=== PATIENT | male | born 1945 | race Caucasian/White ===

== ENCOUNTER → 2017-04-12 | Outpatient (CLI) | payer MEDICARE ==
--- NOTE | 2017-04-12 15:34 | US ---
EXAMINATION TYPE: US bladder DATE OF EXAM: 04/12/2017 COMPARISON: US latter April 12 2016 CLINICAL HISTORY: [id number] urination. Frequent urination, weak urine stream EXAM MEASUREMENTS: Post Void Residual Volume: 9.0 mL Color Doppler performed to assess ureteral jets. Bilateral Jets seen: yes Normal Post Void Residual (less than 50ml): yes Initial images of bladder show no worrisome intraluminal mass or wall thickening though it is somewha t poorly distended. After voiding minimal residual urine is present. IMPRESSION: No significant finding is seen to account for patient's symptoms.
== END | disposition home or self-care (01) ==
LOC: RADUSWWP 13:42
PROVIDERS: ATTEND Family Medicine
DX: R35.0 Frequency of micturition (principal)
CPT/HCPCS: 76857

== ENCOUNTER 2018-01-06 17:13 | Observation (INO) | payer MEDICARE ==
[2018-01-06] MEDS ORDERED: HEPARIN SODIUM,PORCINE 5,000 UNIT/ML 1 ML VIAL IV PRN (17:28)
[2018-01-06] MEDS ORDERED: HEPARIN SODIUM,PORCINE 5,000 UNIT/ML 1 ML VIAL IV ONE (17:28)
[2018-01-06] MEDS ORDERED: HEPARIN SOD,PORK IN 0.45% NACL 25,000 UNIT in 0.45% NACL 1 500ML.BAG IV SCH (17:30)
[2018-01-06 18:03] LABS: Basophils % (A) 0 %; Eosinophils # (A) 0.1 k/uL (0-0.7); Eosinophils % (A) 1 %; HCT 42.6 % (39.0-53.0); HGB 14.4 gm/dL (13.0-17.5); Lymphocytes # (A) 0.8 k/uL (1.0-4.8); Lymphocytes % (A) 9 %; MCH 31.2 pg (25.0-35.0); MCHC 33.8 g/dL (31.0-37.0); MCV 92.2 fL (80.0-100.0); Mean Platelet Volume 6.5; Monocytes # (A) 1.1 k/uL (0-1.0); Monocytes % (A) 13 %; Neutrophils # (A) 6.2 k/uL (1.3-7.7); Neutrophils % (A) 72 %; Platelet Count 192 k/uL (150-450); RBC 4.62 m/uL (4.30-5.90); RDW 15.2 % (11.5-15.5); WBC 8.6 k/uL (3.8-10.6)
[2018-01-06 18:12] LABS: INR 1.2 (<1.2); Partial Thromboplastin Time 26.5 sec (22.0-30.0); Prothrombin Time 11.9 sec (9.0-12.0)
[2018-01-06 18:15] LABS: Glucose,Whole Blood 87 mg/dL (75-99)
[2018-01-06 19:23] LABS: Appearance,Urine Clear (Clear); Bacteria,Urine Rare /hpf; Bilirubin,Urine Negative (Negative); Blood,Urine Negative (Negative); Color,Urine Yellow; Glucose,Urine (UA) Negative (Negative); Hyaline Casts,Urine 4 /lpf (0-2); Ketones,Urine Negative (Negative); Leukocyte Esterase,Urine Large (Negative); Mucus,Urine Few /hpf; Nitrite,Urine Negative (Negative); Protein,Urine Trace (Negative); RBC,Urine 4 /hpf (0-5); Specific Gravity,Urine 1.021 (1.001-1.035); Squamous Epithelial Cell,Urine <1 /hpf (0-4); WBC,Urine 21 /hpf (0-5)
[2018-01-06] MEDS ORDERED: cefTRIAXone IN SWFI 1,000 MG/10 ML SYRINGE IVP STA (19:36)
--- NOTE | 2018-01-06 20:07 | XR ---
EXAMINATION TYPE: XR chest 2V DATE OF EXAM: 01/06/2018 COMPARISON: 06/03/2016 HISTORY: Chest pain TECHNIQUE: Frontal and lateral views of the chest are obtained. FINDINGS: There is no heart failure nor confluent pneumonic infiltrate. Costophrenic angles are aleja r. Thoracic aorta is atheromatous. There is no sign of pleural effusion. Bony thorax is intact. There is spurring in the thoracic spine. IMPRESSION: No active cardiopulmonary disease. No change.
[2018-01-06] MEDS ORDERED: NALOXONE 0.4 MG/ML 1 ML VIAL IV PRN (20:31)
--- NOTE | 2018-01-06 20:39 | ED ---
General Adult HPI - General Chief complaint: Arrhythmia/Palpitations Stated complaint: abnormal results lab or ekg Source: patient Mode of arrival: ambulatory Limitations: no limitations - History of Present Illness Initial comments: Dictation was produced using [employer] dictation software. please excuse any grammatical, word or spelling errors. 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 According to primary care physician patient was seen at the office today where he was found to have systolic blood pressure in the 80s. Primary care physician thought that he looked unwell. They did a urine which showed findings to suggest urinary tract infection. Patient also had a critical high hyperglycemia. Patient reports that since he' s been in the emergency department he is asymptomatic. Patient is a unreliable historian secondary to baseline mental status. The ROS documented in this emergency department record has been reviewed and confirmed by me. Those systems with pertinent positive or negative responses have been documented in the HPI. All other systems are other negative and/or noncontributory. - Related Data Home Medications Medication Instructions Recorded Confirmed Cholecalciferol [Vitamin D3] 1,000 unit PO DAILY 09/04/14 01/06/18 Omeprazole [PriLOSEC] 20 mg PO DAILY 09/04/14 01/06/18 Simvastatin [Zocor] 40 mg PO HS 09/04/14 01/06/18 Insuln Asp Prt/Insulin Aspart 55 unit SQ HS 01/06/18 01/06/18 [NovoLOG MIX 70-30 VIAL] Insuln Asp Prt/Insulin Aspart 100 unit SQ [facility] 01/06/18 01/06/18 [NovoLOG MIX 70-30 VIAL] Previous Rx's Medication Instructions Recorded Apixaban [Eliquis] 5 mg PO BID #60 tab 05/31/16 Doxazosin [Cardura] 1 mg PO HS #0 05/31/16 Furosemide [Lasix] 20 mg PO DAILY #30 tab 05/31/16 Lisinopril [Zestril] 5 mg PO DAILY #30 tab 05/31/16 Metoprolol Tartrate [Lopressor] 25 mg PO BID #60 tab 05/31/16 Allergies Allergy/AdvReac Type Severity Reaction Status Date / Time No Known Allergies Allergy Verified 01/06/18 18:06 Review of Systems ROS Statement: Those systems with pertinent positive or pertinent negative responses have been documented in the HPI. ROS Other: All systems not noted in ROS Statement are negative. Past Medical History Past Medical History: Diabetes Mellitus, GERD/Reflux, Hyperlipidemia, Hypertension History of Any Multi-Drug Resistant Organisms: None Reported Past Surgical History: Hernia Repair Additional Past Surgical History / Comment(s): umbilical hernia rep Past Psychological History: No Psychological Hx Reported Smoking Status: Never smoker Past Alcohol Use History: Daily Past Drug Use History: None Reported - Past Family History Mother Additional Family Medical History / Comment(s): of heart attack, patient states had heart problems General Exam - General Exam Comments Initial Comments: PHYSICAL EXAM: General Impression: Alert and oriented x3, not in acute distress HEENT: Normocephalic atraumatic, extra-ocular movements intact, pupils equal and reactive to light bilaterally, mucous membranes moist. Cardiovascular: Heart regular rate and rhythm, S1&S2 audible, no murmurs, rubs or gallops Chest: Lungs clear to auscultation bilaterally, no rhonchi, no wheeze, no rales Abdomen: Bowel sounds present, abdomen soft, non-tender, non-distended, no organomegaly Musculoskeletal: Pulses present and equal in all extremities, no peripheral edema Motor: Power 5/5 bilaterally, no focal deficits noted Neurological: CN II-XII grossly intact, no focal motor or sensory deficits noted Skin: Intact with no visualized rashes Psych: Normal affect and mood exam: Inverted penis, no testicular tenderness, no erythema to the groin or perineal area Limitations: no limitations Course Vital Signs 01/06/18 01/06/18 17:26 18:33 Temperature 97.3 F L Pulse Rate 91 94 Respiratory 18 16 Rate Blood Pressure 142/85 164/83 O2 Sat by Pulse 91 L 96 Oximetry Medical Decision Making - Medical Decision Making ED course: 72-year-old male with multiple comorbidities presents from primary care physician's office for symptoms of sepsis. Discussed patient case with primary care physician who requested workup for sepsis. Vital signs upon arrival are within normal limits. Patient is unable course. He does have a history of atrial fibrillation. Patient's heart rate jumps anywhere in the 1 teens to 120s. Laboratory evaluation obtained. CBC is unremarkable remarkable. No leukocytosis. Coag panel unremarkable. Point of care blood glucose is 87. Urine study shows findings to suggest urinary tract infection. Patient appears stable at this time. At this point there is no clinical suspicion of sepsis or septic shock at this time. Patient given 1 g of IV ceftriaxone. Blood cultures and urine cultures pending. Decision was made with primary care physician to have patient admitted to observation for further monitoring. Patient appears well at this time. He is understandable agreeable to disposition. EKG Interpretation: A 12 lead EKG was obtained. It was interpreted by myself and attending physician. There is a P wave before every QRS complex. Rate is 107. Rhythm is atrial fibrillation, QRS 90, QTc 443. QT is not prolonged. No ST segment depression or elevation. . Overall, this EKG is unremarkable - Lab Data Result diagrams: 01/06/18 17:52 Lab Results 01/06/18 01/06/18 01/06/18 Range/Units 17:47 17:52 17:52 WBC 8.6 (3.8-10.6) k/uL RBC 4.62 (4.30-5.90) m/uL Hgb 14.4 (13.0-17.5) gm/dL Hct 42.6 (39.0-53.0) % MCV 92.2 (80.0-100.0) fL MCH 31.2 (25.0-35.0) pg MCHC 33.8 (31.0-37.0) g/dL RDW 15.2 (11.5-15.5) % Plt Count 192 (150-450) k/uL Neutrophils % 72 % Lymphocytes % 9 % Monocytes % 13 % Eosinophils % 1 % Basophils % 0 % Neutrophils # 6.2 (1.3-7.7) k/uL Lymphocytes # 0.8 L (1.0-4.8) k/uL Monocytes # 1.1 H (0-1.0) k/uL Eosinophils # 0.1 (0-0.7) k/uL Basophils # 0.0 (0-0.2) k/uL PT 11.9 (9.0-12.0) sec INR 1.2 H (<1.2) APTT 26.5 (22.0-30.0) sec POC Glucose (mg/dL) 87 (75-99) mg/dL POC Glu Geology Faculty Member ID Ileana, Pallavi Plasma Lactic Acid Addison (0.7-2.0) mmol/L Troponin I (0.000-0.034) ng/mL Urine Color Urine Appearance (Clear) Urine pH (5.0-8.0) Ur Specific [place] (1.001-1.035) Urine Protein (Negative) Urine Glucose (UA) (Negative) Urine Ketones (Negative) Urine Blood (Negative) Urine Nitrite (Negative) Urine Bilirubin (Negative) Urine Urobilinogen (<2.0) mg/dL Ur Leukocyte Esterase (Negative) Urine RBC (0-5) /hpf Urine WBC (0-5) /hpf Ur Squamous Epith Cells (0-4) /hpf Urine Bacteria (None) /hpf Hyaline Casts (0-2) /lpf Urine Mucus (None) /hpf 01/06/18 01/06/18 01/06/18 Range/Units 17:52 18:28 19:14 WBC (3.8-10.6) k/uL RBC (4.30-5.90) m/uL Hgb (13.0-17.5) gm/dL Hct (39.0-53.0) % MCV (80.0-100.0) fL MCH (25.0-35.0) pg MCHC (31.0-37.0) g/dL RDW (11.5-15.5) % Plt Count (150-450) k/uL Neutrophils % % Lymphocytes % % Monocytes % % Eosinophils % % Basophils % % Neutrophils # (1.3-7.7) k/uL Lymphocytes # (1.0-4.8) k/uL Monocytes # (0-1.0) k/uL Eosinophils # (0-0.7) k/uL Basophils # (0-0.2) k/uL PT (9.0-12.0) sec INR (<1.2) APTT (22.0-30.0) sec POC Glucose (mg/dL) (75-99) mg/dL POC Glu Geology Faculty Member ID Plasma Lactic Acid Addison 1.2 (0.7-2.0) mmol/L Troponin I <0.012 (0.000-0.034) ng/mL Urine Color Yellow Urine Appearance Clear (Clear) Urine pH 7.0 (5.0-8.0) Ur Specific [place] 1.021 (1.001-1.035) Urine Protein Trace H (Negative) Urine Glucose (UA) Negative (Negative) Urine Ketones Negative (Negative) Urine Blood Negative (Negative) Urine Nitrite Negative (Negative) Urine Bilirubin Negative (Negative) Urine Urobilinogen 4.0 (<2.0) mg/dL Ur Leukocyte Esterase Large H (Negative) Urine RBC 4 (0-5) /hpf Urine WBC 21 H (0-5) /hpf Ur Squamous Epith Cells <1 (0-4) /hpf Urine Bacteria Rare H (None) /hpf Hyaline Casts 4 H (0-2) /lpf Urine Mucus Few H (None) /hpf Disposition Clinical Impression: Hypotension Disposition: ADMITTED IP TO THIS HOSP Referrals: Yadiel Tomlinson MD [Primary Care Provider] - 1-2 days Decision Time: 20:39
[2018-01-06 21:02] LABS: Calcium 9.4 mg/dL (8.4-10.2); Potassium 4.2 mmol/L (3.5-5.1)
[2018-01-06 22:01] LABS: Glucose,Whole Blood 130 mg/dL (75-99)
[2018-01-06 22:06] VITALS: BMI 43.5
[2018-01-06] MEDS: ATORVASTATIN 20 MG TAB PO SCH (22:10)
[2018-01-06] MEDS: APIXABAN 5 MG TAB PO SCH (22:10)
[2018-01-06] MEDS: INSULN ASP PRT/INSULIN ASPART 100 UNIT/ML 10 ML VIAL SQ SCH (22:12)
[2018-01-07 07:25] LABS: Glucose,Whole Blood 106 mg/dL (75-99)
[2018-01-07] MEDS: APIXABAN 5 MG TAB PO SCH ×2 (07:40→20:09)
[2018-01-07] MEDS: INSULN ASP PRT/INSULIN ASPART 100 UNIT/ML 10 ML VIAL SQ SCH ×2 (08:30→20:08)
[2018-01-07 08:34] LABS: Glucose,Whole Blood 188 mg/dL (75-99)
[2018-01-07 11:46] LABS: Glucose,Whole Blood 85 mg/dL (75-99)
[2018-01-07] MEDS: AMOXIC-POT CLAV 875-125MG 1 EACH TAB PO SCH ×2 (12:34→20:09)
--- NOTE | 2018-01-07 14:07 | PN ---
PROGRESS NOTE DATE OF SERVICE: 01/07/2018 CHIEF COMPLAINT: Hypotension, urinary tract infection. HISTORY OF PRESENT ILLNESS: This gentleman is doing much better. He feels much better. She feels stronger and blood pressure is improved as well as his blood sugar. PHYSICAL EXAM: Chest is clear. The cardiac exam is unremarkable except for atrial fibrillation and the abdomen is soft, nontender. IMPRESSION: 1. Hypotension. 2. Diabetes. 3. Urinary tract infection. 4. Sepsis-rule out. PLAN: Continue with IV fluids and regular diet and activity and he will probably be able to be discharged tomorrow. MMODL / IJN: [id number] /
--- NOTE | 2018-01-07 14:16 | HP ---
HISTORY AND PHYSICAL CHIEF COMPLAINT: Malaise, weakness, nausea, diaphoresis, elevated blood sugar, and hypotension. HISTORY OF PRESENT ILLNESS: This is another admission for this 72-year-old obese white male. He has a long- standing history of fairly well-controlled insulin-dependent diabetes mellitus, hypertension, and obesity. About 3 days before coming in the office, he started to develop malaise and generalized weakness. His blood sugars is usually fairly well- controlled, but the day of admission, it shot up to 300. He had chills, but he had no cough. He any no urinary complaints. He had no chest pain. He has some episodes of diaphoresis. He came to the office. He looked pale and he was slightly clammy. Blood pressure was 80 systolically. EKG demonstrated new once a new onset atrial fibrillation with out any definite ST-segment or Q-wave changes. Urine demonstrated WBCs. Chest x-ray demonstrated no active disease. Based on his blood pressure, weakness, malaise, and unexplained elevation of his blood sugars with obvious urinary tract infection, he was sent to the hospital for further evaluation. Troponin was negative. The lactic acid was not critical. His blood pressure had come up somewhat at that time. He was admitted as possible sepsis due to urinary tract infection with other etiologies to be ruled out. REVIEW OF SYSTEMS: He offered no other complaints than those already mentioned. He had no cough, hemoptysis, melena, hematochezia, diarrhea, vomiting, etc. Past medical history, family history, personal and social histories reveal that he cannot take INFLUENZA VACCINE, but has no other allergies. He is on oxybutynin 15 mg at bedtime, NovoLog 70/30 ninety units in the morning and 50 at night, vitamin D3, metoprolol 25 mg twice a day, Eliquis 5 mg twice a day, lisinopril 5 mg once a day, simvastatin 40 mg at bedtime, and Prilosec. He does not smoke. He does not drink. PHYSICAL EXAM: Blood pressure in the office was 90/60. Pulse is 100. Temperature 99.7, respirations 22. In general, he appeared to be pale and diaphoretic and acutely ill. Head, ears, eyes, nose, mouth, and throat were normal. He does have strabismus. Neck veins not distended and carotids are normal. Chest is clear. Cardiac exam demonstrates a rapid irregularly rate and rhythm. The chest is clear but breath sounds are decreased. The abdomen is soft and protuberant. There are no masses or visceromegaly. The extremities are normal. Neurologically, he is intact. He was admitted to the hospital with diagnoses: 1. Hypotension. 2. Diaphoresis. 3. Uncontrolled diabetes. 4. Urinary tract infection. 5. Rule out sepsis. 6. Rule out a silent myocardial infarction. 7. Atrial fibrillation. PLAN: 1. Bed rest. 2. IV fluids. 3. Serial EKGs and enzymes. 4. Anticoagulation. 5. IV antibiotics. MMODL / IJN: [id number] /
[2018-01-07 16:25] LABS: Glucose,Whole Blood 108 mg/dL (75-99)
[2018-01-07 20:04] LABS: Glucose,Whole Blood 119 mg/dL (75-99)
[2018-01-07] MEDS: ATORVASTATIN 20 MG TAB PO SCH (20:09)
[2018-01-08 07:27] LABS: Glucose,Whole Blood 78 mg/dL (75-99)
[2018-01-08] MEDS: APIXABAN 5 MG TAB PO SCH ×2 (08:21→20:26)
[2018-01-08] MEDS: AMOXIC-POT CLAV 875-125MG 1 EACH TAB PO SCH ×2 (08:21→20:26)
[2018-01-08 09:02] LABS: Glucose,Whole Blood 153 mg/dL (75-99)
[2018-01-08 10:20] LABS: Glucose,Whole Blood 173 mg/dL (75-99)
[2018-01-08] MEDS: INSULN ASP PRT/INSULIN ASPART 100 UNIT/ML 10 ML VIAL SQ SCH ×2 (10:52→20:26)
[2018-01-08] MEDS ORDERED: SODIUM CHLORIDE 0.9% 500 ML IV ONE (11:37)
[2018-01-08 11:38] LABS: Glucose,Whole Blood 135 mg/dL (75-99)
[2018-01-08] MEDS ORDERED: DIPHENOX-ATROP 2.5-0.025 MG 1 EACH TAB PO PRN (11:41)
[2018-01-08] MEDS ORDERED: ONDANSETRON 8 MG in SODIUM CHLORIDE 0.9% 50 ML IVPB ONE (11:41)
[2018-01-08 12:22] LABS: HGB 14.8 gm/dL (13.0-17.5); MCH 31.3 pg (25.0-35.0); MCHC 33.7 g/dL (31.0-37.0); MCV 92.8 fL (80.0-100.0); Mean Platelet Volume 6.4; Platelet Count 145 k/uL (150-450); RBC 4.74 m/uL (4.30-5.90); RDW 15.8 % (11.5-15.5)
[2018-01-08 12:58] LABS: Calcium 9.1 mg/dL (8.4-10.2); Potassium 4.5 mmol/L (3.5-5.1); Total Protein 6.8 g/dL (6.3-8.2)
[2018-01-08 13:03] LABS: Eosinophils # (M) 0.18 k/uL (0-0.7); Lymphocytes # (M) 1.44 k/uL (1.0-4.8); Neutrophils # (M) 3.48 k/uL (1.3-7.7); Neutrophils % (M) 58 %; Nucleated Red Blood Cells 0 /100 WBC (0-0); Total Cells Counted 100
[2018-01-08] MEDS: SODIUM CHLORIDE 0.9% 1,000 ML IV SCH (13:17)
[2018-01-08] MEDS: PANTOPRAZOLE 40 MG/10 ML VIAL IVP SCH (13:19)
[2018-01-08 17:32] LABS: Glucose,Whole Blood 144 mg/dL (75-99)
[2018-01-08 20:01] LABS: Glucose,Whole Blood 226 mg/dL (75-99)
[2018-01-08] MEDS: ATORVASTATIN 20 MG TAB PO SCH (20:26)
[2018-01-09] MEDS: SODIUM CHLORIDE 0.9% 1,000 ML IV SCH ×3 (05:03→16:38)
[2018-01-09 07:10] LABS: Glucose,Whole Blood 140 mg/dL (75-99)
[2018-01-09] MEDS: INSULN ASP PRT/INSULIN ASPART 100 UNIT/ML 10 ML VIAL SQ SCH ×2 (07:46→21:32)
[2018-01-09] MEDS: PANTOPRAZOLE 40 MG/10 ML VIAL IVP SCH (07:46)
[2018-01-09] MEDS: AMOXIC-POT CLAV 875-125MG 1 EACH TAB PO SCH ×2 (07:47→21:31)
[2018-01-09] MEDS: APIXABAN 5 MG TAB PO SCH ×2 (07:47→21:31)
[2018-01-09 09:10] LABS: HCT 43.5 % (39.0-53.0); HGB 14.7 gm/dL (13.0-17.5); MCH 30.8 pg (25.0-35.0); MCHC 33.8 g/dL (31.0-37.0); MCV 91.2 fL (80.0-100.0); Mean Platelet Volume 6.4; Platelet Count 172 k/uL (150-450); RBC 4.77 m/uL (4.30-5.90); RDW 15.5 % (11.5-15.5); WBC 5.3 k/uL (3.8-10.6)
[2018-01-09 11:32] LABS: Glucose,Whole Blood 68 mg/dL (75-99)
[2018-01-09 11:55] LABS: Glucose,Whole Blood 73 mg/dL (75-99)
[2018-01-09 15:17] LABS: Glucose,Whole Blood 97 mg/dL (75-99)
[2018-01-09 17:11] LABS: Glucose,Whole Blood 114 mg/dL (75-99)
--- NOTE | 2018-01-09 18:09 | PN ---
PROGRESS NOTE DATE OF SERVICE: 01/08/2018 CHIEF COMPLAINT: Sepsis and urinary tract infection. HISTORY OF PRESENT ILLNESS: This gentleman is doing fairly well but when he was being walked in the j[place] he suddenly beginning to complain of weakness, unsteadiness, and nausea. There is no ready nor obvious cause. His vital signs are normal and blood sugar was not particularly low. He continues in atrial fibrillation, but his other parameters are normal. He is afebrile. Results of his cultures pending. Troponin was negative. PHYSICAL EXAM: Chest is clear. The cardiac exam demonstrates an irregularly irregular rhythm and the abdomen is protuberant, soft, nontender. Neurological seemed to be intact. IMPRESSION: 1. Possible septicemia. 2. Urinary tract infection. 3. Uncontrolled diabetes. PLAN: No change in program except to repeat his troponin and continue with intravenous fluids and care of his diabetes as well as antibiotics. MMODL / IJN: [id number] /
[2018-01-09 20:28] LABS: HCT 41.4 % (39.0-53.0); HGB 13.9 gm/dL (13.0-17.5); MCH 30.3 pg (25.0-35.0); MCHC 33.6 g/dL (31.0-37.0); MCV 90.1 fL (80.0-100.0); Mean Platelet Volume 6.6; Platelet Count 164 k/uL (150-450); RBC 4.59 m/uL (4.30-5.90); RDW 14.9 % (11.5-15.5); WBC 5.4 k/uL (3.8-10.6)
[2018-01-09 20:44] LABS: Glucose,Whole Blood 135 mg/dL (75-99)
[2018-01-09] MEDS: ATORVASTATIN 20 MG TAB PO SCH (21:31)
[2018-01-10 07:03] LABS: Glucose,Whole Blood 166 mg/dL (75-99)
[2018-01-10] MEDS ORDERED: PANTOPRAZOLE 40 MG TABLET PO SCH (07:30)
[2018-01-10] MEDS: INSULN ASP PRT/INSULIN ASPART 100 UNIT/ML 10 ML VIAL SQ SCH (08:06)
[2018-01-10] MEDS: AMOXIC-POT CLAV 875-125MG 1 EACH TAB PO SCH (08:06)
[2018-01-10] MEDS: APIXABAN 5 MG TAB PO SCH (08:06)
[2018-01-10 08:58] VITALS: BP 146/92; PULSE 89; RESP 16; TEMP 97.3
[2018-01-10 09:19] LABS: HCT 42.6 % (39.0-53.0); HGB 14.5 gm/dL (13.0-17.5); MCH 30.7 pg (25.0-35.0); MCV 90.3 fL (80.0-100.0); Mean Platelet Volume 6.7; Platelet Count 182 k/uL (150-450); RBC 4.71 m/uL (4.30-5.90); RDW 14.9 % (11.5-15.5)
[2018-01-10] MEDS: SODIUM CHLORIDE 0.9% 1,000 ML IV SCH (11:39)
[2018-01-10 11:59] LABS: Glucose,Whole Blood 142 mg/dL (75-99)
--- NOTE | 2018-01-10 16:19 | DS ---
DISCHARGE SUMMARY CHIEF COMPLAINT: Hypotension, possible septicemia, urinary tract infection and uncontrolled diabetes. HISTORY OF PRESENT ILLNESS AND PHYSICAL EXAM: Details of this man's history and physical can be found in the initial workup. LABORATORY STUDIES: While he was in the hospital he had laboratory studies, details of which can be found in the laboratory section of his chart. COURSE IN HOSPITAL: After admission, he was placed on bedrest, started on IV fluids and cultures were obtained. He was started on antibiotics for presumed urinary tract infection. Sugars came under good control and he did fairly well. He was to go home on the , but he had an episode of orthostatic dizziness and decided to keep him overnight. He was still having dizziness, but it sounded more like labyrinthitis because it was related to head position. He was doing well enough on the , it was felt that he could go home and he will go home on his usual activity, diet medications, along with Augmentin and he will be seen in the office in a day or two. FINAL DIAGNOSES: 1. Hypotension. 2. Urinary tract infection. 3. Dehydration. 4. Possible sepsis. 5. Atrial fibrillation. 6. Poorly controlled diabetes mellitus. 7. Possible labyrinthitis. OPERATIONS: None. CONSULTATION: None. He is improved. MMODL / IJN: [id number] /
== END 2018-01-10 13:40 | disposition home or self-care (01) ==
LOC: EC 17:13 → 5MS5E 20:32
PROVIDERS: ADMIT Family Medicine; ATTEND Family Medicine
DX: I95.9 Hypotension, unspecified (principal); N39.0 Urinary tract infection, site not specified; E11.65 Type 2 diabetes mellitus with hyperglycemia; R61 Generalized hyperhidrosis; E86.0 Dehydration; I48.91 Unspecified atrial fibrillation; I10 Essential (primary) hypertension; K21.9 Gastro-esophageal reflux disease without esophagitis; E78.5 Hyperlipidemia, unspecified; F81.9 Developmental disorder of scholastic skills, unspecified; E66.9 Obesity, unspecified; Z68.42 Body mass index [BMI] 45.0-49.9, adult; Z79.4 Long term (current) use of insulin; Z79.899 Other long term (current) drug therapy; Z79.01 Long term (current) use of anticoagulants; Z88.7 Allergy status to serum and vaccine; Z82.49 Family history of ischemic heart disease and other diseases of the circulatory system
CPT/HCPCS: 99285 ×2; 96375 ×3; 96376; 96365; 36415; 80053; 80048; 83605; 84484 ×2; 85025 ×2; 85027 ×2; 85610; 85730; 82272; 81001; 87040; 87324; 87086; 71046; G0378 ×5; J0696; J2405; C9113 ×2

== ENCOUNTER → 2018-01-26 | Outpatient (CLI) | payer MEDICARE ==
--- NOTE | 2018-01-27 10:07 | ECHOF ---
Referral Reason:R06.02 Shortness of breath MEASUREMENTS -------- HEIGHT: 165.1 cm WEIGHT: 123.4 kg BP: RVIDd: 3.9 cm (< 3.3) IVSd: 1.5 cm (0.6 - 1.1) LVIDd: 5.4 cm (3.9 - 5.3) LVPWd: 1.4 cm (0.6 - 1.1) IVSs: 1.9 cm LVIDs: 4.7 cm LVPWs: 1.3 cm LA Diam: 5.8 cm (2.7 - 3.8) LAESV Index (A-L): 32.97 ml/m Ao Diam: 2.0 cm (2.0 - 3.7) EPSS: 0.8 cm MV E Alvin: 0.97 m/s MV DecT: 155 ms MV A Alvin: 0.76 m/s MV E/A Ratio: 1.28 AV maxP.24 mmHg AV meanP.74 mmHg RAP: 5.00 mmHg RVSP: 29.96 mmHg MV EF SLOPE: 101.19 mm/s (70 - 150) MV EXCURSION: 1.06 cm (> 18.000) FINDINGS -------- Atrial fibrillation. This was a technically adequate study. The left ventricular size is normal. There is mild concentric left ventricular hypertrophy. Overa ll left ventricular systolic function is low-normal with, an EF between 50 - 55 %. The right ventricle is moderate to severely enlarged. The left atrium is markedly dilated. LA is midly dilated 29-33ml/m2. The right atrial size is normal. There is moderate aortic stenosis present. Peak/mean gradient across the Aortic Valve is 27.24mmHg / 15.74mmHg. Mild mitral annular calcification present. No mitral regurgitation. No regurgitation noted There is no evidence of pulmonary hypertension. The right ventricular syst olic pressure, as measured by Doppler, is 29.96mmHg. There is no pulmonic regurgitation present. The aortic root size is normal. There is no pericardial effusion. CONCLUSIONS -------- 1. The left ventricular size is normal. 2. There is mild concentric left ventricular hypertrophy. 3. Overall left ventricular systolic function is low-normal with, an EF between 50 - 55 %. 4. The right ventricle is moderate to severely enlarged. 5. The left atrium is markedly dilated. 6. LA is midly dilated 29-33ml/m2. 7. The right atrial size is normal. 8. There is moderate aortic stenosis present. 9. Peak/mean gradient across the Aortic Valve is 27.24mmHg / 15.74mmHg. 10. Mild mitral annular calcification present. 11. No mitral regurgitation. 12. No regurgitation noted 13. There is no evidence of pulmonary hypertension. 14. The right ventricular systolic pressure, as measured by Doppler, is 29.96mmHg. 15. There is no pulmonic regurgitation present. 16. The aortic root size is normal. 17. There is no pericardial effusion. DIAMOND CLEANER: Debora Jasso RDCS
== END | disposition home or self-care (01) ==
LOC: RADECHMAIN 12:53
PROVIDERS: ATTEND Family Medicine
DX: E11.65 Type 2 diabetes mellitus with hyperglycemia (principal); Z71.3 Dietary counseling and surveillance; I05.8 Other rheumatic mitral valve diseases; Z88.8 Allergy status to other drugs, medicaments and biological substances
CPT/HCPCS: 93306

== ENCOUNTER 2020-01-05 09:38 | Emergency (ER) | payer MEDICARE ==
[2020-01-05 09:46] VITALS: BP 153/71; PULSE 84; RESP 18; TEMP 98.2
--- NOTE | 2020-01-05 09:59 | ED ---
General Adult HPI - General Chief complaint: Extremity Injury, Lower Stated complaint: leg swelling Time Seen by Provider: 01/05/20 09:40 Source: patient, RN notes reviewed, old records reviewed Mode of arrival: ambulatory Limitations: no limitations - History of Present Illness Initial comments: This is a 74-year-old male who presents emergency department with past medical history significant for being on eliquis. Patient states he thinks he might a bump the anterior aspect of his right leg and it started as a hematoma on the proximal aspect of the anterior right leg and since then the bruising his become darker and moved down his knott area. Patient states has full range of motion of the knee and has full range of motion of the ankle. Patient states there is a little pain over the original site of injury but it's only when you touch it. Patient denies any other injury at this time. - Related Data Home Medications Medication Instructions Recorded Confirmed Cholecalciferol [Vitamin D3 (25 1,000 unit PO DAILY 09/04/14 01/26/18 Mcg = 1000 Iu)] Omeprazole [PriLOSEC] 20 mg PO DAILY 09/04/14 01/26/18 Simvastatin [Zocor] 40 mg PO HS 09/04/14 01/26/18 Insuln Asp Prt/Insulin Aspart 55 unit SQ HS 01/06/18 01/26/18 [NovoLOG MIX 70-30 VIAL] Insuln Asp Prt/Insulin Aspart 100 unit SQ [facility] 01/06/18 01/26/18 [NovoLOG MIX 70-30 VIAL] Previous Rx's Medication Instructions Recorded Apixaban [Eliquis] 5 mg PO BID #60 tab 05/31/16 Doxazosin [Cardura] 1 mg PO HS #0 05/31/16 Furosemide [Lasix] 20 mg PO DAILY #30 tab 05/31/16 Lisinopril [Zestril] 5 mg PO DAILY #30 tab 05/31/16 Metoprolol Tartrate [Lopressor] 25 mg PO BID #60 tab 05/31/16 Amoxic-Pot Clav 875-125Mg 1 each PO Q12HR #20 tab 01/10/18 [Augmentin 875-125] Allergies Allergy/AdvReac Type Severity Reaction Status Date / Time No Known Allergies Allergy Verified 01/05/20 09:42 Review of Systems ROS Statement: Those systems with pertinent positive or pertinent negative responses have been documented in the HPI. ROS Other: All systems not noted in ROS Statement are negative. Past Medical History Past Medical History: Diabetes Mellitus, GERD/Reflux, Hyperlipidemia, Hypertension History of Any Multi-Drug Resistant Organisms: None Reported Past Surgical History: Hernia Repair Additional Past Surgical History / Comment(s): umbilical hernia rep Past Anesthesia/Blood Transfusion Reactions: No Reported Reaction Past Psychological History: No Psychological Hx Reported Smoking Status: Never smoker Past Alcohol Use History: None Reported Past Drug Use History: None Reported - Past Family History Mother Additional Family Medical History / Comment(s): of heart attack, patient states had heart problems General Exam - General Exam Comments Initial Comments: GENERAL: Patient is well-developed and well-nourished. Patient is nontoxic and well- hydrated and is in mild distress. ENT: Neck is soft and supple. No significant lymphadenopathy is noted. Oropharynx is clear. Moist mucous membranes. Neck has full range of motion without eliciting any pain. EYES: The sclera were anicteric and conjunctiva were pink and moist. Extraocular movements were intact and pupils were equal round and reactive to light. Eyelids were unremarkable. SKIN: Patient has ecchymosis over the anterior aspect of the right knott that measures approximately 5 cm in width and 15 cm in length NEUROLOGIC: Patient is alert and oriented x3. Cranial nerves II through XII are grossly intact. Motor and sensory are also intact. Normal speech, volume and content. Symmetrical smile. MUSCULOSKELETAL: Normal extremities with adequate strength and full range of motion. No lower extremity swelling or edema. No calf tenderness. LYMPHATICS: No significant lymphadenopathy is noted PSYCHIATRIC: Normal psychiatric evaluation. Limitations: no limitations Course Vital Signs 01/05/20 09:42 Temperature 98.2 F Pulse Rate 84 Respiratory 18 Rate Blood Pressure 153/71 O2 Sat by Pulse 96 Oximetry Medical Decision Making - Medical Decision Making X-ray shows no acute abnormality. Disposition Clinical Impression: Hematoma of leg Disposition: HOME SELF-CARE Instructions (If sedation given, give patient instructions): Hematoma (ED) Is patient prescribed a controlled substance at d/c from ED?: No Referrals: Yadiel Tomlisnon MD [Primary Care Provider] - 1-2 days Time of Disposition: 10:27
--- NOTE | 2020-01-05 10:20 | XR ---
EXAMINATION TYPE: XR tibia fibula RT DATE OF EXAM: 01/05/2020 COMPARISON: None HISTORY: Trauma, pain and bruising position TECHNIQUE: 2 view right tibia and fibula FINDINGS: No acute fractures or dislocations are evident. Large plantar calcaneal heel spur is noted right vascular calcification is present. There is soft tissue swelling along the anterior tibia. Degenerative changes are noted at the knee. IMPRESSION: 1. No acute osseous abnormality. 2. Anterior tibial soft tissue swelling.
== END 2020-01-05 10:39 | disposition home or self-care (01) ==
LOC: EC 09:38
DX: S80.11XA Contusion of right lower leg, initial encounter (principal); E11.9 Type 2 diabetes mellitus without complications; E78.5 Hyperlipidemia, unspecified; I10 Essential (primary) hypertension; K21.9 Gastro-esophageal reflux disease without esophagitis; Z79.01 Long term (current) use of anticoagulants; Z79.4 Long term (current) use of insulin; Z79.899 Other long term (current) drug therapy; X58.XXXA Exposure to other specified factors, initial encounter
CPT/HCPCS: 99283

== ENCOUNTER 2020-05-27 01:00 | Inpatient (IN) | payer MEDICARE ==
[2020-05-27 02:02] LABS: HCT 41.3 % (39.0-53.0); HGB 13.2 gm/dL (13.0-17.5); MCH 28.9 pg (25.0-35.0); MCHC 31.8 g/dL (31.0-37.0); MCV 90.9 fL (80.0-100.0); Mean Platelet Volume 6.8; Platelet Count 147 k/uL (150-450); RBC 4.55 m/uL (4.30-5.90); RDW 14.4 % (11.5-15.5); WBC 3.9 k/uL (3.8-10.6)
[2020-05-27 02:07] LABS: Albumin 4.1 g/dL (3.5-5.0); C Reactive Protein 9.2 mg/L (<10.0); Calcium 9.3 mg/dL (8.4-10.2); Magnesium 1.5 mg/dL (1.6-2.3); Potassium 4.6 mmol/L (3.5-5.1); Total Bilirubin 0.6 mg/dL (0.2-1.3); Total Protein 7.1 g/dL (6.3-8.2)
[2020-05-27 02:15] LABS: INR 1.1 (<1.2); Partial Thromboplastin Time 29.5 sec (22.0-30.0); Prothrombin Time 11.6 sec (9.0-12.0)
[2020-05-27 02:25] LABS: Appearance,Urine Clear (Clear); Bilirubin,Urine Negative (Negative); Blood,Urine Small (Negative); Color,Urine Yellow; Glucose,Urine (UA) Negative (Negative); Hyaline Casts,Urine 1 /lpf (0-2); Ketones,Urine Negative (Negative); Leukocyte Esterase,Urine Negative (Negative); Mucus,Urine Rare /hpf; Nitrite,Urine Negative (Negative); PH, Urine 6.5 (5.0-8.0); Protein,Urine Trace (Negative); RBC,Urine 3 /hpf (0-5); Specific Gravity,Urine 1.013 (1.001-1.035); Squamous Epithelial Cell,Urine <1 /hpf (0-4); Urobilinogen,Urine <2.0 mg/dL (<2.0); WBC,Urine 1 /hpf (0-5)
[2020-05-27 02:35] LABS: Eosinophils # (M) 0.04 k/uL (0-0.7); Lymphocytes # (M) 0.82 k/uL (1.0-4.8); Monocytes # (M) 1.37 k/uL (0-1.0); Neutrophils # (M) 1.68 k/uL (1.3-7.7); Neutrophils % (M) 43 %; Nucleated Red Blood Cells 0 /100 WBC (0-0); Total Cells Counted 100
--- NOTE | 2020-05-27 02:41 | XR ---
EXAM: XR Chest, 1 View CLINICAL HISTORY: ITS.REASON XR Reason: Suspected COVID-19 pneumonia TECHNIQUE: Frontal view of the chest. COMPARISON: 01/06/2018 FINDINGS: Lungs: Slight bibasilar opacities. Pleural space: No acute findings Heart: cardiomegaly. Bones/joints: No acute findings. IMPRESSION: Slight bibasilar opacities.
--- NOTE | 2020-05-27 02:52 | ED ---
General Adult HPI - General Chief complaint: Upper Respiratory Infection Stated complaint: UTI Time Seen by Provider: 05/27/20 01:05 Source: patient, EMS, RN notes reviewed, old records reviewed Mode of arrival: EMS Limitations: no limitations - History of Present Illness Initial comments: 74-year-old male patient to ED for evaluation. Patient reports that he [place] the mall with his daughter states that last 2 days been having cough co ngestion, difficulty breathing, frequent urination. Daughter similar symptoms. Denies any other complaints. Systemic: Pt denies fatigue, fever/chills, rash. Pt denies weakness, night sweats, weight loss. Neuro: Pt denies headache, visual disturbances, syncope or pre-syncope. HEENT: Pt denies ocular discharge or irritation, otalgia, rhinorrhea, pharyngitis or notable lymphadenopathy. Cardiopulmonary: Pt denies chest pain, heart palpitations, dyspnea on exertion. Abdominal/GI: Pt denies abdominal pain, n/v/d. : Pt denies dysuria, burning w/ urination, frequency/urgency. Denies new onset urinary or bowel incontinence. MSK: Pt denies myalgia, loss of strength or function in extremities. Neuro: Pt denies new onset weakness, paresthesias. - Related Data Home Medications Medication Instructions Recorded Confirmed Cholecalciferol [Vitamin D3 (25 1,000 unit PO DAILY 09/04/14 01/26/18 Mcg = 1000 Iu)] Omeprazole [PriLOSEC] 20 mg PO DAILY 09/04/14 01/26/18 Simvastatin [Zocor] 40 mg PO HS 09/04/14 01/26/18 Insuln Asp Prt/Insulin Aspart 55 unit SQ HS 01/06/18 01/26/18 [NovoLOG MIX 70-30 VIAL] Insuln Asp Prt/Insulin Aspart 100 unit SQ QA 01/06/18 01/26/18 [NovoLOG MIX 70-30 VIAL] Previous Rx's Medication Instructions Recorded Apixaban [Eliquis] 5 mg PO BID #60 tab 05/31/16 Doxazosin [Cardura] 1 mg PO HS #0 05/31/16 Furosemide [Lasix] 20 mg PO DAILY #30 tab 05/31/16 Metoprolol Tartrate [Lopressor] 25 mg PO BID #60 tab 05/31/16 lisinopriL [Zestril] 5 mg PO DAILY #30 tab 05/31/16 Amoxic-Pot Clav 875-125Mg 1 each PO Q12HR #20 tab 01/10/18 [Augmentin 875-125] Allergies Allergy/AdvReac Type Severity Reaction Status Date / Time No Known Allergies Allergy Verified 05/27/20 01:06 Review of Systems ROS Statement: Those systems with pertinent positive or pertinent negative responses have been documented in the HPI. ROS Other: All systems not noted in ROS Statement are negative. Past Medical History Past Medical History: Diabetes Mellitus, GERD/Reflux, Hyperlipidemia, Hypertension History of Any Multi-Drug Resistant Organisms: None Reported Past Surgical History: Hernia Repair Additional Past Surgical History / Comment(s): umbilical hernia rep Past Anesthesia/Blood Transfusion Reactions: No Reported Reaction Past Psychological History: No Psychological Hx Reported Smoking Status: Never smoker Past Alcohol Use History: None Reported Past Drug Use History: None Reported - Past Family History Mother Additional Family Medical History / Comment(s): of heart attack, patient states had heart problems General Exam - General Exam Comments Initial Comments: Constitutional: NAD, AOX3, Pt has pleasant affect. HEENT: NC/AT, trachea midline, neck supple, no lymphadenopathy. Posterior pharynx non erythematous, without exudates. External ears appear normal, without discharge. Mucous membranes moist. Eyes PERRLA, EOM intact. There is no scleral icterus. No pallor noted. Cardiopulmonary: RRR, no murmurs, rubs or gallops, no JVD noted. Wheezing noted anteriorly and posterior lung benton.. No peripheral edema. Abdominal exam: Abdomen soft and non-distended. Abdomen non-tender to palpation in all 4 quadrants. Bowel sounds active in LLQ. No hepatosplenomegaly. No ecc hymosis Neuro: CN II-XII grossly intact. No nuchal rigidity. No raccon eyes, no case sign, no hemotympanum. No cervical spinal tenderness. MSK: No posterior calf tenderness bilaterally, homans sign negative bilaterally. Posterior tibialis and radial pulse +2 bilaterally. Sensation intact in upper and lower extremities. Full active ROM in upper and lower extremities, 5/5 stregnth. Limitations: no limitations Course Vital Signs 05/27/20 05/27/20 01:01 02:00 Temperature 98.6 F Pulse Rate 104 H 91 Respiratory 24 20 Rate Blood Pressure 135/63 133/68 O2 Sat by Pulse 96 98 Oximetry Medical Decision Making - Medical Decision Making 74-year-old male patient to ED for cough congestion and mild shortness of breath. Laboratory investigations are significantly for covid infection. Chest x-ray displayed slight bibasilar opacities. Patient is requiring supplemental oxygen at 2 L, moderate work of breathing. Will be admitted for further evaluation. Case discussed with Dr. Anaya. - Lab Data Result diagrams: 05/27/20 01:45 05/27/20 01:45 Lab Results 05/27/20 05/27/20 05/27/20 Range/Units 01:45 01:45 01:45 WBC 3.9 (3.8-10.6) k/uL RBC 4.55 (4.30-5.90) m/uL Hgb 13.2 (13.0-17.5) gm/dL Hct 41.3 (39.0-53.0) % MCV 90.9 (80.0-100.0) fL MCH 28.9 (25.0-35.0) pg MCHC 31.8 (31.0-37.0) g/dL RDW 14.4 (11.5-15.5) % Plt Count 147 L (150-450) k/uL MPV 6.8 Neutrophils % (Manual) 43 % Lymphocytes % (Manual) 21 % Monocytes % (Manual) 35 % Eosinophils % (Manual) 1 % Neutrophils # (Manual) 1.68 (1.3-7.7) k/uL Lymphocytes # (Manual) 0.82 L (1.0-4.8) k/uL Monocytes # (Manual) 1.37 H (0-1.0) k/uL Eosinophils # (Manual) 0.04 (0-0.7) k/uL Nucleated RBCs 0 (0-0) /100 WBC Manual Slide Review Performed PT 11.6 (9.0-12.0) sec INR 1.1 (<1.2) APTT 29.5 (22.0-30.0) sec D-Dimer 0.20 (<0.60) mg/L FEU Sodium 136 L (137-145) mmol/L Potassium 4.6 (3.5-5.1) mmol/L Chloride 101 (98-107) mmol/L Carbon Dioxide 27 (22-30) mmol/L Anion Gap 8 mmol/L BUN 12 (9-20) mg/dL Creatinine 0.96 (0.66-1.25) mg/dL Est GFR (CKD-EPI)AfAm 90 (>60 ml/min/1.73 sqM) Est GFR (CKD-EPI)NonAf 78 (>60 ml/min/1.73 sqM) Glucose 168 H (74-99) mg/dL Plasma Lactic Acid Addison (0.7-2.0) mmol/L Calcium 9.3 (8.4-10.2) mg/dL Magnesium 1.5 L (1.6-2.3) mg/dL Total Bilirubin 0.6 (0.2-1.3) mg/dL AST 35 (17-59) U/L ALT 17 (4-49) U/L Alkaline Phosphatase 48 (38-126) U/L Lactate Dehydrogenase 470 (313-618) U/L C-Reactive Protein 9.2 (<10.0) mg/L Total Protein 7.1 (6.3-8.2) g/dL Albumin 4.1 (3.5-5.0) g/dL Urine Color Urine Appearance (Clear) Urine pH (5.0-8.0) Ur Specific [place] (1.001-1.035) Urine Protein (Negative) Urine Glucose (UA) (Negative) Urine Ketones (Negative) Urine Blood (Negative) Urine Nitrite (Negative) Urine Bilirubin (Negative) Urine Urobilinogen (<2.0) mg/dL Ur Leukocyte Esterase (Negative) Urine RBC (0-5) /hpf Urine WBC (0-5) /hpf Ur Squamous Epith Cells (0-4) /hpf Hyaline Casts (0-2) /lpf Urine Mucus (None) /hpf Coronavirus (PCR) (Not Detectd) 05/27/20 05/27/20 05/27/20 Range/Units 01:45 01:52 02:14 WBC (3.8-10.6) k/uL RBC (4.30-5.90) m/uL Hgb (13.0-17.5) gm/dL Hct (39.0-53.0) % MCV (80.0-100.0) fL MCH (25.0-35.0) pg MCHC (31.0-37.0) g/dL RDW (11.5-15.5) % Plt Count (150-450) k/uL MPV Neutrophils % (Manual) % Lymphocytes % (Manual) % Monocytes % (Manual) % Eosinophils % (Manual) % Neutrophils # (Manual) (1.3-7.7) k/uL Lymphocytes # (Manual) (1.0-4.8) k/uL Monocytes # (Manual) (0-1.0) k/uL Eosinophils # (Manual) (0-0.7) k/uL Nucleated RBCs (0-0) /100 WBC Manual Slide Review PT (9.0-12.0) sec INR (<1.2) APTT (22.0-30.0) sec D-Dimer (<0.60) mg/L FEU Sodium (137-145) mmol/L Potassium (3.5-5.1) mmol/L Chloride (98-107) mmol/L Carbon Dioxide (22-30) mmol/L Anion Gap mmol/L BUN (9-20) mg/dL Creatinine (0.66-1.25) mg/dL Est GFR (CKD-EPI)AfAm (>60 ml/min/1.73 sqM) Est GFR (CKD-EPI)NonAf (>60 ml/min/1.73 sqM) Glucose (74-99) mg/dL Plasma Lactic Acid Addison 1.4 (0.7-2.0) mmol/L Calcium (8.4-10.2) mg/dL Magnesium (1.6-2.3) mg/dL Total Bilirubin (0.2-1.3) mg/dL AST (17-59) U/L ALT (4-49) U/L Alkaline Phosphatase (38-126) U/L Lactate Dehydrogenase (313-618) U/L C-Reactive Protein (<10.0) mg/L Total Protein (6.3-8.2) g/dL Albumin (3.5-5.0) g/dL Urine Color Yellow Urine Appearance Clear (Clear) Urine pH 6.5 (5.0-8.0) Ur Specific [place] 1.013 (1.001-1.035) Urine Protein Trace H (Negative) Urine Glucose (UA) Negative (Negative) Urine Ketones Negative (Negative) Urine Blood Small H (Negative) Urine Nitrite Negative (Negative) Urine Bilirubin Negative (Negative) Urine Urobilinogen <2.0 (<2.0) mg/dL Ur Leukocyte Esterase Negative (Negative) Urine RBC 3 (0-5) /hpf Urine WBC 1 (0-5) /hpf Ur Squamous Epith Cells <1 (0-4) /hpf Hyaline Casts 1 (0-2) /lpf Urine Mucus Rare H (None) /hpf Coronavirus (PCR) Detected A (Not Detectd) - EKG Data -: EKG Interpreted by Me (and Dr. Anaya ) EKG Comments: Ventricular rate 92, QRS 90, QT/QTC 366/452. Atrial fibrillation. Abnormal EKG. No concern for acute ischemia this time. Disposition Clinical Impression: COVID-19 Disposition: ADMITTED IP TO THIS HOSP Condition: Serious Is patient prescribed a controlled substance at d/c from ED?: No Referrals: Yadiel Tomlinson MD [Primary Care Provider] - 1-2 days
[2020-05-27] MEDS ORDERED: dexAMETHasone 2 MG TAB PO STA (02:53)
[2020-05-27] MEDS ORDERED: NALOXONE 0.4 MG/ML 1 ML VIAL IV PRN (02:57)
[2020-05-27] MEDS: ALBUTEROL NEBULIZED 2.5 MG/3 ML INHALATION STA ×2 (03:32→03:34)
[2020-05-27 07:29] LABS: Glucose,Whole Blood 202 mg/dL (75-99)
[2020-05-27 10:04] LABS: Ferritin 77.1 ng/mL (22.0-322.0)
[2020-05-27] MEDS: ACETAMINOPHEN TAB 325 MG TAB PO PRN (11:03)
[2020-05-27 11:09] LABS: Glucose,Whole Blood 276 mg/dL (75-99)
[2020-05-27] MEDS ORDERED: INSULN ASP PRT/INSULIN ASPART 100 UNIT/ML 10 ML VIAL SQ ONE (12:29)
[2020-05-27 16:55] LABS: Glucose,Whole Blood 229 mg/dL (75-99)
[2020-05-27 20:29] LABS: Glucose,Whole Blood 213 mg/dL (75-99)
[2020-05-27] MEDS: APIXABAN 5 MG TAB PO SCH (20:48)
[2020-05-27] MEDS: TAMSULOSIN 0.4 MG CAP.ER.24H PO SCH (20:55)
[2020-05-27] MEDS: PIOGLITAZONE 30 MG TAB PO SCH (20:55)
[2020-05-27] MEDS: OXYBUTYNIN 15 MG TAB.ER.24 PO SCH (20:56)
[2020-05-27] MEDS ORDERED: AZITHROMYCIN 500 MG in SODIUM CHLORIDE 0.9% 250 ML IVPB STA (20:59)
[2020-05-27] MEDS ORDERED: amLODIPine 5 MG TAB PO SCH (21:00)
[2020-05-27] MEDS: INSULN ASP PRT/INSULIN ASPART 100 UNIT/ML 10 ML VIAL SQ SCH (21:03)
[2020-05-27] MEDS: ZINC SULFATE 220 MG CAP PO SCH (22:14)
--- NOTE | 2020-05-27 23:55 | HP ---
HISTORY AND PHYSICAL CHIEF COMPLAINT: Fever, malaise, weakness and shortness of breath. HISTORY OF PRESENT ILLNESS: This is another admission for this 74-year-old overweight white male with diabetes and hypertension. He was feeling ill for several days with a dry cough, malaise, weakness and fatigue and came to the emergency room. He was found to be positive for SARS-CoV-2. REVIEW OF SYSTEMS: He has had no slowness of cognition, fogginess, focal neurologic deficits, headaches, change in vision or the hearing, hemoptysis, chest pain, orthopnea, abdominal pain, nausea, vomiting, diarrhea, melena, hematochezia, renal failure, dysuria, frequency, urgency, hematuria, or incontinence. Past medical history, family history and personal and social history unremarkable and noncontributory otherwise. Medications can be found in the MAR of his chart. PHYSICAL EXAMINATION: Blood pressure is 142/90 with a pulse of 84, respirations of 38 and he is afebrile. In general, he appeared to be overweight. He was in no acute distress. He did not seem to be tachypneic. Skin color is normal. Skin is dry. Head, ears, eyes, nose, mouth, and throat were normal. Neck is supple. Chest demonstrated scattered rales posteriorly. Cardiac exam is normal. Abdomen is protuberant, soft, nontender without any visceromegaly or masses. Bowel sounds present. Extremities are normal. Neurologic is intact. There is no rash or dermatosis. He was admitted to the hospital with diagnoses: 1. COVID pneumonia. 2. History of hypertension. 3. History of insulin-dependent diabetes. 4. Obesity. PLAN: 1. Bed rest. 2. IV fluids. 3. Consult with Infectious Disease and Pulmonology. MMODL / IJN: [id number] /
--- NOTE | 2020-05-28 03:42 | CONS ---
CONSULTATION DATE OF SERVICE: 05/27/2020 REASON FOR CONSULTATION: COVID-19 pneumonia. HISTORY OF PRESENT ILLNESS: The patient is a 74-year-old male who was brought into the ER around midnight for evaluation of increasing shortness of breath, cough and congestion which these symptoms have been going on for about 2 days before presentation to hospital. The patient now has similar symptoms. The patient has been complaining of shortness of breath on exertion. He did have a cough which is mild to moderate intensity, not bringing up any sputum. Denies any pleuritic chest pain. No nausea, no vomiting. No abdominal pain, no diarrhea. On arrival to the ER, the patient was afebrile. The patient was saturating at 96% on room air, subsequently did have a nasal cannula oxygen however also 96% on room air at the time of my evaluation this afternoon. The patient did have a normal white count with mild lymphopenia. D-dimer was negative. The patient has normal kidney function. Creatinine was normal. CRP 9.2. Procalcitonin was 0.13. Urine was negative. COVID came back positive. The patient did have a chest x- ray which did show slight bibasilar opacity. The patient has been admitted to the hospital. Infectious Disease was consulted for further management. REVIEW OF SYSTEMS: Positive points have been mentioned in HPI. Rest of systems are negative. PAST MEDICAL HISTORY: Diabetes mellitus, gastroesophageal reflux disease, hyperlipidemia, hypertension. PAST SURGICAL HISTORY: Umbilical hernia repair. SOCIAL HISTORY: No history of smoking, drinking or drug use. FAMILY HISTORY: Mother of heart attack. ALLERGIES: No known drug allergies. MEDICATIONS: Medications include the patient is currently on Tylenol, Norvasc, Eliquis, received a dose of dexamethasone from the ER, Narcan, Protonix, Actos, Flomax. PHYSICAL EXAMINATION: Blood pressure 125/67, pulse of 73, temperature 97.7. He is 96% on room air. General description is an elderly male up in the bed in no distress. No tachypnea or accessory muscle of respiration use. HEENT: Examination shows no pallor or scleral icterus. Oral mucous membrane is dry. No pharyngeal erythema or thrush. NECK: Trachea central. No thyromegaly. LUNGS: Unlabored breathing, decreased intensity of breath sounds. No wheeze. HEART: S1, S2. Regular rate and rhythm. ABDOMEN: Soft, no tenderness. No guarding or rigidity. EXTREMITIES: No edema of feet. SKIN EXAMINATION: No rash or mass palpable. NEUROLOGICAL: Patient is awake, alert, oriented x3. Mood and affect normal. LABS: Hemoglobin 13.2, white count 3.9. He did have a normal creatinine 0.96. Liver enzymes are normal. CRP normal. Procalcitonin 0.13. James PCR was detected. Urine is negative. Chest x-ray report mentioned above. DIAGNOSTIC IMPRESSION: Patient admitted to the hospital with increasing shortness of breath, cough and congestion of 2 days duration, which is likely multifactorial, likely secondary to COVID-19 pneumonia; however the patient did have elevated procalcitonin with concern for possible bacterial component to which likely from an atypical pathogen. The patient is currently saturating 96% on room air and would not qualifyor remdesivir. PLAN: 1. Patient will be given dexamethasone 6 mg daily along with Eliquis, zinc sulfate. 2. Will add Zithromax. 3. Will obtain sputum for Gram stain and culture. 4. We will monitor his clinical course closely. If the patient develops any hypoxemia, we will remdesivir. 5. We will follow on clinical condition and investigations to further adjust medication if needed. Thank you for this consultation. Will follow this patient along with you. MMODL / IJN: [id number] / ADAMS
[2020-05-28 06:58] LABS: HCT 39.9 % (39.0-53.0); HGB 12.7 gm/dL (13.0-17.5); MCHC 31.9 g/dL (31.0-37.0); Mean Platelet Volume 7.2; Platelet Count 143 k/uL (150-450); RBC 4.38 m/uL (4.30-5.90); RDW 14.3 % (11.5-15.5); WBC 4.3 k/uL (3.8-10.6)
[2020-05-28 07:09] LABS: Glucose,Whole Blood 82 mg/dL (75-99)
--- NOTE | 2020-05-28 07:17 | XR ---
EXAMINATION TYPE: XR chest 1V portable DATE OF EXAM: 05/28/2020 HISTORY: Shortness of breath. COMPARISON: 05/27/2020 TECHNIQUE: Single view of the chest is submitted. FINDINGS: Demonstrated are scattered senescent parenchymal change. Patchy infiltrate right medial lung base is unchanged. The heart is stable. Hilar and mediastinal structures are within normal limits. Degenerative changes are seen of the dorsal spine. IMPRESSION: 1. Patchy infiltrate right medial lung base is unchanged.
[2020-05-28 08:08] LABS: Lymphocytes # (M) 1.29 k/uL (1.0-4.8); Monocytes # (M) 0.95 k/uL (0-1.0); Neutrophils # (M) 2.06 k/uL (1.3-7.7); Neutrophils % (M) 48 %; Nucleated Red Blood Cells 0 /100 WBC (0-0); Total Cells Counted 100
[2020-05-28] MEDS: ZINC SULFATE 220 MG CAP PO SCH (09:17)
[2020-05-28] MEDS: APIXABAN 5 MG TAB PO SCH ×2 (09:17→21:32)
[2020-05-28] MEDS: INSULN ASP PRT/INSULIN ASPART 100 UNIT/ML 10 ML VIAL SQ SCH ×2 (09:17→21:31)
[2020-05-28] MEDS: PANTOPRAZOLE 40 MG TABLET PO SCH (09:17)
[2020-05-28] MEDS: dexAMETHasone 2 MG TAB PO SCH (09:18)
[2020-05-28 09:25] LABS: Glucose,Whole Blood 128 mg/dL (75-99)
[2020-05-28 09:52] LABS: African American GFR (CKD) 96.5 (60.0-200.0); Albumin 4.1 g/dL (3.80-4.90); Albumin/Globulin Ratio 1.78 (1.60-3.17); BUN/Creat Ratio 21.11 Ratio (12.00-20.00); C Reactive Protein 1.2 mg/dL (0.0-0.8); Globulin 2.3 g/dL (1.6-3.3); Non-African American GFR(CKD) 83.3 (60.0-200.0); Potassium 4.4 mmol/L (3.5-5.5); Total Bilirubin 0.4 mg/dL (0.3-1.2); Total Protein 6.4 g/dL (6.2-8.2)
[2020-05-28 11:52] LABS: Glucose,Whole Blood 59 mg/dL (75-99)
[2020-05-28 13:13] LABS: Glucose,Whole Blood 164 mg/dL (75-99)
--- NOTE | 2020-05-28 14:54 | PN ---
PROGRESS NOTE DATE OF SERVICE: 05/28/2020 CHIEF COMPLAINT: COVID Pneumonia. HISTORY OF PRESENT ILLNESS: This gentleman is doing fairly well, but he states that he is still short of breath. His pulse ox is good; however. He has had no pain, confusion, chills, fever, etc. PHYSICAL EXAM: Demonstrates decreased breath sounds with scattered rales throughout. There is no wheezing. Cardiac exam is normal. Abdomen is protuberant. IMPRESSION: 1. COVID pneumonia. 2. Hypertension. 3. Diabetes. PLAN: Continue on current program. MMODL / IJN: [id number] /
[2020-05-28 16:28] LABS: Glucose,Whole Blood 168 mg/dL (75-99)
[2020-05-28 20:56] LABS: Glucose,Whole Blood 233 mg/dL (75-99)
[2020-05-28] MEDS: AZITHROMYCIN 250 MG TAB PO SCH (21:31)
[2020-05-28] MEDS: OXYBUTYNIN 15 MG TAB.ER.24 PO SCH (21:31)
[2020-05-28] MEDS: TAMSULOSIN 0.4 MG CAP.ER.24H PO SCH (21:32)
[2020-05-28] MEDS: PIOGLITAZONE 30 MG TAB PO SCH (21:32)
--- NOTE | 2020-05-29 01:12 | PN ---
PROGRESS NOTE DATE OF SERVICE: 05/28/2020 REASON FOR FOLLOWUP: COVID-19 infection. INTERVAL HISTORY: Patient is currently afebrile. Patient is breathing more comfortably. The patient denies having any chest pain. Minimal cough. No nausea, vomiting, abdominal pain or diarrhea. PHYSICAL EXAMINATION: Blood pressure is 145/88 with a pulse of 72, temperature 98. He is 93% on room air. General description: The patient is an elderly male lying in bed in no distress. Respiratory system: Unlabored breathing, decreased breath sounds in the bases. No wheeze. Heart S1, S2. Regular rate and rhythm. Abdomen soft, no tenderness. LABORATORY DATA: Hemoglobin 12.7, white count 4.3, BUN of 19, creatinine 0.9. CRP is only 1.2. DIAGNOSTIC IMPRESSION/PLAN: Patient with acute COVID-19 infection in this patient who seemed to have clinically responded to the symptomatic treatment started on including Eliquis, Zithromax, Dexamethasone, zinc sulfate. No significant hypoxemia. We will hold on Remdesivir. Repeat chest x-ray, inflammatory markers tomorrow and continue with supportive care. MMODL / IJN: [id number] /
[2020-05-29 07:04] LABS: Glucose,Whole Blood 105 mg/dL (75-99)
[2020-05-29 07:21] LABS: Basophils % (A) 1 %; Eosinophils % (A) 0 %; HCT 40.8 % (39.0-53.0); HGB 13.6 gm/dL (13.0-17.5); Lymphocytes # (A) 0.8 k/uL (1.0-4.8); Lymphocytes % (A) 13 %; MCH 30.2 pg (25.0-35.0); MCHC 33.2 g/dL (31.0-37.0); MCV 90.8 fL (80.0-100.0); Mean Platelet Volume 7.2; Monocytes % (A) 17 %; Neutrophils % (A) 66 %; Platelet Count 131 k/uL (150-450); RDW 14.1 % (11.5-15.5); WBC 6.1 k/uL (3.8-10.6)
--- NOTE | 2020-05-29 07:29 | XR ---
EXAMINATION TYPE: XR chest 1V portable DATE OF EXAM: 05/29/2020 HISTORY: Shortness of breath. COMPARISON: 05/28/2020 TECHNIQUE: Single view of the chest is submitted. FINDINGS: Demonstrated are scattered senescent parenchymal change. Infiltrate right medial lung base. The heart is stable. Hilar and mediastinal structures are within normal limits. Degenerative changes are seen of the dorsal spine. IMPRESSION: 1. For right lower lobe pneumonia.
[2020-05-29] MEDS: ZINC SULFATE 220 MG CAP PO SCH (08:31)
[2020-05-29] MEDS: PANTOPRAZOLE 40 MG TABLET PO SCH (08:31)
[2020-05-29] MEDS: INSULN ASP PRT/INSULIN ASPART 100 UNIT/ML 10 ML VIAL SQ SCH ×2 (08:31→21:01)
[2020-05-29] MEDS: dexAMETHasone 2 MG TAB PO SCH (08:31)
[2020-05-29] MEDS: APIXABAN 5 MG TAB PO SCH ×2 (08:31→21:02)
[2020-05-29 11:50] LABS: Albumin 4.4 g/dL (3.80-4.90); Albumin/Globulin Ratio 1.76 (1.60-3.17); Anion Gap 7.4 mmol/L (4.00-12.00); Calcium 9.1 mg/dL (8.7-10.3); Carbon Dioxide 29.6 mmol/L (21.6-31.8); Globulin 2.5 g/dL (1.6-3.3); Non-African American GFR(CKD) 73.3 (60.0-200.0); Potassium 4.3 mmol/L (3.5-5.5); Total Bilirubin 0.5 mg/dL (0.3-1.2); Total Protein 6.9 g/dL (6.2-8.2)
[2020-05-29 12:05] LABS: Glucose,Whole Blood 79 mg/dL (75-99)
[2020-05-29 14:50] LABS: Appearance,Urine Clear (Clear); Bilirubin,Urine Negative (Negative); Blood,Urine Trace (Negative); Color,Urine Yellow; Glucose,Urine (UA) Negative (Negative); Ketones,Urine Negative (Negative); Leukocyte Esterase,Urine Negative (Negative); Mucus,Urine Rare /hpf; Nitrite,Urine Negative (Negative); PH, Urine 6.5 (5.0-8.0); Protein,Urine Negative (Negative); RBC,Urine 3 /hpf (0-5); Specific Gravity,Urine 1.011 (1.001-1.035); Squamous Epithelial Cell,Urine <1 /hpf (0-4); Urobilinogen,Urine <2.0 mg/dL (<2.0); WBC,Urine <1 /hpf (0-5)
[2020-05-29 16:50] LABS: Glucose,Whole Blood 229 mg/dL (75-99)
[2020-05-29] MEDS: TAMSULOSIN 0.4 MG CAP.ER.24H PO SCH (21:02)
[2020-05-29] MEDS: PIOGLITAZONE 30 MG TAB PO SCH (21:02)
[2020-05-29] MEDS: AZITHROMYCIN 250 MG TAB PO SCH (21:02)
[2020-05-29] MEDS: OXYBUTYNIN 15 MG TAB.ER.24 PO SCH (21:02)
[2020-05-29 21:07] LABS: Glucose,Whole Blood 274 mg/dL (75-99)
--- NOTE | 2020-05-30 02:51 | PN ---
PROGRESS NOTE DATE OF SERVICE: 05/29/2020 I am covering for Dr. Tomlinson. This 74-year-old gentleman who was admitted with COVID-19 infection, has received Eliquis, Zithromax, dexamethasone, and zinc sulfate. Dr. Rodas is following the patient closely. The most recent chest x-ray which was ordered and evaluated personally by me showed significant bilateral infiltrates. Patient closely monitored at this time. PAST MEDICAL HISTORY: Reviewed. REVIEW OF SYSTEMS: CARDIOVASCULAR SYSTEM: No angina. RESPIRATORY SYSTEM: As mentioned earlier. GI; As mentioned earlier. : No dysuria. NERVOUS SYSTEM: No numbness or weakness. CURRENT MEDICATIONS: Current medications are reviewed and include: Tylenol, Eliquis, Zithromax, Rocephin, NovoLog scale, Protonix, Actos. PHYSICAL EXAMINATION: The patient is alert and oriented x3. Pulse is 59, blood pressure 130/70, respiration 17, temperature 97.7, pulse ox 95% on 2 L. HEENT: Conjunctivae normal. NECK: No jugular venous distention. CARDIOVASCULAR: S1, S2 muffled. RESPIRATORY: Breath sounds diminished at the bases. A few scattered rhonchi and crackles. ABDOMEN: Soft, nontender. LEGS: No edema. No swelling. NERVOUS SYSTEM: No focal deficits. LABS: Accu-Cheks noted. C-reactive protein noted. ASSESSMENT: 1. Acute COVID-19 infection with bilateral pneumonia, interstitial pneumonia with acute hypoxic respiratory failure with possible sepsis, present on admission. 2. Elevated C-reactive protein. 3. Elevated random blood sugar. 4. Thrombocytopenia. 5. History of diabetes mellitus type 2. 6. Gastroesophageal reflux disease. 7. Hypertension. 8. Hyperlipidemia. 9. History of leg pain. 10.History of hernia repair. 11.FULL CODE. RECOMMENDATIONS AND DISCUSSION: In this 74-year-old gentleman who presented with multiple complex medical issues, will continue current medications and continue symptomatic treatment. Continue with antibiotics. Closely follow with Dr. Rodas. DVT prophylaxis. Guarded prognosis because of multiple complex medical issues and further recommendations to follow. MMODL / IJN: [id number] /
--- NOTE | 2020-05-30 06:55 | PN ---
PROGRESS NOTE DATE OF SERVICE: 05/30/2020 REASON FOR FOLLOWUP: Pneumonia. INTERVAL HISTORY: The patient did have a low-grade fever of 100 degrees Fahrenheit this morning. The patient is afebrile since then. The patient seemed to be breathing more comfortably. Denies having any chest pain. He did have a cough, not bringing up any sputum. No nausea, no vomiting. No abdominal pain, no diarrhea. PHYSICAL EXAMINATION: Blood pressure 132/69, pulse of 67, temperature 98.1. He is 96% on room air. General description is a healthy male up in the chair in no distress. RESPIRATORY SYSTEM: Unlabored breathing, decreased breath sounds at the bases. No wheeze. HEART: S1, S2. Regular rate and rhythm. ABDOMEN: Soft, no tenderness. LABS: Hemoglobin 13.6, white count 6.1. D-dimer is normal. BUN of 19, creatinine 1.0. CRP is 2. Chest x-ray with right lower lobe pneumonia. DIAGNOSTIC IMPRESSION AND PLAN: Patient admitted to the hospital with increasing shortness of breath and cough with concern for pneumonia. COVID testing is positive. However, the patient seemed to be clinically responding to Lovenox, dexamethasone, to continue. With concern for possible community-acquired pneumonia, Rocephin and Zithromax. Try to obtain a sputum to narrow down his antibiotics and continue with supportive care. MMODL / IJN: [id number] /
[2020-05-30 07:06] LABS: Glucose,Whole Blood 101 mg/dL (75-99)
[2020-05-30] MEDS: PANTOPRAZOLE 40 MG TABLET PO SCH (08:32)
[2020-05-30] MEDS: INSULN ASP PRT/INSULIN ASPART 100 UNIT/ML 10 ML VIAL SQ SCH ×2 (08:32→21:44)
[2020-05-30] MEDS: dexAMETHasone 2 MG TAB PO SCH (08:32)
[2020-05-30] MEDS: ZINC SULFATE 220 MG CAP PO SCH (08:32)
[2020-05-30] MEDS: APIXABAN 5 MG TAB PO SCH ×2 (08:32→20:11)
[2020-05-30 11:34] LABS: Glucose,Whole Blood 239 mg/dL (75-99)
--- NOTE | 2020-05-30 14:28 | XR ---
EXAMINATION TYPE: XR chest 1V DATE OF EXAM: 05/30/2020 COMPARISON: 05/29/2020 INDICATION: Pneumonia TECHNIQUE: Single frontal view of the chest is obtained. FINDINGS: The heart size is normal. The pulmonary vasculature is normal. Mild infiltrate is through the left lung. IMPRESSION: 1. Mild left mid and lower lung field infiltrate. Correlate for atypical pneumonia.
[2020-05-30 16:38] LABS: Glucose,Whole Blood 162 mg/dL (75-99)
--- NOTE | 2020-05-30 16:52 | PN ---
PROGRESS NOTE DATE OF SERVICE: 05/30/2020 I am covering for Dr. Tomlinson. This is a 74-year-old gentleman who was admitted with COVID-19 infection, is also received dexamethasone, zinc also. Dr. Rodas is following the patient closely with consult line of management. Remdesivir is on hold at this time. The patient is closely monitored. PT, OT is also evaluating the patient. PAST MEDICAL HISTORY: Reviewed. REVIEW OF SYSTEMS: CARDIOVASCULAR SYSTEM: No angina, palpitation. RESPIRATION: As mentioned earlier. GI: As mentioned earlier. : No dysuria. NERVOUS SYSTEM: No numbness or weakness. CURRENT MEDICATIONS: Reviewed and include: Tylenol, Eliquis, Zithromax, Rocephin, NovoLog, Narcan, Toprol-XL, Protonix, Actos, Flomax. PHYSICAL EXAMINATION: Alert and oriented x3, pulse 84, blood pressure 104/60, respirations 17, temperature 100 degrees Fahrenheit, pulse ox 98% on 3 L. HEENT: Conjunctivae normal. NECK: No jugular venous distension. CARDIOVASCULAR SYSTEM: S1, S2, muffled. RESPIRATION: Breath sounds diminished at the bases, bilateral scattered rhonchi, no crackles. ABDOMEN: Soft, nontender. NERVOUS SYSTEM: No focal deficits. LABS: At this time shows CBC, platelets are 131. D-dimer less than 0.17. Otherwise C- reactive at 2 and procalcitonin 0.14. ASSESSMENT: 1. Acute COVID-19 infection with bilateral pneumonia, interstitial pneumonia with acute hypoxic respiratory failure with possible sepsis present on admission. 2. Elevated procalcitonin and possibly some chronic bacteria infection. 3. Elevated CRP. 4. Continued fever. 5. Elevated random blood sugar. 6. Thrombocytopenia. 7. History of diabetes mellitus type 2. 8. GERD. 9. Hypertension. 10.Hyperlipidemia. 11.History of leg pain. 12.History of hernia repair. 13.FULL CODE. RECOMMENDATION: Recommend to continue current management and symptomatic treatment otherwise at this time. Also recommend a chest x-ray which was reviewed personally by me, showed bilateral lesions indicative of COVID-19 pneumonia. I would also recommend a CT scan of the chest also for further delineation. Guarded prognosis. Further recommendations to follow, continue with the antibiotics. Monitor blood sugars closely. DVT prophylaxis. MMODL / IJN: [id number] / ADAMS
[2020-05-30] MEDS: INSULIN ASPART (NovoLOG) 100 UNIT/ML VIAL SQ SCH ×2 (17:20→21:43)
--- NOTE | 2020-05-30 17:56 | CT ---
EXAMINATION TYPE: CT chest wo con DATE OF EXAM: 05/30/2020 COMPARISON: 09/04/2014 HISTORY: Cough, fever. CT DLP: 654.9 mGycm Automated exposure control for dose reduction was used. Images were obtained from the thoracic inlet to the diaphragm with no contrast. There is extensive patchy bilateral pulmonary interstitial and airspace infiltrates throughout the mando ngs. These are more concentrated in the periphery of the lung benton. Heart is slightly enlarged. There is coronary artery calcification. There are mediastinal multiple ly mph nodes that measure up to 1 cm. There are no hilar masses. There is no pericardial effusion. There is no pleural effusion. Upper abdominal soft tissues are intact. There is no evidence of aortic aneurysm. The thoracic spine is intact. There is no compression fracture. Ribs appear intact. IMPRESSION: Extensive bilateral pulmonary infiltrates are essentially new compared to old exam and consistent wit h inflammatory disease. Atherosclerotic vascular disease.
[2020-05-30] MEDS: PIOGLITAZONE 30 MG TAB PO SCH (20:11)
[2020-05-30] MEDS: OXYBUTYNIN 15 MG TAB.ER.24 PO SCH (20:11)
[2020-05-30] MEDS: AZITHROMYCIN 250 MG TAB PO SCH (20:11)
[2020-05-30] MEDS: TAMSULOSIN 0.4 MG CAP.ER.24H PO SCH (20:11)
[2020-05-30 21:33] LABS: Glucose,Whole Blood 212 mg/dL (75-99)
[2020-05-30] MEDS ORDERED: REMDESIVIR 200 MG in SODIUM CHLORIDE 0.9% 250 ML IVPB ONE (22:30)
--- NOTE | 2020-05-30 22:49 | PN ---
PROGRESS NOTE DATE OF SERVICE: 05/30/2020 REASON FOR FOLLOWUP: Pneumonia. INTERVAL HISTORY: Patient did have low grade fever 100 degrees Fahrenheit this evening. The patient subsequently requiring oxygen currently 90% on 3 L. The patient denies having any chest pain. Minimal cough. No abdominal pain or diarrhea. PHYSICAL EXAMINATION: Blood pressure 121/70 with a pulse of 90, temperature 98.2, T-max 100. He is 96% on 4 L nasal cannula. General description is an elderly male up in the chair in no distress. Respiratory system: Unlabored breathing with decreased intensity in breath sounds, with no wheeze. Heart S1, S2. Regular rate and rhythm. ABDOMEN: Soft, no tenderness. CT chest bilateral infiltrate. DIAGNOSTIC IMPRESSION/PLAN: Patient with acute COVID-19 pneumonia failing current treatment with Eliquis, dexamethasone and zinc. We will add Remdesivir and switch dexamethasone to Solu-Medrol and monitor clinical course closely. MMODL / IJN: [id number] /
[2020-05-30] MEDS: methylPREDNISolone SOD SUCCI 125 MG/2 ML VIAL IV SCH (23:38)
[2020-05-30] MEDS: ACETAMINOPHEN TAB 325 MG TAB PO PRN (23:52)
[2020-05-31] MEDS: methylPREDNISolone SOD SUCCI 125 MG/2 ML VIAL IV SCH ×3 (05:56→17:06)
[2020-05-31 07:03] LABS: Glucose,Whole Blood 194 mg/dL (75-99)
[2020-05-31] MEDS: PANTOPRAZOLE 40 MG TABLET PO SCH (08:25)
[2020-05-31] MEDS: INSULIN ASPART (NovoLOG) 100 UNIT/ML VIAL SQ SCH ×4 (08:25→22:51)
[2020-05-31] MEDS: INSULN ASP PRT/INSULIN ASPART 100 UNIT/ML 10 ML VIAL SQ SCH ×2 (08:25→22:52)
[2020-05-31] MEDS: APIXABAN 5 MG TAB PO SCH ×2 (08:25→22:24)
[2020-05-31] MEDS: ZINC SULFATE 220 MG CAP PO SCH (08:25)
[2020-05-31 11:24] LABS: Glucose,Whole Blood 216 mg/dL (75-99)
[2020-05-31 16:37] LABS: Glucose,Whole Blood 244 mg/dL (75-99)
[2020-05-31] MEDS: AZITHROMYCIN 250 MG TAB PO SCH (22:25)
[2020-05-31] MEDS: PIOGLITAZONE 30 MG TAB PO SCH (22:25)
[2020-05-31] MEDS: REMDESIVIR 100 MG in SODIUM CHLORIDE 0.9% 250 ML IVPB SCH (22:26)
[2020-05-31] MEDS: OXYBUTYNIN 15 MG TAB.ER.24 PO SCH (22:26)
[2020-05-31 22:50] LABS: Glucose,Whole Blood 265 mg/dL (75-99)
[2020-05-31] MEDS: TAMSULOSIN 0.4 MG CAP.ER.24H PO SCH (22:54)
--- NOTE | 2020-05-31 23:07 | PN ---
PROGRESS NOTE DATE OF SERVICE: 05/31/2020 I am covering for Dr. Tomlinson. This 74-year-old gentleman, admitted with Covid-19 infection was started on Remdesivir. The patient had a CT scan of the chest which I personally reviewed which showed bilateral lesions suggestive of COVID-19 pneumonia. The patient had normal D-dimer. Past medical history reviewed. REVIEW OF SYSTEMS: CARDIOVASCULAR: No angina. Respiration as mentioned earlier. GI: As mentioned earlier. no dysuria. NERVOUS SYSTEM: No numbness or weakness. CURRENT MEDICATIONS: Reviewed and include: Tylenol, Eliquis, Zithromax Rocephin. NovoLog Mix, Ditropan. Remdesivir. PHYSICAL EXAM: Patient is alert, oriented x3. Pulse 92, blood pressure 130/77, respiration 18, temperature 98.2, pulse ox 98% on 3 L. HEENT is conjunctivae normal. Neck: No JVD. CARDIOVASCULAR: S1, S2 muffled. RESPIRATORY SYSTEM: Breath sounds diminished at the bases. A few scattered rhonchi. No crackles. ABDOMEN: Soft. Nontender. Legs are no edema. NERVOUS SYSTEM: No focal deficits. LABS: Platelets are 131. ASSESSMENT: 1. Acute Covid-19 infection with bilateral interstitial pneumonia with acute hypoxic respiratory failure with possible sepsis present on admission. 2. On Remdesivir. 3. Elevated procalcitonin, possibly some super added bacterial infection. 4. Elevated CRP. 5. Continued fever. 6. Elevated random blood sugar. 7. Thrombocytopenia. 8. History of diabetes type 2. 9. Gastroesophageal reflux disease. 10.Hypertension. 11.Hyperlipidemia. 12.History of leg pain. 13.History of hernia repair. 14.FULL CODE. RECOMMENDATIONS AND DISCUSSION: Recommend to continue current medications, management and symptomatic treatment. Otherwise at this time COVID-19 is positive. I would recommend continue with Remdesivir. We will continue the broad-spectrum IV antibiotics. Follow the cultures. Otherwise, guarded prognosis because of multiple complex medical issues. Further recommendations to follow. MMODL / IJN: [id number] /
[2020-06-01] MEDS: methylPREDNISolone SOD SUCCI 125 MG/2 ML VIAL IV SCH ×4 (02:20→16:37)
--- NOTE | 2020-06-01 04:57 | PN ---
PROGRESS NOTE DATE OF SERVICE: 05/31/2020 REASON FOR FOLLOWUP: Acute COVID-19 pneumonia. INTERVAL HISTORY: Patient is currently afebrile, has been breathing comfortably. Still requiring supplemental oxygen. No chest pain. Minimal cough. Complaining of some sore throat. No diarrhea. PHYSICAL EXAMINATION: Blood pressure 120/69, pulse of 73, temperature 97.9. He is 93% on 3 L nasal cannula. General description is an elderly male up in the chair in no distress. Respiratory system: Unlabored breathing, decreased intensity of breath sounds, no wheeze. Heart S1, S2. Regular rate and rhythm. Abdomen is soft. No tenderness. LABS: No new labs have been obtained today. DIAGNOSTIC IMPRESSION AND PLAN: Patient with acute COVID-19 infection. The patient was started on Remdesivir yesterday, to continue along with anticoagulation, steroids and respiratory support. Will monitor clinical course closely. MMODL / IJN: [id number] /
[2020-06-01 07:03] LABS: Basophils # (A) 0.2 k/uL (0-0.2); Basophils % (A) 2 %; Eosinophils % (A) 0 %; HCT 40.4 % (39.0-53.0); HGB 13.4 gm/dL (13.0-17.5); Lymphocytes # (A) 0.5 k/uL (1.0-4.8); Lymphocytes % (A) 6 %; MCH 29.7 pg (25.0-35.0); MCHC 33.2 g/dL (31.0-37.0); MCV 89.5 fL (80.0-100.0); Mean Platelet Volume 7.2; Monocytes # (A) 0.8 k/uL (0-1.0); Monocytes % (A) 10 %; Neutrophils # (A) 5.6 k/uL (1.3-7.7); Neutrophils % (A) 78 %; Platelet Count 163 k/uL (150-450); RBC 4.52 m/uL (4.30-5.90); RDW 13.7 % (11.5-15.5); WBC 7.3 k/uL (3.8-10.6)
[2020-06-01 07:09] LABS: Glucose,Whole Blood 123 mg/dL (75-99)
[2020-06-01] MEDS: INSULIN ASPART (NovoLOG) 100 UNIT/ML VIAL SQ SCH ×4 (07:16→21:16)
[2020-06-01] MEDS: INSULN ASP PRT/INSULIN ASPART 100 UNIT/ML 10 ML VIAL SQ SCH ×2 (09:04→21:17)
[2020-06-01] MEDS: APIXABAN 5 MG TAB PO SCH ×2 (09:04→21:19)
[2020-06-01] MEDS: PANTOPRAZOLE 40 MG TABLET PO SCH (09:04)
[2020-06-01] MEDS: ZINC SULFATE 220 MG CAP PO SCH (09:04)
[2020-06-01 09:57] LABS: African American GFR (CKD) 96.5 (60.0-200.0); Anion Gap 7.7 mmol/L (4.00-12.00); BUN/Creat Ratio 32.22 Ratio (12.00-20.00); Calcium 8.8 mg/dL (8.7-10.3); Carbon Dioxide 29.3 mmol/L (21.6-31.8); Non-African American GFR(CKD) 83.3 (60.0-200.0); Potassium 4.3 mmol/L (3.5-5.5)
[2020-06-01 11:33] LABS: Glucose,Whole Blood 194 mg/dL (75-99)
[2020-06-01 16:26] LABS: Glucose,Whole Blood 219 mg/dL (75-99)
--- NOTE | 2020-06-01 18:35 | PN ---
PROGRESS NOTE DATE OF SERVICE: 06/01/2020 I am covering for Dr. Tomlinson. This 74-year-old gentleman admitted with acute Covid-19 infection, on Remdesivir. The patient also had a CT chest showed bilateral lesions extremely suggestive of Covid-19 interstitial pneumonia. The patient is started on Remdesivir. Patient is still hypoxic. Patient being closely monitored. Dr. Rodas is following the patient closely at this time. Past medical history reviewed. REVIEW OF SYSTEMS: Cardiovascular system: No angina or palpitations. Respiratory system: As mentioned earlier. GI: As mentioned earlier. no dysuria. NERVOUS SYSTEM: No numbness, weakness. CURRENT MEDICATIONS: Reviewed and include: Tylenol, Eliquis, Zithromax, Rocephin. NovoLog mix, Remdesivir, doses reviewed. PHYSICAL EXAM: Patient is alert, oriented x2. Pulse is 69. Blood pressure 120/68, respiration 17, temperature 97.2, pulse ox 94% on 3 L. HEENT: Conjunctivae normal. Neck: No JVD. CARDIOVASCULAR: S1, S2 muffled. RESPIRATORY SYSTEM: Breath sounds diminished in the bases. Bilateral scattered rhonchi and crackles. ABDOMEN: Soft, nontender. Legs are no edema. No swelling. NERVOUS SYSTEM: No focal deficits. LABORATORY DATA: CBC within normal limits. Glucose 194. ASSESSMENT: 1. Acute COVID-19 infection with bilateral interstitial pneumonia with acute hypoxic respiratory failure with possible sepsis, present on admission. 2. On Remdesivir. 3. Elevated procalcitonin, possibly supra added bacterial infection. 4. Elevated CRP. 5. Continued fever. 6. Elevated random blood sugar. 7. Thrombocytopenia. 8. Diabetes type 2. 9. Gastroesophageal reflux disease. 10.Hypertension. 11.Hyperlipidemia. 12.History of leg pain. 13.History of hernia repair. 14.FULL CODE. RECOMMENDATIONS AND DISCUSSION: I recommend to continue current management and symptomatic treatment. Otherwise, at this time, continue with Remdesivir. Continue with bronchodilators. Continue with empiric antibiotics. Otherwise, guarded prognosis because of multiple complex medical issues. Further recommendations to follow. Continue the rest of medications and closely follow with Dr. Rodas. MMODL / IJN: [id number] / MTDD
[2020-06-01 20:35] LABS: Glucose,Whole Blood 263 mg/dL (75-99)
[2020-06-01] MEDS: PIOGLITAZONE 30 MG TAB PO SCH (21:17)
[2020-06-01] MEDS: OXYBUTYNIN 15 MG TAB.ER.24 PO SCH (21:17)
[2020-06-01] MEDS: AZITHROMYCIN 250 MG TAB PO SCH (21:19)
[2020-06-01] MEDS: TAMSULOSIN 0.4 MG CAP.ER.24H PO SCH (21:19)
[2020-06-01] MEDS: REMDESIVIR 100 MG in SODIUM CHLORIDE 0.9% 250 ML IVPB SCH (21:25)
[2020-06-02] MEDS: methylPREDNISolone SOD SUCCI 125 MG/2 ML VIAL IV SCH ×4 (00:27→16:41)
--- NOTE | 2020-06-02 05:08 | PN ---
PROGRESS NOTE DATE OF SERVICE: 06/01/2020 REASON FOR FOLLOWUP: COVID-19 pneumonia. INTERVAL HISTORY: The patient is currently afebrile. He is breathing slightly comfortably. The patient denies having any chest pain. Minimal cough. No nausea, no vomiting. No abdominal pain or diarrhea. PHYSICAL EXAMINATION: Blood pressure is 112/64, pulse of 74, temperature 97.6. He is 94% on 3 L nasal cannula. General description is an elderly male up in the room in no distress. RESPIRATORY SYSTEM: Unlabored breathing, decreased breath sounds at the bases. No wheeze. HEART: S1, S2. Regular rate and rhythm. ABDOMEN: Soft, no tenderness. LABS: Reviewed DIAGNOSTIC IMPRESSION AND PLAN: Patient with acute COVID-19 pneumonia in this patient currently covered with remdesivir, Solu-Medrol, and zinc sulfate to continue. We will recheck inflammatory marker tomorrow and monitor his clinical course closely. MMODL / IJN: [id number] / MTDLars
[2020-06-02 07:13] LABS: Glucose,Whole Blood 207 mg/dL (75-99)
[2020-06-02 07:21] LABS: Basophils # (A) 0.1 k/uL (0-0.2); Basophils % (A) 1 %; Eosinophils % (A) 0 %; HCT 41.6 % (39.0-53.0); HGB 13.4 gm/dL (13.0-17.5); Lymphocytes # (A) 0.6 k/uL (1.0-4.8); Lymphocytes % (A) 9 %; MCHC 32.1 g/dL (31.0-37.0); MCV 90.3 fL (80.0-100.0); Mean Platelet Volume 7.2; Monocytes # (A) 0.3 k/uL (0-1.0); Monocytes % (A) 4 %; Neutrophils # (A) 5.7 k/uL (1.3-7.7); Neutrophils % (A) 84 %; Platelet Count 181 k/uL (150-450); RBC 4.61 m/uL (4.30-5.90); WBC 6.8 k/uL (3.8-10.6)
[2020-06-02] MEDS: INSULIN ASPART (NovoLOG) 100 UNIT/ML VIAL SQ SCH ×4 (07:30→21:23)
[2020-06-02] MEDS: ZINC SULFATE 220 MG CAP PO SCH (07:30)
[2020-06-02] MEDS: PANTOPRAZOLE 40 MG TABLET PO SCH (07:30)
[2020-06-02] MEDS: APIXABAN 5 MG TAB PO SCH ×2 (07:30→20:59)
[2020-06-02] MEDS: INSULN ASP PRT/INSULIN ASPART 100 UNIT/ML 10 ML VIAL SQ SCH ×2 (09:37→21:03)
[2020-06-02 11:34] LABS: Albumin 3.7 g/dL (3.80-4.90); Albumin/Globulin Ratio 1.61 (1.60-3.17); C Reactive Protein 5.5 mg/dL (0.0-0.8); Calcium 8.7 mg/dL (8.7-10.3); Globulin 2.3 g/dL (1.6-3.3); Non-African American GFR(CKD) 73.3 (60.0-200.0); Potassium 4.3 mmol/L (3.5-5.5); Total Bilirubin 0.7 mg/dL (0.2-1.2)
[2020-06-02 11:38] LABS: Glucose,Whole Blood 217 mg/dL (75-99)
[2020-06-02 16:39] LABS: Glucose,Whole Blood 180 mg/dL (75-99)
[2020-06-02] MEDS: SULFACETAMIDE SOD 10% OPHTH DROPS 15 ML BTL RIGHT EYE SCH (18:14)
[2020-06-02] MEDS: TAMSULOSIN 0.4 MG CAP.ER.24H PO SCH (20:59)
[2020-06-02] MEDS: PIOGLITAZONE 30 MG TAB PO SCH (21:00)
[2020-06-02] MEDS: OXYBUTYNIN 15 MG TAB.ER.24 PO SCH (21:00)
[2020-06-02] MEDS: REMDESIVIR 100 MG in SODIUM CHLORIDE 0.9% 250 ML IVPB SCH (21:00)
[2020-06-02] MEDS: AZITHROMYCIN 250 MG TAB PO SCH (21:02)
[2020-06-02 21:04] LABS: Glucose,Whole Blood 238 mg/dL (75-99)
--- NOTE | 2020-06-03 00:03 | PN ---
PROGRESS NOTE DATE OF SERVICE: 06/02/2020 REASON FOR FOLLOWUP: COVID-19 pneumonia. INTERVAL HISTORY: The patient is currently afebrile, has been breathing slightly comfortably, still requiring high-flow nasal cannula oxygen. Denies any chest pain. Cough, though not bringing up any sputum. No abdominal pain or diarrhea. PHYSICAL EXAMINATION: Blood pressure 120/67, pulse of 80, temperature 97.6. He is 93% on 9 L nasal cannula. General description is an elderly male up in the bed in no distress. RESPIRATORY SYSTEM: Unlabored breathing with decreased intensity breath sounds, no wheeze. HEART: S1, S2. Regular rate and rhythm. ABDOMEN: Soft, no tenderness. LABS: Hemoglobin is 13.4, white count 6.8. D-dimer is 0.41. BUN of 33, creatinine 1.0. CRP down to 5.5. Procalcitonin 0.14. DIAGNOSTIC IMPRESSION AND PLAN: Patient with acute pneumonia likely COVID-19 with concern for possible bacterial component with elevated procalcitonin. Patient's inflammatory marker has improved. D- dimer has normalized. The patient is currently covered with the remdesivir, Solu- Medrol, Eliquis to continue along with Rocephin and Zithromax and monitor his respiratory status closely. Continue supportive care. MMODL / IJN: [id number] /
[2020-06-03] MEDS: methylPREDNISolone SOD SUCCI 125 MG/2 ML VIAL IV SCH ×4 (01:20→16:49)
[2020-06-03] MEDS: SULFACETAMIDE SOD 10% OPHTH DROPS 15 ML BTL RIGHT EYE SCH ×4 (01:21→16:49)
[2020-06-03 06:34] LABS: Basophils # (A) 0.1 k/uL (0-0.2); Basophils % (A) 1 %; Eosinophils % (A) 0 %; HCT 42.2 % (39.0-53.0); HGB 13.4 gm/dL (13.0-17.5); Lymphocytes # (A) 0.4 k/uL (1.0-4.8); Lymphocytes % (A) 6 %; MCH 28.6 pg (25.0-35.0); MCHC 31.9 g/dL (31.0-37.0); MCV 89.7 fL (80.0-100.0); Mean Platelet Volume 7.3; Monocytes # (A) 0.4 k/uL (0-1.0); Monocytes % (A) 6 %; Neutrophils # (A) 5.8 k/uL (1.3-7.7); Neutrophils % (A) 85 %; Platelet Count 186 k/uL (150-450); RDW 14.1 % (11.5-15.5); WBC 6.9 k/uL (3.8-10.6)
[2020-06-03 07:05] LABS: Glucose,Whole Blood 208 mg/dL (75-99)
[2020-06-03] MEDS: APIXABAN 5 MG TAB PO SCH ×2 (07:16→22:14)
[2020-06-03] MEDS: ZINC SULFATE 220 MG CAP PO SCH (07:16)
[2020-06-03] MEDS: PANTOPRAZOLE 40 MG TABLET PO SCH (07:16)
[2020-06-03] MEDS: INSULIN ASPART (NovoLOG) 100 UNIT/ML VIAL SQ SCH ×4 (07:21→22:15)
[2020-06-03] MEDS: INSULN ASP PRT/INSULIN ASPART 100 UNIT/ML 10 ML VIAL SQ SCH ×2 (07:22→22:14)
[2020-06-03 10:11] LABS: African American GFR (CKD) 96.5 (60.0-200.0); Anion Gap 8.2 mmol/L (4.00-12.00); BUN/Creat Ratio 38.89 Ratio (12.00-20.00); Calcium 8.8 mg/dL (8.7-10.3); Carbon Dioxide 26.8 mmol/L (21.6-31.8); Non-African American GFR(CKD) 83.3 (60.0-200.0); Potassium 4.5 mmol/L (3.5-5.5)
[2020-06-03 11:41] LABS: Glucose,Whole Blood 132 mg/dL (75-99)
--- NOTE | 2020-06-03 15:25 | P.PN ---
Subjective Progress Note Date: 06/03/20 HISTORY OF PRESENT ILLNESS This is a 74-year-old male patient under treatment for Covid 19 pneumonia. Pat ient has been afebrile but still requiring high flow nasal cannula at 10 L nasal cannula with pulse ox 97%. There is also concern for possible bacterial component with elevated pro calcitonin. Inflammatory markers are improving and d-dimer is normal. Repeat CBC is unremarkable except for lymphocytes of 0.4. Electrolytes are normal, creatinine 0.9. Patient denies having any shortness of breath. He does have a cough which is more bothersome at nighttime. He denies any chest pain. No abdominal pain. No nausea vomiting or diarrhea. PHYSICAL EXAMINATION Gen: This is an obese 74-year-old male. Patient appears to be in no acute respiratory distress. VS: Afebrile, heart rate 59, blood pressure 125/77, pulse ox 97% on 10 L high flow nasal cannula. HEENT: Head is atraumatic, normocephalic. Pupils equal, round. Sclerae is anicteric. NECK: Supple. No JVD. No lymphadenopathy. No thyromegaly. LUNGS: Decreased breath sounds in the bases. No wheezes or rhonchi. No intercostal retractions. HEART: Regular rate and rhythm. No murmur. ABDOMEN: Soft. Bowel sounds are present. No masses. No tenderness. EXTREMITIES: No pedal edema. No calf tenderness. NEUROLOGICAL: Patient is awake, alert and oriented x3. Cranial nerves 2 through 12 are grossly intact. ASSESSMENT COVID-19 pneumonia Possible bacteria pneumonia Hypoxia PLAN Continue eliquis, Solu-Medrol, zinc Continue Rocephin Continue oxygen therapy Patient has completed course of Remdesivir The above dictated assessment and findings were discussed with Dr. Rodas. The impression and plan of care have been directed as dictated. Nataliia Claire nurse practitioner acting as scribe for Dr. Rodas. Objective - Vital Signs Vital signs: Vital Signs Temp 98.2 F 06/03/20 14:00 Pulse 62 06/03/20 14:00 Resp 18 06/03/20 14:00 BP 116/72 06/03/20 14:00 Pulse Ox 94 L 06/03/20 14:00 Intake & Output 06/02/20 06/03/20 06/03/20 18:59 06:59 18:59 Intake Total 520 Balance 520 Weight 113.398 kg Intake: Oral 520 Other: Voiding Method Urinal Incontinent # Voids 2 1 2 - Labs CBC & Chem 7: 06/03/20 05:37 06/03/20 05:37 Labs: Abnormal Lab Results - Last 24 Hours (Table) 06/02/20 06/02/20 06/03/20 Range/Units 16:30 21:02 05:37 Lymphocytes # 0.4 L (1.0-4.8) k/uL BUN (9.0-27.0) mg/dL BUN/Creatinine Ratio (12.00-20.00) Ratio Glucose (70-110) mg/dL POC Glucose (mg/dL) 180 H 238 H (75-99) mg/dL 06/03/20 06/03/20 06/03/20 Range/Units 05:37 07:04 11:38 Lymphocytes # (1.0-4.8) k/uL BUN 35.0 H (9.0-27.0) mg/dL BUN/Creatinine Ratio 38.89 H (12.00-20.00) Ratio Glucose 181 H (70-110) mg/dL POC Glucose (mg/dL) 208 H 132 H (75-99) mg/dL
[2020-06-03 16:44] LABS: Glucose,Whole Blood 220 mg/dL (75-99)
--- NOTE | 2020-06-03 19:22 | XR ---
EXAMINATION TYPE: XR chest 1V portable DATE OF EXAM: 06/03/2020 COMPARISON: 05/30/2020 HISTORY: Pneumonia. Short of breath TECHNIQUE: FINDINGS: There is patchy bilateral pulmonary interstitial and airspace infiltrates. There is poor in spiration. There are no hilar masses. Thoracic aorta is atheromatous. Bony thorax is intact. IMPRESSION: Bilateral patchy pneumonia is slightly worse than recent exam.
[2020-06-03 20:33] LABS: Glucose,Whole Blood 250 mg/dL (75-99)
--- NOTE | 2020-06-03 22:09 | PN ---
PROGRESS NOTE DATE OF SERVICE: 06/02/2020 CHIEF COMPLAINT: Covid pneumonia. HISTORY OF PRESENT ILLNESS: This gentleman is stating he is feeling a little bit more short of breath. He stills feels very weak. He has had no fever, chills, and pulse oxes are still good. PHYSICAL EXAMINATION: Breath sounds are diminished, but more due to his size than anything else. There is no wheezing, rales or rhonchi. Cardiac exam is normal. Abdomen is protuberant, soft. IMPRESSION: 1. Covid 19 pneumonia. 2. Diabetes. PLAN: Continue with current program and he is holding his own at this time. MMODL / IJN: [id number] /
[2020-06-03] MEDS: TAMSULOSIN 0.4 MG CAP.ER.24H PO SCH (22:14)
[2020-06-03] MEDS: OXYBUTYNIN 15 MG TAB.ER.24 PO SCH (22:14)
[2020-06-03] MEDS: PIOGLITAZONE 30 MG TAB PO SCH (22:14)
--- NOTE | 2020-06-03 22:14 | PN ---
PROGRESS NOTE DATE OF SERVICE: 06/03/2020 CHIEF COMPLAINT: COPD, diabetes, and Covid pneumonia. HISTORY OF PRESENT ILLNESS: This gentleman is doing a bit better. States his breathing is a little bit easier today. He has had no fever or chest pain. He has had no nausea or vomiting. PHYSICAL EXAMINATION: Breath sounds are fairly well heard and they are only occasional rales. Cardiac exam is normal. Abdomen is soft and protuberant. IMPRESSION: 1. Covid pneumonia-improving. 2. Diabetes. 3. Hypertension. PLAN: Continue with conservative management as he continues to improve. MMODL / IJN: [id number] /
[2020-06-03] MEDS: REMDESIVIR 100 MG in SODIUM CHLORIDE 0.9% 250 ML IVPB SCH (22:15)
[2020-06-04] MEDS: SULFACETAMIDE SOD 10% OPHTH DROPS 15 ML BTL RIGHT EYE SCH ×4 (00:33→17:40)
[2020-06-04] MEDS: methylPREDNISolone SOD SUCCI 125 MG/2 ML VIAL IV SCH ×4 (01:24→17:39)
[2020-06-04 07:03] LABS: Glucose,Whole Blood 267 mg/dL (75-99)
[2020-06-04] MEDS: INSULIN ASPART (NovoLOG) 100 UNIT/ML VIAL SQ SCH ×4 (08:12→20:29)
[2020-06-04] MEDS: PANTOPRAZOLE 40 MG TABLET PO SCH (08:13)
[2020-06-04] MEDS: APIXABAN 5 MG TAB PO SCH ×2 (08:13→20:30)
[2020-06-04] MEDS: ZINC SULFATE 220 MG CAP PO SCH (08:13)
[2020-06-04] MEDS: INSULN ASP PRT/INSULIN ASPART 100 UNIT/ML 10 ML VIAL SQ SCH ×2 (08:13→20:29)
[2020-06-04 11:42] LABS: Glucose,Whole Blood 265 mg/dL (75-99)
[2020-06-04 16:57] LABS: Glucose,Whole Blood 289 mg/dL (75-99)
--- NOTE | 2020-06-04 19:19 | PN ---
PROGRESS NOTE CHIEF COMPLAINT: COVID pneumonia. HISTORY OF PRESENT ILLNESS: This gentleman is a little bit worse. X-ray picture has worsened. He is a little bit more short of breath and he is now on high-flow nasal oxygen. He has no chills or fever. He is not nauseated. PHYSICAL EXAMINATION: Breath sounds are diminished with scattered rales throughout. Cardiac exam is normal. Abdomen is soft. IMPRESSION: 1. COVID pneumonia. 2. Diabetes. PLAN: 1. Increase insulin management. 2. Continue to follow with Infectious Disease and Pulmonology. MMODL / IJN: [id number] /
[2020-06-04 20:13] LABS: Glucose,Whole Blood 166 mg/dL (75-99)
[2020-06-04] MEDS: PIOGLITAZONE 30 MG TAB PO SCH (20:30)
[2020-06-04] MEDS: TAMSULOSIN 0.4 MG CAP.ER.24H PO SCH (20:30)
[2020-06-04] MEDS: OXYBUTYNIN 15 MG TAB.ER.24 PO SCH (20:30)
--- NOTE | 2020-06-05 00:12 | PN ---
PROGRESS NOTE DATE OF SERVICE: 06/04/2020 REASON FOR FOLLOWUP: COVID-19 pneumonia. INTERVAL HISTORY: The patient is currently afebrile. The patient is breathing comfortably. However, he is still requiring high-flow nasal cannula oxygen. The patient denies having any chest pain. He did have some cough, not bringing up any sputum. No nausea, no vomiting. No abdominal pain, no diarrhea. PHYSICAL EXAMINATION: Blood pressure 143/70 with a pulse of 72, temperature 97.8. He is 96% on high-flow oxygen. General description is an elderly male up in the chair in no distress. RESPIRATORY SYSTEM: Unlabored breathing, decreased intensity of breath sounds. No wheeze. HEART: S1, S2. Regular rate and rhythm. ABDOMEN: Soft, no tenderness. LABS: No new labs have been obtained today. The patient did have a chest x-ray, patchy bilateral pneumonia slightly worse. DIAGNOSTIC IMPRESSION AND PLAN: Patient with acute COVID-19 pneumonia in this patient who has completed his 5-day course of remdesivir. He is currently on zinc, Solu-Medrol and Eliquis to continue. Will try to wean him off his oxygen. Encourage incentive spirometry and monitor his clinical course closely. MMODL / IJN: [id number] /
[2020-06-05] MEDS: methylPREDNISolone SOD SUCCI 125 MG/2 ML VIAL IV SCH ×5 (00:47→22:58)
[2020-06-05] MEDS: SULFACETAMIDE SOD 10% OPHTH DROPS 15 ML BTL RIGHT EYE SCH ×5 (00:48→22:59)
[2020-06-05 06:47] LABS: Glucose,Whole Blood 118 mg/dL (75-99)
[2020-06-05] MEDS: INSULIN ASPART (NovoLOG) 100 UNIT/ML VIAL SQ SCH ×4 (06:57→21:39)
[2020-06-05] MEDS: INSULIN DETEMIR (LEVEMIR) 100 UNIT/ML SYR SQ SCH (07:31)
[2020-06-05] MEDS: INSULN ASP PRT/INSULIN ASPART 100 UNIT/ML 10 ML VIAL SQ SCH ×2 (07:31→22:58)
[2020-06-05] MEDS: ZINC SULFATE 220 MG CAP PO SCH (07:32)
[2020-06-05] MEDS: PANTOPRAZOLE 40 MG TABLET PO SCH (07:32)
[2020-06-05] MEDS: APIXABAN 5 MG TAB PO SCH ×2 (07:32→21:39)
[2020-06-05 11:18] LABS: Glucose,Whole Blood 124 mg/dL (75-99)
--- NOTE | 2020-06-05 16:34 | CDI ---
Documentation Clarification Form Date: 06/05/2020 03:50:51 PM From: Radha David RN CCDS Admit Date: 05/30/2020 10:41:00 AM Patient Name: Samm Ceja Visit Number: [id number] Discharge Date: ATTENTION: The Clinical Documentation Specialists (CDI) and [facility] Coding Staff appreciate your assistance in clarifying documentation. Please respond to the clarification below the line at the bottom and electronically sign. The CDI & [facility] Coding staff will review the response and follow-up if needed. Please note: Queries are made part of the Legal Health Record. If you have any questions, please contact the author of this message via ITS. Dr. Yadiel Tomlinson The diagnosis Possible Sepsis POA was documented in the Internal Medicine Progress notes 05/29 through 06/01 but is not noted in subsequent documentation. History/Risk Factors: 74-year-old male presents to the ED with coughing and congestion for the last two days. Medical History: DM2; GERD; HTN and HLD Admitting Diagnosis: COVID 19 Pneumonia Clinical Indicators: 05/27 Labs: Wbc 3.9; Lymphocytes 0.82; Monocytes 1.37; Na 136; Mag 1.5 Ferritin 77.1; LDH 479; Procalcitonin 0.13; CORNAVIRUS PCR Detected. 05/27 VSS: B/P 135/63; HR 104; Temp 98.6 05/27 CXR: Slight bibasilar opacities. Treatment: 05/27: Ventolin Inhalation x1; Hexadrol po x1; Azithromycin Ivpb x1; Zinc Po Daily; 05/28 Zithromax po Daily; 05/29 Rocephin Ivpb Daily D/c 06/05; 05/30 Remdesivir Ivpb x5 Doses Please clarify if the Sepsis was Present/active this admission Treated and resolved this admission Ruled out Other, please specify Clinically unable to determine (Last Query Form Revision: March 2019) TANIAD
[2020-06-05] MEDS ORDERED: ALBUTEROL HFA INHALER INHALATION PRN (16:49)
[2020-06-05 17:03] LABS: Glucose,Whole Blood 127 mg/dL (75-99)
--- NOTE | 2020-06-05 19:50 | PN ---
PROGRESS NOTE DATE OF SERVICE: 06/05/2020 CHIEF COMPLAINT: COVID pneumonia. HISTORY OF PRESENT ILLNESS: This gentleman is still struggling with shortness of breath. His pulse ox is running around 60 on high-flow nasal cannula. He has no complaints otherwise. PHYSICAL EXAMINATION: Hydration is good and color is good. Chest demonstrates occasional rales and cardiac exam is normal. IMPRESSION: 1. COVID pneumonia. 2. Diabetes. PLAN: Continue with current program. He states he feels slightly better today. However, he is not eating and he continues to have tachycardia. Blood sugars are fluctuating widely. MMODL / IJN: [id number] /
[2020-06-05] MEDS: ALBUTEROL HFA INHALER INHALATION SCH (19:57)
[2020-06-05] MEDS: SYMBICORT 160-4.5 MCG INHALER INHALATION SCH (19:57)
[2020-06-05 20:10] LABS: Glucose,Whole Blood 286 mg/dL (75-99)
[2020-06-05] MEDS: TAMSULOSIN 0.4 MG CAP.ER.24H PO SCH (21:39)
[2020-06-05] MEDS: MELATONIN 5 MG TABLET PO SCH (21:39)
[2020-06-05] MEDS: PIOGLITAZONE 30 MG TAB PO SCH (21:47)
[2020-06-05] MEDS: OXYBUTYNIN 15 MG TAB.ER.24 PO SCH (21:47)
--- NOTE | 2020-06-05 22:27 | CONS ---
CONSULTATION PULMONARY/CRITICAL CARE CONSULTATION: DATE OF SERVICE: 06/05/2020 REASON FOR CONSULTATION: COVID-19 pneumonitis. This is a patient who apparently presented to the emergency room back on May 27. This would have been the Tuesday before . The patient came in with complaints of cough and congestion, shortness of breath, frequent urination, muscle aches, joint aches and just not feeling well. The patient states that since he has been here, he has actually gotten worse. We were not initially consulted but only consulted today. His CT scan shows diffuse bilateral patchy ground-glass opacities consistent with significant COVID-19 pneumonitis. Currently he is quite hypoxemic. He is on AIRVO at 60 L/minute at 91%. His saturations are in the mid 90s. He really does not feel much better since he has been here and maybe actually feels a bit worse. His is currently down in the emergency room; we saw her earlier. MEDICATIONS: His medications are reviewed. He is on vitamin D3, omeprazole, Zocor, insulin, Eliquis, Cardura, Lasix, metoprolol, lisinopril and Augmentin. ALLERGIES: DENIED. MEDICAL HISTORY: Medical history includes diabetes, GERD, hyperlipidemia and hypertension. SURGICAL HISTORY: Surgical history includes hernia repair. SOCIAL HISTORY: Negative for tobacco, alcohol or illicit drug use. FAMILY HISTORY: Positive for mother who from a myocardial infarction. REVIEW OF SYSTEMS: CONSTITUTIONAL: Fever, chills, muscle aches, joint aches, weakness, fatigue. NEUROLOGIC: Negative. HEENT: Negative. CARDIOVASCULAR: Negative. PULMONARY: Shortness of breath, chest congestion, cough, wheezing, chest tightness, occasional phlegm production. GI: Negative. : Negative. RHEUMATOLOGIC: Negative. IMMUNOLOGIC: Negative. ENDOCRINOLOGIC: Negative. DERMATOLOGIC: Negative. PHYSICAL EXAMINATION: VITAL SIGNS: Currently, temperature 97.3, heart rate 52, respiratory rate 22, blood pressure 130/77, mean 94. Saturations are 98% or so on AIRVO at 60 L/minute and FiO2 of 91%. GENERAL APPEARANCE: He appears in no distress. He is sitting in a chair. He has the AIRVO cannula in place. He does not have any conversational dyspnea, use of accessory muscles or audible wheezing. HEENT: Examination is grossly unremarkable. NECK: Supple. Full range of motion. No adenopathy. Neck veins are flat. CARDIOVASCULAR: Examination reveals regular rhythm and rate. S1, S2 normal. No S3, S4 or murmur. LUNGS: Lungs reveal coarse bilateral rhonchi. Breath sounds are diminished. No wheezes. A few scattered crackles. ABDOMEN: Soft but obese. EXTREMITIES: Intact. No edema. No cyanosis or clubbing. SKIN: Without rash. NEUROLOGIC: Neurologic examination is brief but nonfocal. LABS/IMAGING: Reviewed. His most recent labs were done a couple of days ago. White count 6.9, hemoglobin 13.4, hematocrit 42.2, platelet count 186,000. Sodium 137, potassium 4.5, chloride 102, CO2 27. Anion gap is 8. BUN and creatinine were 35 and 0.9. Procalcitonin is relatively low at 0.14. Microbiology is negative. Most recent chest x-ray done June 03 shows diffuse bilateral patchy infiltrates. CT scan was reviewed. MEDICATIONS: Medications are reviewed. He is on Tylenol, Eliquis, Robitussin, insulin, Solu-Medrol, Narcan, oxybutynin, Protonix, Actos, eye drops, zinc and Flomax. ASSESSMENT: 1. COVID-19 pneumonitis with moderately severe to severe hypoxemic respiratory failure. 2. Progressive respiratory decline and worsening bilateral infiltrates secondary to COVID-19 infection. 3. Obesity. 4. Diabetes mellitus. 5. Gastroesophageal reflux disease. 6. Hyperlipidemia. 7. History of hypertension. PLAN: The patient will have some vitamin C and D3 added to his regimen. Will add an albuterol inhaler. Will also add some Symbicort to the protocol. He is outside the window of remdesivir. Additional recommendations and suggestions are forthcoming. Prognosis is guarded. The patient may eventually end up in the intensive care unit. MMODL / IJN: [id number] /
--- NOTE | 2020-06-05 22:51 | PN ---
PROGRESS NOTE DATE OF SERVICE: 06/05/2020 REASON FOR FOLLOWUP: Pneumonia. INTERVAL HISTORY: The patient is currently afebrile. The patient is breathing comfortably; however, he is requiring high-flow nasal cannula oxygen. Denies having any chest pain. He did have a congested cough but not bringing up any sputum. No nausea, no vomiting. No abdominal pain or diarrhea. PHYSICAL EXAMINATION: Blood pressure 134/67, pulse of 70, temperature 97.4. He is 94% on high-flow oxygen. General description is an elderly male up in the chair in no distress. RESPIRATORY SYSTEM: Unlabored breathing with decreased intensity of breath sounds. No wheeze. HEART: S1, S2. Regular rate and rhythm. ABDOMEN: Soft. No tenderness. LABS: No new labs have been obtained today. DIAGNOSTIC IMPRESSION AND PLAN: Patient with acute COVID-19 infection in this patient who has completed his 5-day course of remdesivir. The patient is also covered with empiric antibiotics. However, he is noted to have worsening of his respiratory status. We will repeat a chest x-ray and inflammatory markers and continue with current treatment and supportive care. Pulmonary has been consulted. MMODL / IJN: [id number] /
[2020-06-05] MEDS: guaiFENesin SYRUP 100MG/5ML 200 MG/10 ML CUP PO PRN (23:07)
[2020-06-06] MEDS: methylPREDNISolone SOD SUCCI 125 MG/2 ML VIAL IV SCH ×4 (05:15→23:07)
[2020-06-06] MEDS: SULFACETAMIDE SOD 10% OPHTH DROPS 15 ML BTL RIGHT EYE SCH ×4 (05:19→23:07)
--- NOTE | 2020-06-06 06:46 | XR ---
EXAMINATION TYPE: XR chest 1V portable DATE OF EXAM: 06/06/2020 CLINICAL HISTORY: Shortness of breath and cough progress study. TECHNIQUE: Single AP portable upright view of the chest is obtained. COMPARISON: Chest x-ray from 3 days earlier and older studies. Chest CT May 30, 2020 FINDINGS: Diminished inspiration with worsening peripheral opacities and consolidations bilaterally greatest in the periphery. More prominent cardiomegaly with atherosclerotic aortic knob. Osseous stru ctures are intact. Lordotic projection noted. IMPRESSION: Diminished inspiration with worsening bilateral peripheral acute infiltrates and organizi ng consolidations consistent with covid -19 infection progression.
[2020-06-06 06:56] LABS: Glucose,Whole Blood 88 mg/dL (75-99)
[2020-06-06] MEDS: ALBUTEROL HFA INHALER INHALATION SCH ×4 (08:22→19:44)
[2020-06-06] MEDS: SYMBICORT 160-4.5 MCG INHALER INHALATION SCH ×2 (08:22→19:44)
[2020-06-06] MEDS: INSULIN ASPART (NovoLOG) 100 UNIT/ML VIAL SQ SCH ×4 (09:42→21:12)
[2020-06-06] MEDS: PANTOPRAZOLE 40 MG TABLET PO SCH (09:51)
[2020-06-06] MEDS: ZINC SULFATE 220 MG CAP PO SCH (09:51)
[2020-06-06] MEDS: ASCORBIC ACID 500 MG TAB PO SCH (09:51)
[2020-06-06] MEDS: APIXABAN 5 MG TAB PO SCH ×2 (09:51→21:13)
[2020-06-06] MEDS: INSULIN DETEMIR (LEVEMIR) 100 UNIT/ML SYR SQ SCH (09:51)
[2020-06-06] MEDS: CHOLECALCIFEROL 400 UNIT TAB PO SCH (09:51)
[2020-06-06] MEDS: FAMOTIDINE 20 MG TAB PO SCH (09:51)
[2020-06-06 09:52] LABS: C Reactive Protein 1.4 mg/dL (0.0-0.8)
[2020-06-06] MEDS: INSULN ASP PRT/INSULIN ASPART 100 UNIT/ML 10 ML VIAL SQ SCH ×2 (09:52→21:13)
[2020-06-06 11:30] LABS: Glucose,Whole Blood 139 mg/dL (75-99)
--- NOTE | 2020-06-06 12:35 | CT ---
CT CHEST FOR PULMONARY EMBOLISM. EXAMINATION TYPE: CT angio chest DATE OF EXAM: 06/06/2020 INDICATION: elevated d dimer, Covid positive CT DLP: 921.9 mGycm, Automated exposure control for dose reduction was used. CONTRAST: Patient injected with 100 mL of Isovue 370. COMPARISON: 05/30/2020 TECHNIQUE: CT of the chest is performed on a spiral scan at 2 mm thick sections. Study is performed with intravenous contrast timed for evaluation for pulmonary embolism. This will limit additional po rtions of the evaluation. 3-D MIP images reconstructed by the technologist are reviewed on the compu ter in the coronal and sagittal planes. FINDINGS: No persistent filling defects are evident to suggest an acute pulmonary embolism. No mediastinal or hilar adenopathy enlarged by CT criteria is evident. The ascending aorta diameter at the level of the main pulmonary artery is 3.4 cm. The main pulmonary artery diameter at the bifur cation is 2.3 cm. There is extensive infiltrates to the bilateral lung benton this is greater on the right. These are w orsening and increasing in volume over the interval. Limited CT section through the upper abdomen are unremarkable. IMPRESSIONS: 1. No acute pulmonary embolism. 2. Worsening bilateral lung infiltrates.
--- NOTE | 2020-06-06 15:18 | P.PN ---
Subjective Progress Note Date: 06/06/20 Principal diagnosis: COVID19 pneumonitis [id number] white male patient was admitted to the hospital on 05/27/2020 for evaluation of cough and congestion, shortness of breath, frequent urination, muscle aches, joint aches and not feeling well. Patient was diagnosed with "with 19 pneumonia, yesterday we became consulted because of worsening hypoxemia, and worsening shortness of breath, his computed tomography scan shows a diffuse bilateral patchy groundglass opacities consistent with significant: 19 pneumonitis, he remains on Airvo at 60 L and FiO2 of 91%, his pu lse ox is 95 percent, his been afebrile, hemodynamically stable, he is short of breath with any exertion, she feels weak, his pro-calcitonin was negative at 0.07, ID service is following, patient has completed a course of Remdesivir. He is currently on Eliquis, he is on IV steroids with Solu-Medrol 60 mg every 6 hours, he is bronchodilators. In addition his sputum culture is growing gram-negative bacilli and Tessa albicans. His d-dimer today has significantly increased to 20.28, patient has been on Eliquis 5 mg twice daily, CTA chest was obtained showing no acute pulmonary embolism, and worsening bilateral lung infiltrates. Objective - Vital Signs Vital signs: Vital Signs Temp 98.5 F 06/06/20 14:00 Pulse 60 06/06/20 14:00 Resp 22 06/06/20 14:00 BP 147/71 06/06/20 14:00 Pulse Ox 95 06/06/20 14:00 Intake & Output 06/05/20 06/06/20 06/06/20 18:59 06:59 18:59 Intake Total 50 Output Total 325 Balance 50 -325 Intake: Intake, IV Titration 50 Amount cefTRIAXone 1 gm In 50 Sodium Chloride 0.9% 50 ml @ 100 mls/hr IVPB Q24HR [facility] Rx#:[id number] Output: Urine 325 Other: # Voids 1 3 # Bowel Movements 1 - Exam GENERAL EXAM: Alert, very pleasant, 74-year-old white male, on Airvo at 60 L and FiO2 of 90% with a pulse ox of 95%, comfortable in no apparent distress. HEAD: Normocephalic/atraumatic. EYES: Normal reaction of pupils, equal size. Conjunctiva pink, sclera white. NOSE: Clear with pink turbinates. THROAT: No erythema or exudates. NECK: No masses, no JVD, no thyroid enlargement, no adenopathy. CHEST: No chest wall deformity. Symmetrical expansion. LUNGS: Equal air entry with no crackles, wheeze, rhonchi or dullness. CVS: Regular rate and rhythm, normal S1 and S2, no gallops, no murmurs, no rubs ABDOMEN: Soft, nontender. No hepatosplenomegaly, normal bowel sounds, no guarding or rigidity. EXTREMITIES: No clubbing, no edema, no cyanosis, 2+ pulses and upper and lower extremities. MUSCULOSKELETAL: Muscle strength and tone normal. SPINE: No scoliosis or deformity SKIN: No rashes CENTRAL NERVOUS SYSTEM: Alert and oriented -3. No focal deficits, tone is normal in all 4 extremities. PSYCHIATRIC: Alert and oriented -3. Appropriate affect. Intact judgment and insight. - Labs CBC & Chem 7: 06/03/20 05:37 06/03/20 05:37 Labs: Abnormal Lab Results - Last 24 Hours (Table) 06/05/20 06/05/20 06/06/20 Range/Units 16:56 20:08 05:31 D-Dimer 20.28 H (<0.60) mg/L FEU POC Glucose (mg/dL) 127 H 286 H (75-99) mg/dL Lactate Dehydrogenase (120-246) U/L C-Reactive Protein (0.0-0.8) mg/dL 06/06/20 06/06/20 Range/Units 05:31 11:29 D-Dimer (<0.60) mg/L FEU POC Glucose (mg/dL) 139 H (75-99) mg/dL Lactate Dehydrogenase 765 H (120-246) U/L C-Reactive Protein 1.4 H (0.0-0.8) mg/dL Microbiology - Last 24 Hours (Table) 06/05/20 10:45 Gram Stain - Preliminary Sputum Sputum Culture - Preliminary Gram Neg Bacilli Tessa albicans Assessment and Plan Plan: Assessment: #1. Worsening severe hypoxic rest or a failure related to COVID 19 pneumonitis, which has progressed since admission, and patient is currently on AIRVO at 60 L and FiO2 of 90%, his CTA chest shows worsening bilateral lung infiltrates, no evidence of pulmonary embolism. Patient has completed Remdesivir course on 05/31/2020 #2. Increased d-dimer of 20.28, patient has been on Eliquis, CTA chest showed no evidence of pulmonary embolism #3. Diabetes mellitus type 2 #4. GERD/reflux #5. Hyperlipidemia #6. History of hypertension #7. Obesity Plan: We will continue current medical treatment, continue high-dose IV steroids, patient has completed course of Remdesivir, his chest x-ray and CT scans have been reviewed, showing increasing bilateral lung infiltrates, patient remains on high flow oxygen, currently at 60 L and FiO2 of 90%, will transfuse with 1 unit for convalescent plasma, continue with vitamins and supple with, continue with Eliquis, overall prognosis is guarded, will enter his condition for any worsening. I performed a history & physical examination of the patient and discussed their management with my nurse practitioner, Brigid Cody. I reviewed the nurse practitioner's note and agree with the documented findings and plan of care. Lung sounds are positive for bibasilar crackles. The findings and the impression was discussed with the patient. I attest to the documentation by the nurse practitioner. Time with Patient: Less than 30
[2020-06-06 16:40] LABS: Glucose,Whole Blood 82 mg/dL (75-99)
[2020-06-06] MEDS: ACETAMINOPHEN TAB 325 MG TAB PO PRN (18:04)
[2020-06-06 20:39] LABS: Glucose,Whole Blood 195 mg/dL (75-99)
[2020-06-06] MEDS: MELATONIN 5 MG TABLET PO SCH (21:13)
[2020-06-06] MEDS: PIOGLITAZONE 30 MG TAB PO SCH (21:13)
[2020-06-06] MEDS: TAMSULOSIN 0.4 MG CAP.ER.24H PO SCH (21:13)
[2020-06-06] MEDS: OXYBUTYNIN 15 MG TAB.ER.24 PO SCH (21:13)
[2020-06-06] MEDS: CEFEPIME 2 GM in SODIUM CHLORIDE 0.9% 100 ML IVPB SCH (22:16)
--- NOTE | 2020-06-06 23:16 | PN ---
PROGRESS NOTE DATE OF SERVICE: 06/06/2020 REASON FOR FOLLOWUP: Pneumonia. INTERVAL HISTORY: The patient is currently afebrile. The patient is slightly sleepy and lethargic today, requiring high-flow nasal cannula oxygen. The patient denies having any chest pain. He did have a cough, not bringing up any sputum. No nausea, vomiting, abdominal pain or diarrhea. PHYSICAL EXAMINATION: Blood pressure 127/63 with a pulse of 83, temperature 97.5. He is 95% on 50% high-flow oxygen. General description is an elderly male lying in bed in no distress. RESPIRATORY SYSTEM: Unlabored breathing with decreased intensity of breath sounds. No wheeze. HEART: S1, S2. Regular rate and rhythm. ABDOMEN: Soft. No tenderness. LABS: D-dimer is up to 20.28 and LDH is 765. CRP 1.4. Sputum is showing Gram-negative bacilli. DIAGNOSTIC IMPRESSION AND PLAN: Patient with pneumonia with COVID positive in this patient who completed his remdesivir therapy, currently on Solu-Medrol, zinc and Eliquis with sputum now showing a Gram- negative. Will add cefepime and monitor his clinical course closely. MMODL / IJN: [id number] /
[2020-06-07] MEDS: methylPREDNISolone SOD SUCCI 125 MG/2 ML VIAL IV SCH ×4 (05:21→22:54)
[2020-06-07] MEDS: SULFACETAMIDE SOD 10% OPHTH DROPS 15 ML BTL RIGHT EYE SCH ×4 (05:22→22:54)
[2020-06-07 06:57] LABS: Glucose,Whole Blood 179 mg/dL (75-99)
[2020-06-07] MEDS: ALBUTEROL HFA INHALER INHALATION SCH ×4 (08:55→19:02)
[2020-06-07] MEDS: SYMBICORT 160-4.5 MCG INHALER INHALATION SCH ×2 (08:55→19:02)
[2020-06-07] MEDS: ZINC SULFATE 220 MG CAP PO SCH (09:21)
[2020-06-07] MEDS: INSULN ASP PRT/INSULIN ASPART 100 UNIT/ML 10 ML VIAL SQ SCH ×2 (09:21→20:47)
[2020-06-07] MEDS: ASCORBIC ACID 500 MG TAB PO SCH (09:21)
[2020-06-07] MEDS: APIXABAN 5 MG TAB PO SCH ×2 (09:21→20:46)
[2020-06-07] MEDS: FAMOTIDINE 20 MG TAB PO SCH (09:21)
[2020-06-07] MEDS: CHOLECALCIFEROL 400 UNIT TAB PO SCH (09:21)
[2020-06-07] MEDS: PANTOPRAZOLE 40 MG TABLET PO SCH (09:21)
[2020-06-07] MEDS: INSULIN DETEMIR (LEVEMIR) 100 UNIT/ML SYR SQ SCH (09:21)
[2020-06-07] MEDS: CEFEPIME 2 GM in SODIUM CHLORIDE 0.9% 100 ML IVPB SCH ×2 (09:22→20:46)
[2020-06-07] MEDS: INSULIN ASPART (NovoLOG) 100 UNIT/ML VIAL SQ SCH ×4 (09:22→20:46)
[2020-06-07 11:06] LABS: Glucose,Whole Blood 301 mg/dL (75-99)
--- NOTE | 2020-06-07 15:05 | PN ---
PROGRESS NOTE PULMONARY/CRITICAL CARE PROGRESS NOTE: DATE OF SERVICE: June 07, 2020 This is a 74-year-old gentleman who was admitted back on May 27. The patient was admitted with a diagnosis of worsening hypoxemic respiratory failure secondary to COVID- 19 pneumonitis. The patient did complete a 5 day course of Remdesivir. Currently, he is on AIRVO for his oxygenation. The patient has a history of obesity, hypertension, hyperlipidemia, GERD, and diabetes mellitus. CT angiogram was negative for PE. His is actually in the hospital with a COVID infection as well, although she is doing much better. PHYSICAL EXAMINATION: VITAL SIGNS: Current vital signs are reviewed. Temperature is 97.8 heart rate 67, respiratory rate 16, blood pressure 150/78, mean 102. Currently, the patient is on AIRVO at 50 L/minute and 90% FiO2. Saturations are 97%. Appears in no acute distress. He is mildly tachypneic. No conversational dyspnea. HEENT: Examination is grossly unremarkable. AIRVO cannula noted. NECK: Supple, full range of motion. No adenopathy. Neck veins are flat. CARDIOVASCULAR: Examination reveals regular rhythm rate. Heart rate 67 beats per minute. LUNGS: Reveal diffuse coarse rhonchi. Breath sounds are diminished. No crackles. ABDOMEN: Obese, bowel sounds are heard. EXTREMITIES: Intact. No edema. SKIN: Without rash. NEUROLOGIC: Examination is brief but nonfocal. LABS: Reviewed. The only new lab from today is a glucose of 301. Microbiology showing evidence of Pseudomonas aeruginosa in the sputum along with Tessa albicans. Currently, his most recent chest x-ray dated June 06 shows worsening bilateral peripheral infiltrates and organizing consolidations consistent with COVID-[address] angiogram done on the same day, shows no acute pulmonary embolism and worsening bilateral lung infiltrates. CURRENT MEDICATIONS: Reviewed. The patient is on Tylenol, albuterol inhaler, Eliquis, Symbicort, ascorbic acid, Maxipime, vitamin D3, Pepcid, guaifenesin, insulin, Levemir, NovoLog insulin, melatonin, Solu-Medrol, Narcan, Ditropan, Protonix, Actos, eye drops, Flomax and zinc. ASSESSMENT: 1. Acute hypoxemic respiratory failure secondary to COVID-19 pneumonitis, currently on AIRVO, complicated by Pseudomonas aeruginosa, purulent tracheobronchitis/bronchopneumonia. 2. Status post 5 days of Remdesivir. 3. No CT angiogram evidence of pulmonary embolism. 4. Diabetes mellitus type 2. 5. Gastroesophageal reflux disease. 6. Hyperlipidemia. 7. History of hypertension. 8. History of obesity. PLAN: The patient is on appropriate medications. He completed a 5 day course of Remdesivir. Chest x-ray and CT scans are getting worse. His oxygenation requirements have gone up. His sputum was positive for Pseudomonas aeruginosa. He is now on cefepime, among other medications. We will continue to follow. Prognosis is guarded. MMODL / IJN: [id number] /
--- NOTE | 2020-06-07 15:56 | MISC ---
MISCELLANOUS REPORT Sepsis ruled out. MMODL / IJN: [id number] /
[2020-06-07 16:27] LABS: Glucose,Whole Blood 192 mg/dL (75-99)
--- NOTE | 2020-06-07 18:20 | PN ---
PROGRESS NOTE DATE OF SERVICE: 06/06/2020. CHIEF COMPLAINT: Covid pneumonia. HISTORY OF PRESENT ILLNESS: This gentleman is still struggling significantly. He is still quite short of breath. He is maintaining his PO2 around 90. PHYSICAL EXAM: He is tachypneic. VITAL SIGNS: Normal. He does have tachycardia. Breath sounds are diminished throughout. IMPRESSION: 1. COVID pneumonia. 2. Hypertension. 3. Diabetes. PLAN: No change in program and he continues on his current program and seems to be doing reasonably well but still very short of breath. He still has not required ICU management. MMODL / IJN: [id number] /
--- NOTE | 2020-06-07 18:26 | PN ---
PROGRESS NOTE DATE OF SERVICE: 06/07/2020. CHIEF COMPLAINT: Covid pneumonia. HISTORY OF PRESENT ILLNESS: This gentleman continues to be very short of breath and he does not feel like he is improving. He has had no fever chills. He has had no vomiting. He still has a very poor appetite and poor taste. PHYSICAL EXAMINATION: Breath sounds are diminished with rales throughout. He has not any inspiratory wheeze. Cardiac exam demonstrates sinus tachycardia and the abdomen is protuberant and soft. IMPRESSION: 1. Covid pneumonia-slightly worsening. 2. Diabetes. 3. Obesity. PLAN: None. Continue with high-flow nasal O2 and IV fluids as well as other medication program including insulin. MMODL / IJN: [id number] /
[2020-06-07 20:15] LABS: Glucose,Whole Blood 143 mg/dL (75-99)
[2020-06-07] MEDS: MELATONIN 5 MG TABLET PO SCH (20:47)
[2020-06-07] MEDS: OXYBUTYNIN 15 MG TAB.ER.24 PO SCH (20:48)
[2020-06-07] MEDS: TAMSULOSIN 0.4 MG CAP.ER.24H PO SCH (20:48)
[2020-06-07] MEDS: PIOGLITAZONE 30 MG TAB PO SCH (20:48)
[2020-06-07] MEDS: guaiFENesin SYRUP 100MG/5ML 200 MG/10 ML CUP PO PRN (22:54)
--- NOTE | 2020-06-07 23:32 | PN ---
PROGRESS NOTE DATE OF SERVICE: 06/07/2020 REASON FOR FOLLOWUP: Pseudomonas pneumonia. INTERVAL HISTORY: Patient is currently afebrile. The patient is still complaining of shortness of breath. Denies any chest pain. He did have a cough. No nausea, no vomiting. No abdominal pain. No diarrhea. PHYSICAL EXAMINATION: Blood pressure 139/66, pulse of 73, temperature 98. General description is an elderly male up in the bed in no distress. Respiratory system: Unlabored breathing. Coarse breath sounds at the base. No wheeze. HEART: S1, S2. Regular rate. ABDOMEN: Soft, no tenderness. No new labs been obtained today. DIAGNOSTIC IMPRESSION AND PLAN: Patient with acute COVID-19 pneumonia with concern for secondary bacterial pneumonia in this patient who did have sputum positive for Pseudomonas aeruginosa. The patient is covered with cefepime to continue. Repeat chest x-ray and labs in the morning and monitor clinical course closely. MMODL / IJN: [id number] /
[2020-06-08] MEDS: SULFACETAMIDE SOD 10% OPHTH DROPS 15 ML BTL RIGHT EYE SCH ×3 (06:01→17:44)
[2020-06-08] MEDS: methylPREDNISolone SOD SUCCI 125 MG/2 ML VIAL IV SCH ×3 (06:01→17:31)
[2020-06-08 06:12] LABS: Basophils # (A) 0.1 k/uL (0-0.2); Basophils % (A) 1 %; Eosinophils % (A) 0 %; HCT 40.7 % (39.0-53.0); HGB 12.9 gm/dL (13.0-17.5); Lymphocytes # (A) 0.3 k/uL (1.0-4.8); Lymphocytes % (A) 2 %; MCH 28.8 pg (25.0-35.0); MCHC 31.7 g/dL (31.0-37.0); MCV 90.9 fL (80.0-100.0); Mean Platelet Volume 7.4; Monocytes # (A) 1.2 k/uL (0-1.0); Monocytes % (A) 10 %; Neutrophils # (A) 9.9 k/uL (1.3-7.7); Neutrophils % (A) 86 %; Platelet Count 137 k/uL (150-450); RBC 4.48 m/uL (4.30-5.90); RDW 14.4 % (11.5-15.5); WBC 11.6 k/uL (3.8-10.6)
[2020-06-08 06:53] LABS: Glucose,Whole Blood 81 mg/dL (75-99)
[2020-06-08] MEDS: SYMBICORT 160-4.5 MCG INHALER INHALATION SCH ×2 (07:30→20:35)
[2020-06-08] MEDS: ALBUTEROL HFA INHALER INHALATION SCH ×4 (07:30→20:35)
[2020-06-08] MEDS: INSULIN ASPART (NovoLOG) 100 UNIT/ML VIAL SQ SCH ×4 (08:59→20:46)
[2020-06-08] MEDS: INSULN ASP PRT/INSULIN ASPART 100 UNIT/ML 10 ML VIAL SQ SCH ×2 (09:00→20:46)
[2020-06-08] MEDS: ZINC SULFATE 220 MG CAP PO SCH (09:01)
[2020-06-08] MEDS: INSULIN DETEMIR (LEVEMIR) 100 UNIT/ML SYR SQ SCH (09:01)
[2020-06-08] MEDS: APIXABAN 5 MG TAB PO SCH ×2 (09:01→21:02)
[2020-06-08] MEDS: ASCORBIC ACID 500 MG TAB PO SCH (09:01)
[2020-06-08] MEDS: CEFEPIME 2 GM in SODIUM CHLORIDE 0.9% 100 ML IVPB SCH ×2 (09:01→21:01)
[2020-06-08] MEDS: CHOLECALCIFEROL 400 UNIT TAB PO SCH (09:01)
[2020-06-08] MEDS: FAMOTIDINE 20 MG TAB PO SCH (09:01)
[2020-06-08] MEDS: PANTOPRAZOLE 40 MG TABLET PO SCH (09:01)
--- NOTE | 2020-06-08 09:21 | XR ---
EXAMINATION TYPE: XR chest 1V portable DATE OF EXAM: 06/08/2020 Comparison: 06/06/2020 Clinical History: 74-year-old male pneumonia Findings: Heart remains enlarged. Atherosclerotic aortic calcifications. Extensive bilateral airspace disease g reatest in the periphery of the lungs without significant change. Impression: Extensive bilateral airspace disease with a peripheral predominance, without significant change.
[2020-06-08 11:24] LABS: Glucose,Whole Blood 135 mg/dL (75-99)
[2020-06-08 11:35] LABS: African American GFR (CKD) 101.3 (60.0-200.0); Albumin 3.3 g/dL (3.80-4.90); Albumin/Globulin Ratio 1.43 (1.60-3.17); C Reactive Protein 1.2 mg/dL (0.0-0.8); Calcium 8.7 mg/dL (8.7-10.3); Globulin 2.3 g/dL (1.6-3.3); Non-African American GFR(CKD) 87.4 (60.0-200.0); Potassium 4.2 mmol/L (3.5-5.5); Total Protein 5.6 g/dL (6.2-8.2)
[2020-06-08 16:51] LABS: Glucose,Whole Blood 177 mg/dL (75-99)
[2020-06-08 17:50] LABS: Appearance,Urine Clear (Clear); Bilirubin,Urine Negative (Negative); Blood,Urine Negative (Negative); Color,Urine Yellow; Glucose,Urine (UA) Negative (Negative); Ketones,Urine 1+ (Negative); Leukocyte Esterase,Urine Negative (Negative); Mucus,Urine Few /hpf; Nitrite,Urine Negative (Negative); PH, Urine 5.5 (5.0-8.0); Protein,Urine 1+ (Negative); RBC,Urine 41 /hpf (0-5); Specific Gravity,Urine 1.037 (1.001-1.035); Squamous Epithelial Cell,Urine <1 /hpf (0-4); Urobilinogen,Urine <2.0 mg/dL (<2.0); WBC,Urine 4 /hpf (0-5)
--- NOTE | 2020-06-08 18:03 | PN ---
PROGRESS NOTE PULMONARY/CRITICAL CARE PROGRESS NOTE: June 08, 2020 This is a 74-year-old gentleman who was admitted back on May 27. The patient was admitted with a diagnosis of worsening hypoxemic respiratory failure secondary to COVID- 19 pneumonitis. The patient did complete a 5 day course of Remdesivir. Currently, he is on AIRVO for oxygenation. The patient has a history of obesity, hypertension, hyperlipidemia, GERD, and diabetes. His CT angiogram was negative for PE. His is actually also in the hospital. She is doing much better than he. Today, he feels like he is really not improving. He states he is not really getting worse, but not getting any better. He remains on AIRVO. His chest x-ray shows significant and extensive bilateral infiltrates. PHYSICAL EXAMINATION: VITAL SIGNS: Current vital signs are reviewed. Temperature 98.1, heart rate 82, respiratory rate 26-32 breaths per minute, blood pressure 162/81, mean 108 and 15 L high flow nasal cannula shows a saturation of 89%. Yesterday he was on the AIRVO. He appears quite tachypneic and dyspneic. HEENT: Examination is grossly unremarkable. NECK: Supple, full range of motion. No adenopathy. Neck veins are flat. CARDIOVASCULAR: Examination reveals regular rhythm and rate. Heart rate 82. S1, S2 normal. LUNGS: Reveal diffuse coarse rhonchi. Breath sounds are diminished. ABDOMEN: Soft but obese. EXTREMITIES are intact. No cyanosis, clubbing, or edema. SKIN: Without rash. NEUROLOGIC: Examination is brief but nonfocal. LABS: Reviewed. White count 11.6, hemoglobin 12.9, hematocrit 40.7, platelet count 137,000. D-dimer 18.51. Sodium 145, potassium 4.3, chloride 108, CO2 30, anion gap is 7. BUN and creatinine were 40 and 0.8. The rest of the labs are reviewed. LDH 867. C- reactive protein 1.2. Procalcitonin 0.08. Microbiology showing evidence of Pseudomonas aeruginosa in the sputum along with Tessa albicans. Chest x-ray shows extensive bilateral infiltrates with a peripheral predominance. CURRENT MEDICATIONS: Reviewed. The patient is on Tylenol, albuterol inhaler, Eliquis, vitamin C, Symbicort, cefepime, vitamin D3, famotidine, Robitussin, insulin, melatonin, Solu-Medrol, Narcan, Ditropan, Protonix, Actos, eye drops, Flomax and zinc. ASSESSMENT: 1. Acute hypoxemic respiratory failure secondary to COVID-19 pneumonitis, currently on high-flow nasal O2, complicated by Pseudomonas aeruginosa, purulent tracheobronchitis/bronchopneumonia. 2. Status post five days of Remdesivir. 3. No CT angiogram evidence of pulmonary embolism. 4. Diabetes mellitus, type 2. 5. Gastroesophageal reflux disease. 6. Hyperlipidemia. 7. History of hypertension. 8. History of obesity. PLAN: The patient's respiratory status seems to be declining. He feels like he is not really get any better. The patient probably should be moved to the intensive care unit. I do not know that I have a bed currently. Additional recommendations and suggestions are forthcoming. The patient is getting all appropriate therapy. In the end, he may need to be intubated. MMODL / IJN: [id number] /
--- NOTE | 2020-06-08 18:09 | PN ---
PROGRESS NOTE DATE OF SERVICE: 06/08/2020 CHIEF COMPLAINT: Covid pneumonia. HISTORY OF PRESENT ILLNESS: This gentleman's breathing is getting a little bit worse. His pulse ox with high-flow oxygen has dropped into the high 80s. He is being moved to ICU. PHYSICAL EXAM: Demonstrates decreased breath sounds with rales and rhonchi bilaterally. He has a sinus tachycardia. IMPRESSION: 1. Advancing Covid pneumonia. 2. Diabetes. 3. Hypertension. PLAN: His care and treatment are being moved to ICU. MMODL / IJN: [id number] /
--- NOTE | 2020-06-08 20:33 | PN ---
PROGRESS NOTE DATE OF SERVICE: 06/08/2020 REASON FOR FOLLOWUP: Pneumonia. INTERVAL HISTORY: Patient is currently afebrile. Has been transferred to the ICU because of persistent hypoxemia, need for high-flow oxygen. The patient denies having any chest pain. He did have a cough but not bringing up any sputum. No vomiting or diarrhea. PHYSICAL EXAMINATION: Blood pressure 155/83, pulse of 78, temperature is 98.4. He is 92% on 2 L nasal cannula. General description is an elderly male up in the chair in no distress. Respiratory system: Unlabored breathing, coarse breath sounds at the base. No wheeze. HEART: S1, S2. Regular rate and rhythm. ABDOMEN: Soft, no tenderness. LABS: Hemoglobin is 12.1, WBC 11.6. D-dimer is 118.51. LDH is up to 867. Urine is negative. DIAGNOSTIC IMPRESSION AND PLAN: Patient with pneumonia with evidence of extensive disease in this patient with COVID and completing Remdesivir therapy. Subsequently, sputum has been Pseudomonas. Patient is covered with cefepime. Still have worsening of respiratory symptoms and transferred to ICU. Covered with Solu-Medrol, zinc and Monitor clinical course closely. Prognosis remains to be guarded. MMODL / IJN: [id number] / [facility]
[2020-06-08 20:44] LABS: Glucose,Whole Blood 158 mg/dL (75-99)
[2020-06-08] MEDS: OXYBUTYNIN 15 MG TAB.ER.24 PO SCH (21:02)
[2020-06-08] MEDS: MELATONIN 5 MG TABLET PO SCH (21:02)
[2020-06-08] MEDS: TAMSULOSIN 0.4 MG CAP.ER.24H PO SCH (21:02)
[2020-06-08] MEDS: PIOGLITAZONE 30 MG TAB PO SCH (21:02)
[2020-06-09] MEDS: methylPREDNISolone SOD SUCCI 125 MG/2 ML VIAL IV SCH ×4 (00:24→17:44)
[2020-06-09] MEDS: SULFACETAMIDE SOD 10% OPHTH DROPS 15 ML BTL RIGHT EYE SCH ×4 (00:29→17:34)
[2020-06-09 04:33] LABS: ALT 23 U/L (4-49); AST 42 U/L (17-59); African American GFR (CKD) >90 (>60 ml/min/1.73 sqM); Albumin 2.9 g/dL (3.5-5.0); Alkaline Phosphatase 64 U/L (38-126); Anion Gap 3 mmol/L; Blood Urea Nitrogen 38 mg/dL (9-20); C Reactive Protein 13.2 mg/L (<10.0); Calcium 8.3 mg/dL (8.4-10.2); Carbon Dioxide 29 mmol/L (22-30); Chloride 110 mmol/L (98-107); Glucose 94 mg/dL (74-99); Non-African American GFR(CKD) 89 (>60 ml/min/1.73 sqM); Potassium 4.3 mmol/L (3.5-5.1); Sodium 142 mmol/L (137-145); Total Bilirubin 1.1 mg/dL (0.2-1.3); Total Protein 5.8 g/dL (6.3-8.2)
[2020-06-09 04:42] LABS: LDH 2042 U/L (313-618)
[2020-06-09 05:16] LABS: HCT 39.9 % (39.0-53.0); HGB 12.8 gm/dL (13.0-17.5); MCH 29.2 pg (25.0-35.0); MCHC 32.1 g/dL (31.0-37.0); MCV 90.9 fL (80.0-100.0); Mean Platelet Volume 7.5; Platelet Count 107 k/uL (150-450); RBC 4.39 m/uL (4.30-5.90); RDW 14.6 % (11.5-15.5); WBC 11.1 k/uL (3.8-10.6)
[2020-06-09 06:20] LABS: Band Neutrophils % 4 %; Lymphocytes # (M) 0.56 k/uL (1.0-4.8); Metamyelocytes # (M) 0.33 k/uL (0); Metamyelocytes % 3 %; Monocytes # (M) 0.78 k/uL (0-1.0); Neutrophils % (M) 81 %; Nucleated Red Blood Cells 0 /100 WBC (0-0); Total Cells Counted 100
--- NOTE | 2020-06-09 06:57 | XR ---
EXAMINATION TYPE: XR chest 1V portable DATE OF EXAM: 06/09/2020 CLINICAL HISTORY: Difficulty breathing progress study. Covid pneumonia. TECHNIQUE: Single AP portable semiupright view of the chest is obtained. COMPARISON: Chest x-ray from one day earlier and older studies. CTA chest 3 days ago. FINDINGS: Persistent low lung volumes with multifocal bilateral opacities and consolidations are red emonstrated. Stable cardiomegaly with atherosclerotic aortic knob. Osseous structures are intact. IMPRESSION: Low lung volumes with significant bilateral multifocal acute infiltrates and organizing c onsolidations consistent with covid -19 infection .
[2020-06-09] MEDS: INSULIN ASPART (NovoLOG) 100 UNIT/ML VIAL SQ SCH ×4 (06:58→20:17)
[2020-06-09] MEDS: INSULIN DETEMIR (LEVEMIR) 100 UNIT/ML SYR SQ SCH (07:00)
[2020-06-09 07:02] LABS: Glucose,Whole Blood 89 mg/dL (75-99)
[2020-06-09] MEDS: CEFEPIME 2 GM in SODIUM CHLORIDE 0.9% 100 ML IVPB SCH ×2 (07:57→19:48)
[2020-06-09] MEDS: ASCORBIC ACID 500 MG TAB PO SCH (07:58)
[2020-06-09] MEDS: APIXABAN 5 MG TAB PO SCH ×2 (07:58→19:48)
[2020-06-09] MEDS: ZINC SULFATE 220 MG CAP PO SCH (07:58)
[2020-06-09] MEDS: FAMOTIDINE 20 MG TAB PO SCH (07:58)
[2020-06-09] MEDS: CHOLECALCIFEROL 400 UNIT TAB PO SCH (07:58)
[2020-06-09] MEDS: PANTOPRAZOLE 40 MG TABLET PO SCH (07:58)
--- NOTE | 2020-06-09 08:10 | P.PN ---
Subjective Progress Note Date: 06/09/20 74-year-old male patient admitted on 05/27/2024 and acute COVID19 related pneumonia. The patient developed acute hypoxic respiratory failure. The patient got transferred to the intensive care unit and the patient is currently requiring high flow oxygen at 60 L per minute nasal cannula, 90% Fio2 and 100 NRB. His chest x-ray showing diffuse bilateral pulmonary infiltrates consistent with COVID 19 related pneumonia. He has completed a five-day course of Remdesivir and the patient is on Steroids. The patient on IV Solu-Medrol 60 mg IV push every 6 hours. The patient was also found to have pseudomonas aeruginosa in the sputum and the patient purulent sputum production currently on antibiotics. The patient is currently on IV cefepime. The CT angiogram was negative for pulmonary embolism. The patient's history of obesity, hypertension, diabetes mellitus and acid reflux. The patient is on a nticoagulation with Eliquis 5 mg by mouth twice a day. The patient on Symbicort 2 puffs twice a day and albuterol HFA on a when necessary basis. The patient is on Levemir insulin 20 units daily in addition to NovoLog mix 7030 20 units at nighttime and 30 units in the morning. The patient is also on Actos 30 mg at bedtime. Note that the procalcitonin level is at 0.08.The chest x-rays essentially the same. There is still diffuse bilateral pulmonary infiltrates, mainly in the peripheries and more so on the right compared to the left and is unchanged compared to yesterday's chest x-ray. Oxygenation is unchanged. Clinically, he is still the same. He is slightly confused and his baseline level of alertness is or OA2. Urine output is in order of 30 mL an hour and the patient is receiving IV fluids in the form of normal saline at the rate of 20 mL an hour. Oral intake is quite minimal at this point in time Objective - Vital Signs Vital signs: Vital Signs Temp 98.2 F 06/09/20 04:00 Pulse 75 06/09/20 07:00 Resp 26 H 06/09/20 07:00 BP 138/78 06/09/20 07:00 Pulse Ox 89 L 06/09/20 07:00 Intake & Output 06/08/20 06/09/20 06/09/20 18:59 06:59 18:59 Intake Total 40 610 20 Output Total 230 430 40 Balance -190 180 -20 Weight 116.6 kg Intake: IV 40 240 20 0.9 40 240 20 Oral 370 Output: Urine 230 430 40 Other: Voiding Method Incontinent Indwelling Catheter # Voids 3 1 # Bowel Movements 2 2 - Exam GENERAL EXAM: Alert, very pleasant, 74-year-old white male, on Airvo at 60 L and FiO2 of 90% with a pulse ox of 95%, comfortable in no apparent distress. HEAD: Normocephalic/atraumatic. EYES: Normal reaction of pupils, equal size. Conjunctiva pink, sclera white. NOSE: Clear with pink turbinates. THROAT: No erythema or exudates. NECK: No masses, no JVD, no thyroid enlargement, no adenopathy. CHEST: No chest wall deformity. Symmetrical expansion. LUNGS: Equal air entry with no crackles, wheeze, rhonchi or dullness. CVS: Regular rate and rhythm, normal S1 and S2, no gallops, no murmurs, no rubs ABDOMEN: Soft, nontender. No hepatosplenomegaly, normal bowel sounds, no guarding or rigidity. EXTREMITIES: No clubbing, no edema, no cyanosis, 2+ pulses and upper and lower extremities. MUSCULOSKELETAL: Muscle strength and tone normal. SPINE: No scoliosis or deformity SKIN: No rashes CENTRAL NERVOUS SYSTEM: Alert and oriented -3. No focal deficits, tone is normal in all 4 extremities. PSYCHIATRIC: Alert and oriented -3. Appropriate affect. Intact judgment and insight. - Labs CBC & Chem 7: 06/09/20 03:41 06/09/20 03:41 Labs: Abnormal Lab Results - Last 24 Hours (Table) 06/08/20 06/08/20 06/08/20 Range/Units 05:50 11:23 16:30 WBC (3.8-10.6) k/uL Hgb (13.0-17.5) gm/dL Plt Count (150-450) k/uL Neutrophils # (Manual) (1.3-7.7) k/uL Lymphocytes # (Manual) (1.0-4.8) k/uL Metamyelocytes # (Man) (0) k/uL Chloride (98-107) mmol/L BUN 40.0 H (9.0-27.0) mg/dL BUN/Creatinine Ratio 50.00 H (12.00-20.00) Ratio POC Glucose (mg/dL) 135 H (75-99) mg/dL Calcium (8.4-10.2) mg/dL AST 41 H (14-35) U/L Lactate Dehydrogenase 867 H (120-246) U/L CK-MB (CK-2) (0.0-2.4) ng/mL C-Reactive Protein 1.2 H (0.0-0.8) mg/dL Total Protein 5.6 L (6.2-8.2) g/dL Albumin 3.30 L (3.80-4.90) g/dL Albumin/Globulin Ratio 1.43 L (1.60-3.17) g/dL Ur Specific Roberts 1.037 H (1.001-1.035) Urine Protein 1+ H (Negative) Urine Ketones 1+ H (Negative) Urine RBC 41 H (0-5) /hpf Urine Mucus Few H (None) /hpf 06/08/20 06/08/20 06/09/20 Range/Units 16:50 20:42 03:41 WBC 11.1 H (3.8-10.6) k/uL Hgb 12.8 L (13.0-17.5) gm/dL Plt Count 107 L (150-450) k/uL Neutrophils # (Manual) 9.40 H (1.3-7.7) k/uL Lymphocytes # (Manual) 0.56 L (1.0-4.8) k/uL Metamyelocytes # (Man) 0.33 H (0) k/uL Chloride (98-107) mmol/L BUN (9.0-27.0) mg/dL BUN/Creatinine Ratio (12.00-20.00) Ratio POC Glucose (mg/dL) 177 H 158 H (75-99) mg/dL Calcium (8.4-10.2) mg/dL AST (14-35) U/L Lactate Dehydrogenase (120-246) U/L CK-MB (CK-2) (0.0-2.4) ng/mL C-Reactive Protein (0.0-0.8) mg/dL Total Protein (6.2-8.2) g/dL Albumin (3.80-4.90) g/dL Albumin/Globulin Ratio (1.60-3.17) g/dL Ur Specific Roberts (1.001-1.035) Urine Protein (Negative) Urine Ketones (Negative) Urine RBC (0-5) /hpf Urine Mucus (None) /hpf 06/09/20 06/09/20 Range/Units 03:41 03:41 WBC (3.8-10.6) k/uL Hgb (13.0-17.5) gm/dL Plt Count (150-450) k/uL Neutrophils # (Manual) (1.3-7.7) k/uL Lymphocytes # (Manual) (1.0-4.8) k/uL Metamyelocytes # (Man) (0) k/uL Chloride 110 H (98-107) mmol/L BUN 38 H (9.0-27.0) mg/dL BUN/Creatinine Ratio (12.00-20.00) Ratio POC Glucose (mg/dL) (75-99) mg/dL Calcium 8.3 L (8.4-10.2) mg/dL AST (14-35) U/L Lactate Dehydrogenase 2042 H (120-246) U/L CK-MB (CK-2) 3.4 H (0.0-2.4) ng/mL C-Reactive Protein 13.2 H (0.0-0.8) mg/dL Total Protein 5.8 L (6.2-8.2) g/dL Albumin 2.9 L (3.80-4.90) g/dL Albumin/Globulin Ratio (1.60-3.17) g/dL Ur Specific Roberts (1.001-1.035) Urine Protein (Negative) Urine Ketones (Negative) Urine RBC (0-5) /hpf Urine Mucus (None) /hpf Assessment and Plan Plan: #1. Acute hypoxic respiratory failure related to COVID 19 pneumonitis, which has progressed since admission, and patient is currently on AIRVO at 60 L and FiO2 of 90%, his CTA chest shows extensive and diffuse bilateral lung infiltrates, no evidence of pulmonary embolism. Patient has completed Remdesivir course on 05/31/2020 and received convalescent immunoglobulin and the patient is on IV solumedrol #2. Increased d-dimer of 18, patient has been on Eliquis, CTA chest showed no evidence of pulmonary embolism #3. Diabetes mellitus type 2 #4. GERD/reflux #5. Hyperlipidemia #6. History of hypertension #7. Obesity 8 proximity atrial fibrillation current rhythm is sinus and the patient is on anticoagulation with Eliquis. Plan: We will continue current medical treatment continue high-dose IV steroids patient has completed course of Remdesivir, his chest x-ray and CT scans have been reviewed, showing increasing bilateral lung infiltrates, patient remains on high flow oxygen, currently at 60 [place] [address]% nonrebreather facemask while continue with vitamins and supplement continue with Eliquis4 previous history of atrial fibrillation overall prognosis is guarded, increase his IV fluids to NSS@ 75cc an hour of normal saline. monitor inflammatory markers critically care evaluation, more than 30 minutes We'll continue to follow Time with Patient: Greater than 30
[2020-06-09] MEDS: ALBUTEROL HFA INHALER INHALATION SCH ×4 (08:24→21:18)
[2020-06-09] MEDS: SYMBICORT 160-4.5 MCG INHALER INHALATION SCH ×2 (08:24→21:18)
[2020-06-09] MEDS: INSULN ASP PRT/INSULIN ASPART 100 UNIT/ML 10 ML VIAL SQ SCH ×2 (09:00→20:17)
[2020-06-09] MEDS: SODIUM CHLORIDE 0.9% 1,000 ML IV SCH ×2 (09:15→20:18)
[2020-06-09 13:08] LABS: Glucose,Whole Blood 146 mg/dL (75-99)
[2020-06-09 16:20] LABS: Glucose,Whole Blood 144 mg/dL (75-99)
[2020-06-09] MEDS: OXYBUTYNIN 15 MG TAB.ER.24 PO SCH (19:48)
[2020-06-09] MEDS: PIOGLITAZONE 30 MG TAB PO SCH (19:48)
[2020-06-09] MEDS: MELATONIN 5 MG TABLET PO SCH (19:48)
[2020-06-09] MEDS: TAMSULOSIN 0.4 MG CAP.ER.24H PO SCH (19:48)
[2020-06-09 20:12] LABS: Glucose,Whole Blood 266 mg/dL (75-99)
--- NOTE | 2020-06-09 22:47 | PN ---
PROGRESS NOTE DATE OF SERVICE: 06/09/2020 REASON FOR FOLLOWUP: Pneumonia. INTERVAL HISTORY: The patient is currently afebrile. The patient has been transferred down to the ICU because of hypoxemia and need for high-flow oxygen. The patient denies having any chest pain. He did have a congested cough, not bringing up any sputum. No nausea, no vomiting. No abdominal pain or diarrhea. PHYSICAL EXAMINATION: Blood pressure 142/72 with a pulse of 63, temperature 98.8. He is 95% on 60% FiO2. General description is an elderly male up in the bed in no distress. RESPIRATORY SYSTEM: Unlabored breathing. Coarse breath sounds bilaterally. No wheeze. HEART: S1, S2. Regular rate and rhythm. ABDOMEN: Soft. No tenderness. LABS: Hemoglobin is 12.3, white count 11.1 with a BUN of 38, creatinine 0.77. DIAGNOSTIC IMPRESSION AND PLAN: Patient with pneumonia in this patient who has been treated for COVID-19 and has completed his remdesivir therapy, currently on Eliquis, Solu-Medrol and zinc; to continue. sputum has been positive for pseudomonas, and the patient is currently covered with cefepime 2 grams q.12; to continue. Will monitor his clinical course closely. Continue with supportive care. MMODL / IJN: [id number] / MTDD
[2020-06-10] MEDS: methylPREDNISolone SOD SUCCI 125 MG/2 ML VIAL IV SCH ×5 (00:18→23:50)
[2020-06-10] MEDS: SULFACETAMIDE SOD 10% OPHTH DROPS 15 ML BTL RIGHT EYE SCH ×5 (00:18→23:49)
[2020-06-10 04:48] LABS: Basophils # (A) 0.1 k/uL (0-0.2); Basophils % (A) 1 %; Eosinophils % (A) 0 %; HCT 40.1 % (39.0-53.0); HGB 12.7 gm/dL (13.0-17.5); Lymphocytes # (A) 0.4 k/uL (1.0-4.8); Lymphocytes % (A) 3 %; MCH 28.8 pg (25.0-35.0); MCHC 31.6 g/dL (31.0-37.0); MCV 91.3 fL (80.0-100.0); Mean Platelet Volume 7.5; Monocytes # (A) 1.1 k/uL (0-1.0); Monocytes % (A) 11 %; Neutrophils # (A) 8.6 k/uL (1.3-7.7); Neutrophils % (A) 84 %; Platelet Count 113 k/uL (150-450); RDW 14.6 % (11.5-15.5); WBC 10.2 k/uL (3.8-10.6)
[2020-06-10 05:08] LABS: ALT 22 U/L (4-49); AST 33 U/L (17-59); African American GFR (CKD) >90 (>60 ml/min/1.73 sqM); Albumin 2.8 g/dL (3.5-5.0); Alkaline Phosphatase 61 U/L (38-126); Anion Gap 2 mmol/L; Blood Urea Nitrogen 42 mg/dL (9-20); C Reactive Protein 9.8 mg/L (<10.0); Calcium 8.2 mg/dL (8.4-10.2); Carbon Dioxide 29 mmol/L (22-30); Chloride 110 mmol/L (98-107); Creatine Kinase 27 U/L (55-170); Glucose 130 mg/dL (74-99); LDH 2003 U/L (313-618); Non-African American GFR(CKD) 86 (>60 ml/min/1.73 sqM); Potassium 4.3 mmol/L (3.5-5.1); Sodium 141 mmol/L (137-145); Total Protein 5.6 g/dL (6.3-8.2)
[2020-06-10 06:32] LABS: Glucose,Whole Blood 125 mg/dL (75-99)
[2020-06-10] MEDS: INSULIN ASPART (NovoLOG) 100 UNIT/ML VIAL SQ SCH ×4 (06:36→20:01)
[2020-06-10] MEDS: INSULIN DETEMIR (LEVEMIR) 100 UNIT/ML SYR SQ SCH (06:50)
[2020-06-10] MEDS: ALBUTEROL HFA INHALER INHALATION SCH ×4 (07:58→19:45)
[2020-06-10] MEDS: SYMBICORT 160-4.5 MCG INHALER INHALATION SCH ×2 (07:58→19:45)
[2020-06-10] MEDS: APIXABAN 5 MG TAB PO SCH ×3 (08:17→20:01)
[2020-06-10] MEDS: ASCORBIC ACID 500 MG TAB PO SCH ×2 (08:17→14:04)
[2020-06-10] MEDS: CEFEPIME 2 GM in SODIUM CHLORIDE 0.9% 100 ML IVPB SCH ×2 (08:17→20:00)
[2020-06-10] MEDS: INSULN ASP PRT/INSULIN ASPART 100 UNIT/ML 10 ML VIAL SQ SCH ×3 (08:18→20:01)
[2020-06-10] MEDS: FAMOTIDINE 20 MG TAB PO SCH ×2 (08:18→20:15)
[2020-06-10] MEDS: ZINC SULFATE 220 MG CAP PO SCH ×2 (08:18→14:03)
[2020-06-10] MEDS: CHOLECALCIFEROL 400 UNIT TAB PO SCH ×2 (08:18→14:04)
--- NOTE | 2020-06-10 08:55 | P.PN ---
Subjective Progress Note Date: 06/10/20 74-year-old male patient admitted on 05/27/2024 and acute COVID19 related pneumonia. The patient developed acute hypoxic respiratory failure. The patient got transferred to the intensive care unit and the patient is currently requiring high flow oxygen at 60 L per minute nasal cannula, 90% Fio2 and 100 NRB. His chest x-ray showing diffuse bilateral pulmonary infiltrates consistent with COVID 19 related pneumonia. He has completed a five-day course of Remdesivir and the patient is on Steroids. The patient on IV Solu-Medrol 60 mg IV push every 6 hours. The patient was also found to have pseudomonas aeruginosa in the sputum and the patient purulent sputum production currently on antibiotics. The patient is currently on IV cefepime. The CT angiogram was negative for pulmonary embolism. The patient's history of obesity, hypertension, diabetes mellitus and acid reflux. The patient is on a nticoagulation with Eliquis 5 mg by mouth twice a day. The patient on Symbicort 2 puffs twice a day and albuterol HFA on a when necessary basis. The patient is on Levemir insulin 20 units daily in addition to NovoLog mix 7030 20 units at nighttime and 30 units in the morning. The patient is also on Actos 30 mg at bedtime. Note that the procalcitonin level is at 0.08.The chest x-rays essentially the same. There is still diffuse bilateral pulmonary infiltrates, mainly in the peripheries and more so on the right compared to the left and is unchanged compared to yesterday's chest x-ray. Oxygenation is unchanged. Clinically, he is still the same. He is slightly confused and his baseline level of alertness is or OA2. Urine output is in order of 30 mL an hour and the patient is receiving IV fluids in the form of normal saline at the rate of 20 mL an hour. Oral intake is quite minimal at this point in time on today's evaluation of 06/10/2020, the patient is not showing any progress. In fact there may be some worsening. He is very much lethargic. Is unable to swallow. He is essentially laying down in bed and has minimal amount of conversation. He seems to be disoriented. He is on high flow oxygen 6 L with an FiO2 of 90% in addition to 100% nonrebreather facemask. Chest x-ray showing diffuse bilateral pulmonary infiltrates consistent with bilateral pneumonia. The patient is on IV Solu-Medrol. He completed Remdesivir and he also still less than plasma. We're quite concerned about his respiratory status. He is a full code for now. He is in atrial fibrillation and the rate is controlled for now. His blood sugars are controlled with NovoLog mix 7030 20 units at nighttime and 30 units in the morning. He is also taking Actos. He is also on empiric antibiotic coverage with IV cefepime as the patient will pseudomonas in his sputum. He is afebrile. His LDH is 2003 and his CRP is 9.8. Objective - Vital Signs Vital signs: Vital Signs Temp 97.8 F 06/10/20 08:00 Pulse 77 06/10/20 08:30 Resp 21 06/10/20 08:30 BP 141/78 06/10/20 08:30 Pulse Ox 86 L 06/10/20 08:30 Intake & Output 06/09/20 06/10/20 06/10/20 18:59 06:59 18:59 Intake Total 1020 825 250 Output Total 600 725 200 Balance 420 100 50 Weight 112 kg Intake: IV 1020 825 250 0.9 20 Cefepime 2 gm In Sodium 100 100 Chloride 0.9% 100 ml @ 25 mls/hr IVPB Q12HR [facility] Rx #:[id number] Sodium Chloride 0.9% 1, 900 825 150 000 ml @ 75 mls/hr IV . [id number] [facility] Rx#:[id number] Output: Urine 600 725 200 Other: Voiding Method Indwelling Catheter Indwelling Catheter - Exam GENERAL EXAM: Alert, very pleasant, 74-year-old white male, on Airvo at 60 L and FiO2 of 90% with a pulse ox of 95%, comfortable in no apparent distress. HEAD: Normocephalic/atraumatic. EYES: Normal reaction of pupils, equal size. Conjunctiva pink, sclera white. NOSE: Clear with pink turbinates. THROAT: No erythema or exudates. NECK: No masses, no JVD, no thyroid enlargement, no adenopathy. CHEST: No chest wall deformity. Symmetrical expansion. LUNGS: Equal air entry with no crackles, wheeze, rhonchi or dullness. CVS: Regular rate and rhythm, normal S1 and S2, no gallops, no murmurs, no rubs ABDOMEN: Soft, nontender. No hepatosplenomegaly, normal bowel sounds, no guarding or rigidity. EXTREMITIES: No clubbing, no edema, no cyanosis, 2+ pulses and upper and lower extremities. MUSCULOSKELETAL: Muscle strength and tone normal. SPINE: No scoliosis or deformity SKIN: No rashes CENTRAL NERVOUS SYSTEM: Alert and oriented -3. No focal deficits, tone is normal in all 4 extremities. PSYCHIATRIC: Alert and oriented -3. Appropriate affect. Intact judgment and insight. - Labs CBC & Chem 7: 06/10/20 04:03 06/10/20 04:03 Labs: Abnormal Lab Results - Last 24 Hours (Table) 06/09/20 06/09/20 06/09/20 Range/Units 03:41 13:06 16:18 Hgb (13.0-17.5) gm/dL Plt Count (150-450) k/uL Neutrophils # (1.3-7.7) k/uL Lymphocytes # (1.0-4.8) k/uL Monocytes # (0-1.0) k/uL D-Dimer (<0.60) mg/L FEU Chloride (98-107) mmol/L BUN (9-20) mg/dL Glucose (74-99) mg/dL POC Glucose (mg/dL) 146 H 144 H (75-99) mg/dL Calcium (8.4-10.2) mg/dL Ferritin 501.0 H (22.0-322.0) ng/mL Lactate Dehydrogenase (313-618) U/L Creatine Kinase (55-170) U/L Total Protein (6.3-8.2) g/dL Albumin (3.5-5.0) g/dL 06/09/20 06/10/20 06/10/20 Range/Units 20:10 04:03 04:03 Hgb 12.7 L (13.0-17.5) gm/dL Plt Count 113 L (150-450) k/uL Neutrophils # 8.6 H (1.3-7.7) k/uL Lymphocytes # 0.4 L (1.0-4.8) k/uL Monocytes # 1.1 H (0-1.0) k/uL D-Dimer (<0.60) mg/L FEU Chloride 110 H (98-107) mmol/L BUN 42 H (9-20) mg/dL Glucose 130 H (74-99) mg/dL POC Glucose (mg/dL) 266 H (75-99) mg/dL Calcium 8.2 L (8.4-10.2) mg/dL Ferritin (22.0-322.0) ng/mL Lactate Dehydrogenase 2003 H (313-618) U/L Creatine Kinase 27 L (55-170) U/L Total Protein 5.6 L (6.3-8.2) g/dL Albumin 2.8 L (3.5-5.0) g/dL 06/10/20 06/10/20 Range/Units 04:03 06:31 Hgb (13.0-17.5) gm/dL Plt Count (150-450) k/uL Neutrophils # (1.3-7.7) k/uL Lymphocytes # (1.0-4.8) k/uL Monocytes # (0-1.0) k/uL D-Dimer 11.68 H (<0.60) mg/L FEU Chloride (98-107) mmol/L BUN (9-20) mg/dL Glucose (74-99) mg/dL POC Glucose (mg/dL) 125 H (75-99) mg/dL Calcium (8.4-10.2) mg/dL Ferritin (22.0-322.0) ng/mL Lactate Dehydrogenase (313-618) U/L Creatine Kinase (55-170) U/L Total Protein (6.3-8.2) g/dL Albumin (3.5-5.0) g/dL Assessment and Plan Plan: #1. Acute hypoxic respiratory failure related to COVID 19 pneumonitis, which has progressed since admission, and patient is currently on AIRVO at 60 L and FiO2 of 90%, his CTA chest shows extensive and diffuse bilateral lung infiltrates, no evidence of pulmonary embolism. Patient has completed Remdesivir course on 05/31/2020 and received convalescent immunoglobulin and the patient is on IV solumedrol #2. Increased d-dimer of 18, patient has been on Eliquis, CTA chest showed no evidence of pulmonary embolism #3. Diabetes mellitus type 2 #4. GERD/reflux #5. Hyperlipidemia #6. History of hypertension #7. Obesity # 8 Paroxysmal atrial fibrillation current rhythm is sinus and the patient is on anticoagulation with Eliquis. plan We'll try intubation as much as possibleKnowing that intubation may increase his risk of mortality and he may not recover from being intubated. Keep high flow oxygen Continue IV Solu-Medrol Consider insertion of a NG tube for enteral feeding for nutritional support and the patient is able to tolerate Continue anticoagulation with Eliquis Prognosis extremely poor baseline above-mentioned comorbidities. The patient is quite debilitated. He is not showing any signs of progress. No improvement in his oxygenation. Condition is critical. We will try to diurese him gently. No major signs of any fluid overload for now.. Lasix 40 mg IV every 24 hours. critically care evaluation, more than 30 minutes. Time with Patient: Greater than 30
[2020-06-10 09:44] LABS: Ferritin 480.3 ng/mL (22.0-322.0)
[2020-06-10] MEDS: FUROSEMIDE 10 MG/ML 4 ML VIAL IV SCH (09:45)
[2020-06-10] MEDS: FAMOTIDINE 20 MG/2 ML VIAL IV SCH (09:47)
--- NOTE | 2020-06-10 11:02 | XR ---
EXAMINATION TYPE: XR chest 1V portable DATE OF EXAM: 06/10/2020 COMPARISON: 06/09/2020 INDICATION: Previous abnormal TECHNIQUE: Single frontal view of the chest is obtained. FINDINGS: The heart size is normal. The pulmonary vasculature is normal. There are patchy infiltrates present bilaterally. Findings can be adequately pneumonia. IMPRESSION: 1. Stable patchy bilateral lung infiltrates can be compatible with atypical pneumonia.
[2020-06-10 11:56] LABS: Glucose,Whole Blood 135 mg/dL (75-99)
[2020-06-10] MEDS: SODIUM CHLORIDE 0.9% 1,000 ML IV SCH ×2 (14:00→20:16)
[2020-06-10 16:48] LABS: Glucose,Whole Blood 242 mg/dL (75-99)
--- NOTE | 2020-06-10 18:28 | PN ---
PROGRESS NOTE DATE OF SERVICE: 06/09/2020 CHIEF COMPLAINT: COVID pneumonia. HISTORY OF PRESENT ILLNESS: This gentleman is holding his own but not improving. He remains on high-flow oxygen and may be nearing the necessity for intubation. PHYSICAL EXAMINATION: Color is adequate. Breath sounds are diminished bilaterally. Cardiac exam is normal. Vital signs are normal. IMPRESSION: 1. COVID pneumonia. 2. Obesity. 3. Diabetes. PLAN: Continue to follow with Infectious Disease and Pulmonology. [place] at this time is guarded. MMODL / IJN: [id number] /
--- NOTE | 2020-06-10 18:40 | PN ---
PROGRESS NOTE DATE OF SERVICE: 06/10/2020 CHIEF COMPLAINT: COVID pneumonitis and respiratory failure. HISTORY OF PRESENT ILLNESS: This gentleman remains in a guarded situation. He is still receiving high-flow oxygen with nasal cannula and a mask and is not doing well. PHYSICAL EXAMINATION: His vital signs are normal. Breath sounds are diminished bilaterally with occasional rales heard. The abdomen is protuberant. Extremities are normal. IMPRESSION: 1. COVID pneumonia and respiratory failure. 2. Diabetes mellitus. 3. Obesity. PLAN: Continue with supportive care as administered in ICU by Pulmonology and Infectious Disease. MMODL / IJN: [id number] /
[2020-06-10 19:43] LABS: Glucose,Whole Blood 274 mg/dL (75-99)
[2020-06-10] MEDS: OXYBUTYNIN 15 MG TAB.ER.24 PO SCH (20:01)
[2020-06-10] MEDS: TAMSULOSIN 0.4 MG CAP.ER.24H PO SCH (20:01)
[2020-06-10] MEDS: MELATONIN 5 MG TABLET PO SCH (20:01)
[2020-06-10] MEDS: PIOGLITAZONE 30 MG TAB PO SCH (20:01)
--- NOTE | 2020-06-10 23:01 | PN ---
PROGRESS NOTE DATE OF SERVICE: 06/10/2020 REASON FOR FOLLOWUP: COVID-19 pneumonia. INTERVAL HISTORY: The patient is currently afebrile. The patient is still requiring high-flow nasal cannula oxygen for respiratory support. Did mention overall he is feeling better. He did have a congested cough, not bringing up any sputum. No nausea, no vomiting. No abdominal pain or diarrhea. PHYSICAL EXAMINATION: Blood pressure 141/73, pulse of 99, temperature 98. He is 90% on 85% FiO2. General description is an elderly male lying in bed in no distress. RESPIRATORY SYSTEM: Unlabored breathing with decreased breath sounds at the base. No wheeze. HEART: S1, S2. Regular rate and rhythm. ABDOMEN: Soft. No tenderness. LABS: Hemoglobin is 12, white count 10.2, BUN of 42, creatinine 0.84. DIAGNOSTIC IMPRESSION AND PLAN: Patient with acute respiratory failure which is multifactorial in this patient who completed treatment for COVID-19 . Sputum has been pseudomonas. Patient is on cefepime; to continue along with respiratory support, Solu-Medrol, and monitor his clinical course closely. Continue supportive care. MMODL / IJN: [id number] / MTDD
[2020-06-11 04:25] LABS: HCT 42.6 % (39.0-53.0); HGB 13.4 gm/dL (13.0-17.5); MCH 28.7 pg (25.0-35.0); MCHC 31.4 g/dL (31.0-37.0); MCV 91.4 fL (80.0-100.0); Mean Platelet Volume 7.8; RBC 4.67 m/uL (4.30-5.90); RDW 14.5 % (11.5-15.5); WBC 9.8 k/uL (3.8-10.6)
[2020-06-11 04:39] LABS: ALT 28 U/L (4-49); AST 36 U/L (17-59); African American GFR (CKD) >90 (>60 ml/min/1.73 sqM); Albumin 2.9 g/dL (3.5-5.0); Alkaline Phosphatase 58 U/L (38-126); Anion Gap 1 mmol/L; Blood Urea Nitrogen 45 mg/dL (9-20); C Reactive Protein 6.7 mg/L (<10.0); Calcium 8.4 mg/dL (8.4-10.2); Carbon Dioxide 31 mmol/L (22-30); Chloride 109 mmol/L (98-107); Creatine Kinase 25 U/L (55-170); Glucose 69 mg/dL (74-99); LDH 1870 U/L (313-618); Non-African American GFR(CKD) 87 (>60 ml/min/1.73 sqM); Potassium 4.3 mmol/L (3.5-5.1); Sodium 141 mmol/L (137-145); Total Protein 5.8 g/dL (6.3-8.2)
[2020-06-11 05:59] LABS: Glucose,Whole Blood 92 mg/dL (75-99)
[2020-06-11] MEDS: INSULIN ASPART (NovoLOG) 100 UNIT/ML VIAL SQ SCH ×4 (06:03→21:03)
[2020-06-11 06:09] LABS: Band Neutrophils % 3 %; Lymphocytes # (M) 0.98 k/uL (1.0-4.8); Metamyelocytes % 1 %; Neutrophils % (M) 85 %; Nucleated Red Blood Cells 0 /100 WBC (0-0); Total Cells Counted 200
[2020-06-11 06:10] LABS: Anisocytosis (M) Present; Polychromasia Present
[2020-06-11 06:12] LABS: Platelet Count 98 k/uL (150-450)
[2020-06-11] MEDS: methylPREDNISolone SOD SUCCI 125 MG/2 ML VIAL IV SCH ×3 (06:33→17:18)
[2020-06-11] MEDS: INSULIN DETEMIR (LEVEMIR) 100 UNIT/ML SYR SQ SCH (06:34)
[2020-06-11] MEDS: SULFACETAMIDE SOD 10% OPHTH DROPS 15 ML BTL RIGHT EYE SCH ×3 (06:34→17:19)
[2020-06-11] MEDS: ALBUTEROL HFA INHALER INHALATION SCH ×4 (07:31→19:40)
[2020-06-11] MEDS: SYMBICORT 160-4.5 MCG INHALER INHALATION SCH ×2 (07:32→19:48)
--- NOTE | 2020-06-11 07:44 | XR ---
EXAMINATION TYPE: XR chest 1V portable DATE OF EXAM: 06/11/2020 COMPARISON: R chest x-ray 06/10/2020 HISTORY: Abnormal chest x-ray, follow-up TECHNIQUE: Single frontal view of the chest is obtained. FINDINGS: Bilateral airspace disease is again seen. There may be some slight interval improvement in aeration. Cardiac mediastinal silhouette is stable. Aorta is dense. There is no pneumothorax or evid ent effusion. IMPRESSION: Correlate for pneumonia, there may be some slight interval improvement in aeration altho ugh there are differences in technique.
--- NOTE | 2020-06-11 08:21 | P.PN ---
Subjective Progress Note Date: 06/11/20 74-year-old male patient admitted on 05/27/2024 and acute COVID19 related pneumonia. The patient developed acute hypoxic respiratory failure. The patient got transferred to the intensive care unit and the patient is currently requiring high flow oxygen at 60 L per minute nasal cannula, 90% Fio2 and 100 NRB. His chest x-ray showing diffuse bilateral pulmonary infiltrates consistent with COVID 19 related pneumonia. He has completed a five-day course of Remdesivir and the patient is on Steroids. The patient on IV Solu-Medrol 60 mg IV push every 6 hours. The patient was also found to have pseudomonas aeruginosa in the sputum and the patient purulent sputum production currently on antibiotics. The patient is currently on IV cefepime. The CT angiogram was negative for pulmonary embolism. The patient's history of obesity, hypertension, diabetes mellitus and acid reflux. The patient is on a nticoagulation with Eliquis 5 mg by mouth twice a day. The patient on Symbicort 2 puffs twice a day and albuterol HFA on a when necessary basis. The patient is on Levemir insulin 20 units daily in addition to NovoLog mix 7030 20 units at nighttime and 30 units in the morning. The patient is also on Actos 30 mg at bedtime. Note that the procalcitonin level is at 0.08.The chest x-rays essentially the same. There is still diffuse bilateral pulmonary infiltrates, mainly in the peripheries and more so on the right compared to the left and is unchanged compared to yesterday's chest x-ray. Oxygenation is unchanged. Clinically, he is still the same. He is slightly confused and his baseline level of alertness is or OA2. Urine output is in order of 30 mL an hour and the patient is receiving IV fluids in the form of normal saline at the rate of 20 mL an hour. Oral intake is quite minimal at this point in time on today's evaluation of 06/10/2020, the patient is not showing any progress. In fact there may be some worsening. He is very much lethargic. Is unable to swallow. He is essentially laying down in bed and has minimal amount of conversation. He seems to be disoriented. He is on high flow oxygen 6 L with an FiO2 of 90% in addition to 100% nonrebreather facemask. Chest x-ray showing diffuse bilateral pulmonary infiltrates consistent with bilateral pneumonia. The patient is on IV Solu-Medrol. He completed Remdesivir and he also still less than plasma. We're quite concerned about his respiratory status. He is a full code for now. He is in atrial fibrillation and the rate is controlled for now. His blood sugars are controlled with NovoLog mix 7030 20 units at nighttime and 30 units in the morning. He is also taking Actos. He is also on empiric antibiotic coverage with IV cefepime as the patient will pseudomonas in his sputum. He is afebrile. His LDH is 2003 and his CRP is 9.8. on 06/11/2020, the patient is less lethargic and more awake. He is having some few conversations with me. He was able to follow simple commands. He is profoundly weak. He remains on 60 L with an FiO2 of 80% and 100% nonrebreather facemask. Yesterday, he was able to pass a swallow evaluation. He was given some diet. This was encouraging and I did not have the need to insert an NG tube on him. He has a congested cough. No significant sputum production. He remains on IV cefepime regarding pseudomonas in the sputum. Chest x-ray shows improvement in the left lung infiltration. The right lung is still consolidated actively. He is weak. He seems to be much better spirits for now.He is on IV Solu-Medrol 60 mg every 6 hours. He is also on Lasix 40 mg on a daily basis. He remains on anticoagulation with Eliquis regarding his atrial fibrillation 5 m g by mouth twice a day. Objective - Vital Signs Vital signs: Vital Signs Temp 98 F 06/11/20 04:00 Pulse 65 06/11/20 07:00 Resp 19 06/11/20 07:37 BP 145/72 06/11/20 07:00 Pulse Ox 91 L 06/11/20 07:27 Intake & Output 06/10/20 06/11/20 06/11/20 18:59 06:59 18:59 Intake Total 1190 300 25 Output Total 1386 630 50 Balance -196 -330 -25 Weight 110.6 kg Intake: IV 750 300 25 Cefepime 2 gm In Sodium 100 Chloride 0.9% 100 ml @ 25 mls/hr IVPB Q12HR [facility] Rx #:[id number] Sodium Chloride 0.9% 1, 50 300 25 000 ml @ 25 mls/hr IV . Q24H [facility] Rx#:[id number] Sodium Chloride 0.9% 1, 600 000 ml @ 75 mls/hr IV . [id number] [facility] Rx#:[id number] Oral 440 Output: Urine 1385 630 50 Stool 1 Other: Voiding Method Indwelling Catheter Indwelling Catheter Indwelling Catheter - Exam GENERAL EXAM: Alert, very pleasant, 74-year-old white male, on Airvo at 60 L and FiO2 of 80% with a pulse ox of 95%, comfortable in no apparent distress.patient on and off is also utilizing an on a pnonrebreather facemask with a 100% HEAD: Normocephalic/atraumatic. EYES: Normal reaction of pupils, equal size. Conjunctiva pink, sclera white. NOSE: Clear with pink turbinates. THROAT: No erythema or exudates. NECK: No masses, no JVD, no thyroid enlargement, no adenopathy. CHEST: No chest wall deformity. Symmetrical expansion. LUNGS: Equal air entry with no crackles, wheeze, rhonchi or dullness. CVS: Regular rate and rhythm, normal S1 and S2, no gallops, no murmurs, no rubs ABDOMEN: Soft, nontender. No hepatosplenomegaly, normal bowel sounds, no guarding or rigidity. EXTREMITIES: No clubbing, no edema, no cyanosis, 2+ pulses and upper and lower extremities. MUSCULOSKELETAL: Muscle strength and tone normal. SPINE: No scoliosis or deformity SKIN: No rashes CENTRAL NERVOUS SYSTEM: Alert and oriented -3. No focal deficits, tone is normal in all 4 extremities.the patient has global weakness and profound weakness in all 4 extremities. He is able to communicate. PSYCHIATRIC: Alert and oriented -3. Appropriate affect. Intact judgment and insight. - Labs CBC & Chem 7: 06/11/20 03:09 06/11/20 03:09 Labs: Abnormal Lab Results - Last 24 Hours (Table) 06/10/20 06/10/20 06/10/20 Range/Units 04:03 11:54 16:46 Plt Count (150-450) k/uL Neutrophils # (Manual) (1.3-7.7) k/uL Lymphocytes # (Manual) (1.0-4.8) k/uL Metamyelocytes # (Man) (0) k/uL Chloride (98-107) mmol/L Carbon Dioxide (22-30) mmol/L BUN (9-20) mg/dL Glucose (74-99) mg/dL POC Glucose (mg/dL) 135 H 242 H (75-99) mg/dL Ferritin 480.3 H (22.0-322.0) ng/mL Lactate Dehydrogenase (313-618) U/L Creatine Kinase (55-170) U/L Total Protein (6.3-8.2) g/dL Albumin (3.5-5.0) g/dL 06/10/20 06/11/20 06/11/20 Range/Units 19:42 03:09 03:09 Plt Count 98 L (150-450) k/uL Neutrophils # (Manual) 8.60 H (1.3-7.7) k/uL Lymphocytes # (Manual) 0.98 L (1.0-4.8) k/uL Metamyelocytes # (Man) 0.10 H (0) k/uL Chloride 109 H (98-107) mmol/L Carbon Dioxide 31 H (22-30) mmol/L BUN 45 H (9-20) mg/dL Glucose 69 L (74-99) mg/dL POC Glucose (mg/dL) 274 H (75-99) mg/dL Ferritin (22.0-322.0) ng/mL Lactate Dehydrogenase 1870 H (313-618) U/L Creatine Kinase 25 L (55-170) U/L Total Protein 5.8 L (6.3-8.2) g/dL Albumin 2.9 L (3.5-5.0) g/dL Assessment and Plan Plan: #1. Acute hypoxic respiratory failure related to COVID 19 pneumonitis, which has progressed since admission, and patient is currently on AIRVO at 60 L and FiO2 of 80%, his CTA chest shows extensive and diffuse bilateral lung infiltrates, no evidence of pulmonary embolism. Patient has completed Remdesivir course on 05/31/2020 and received convalescent immunoglobulin and the patient is on IV solumedrol. Limited improvement in terms of his mentation and strength and stamina compared to yesterday. Chest x-ray essentially stable with possibility of some improvement on the left. #2. Increased d-dimer of 18, patient has been on Eliquis, CTA chest showed no evidence of pulmonary embolism #3. Diabetes mellitus type 2 #4. GERD/reflux #5. Hyperlipidemia #6. History of hypertension #7. Obesity # 8 Paroxysmal atrial fibrillation current rhythm is sinus and the patient is on anticoagulation with Eliquis. plan keep on the same oxygen flow at 60 L with an FiO2 of 80% and 100% nonrebreather facemask Keep high flow oxygen Continue IV Solu-Medrol Consider insertion of a NG tube for enteral feeding for nutritional support and the patient is able to tolerate. This was held yesterday and the patient is currently taking oral intake and he passed a swallow evaluation. We'll encourage events. Continue anticoagulation with Eliquis Prognosis extremely poor baseline above-mentioned comorbidities. The patient is quite debilitated. He is not showing any signs of progress. No improvement in his oxygenation. Condition is critical. We will try to diurese him gently. No major signs of any fluid overload for now.. Lasix 40 mg IV every 24 hours. critically care evaluation, more than 30 minutes.
[2020-06-11] MEDS: APIXABAN 5 MG TAB PO SCH ×2 (08:45→20:43)
[2020-06-11] MEDS: FAMOTIDINE 20 MG/2 ML VIAL IV SCH (08:45)
[2020-06-11] MEDS: CHOLECALCIFEROL 400 UNIT TAB PO SCH (08:45)
[2020-06-11] MEDS: ASCORBIC ACID 500 MG TAB PO SCH (08:45)
[2020-06-11] MEDS: CEFEPIME 2 GM in SODIUM CHLORIDE 0.9% 100 ML IVPB SCH ×2 (08:45→20:44)
[2020-06-11] MEDS: FUROSEMIDE 10 MG/ML 4 ML VIAL IV SCH (08:46)
[2020-06-11] MEDS: ZINC SULFATE 220 MG CAP PO SCH (08:46)
[2020-06-11] MEDS: INSULN ASP PRT/INSULIN ASPART 100 UNIT/ML 10 ML VIAL SQ SCH ×2 (08:48→20:43)
[2020-06-11 11:51] LABS: Glucose,Whole Blood 125 mg/dL (75-99)
[2020-06-11] MEDS: ARTIFICIAL TEARS-HYPROMELLOSE DROPS 15 ML BTL BOTH EYES PRN (16:56)
[2020-06-11 17:12] LABS: Glucose,Whole Blood 168 mg/dL (75-99)
--- NOTE | 2020-06-11 19:32 | PN ---
PROGRESS NOTE DATE OF SERVICE: 06/11/2020 CHIEF COMPLAINT: COVID pneumonia. HISTORY OF PRESENT ILLNESS: The patient seems to be no better. According to Pulmonology and Infectious Disease, he may be, if anything, slightly worse. He continues on high-flow oxygen with a pulse ox running in the high 80s or 90. He is a little bit more alert today and apparently eating some. Vital signs are normal. Blood sugars are fluctuating somewhat. Breath sounds are heard bilaterally and he is in atrial fibrillation. IMPRESSION: 1. COVID pneumonia. 2. Diabetes. 3. Obesity. PLAN: Continue to follow with Infectious Disease and Intensive Medicine. MMODL / IJN: [id number] /
[2020-06-11] MEDS: SODIUM CHLORIDE 0.9% 1,000 ML IV SCH (20:43)
[2020-06-11] MEDS: OXYBUTYNIN 15 MG TAB.ER.24 PO SCH (20:43)
[2020-06-11] MEDS: TAMSULOSIN 0.4 MG CAP.ER.24H PO SCH (20:43)
[2020-06-11] MEDS: MELATONIN 5 MG TABLET PO SCH (20:43)
[2020-06-11 20:56] LABS: Glucose,Whole Blood 206 mg/dL (75-99)
[2020-06-11] MEDS: PIOGLITAZONE 30 MG TAB PO SCH (21:11)
--- NOTE | 2020-06-11 22:49 | PN ---
PROGRESS NOTE DATE OF SERVICE: 06/11/2020 REASON FOR FOLLOWUP: Pneumonia. INTERVAL HISTORY: The patient is currently afebrile. He mentioned he is breathing comfortably. Denies having any chest pain. Did have a cough, not bringing up any sputum. No vomiting or diarrhea. PHYSICAL EXAMINATION: Blood pressure 143/79, pulse of 69, temperature 98. He is 93% on high-flow oxygen. General description is an elderly male lying in bed in no distress. RESPIRATORY SYSTEM: Unlabored breathing. Coarse breath sounds in the bases bilaterally. No wheeze. HEART: S1, S2. Regular rate and rhythm. ABDOMEN: Soft. No tenderness. LABS: Hemoglobin 13.4, white count 9.8, BUN of 45, creatinine 0.81. LDH is 1870. DIAGNOSTIC IMPRESSION AND PLAN: Patient with acute respiratory failure which is multifactorial in this patient who did have a component of pneumonia. The patient has completed treatment for his remdesivir. sputum did show pseudomonas, and the patient is covered with cefepime. Chest x- ray did show improvement. Continue cefepime and monitor his clinical course closely. MMODL / IJN: [id number] / MTDD
[2020-06-12] MEDS: methylPREDNISolone SOD SUCCI 125 MG/2 ML VIAL IV SCH ×2 (00:07→05:54)
[2020-06-12] MEDS: ARTIFICIAL TEARS-HYPROMELLOSE DROPS 15 ML BTL BOTH EYES PRN ×2 (00:08→12:39)
[2020-06-12] MEDS: SULFACETAMIDE SOD 10% OPHTH DROPS 15 ML BTL RIGHT EYE SCH ×4 (00:09→16:58)
[2020-06-12] MEDS: INSULIN DETEMIR (LEVEMIR) 100 UNIT/ML SYR SQ SCH (06:09)
--- NOTE | 2020-06-12 07:58 | XR ---
EXAMINATION TYPE: XR chest 1V portable DATE OF EXAM: 06/12/2020 COMPARISON: 06/11/2020 INDICATION: Short of breath TECHNIQUE: Single frontal view of the chest is obtained. FINDINGS: The heart size is upper limits of normal. The pulmonary vasculature is normal. There is a right peripheral consolidation. Patchy infiltrates are through the remaining portions of t he bilateral lung [place]. This is improved. IMPRESSION: 1. Improving diffuse infiltrate bilaterally. The consolidation in the periphery of the right lung rem ains present.
[2020-06-12] MEDS: ALBUTEROL HFA INHALER INHALATION SCH ×4 (08:06→19:55)
[2020-06-12] MEDS: SYMBICORT 160-4.5 MCG INHALER INHALATION SCH ×2 (08:06→19:55)
[2020-06-12 08:19] LABS: Glucose,Whole Blood 168 mg/dL (75-99)
[2020-06-12] MEDS: INSULIN ASPART (NovoLOG) 100 UNIT/ML VIAL SQ SCH ×4 (08:30→20:59)
[2020-06-12] MEDS: APIXABAN 5 MG TAB PO SCH ×2 (08:31→19:47)
[2020-06-12] MEDS: CEFEPIME 2 GM in SODIUM CHLORIDE 0.9% 100 ML IVPB SCH ×2 (08:31→19:47)
[2020-06-12] MEDS: ASCORBIC ACID 500 MG TAB PO SCH (08:31)
[2020-06-12] MEDS: INSULN ASP PRT/INSULIN ASPART 100 UNIT/ML 10 ML VIAL SQ SCH ×2 (08:32→19:45)
[2020-06-12] MEDS: FUROSEMIDE 10 MG/ML 4 ML VIAL IV SCH (08:32)
[2020-06-12] MEDS: CHOLECALCIFEROL 400 UNIT TAB PO SCH (08:32)
[2020-06-12] MEDS: FAMOTIDINE 20 MG/2 ML VIAL IV SCH (08:32)
[2020-06-12] MEDS: ZINC SULFATE 220 MG CAP PO SCH (08:33)
--- NOTE | 2020-06-12 08:53 | P.PN ---
Subjective Progress Note Date: 06/12/20 74-year-old male patient admitted on 05/27/2024 and acute COVID19 related pneumonia. The patient developed acute hypoxic respiratory failure. The patient got transferred to the intensive care unit and the patient is currently requiring high flow oxygen at 60 L per minute nasal cannula, 90% Fio2 and 100 NRB. His chest x-ray showing diffuse bilateral pulmonary infiltrates consistent with COVID 19 related pneumonia. He has completed a five-day course of Remdesivir and the patient is on Steroids. The patient on IV Solu-Medrol 60 mg IV push every 6 hours. The patient was also found to have pseudomonas aeruginosa in the sputum and the patient purulent sputum production currently on antibiotics. The patient is currently on IV cefepime. The CT angiogram was negative for pulmonary embolism. The patient's history of obesity, hypertension, diabetes mellitus and acid reflux. The patient is on a nticoagulation with Eliquis 5 mg by mouth twice a day. The patient on Symbicort 2 puffs twice a day and albuterol HFA on a when necessary basis. The patient is on Levemir insulin 20 units daily in addition to NovoLog mix 7030 20 units at nighttime and 30 units in the morning. The patient is also on Actos 30 mg at bedtime. Note that the procalcitonin level is at 0.08.The chest x-rays essentially the same. There is still diffuse bilateral pulmonary infiltrates, mainly in the peripheries and more so on the right compared to the left and is unchanged compared to yesterday's chest x-ray. Oxygenation is unchanged. Clinically, he is still the same. He is slightly confused and his baseline level of alertness is or OA2. Urine output is in order of 30 mL an hour and the patient is receiving IV fluids in the form of normal saline at the rate of 20 mL an hour. Oral intake is quite minimal at this point in time on today's evaluation of 06/10/2020, the patient is not showing any progress. In fact there may be some worsening. He is very much lethargic. Is unable to swallow. He is essentially laying down in bed and has minimal amount of conversation. He seems to be disoriented. He is on high flow oxygen 6 L with an FiO2 of 90% in addition to 100% nonrebreather facemask. Chest x-ray showing diffuse bilateral pulmonary infiltrates consistent with bilateral pneumonia. The patient is on IV Solu-Medrol. He completed Remdesivir and he also still less than plasma. We're quite concerned about his respiratory status. He is a full code for now. He is in atrial fibrillation and the rate is controlled for now. His blood sugars are controlled with NovoLog mix 7030 20 units at nighttime and 30 units in the morning. He is also taking Actos. He is also on empiric antibiotic coverage with IV cefepime as the patient will pseudomonas in his sputum. He is afebrile. His LDH is 2003 and his CRP is 9.8. on 06/11/2020, the patient is less lethargic and more awake. He is having some few conversations with me. He was able to follow simple commands. He is profoundly weak. He remains on 60 L with an FiO2 of 80% and 100% nonrebreather facemask. Yesterday, he was able to pass a swallow evaluation. He was given some diet. This was encouraging and I did not have the need to insert an NG tube on him. He has a congested cough. No significant sputum production. He remains on IV cefepime regarding pseudomonas in the sputum. Chest x-ray shows improvement in the left lung infiltration. The right lung is still consolidated actively. He is weak. He seems to be much better spirits for now.He is on IV Solu-Medrol 60 mg every 6 hours. He is also on Lasix 40 mg on a daily basis. He remains on anticoagulation with Eliquis regarding his atrial fibrillation 5 m g by mouth twice a day. On today's evaluation of 06/12/2020, the patient is feeling very much depressed. He is stating that he set up with his condition and he is ready to go and diet. He is a bit tearful also. I was able to get him off the 100% on a beta facemask and currently is only on high flow oxygen at 60 L with an FiO2 of 80%. His pulse ox is above 88%. He is able to swallow. He has a in front of him. His oral intake is minimal or lower this point in time. He has no significant c ough. He is a bit lethargic. No fever. No nausea. No vomiting. No abdominal pain. He remains on IV cefepime. Chest x-ray showing some limited improvement in the aeration bilaterally. There is however the excess amount of consolidation. The patient remains on IV Solu-Medrol. He is still in a controlled atrial fibrillation and the patient is on long-term anticoagulation with Eliquis 5 mg by mouth twice a day. He is also taking the Lasix doses IV. Blood sugars are being controlled with NovoLog 7030 minutes 20 in the evening and 30 units in the morning. He is also on Actos. Objective - Vital Signs Vital signs: Vital Signs Temp 98.4 F 06/12/20 08:00 Pulse 67 06/12/20 08:00 Resp 25 H 06/12/20 08:00 BP 137/87 06/12/20 08:00 Pulse Ox 93 L 06/12/20 08:07 Intake & Output 06/11/20 06/12/20 06/12/20 18:59 06:59 18:59 Intake Total 930 450 25 Output Total 1041 555 50 Balance -111 -105 -25 Weight 107.2 kg Intake: IV 300 300 25 Cefepime 2 gm In Sodium 100 Chloride 0.9% 100 ml @ 25 mls/hr IVPB Q12HR [facility] Rx #:[id number] Sodium Chloride 0.9% 1, 300 200 25 000 ml @ 25 mls/hr IV . Q24H [facility] Rx#:[id number] Oral 630 150 Output: Urine 1040 555 50 Stool 1 Other: Voiding Method Indwelling Catheter Indwelling Catheter # Bowel Movements 1 - Exam GENERAL EXAM: Alert, very pleasant, 74-year-old white male, on Airvo at 60 L and FiO2 of 80% with a pulse ox of 95%, comfortable in no apparent distress.patient on and off is also utilizing an on a pnonrebreather facemask with a 100% HEAD: Normocephalic/atraumatic. EYES: Normal reaction of pupils, equal size. Conjunctiva pink, sclera white. NOSE: Clear with pink turbinates. THROAT: No erythema or exudates. NECK: No masses, no JVD, no thyroid enlargement, no adenopathy. CHEST: No chest wall deformity. Symmetrical expansion. LUNGS: Equal air entry with no crackles, wheeze, rhonchi or dullness. CVS: Regular rate and rhythm, normal S1 and S2, no gallops, no murmurs, no rubs ABDOMEN: Soft, nontender. No hepatosplenomegaly, normal bowel sounds, no guarding or rigidity. EXTREMITIES: No clubbing, no edema, no cyanosis, 2+ pulses and upper and lower extremities. MUSCULOSKELETAL: Muscle strength and tone normal. SPINE: No scoliosis or deformity SKIN: No rashes CENTRAL NERVOUS SYSTEM: Alert and oriented -3. No focal deficits, tone is normal in all 4 extremities.the patient has global weakness and profound weakness in all 4 extremities. He is able to communicate. PSYCHIATRIC: Alert and oriented -3. Appropriate affect. Intact judgment and insight., the patient is feeling quite depressedand is tearful and is an extremely low mood on today's evaluation. - Labs CBC & Chem 7: 06/11/20 03:09 06/11/20 03:09 Labs: Abnormal Lab Results - Last 24 Hours (Table) 06/11/20 06/11/20 06/11/20 Range/Units 03:09 11:50 17:11 D-Dimer (<0.60) mg/L FEU POC Glucose (mg/dL) 125 H 168 H (75-99) mg/dL Ferritin 492.0 H (22.0-322.0) ng/mL 06/11/20 06/12/20 06/12/20 Range/Units 20:55 07:17 08:18 D-Dimer 3.85 H (<0.60) mg/L FEU POC Glucose (mg/dL) 206 H 168 H (75-99) mg/dL Ferritin (22.0-322.0) ng/mL Assessment and Plan Plan: #1. Acute hypoxic respiratory failure related to COVID 19 pneumonitis, which has progressed since admission, and patient is currently on AIRVO at 60 L and FiO2 of 80%, his CTA chest shows extensive and diffuse bilateral lung infiltrates, no evidence of pulmonary embolism. Patient has completed Remdesivir course on 05/31/2020 and received convalescent immunoglobulin and the patient is on IV solumedrol. chest exit possibly showing some limited improvement. Still on high flow oxygen. inflammatory markers are to be repeated today. #2. Increased d-dimer of 18, patient has been on Eliquis, CTA chest showed no evidence of pulmonary embolism #3. Diabetes mellitus type 2 #4. GERD/reflux #5. Hyperlipidemia #6. History of hypertension #7. Obesity # 8 Paroxysmal atrial fibrillation current rhythm is sinus and the patient is on anticoagulation with Eliquis. #9 depression plan keep on the same oxygen flow at 60 L with an FiO2 of 80% this continued IV Solu-Medrol and put the patient 6 mg of Decadron. It's possible that the high dose of steroids is affecting his mood and contributing to his depression. I'm also going to start the patient on Lexapro 10 mg daily. no need for NG tubeand the patient be encouraged to take oral food Continue anticoagulation with Eliquis Prognosis extremely poor baseline above-mentioned comorbidities. The patient is quite debilitated. He is not showing any signs of progress. No improvement in his oxygenation. Condition is critical. Lasix 40 mg IV every 24 hours.
[2020-06-12] MEDS: dexAMETHasone 2 MG TAB PO SCH (08:59)
[2020-06-12] MEDS: ESCITALOPRAM 10 MG TAB PO SCH (11:33)
[2020-06-12 11:50] LABS: Glucose,Whole Blood 164 mg/dL (75-99)
[2020-06-12] MEDS: SODIUM CHLORIDE 0.9% 1,000 ML IV SCH (16:59)
[2020-06-12 17:02] LABS: Glucose,Whole Blood 143 mg/dL (75-99)
[2020-06-12] MEDS: TAMSULOSIN 0.4 MG CAP.ER.24H PO SCH (19:47)
[2020-06-12] MEDS: OXYBUTYNIN 15 MG TAB.ER.24 PO SCH (19:48)
[2020-06-12] MEDS: PIOGLITAZONE 30 MG TAB PO SCH (19:48)
[2020-06-12] MEDS: MELATONIN 5 MG TABLET PO SCH (19:48)
[2020-06-12 19:59] LABS: Glucose,Whole Blood 109 mg/dL (75-99)
--- NOTE | 2020-06-12 20:41 | PN ---
PROGRESS NOTE CHIEF COMPLAINT: COVID Pneumonia. HISTORY OF PRESENT ILLNESS: This gentleman's condition is reportedly about the same. He is still on high-flow. His x-ray may show very slight improvement. However, his pulse ox still remains poor and he remains slightly confused. PHYSICAL EXAMINATION: Vital signs are normal. Breath sounds are heard bilaterally. Cardiac exam is atrial fibrillation. Abdomen is soft. IMPRESSION: 1. COVID pneumonia. 2. Diabetes. 3. Obesity. 4. Atrial fibrillation. PLAN: Continue with supportive efforts and medications. Prognosis is guarded. MMODL / IJN: [id number] /
--- NOTE | 2020-06-12 21:57 | PN ---
PROGRESS NOTE DATE OF SERVICE: 06/12/2020 REASON FOR FOLLOWUP: Pneumonia. INTERVAL HISTORY: The patient is currently afebrile. The patient mentioned that he is breathing comfortably. He denies having any chest pain. He did have a cough, not bringing up any sputum. No nausea, vomiting or diarrhea. PHYSICAL EXAMINATION: Blood pressure 145/80 with a pulse of 75, temperature 98.9. He is 90% on 60% FiO2. General description is an elderly male up in the bed in no distress. RESPIRATORY SYSTEM: Unlabored breathing. Coarse breath sounds in the bases bilaterally. No wheeze. HEART: S1, S2. Regular rate and rhythm. ABDOMEN: Soft. No tenderness. LABS: No new labs have been obtained today. DIAGNOSTIC IMPRESSION AND PLAN: Patient with acute respiratory failure which is multifactorial in this patient who did have a COVID-19 infection, for which the patient has completed his remdesivir therapy. Subsequently sputum shows pseudomonas. Patient is covered with cefepime did show improvement and to continue with the current treatment and monitor his clinical course closely. MMODL / IJN: [id number] / MTDD
[2020-06-13] MEDS ORDERED: FUROSEMIDE 10 MG/ML 4 ML VIAL IV STA (00:09)
[2020-06-13] MEDS: SULFACETAMIDE SOD 10% OPHTH DROPS 15 ML BTL RIGHT EYE SCH ×5 (00:23→23:10)
--- NOTE | 2020-06-13 00:44 | XR ---
EXAM: XR Chest, 1 View CLINICAL HISTORY: ITS.REASON XR Reason: SOB TECHNIQUE: Frontal view of the chest. COMPARISON: 06/12/2020 FINDINGS: Lungs: Low lung volumes with bilateral patchy pulmonary opacities with right sided consolidation is unchanged from 06/12/2020. Pleural space: Blunting of the left costophrenic angle, compatible with small left pleural effusion, unchanged from prior. No pneumothorax. Heart: Unremarkable. No cardiomegaly. Mediastinum: Unremarkable. Bones/joints: Unremarkable. IMPRESSION: Stable bilateral patchy opacities and consolidation in the periphery of the right lung.
[2020-06-13 04:41] LABS: HCT 42.8 % (39.0-53.0); HGB 14.2 gm/dL (13.0-17.5); MCHC 33.3 g/dL (31.0-37.0); Mean Platelet Volume 7.9; Platelet Count 105 k/uL (150-450); RBC 4.75 m/uL (4.30-5.90); RDW 14.4 % (11.5-15.5); WBC 18.4 k/uL (3.8-10.6)
[2020-06-13 04:58] LABS: ALT 30 U/L (4-49); AST 35 U/L (17-59); African American GFR (CKD) >90 (>60 ml/min/1.73 sqM); Alkaline Phosphatase 52 U/L (38-126); Anion Gap 3 mmol/L; Blood Urea Nitrogen 49 mg/dL (9-20); C Reactive Protein 7.8 mg/L (<10.0); Calcium 8.6 mg/dL (8.4-10.2); Carbon Dioxide 32 mmol/L (22-30); Chloride 106 mmol/L (98-107); Creatine Kinase 33 U/L (55-170); Glucose 56 mg/dL (74-99); LDH 1545 U/L (313-618); Non-African American GFR(CKD) 85 (>60 ml/min/1.73 sqM); Potassium 3.6 mmol/L (3.5-5.1); Sodium 141 mmol/L (137-145); Total Bilirubin 1.3 mg/dL (0.2-1.3); Total Protein 5.9 g/dL (6.3-8.2)
[2020-06-13] MEDS ORDERED: Potassium Replacement Protocol 1 EACH MISC MISCELLANE PRN (05:05)
[2020-06-13] MEDS: POTASSIUM CHLORIDE 10 MEQ in WATER FOR INJECTION 1 100ML.BAG IVPB SCH ×2 (05:37→06:47)
[2020-06-13] MEDS: INSULIN DETEMIR (LEVEMIR) 100 UNIT/ML SYR SQ SCH (06:10)
[2020-06-13 06:53] LABS: Glucose,Whole Blood 58 mg/dL (75-99)
[2020-06-13 06:54] LABS: Glucose,Whole Blood 60 mg/dL (75-99)
--- NOTE | 2020-06-13 07:11 | XR ---
EXAMINATION TYPE: XR chest 1V portable DATE OF EXAM: 06/13/2020 COMPARISON: 06/13/2020 INDICATION: Short of breath TECHNIQUE: Single frontal view of the chest is obtained. FINDINGS: The heart size is normal. The pulmonary vasculature is normal. Diffuse increase infiltrate is present bilaterally. This is greater along the lateral right chest. Fi ndings are stable over the interval IMPRESSION: 1. Stable lung infiltrates compatible with atypical pneumonia
[2020-06-13 07:41] LABS: Glucose,Whole Blood 73 mg/dL (75-99)
[2020-06-13] MEDS: SYMBICORT 160-4.5 MCG INHALER INHALATION SCH ×2 (07:56→21:10)
[2020-06-13] MEDS: ALBUTEROL HFA INHALER INHALATION SCH ×4 (07:56→21:10)
[2020-06-13] MEDS: INSULIN ASPART (NovoLOG) 100 UNIT/ML VIAL SQ SCH ×4 (08:42→21:15)
[2020-06-13] MEDS: APIXABAN 5 MG TAB PO SCH ×2 (08:51→21:15)
[2020-06-13] MEDS: ASCORBIC ACID 500 MG TAB PO SCH (08:51)
[2020-06-13] MEDS: CEFEPIME 2 GM in SODIUM CHLORIDE 0.9% 100 ML IVPB SCH ×2 (08:51→21:16)
[2020-06-13] MEDS: dexAMETHasone 2 MG TAB PO SCH (08:52)
[2020-06-13] MEDS: FAMOTIDINE 20 MG/2 ML VIAL IV SCH (08:52)
[2020-06-13] MEDS: CHOLECALCIFEROL 400 UNIT TAB PO SCH (08:52)
[2020-06-13] MEDS: ESCITALOPRAM 10 MG TAB PO SCH (08:52)
[2020-06-13] MEDS: FUROSEMIDE 10 MG/ML 4 ML VIAL IV SCH (08:53)
[2020-06-13] MEDS: ZINC SULFATE 220 MG CAP PO SCH (08:53)
[2020-06-13] MEDS: INSULN ASP PRT/INSULIN ASPART 100 UNIT/ML 10 ML VIAL SQ SCH ×2 (09:18→21:15)
[2020-06-13 09:19] LABS: Glucose,Whole Blood 68 mg/dL (75-99)
[2020-06-13 09:41] LABS: Ferritin 571.7 ng/mL (22.0-322.0)
[2020-06-13 09:45] LABS: Glucose,Whole Blood 99 mg/dL (75-99)
--- NOTE | 2020-06-13 09:50 | P.PN ---
Subjective Progress Note Date: 06/13/20 74-year-old male patient admitted on 05/27/2024 and acute COVID19 related pneumonia. The patient developed acute hypoxic respiratory failure. The patient got transferred to the intensive care unit and the patient is currently requiring high flow oxygen at 60 L per minute nasal cannula, 90% Fio2 and 100 NRB. His chest x-ray showing diffuse bilateral pulmonary infiltrates consistent with COVID 19 related pneumonia. He has completed a five-day course of Remdesivir and the patient is on Steroids. The patient on IV Solu-Medrol 60 mg IV push every 6 hours. The patient was also found to have pseudomonas aeruginosa in the sputum and the patient purulent sputum production currently on antibiotics. The patient is currently on IV cefepime. The CT angiogram was negative for pulmonary embolism. The patient's history of obesity, hypertension, diabetes mellitus and acid reflux. The patient is on a nticoagulation with Eliquis 5 mg by mouth twice a day. The patient on Symbicort 2 puffs twice a day and albuterol HFA on a when necessary basis. The patient is on Levemir insulin 20 units daily in addition to NovoLog mix 7030 20 units at nighttime and 30 units in the morning. The patient is also on Actos 30 mg at bedtime. Note that the procalcitonin level is at 0.08.The chest x-rays essentially the same. There is still diffuse bilateral pulmonary infiltrates, mainly in the peripheries and more so on the right compared to the left and is unchanged compared to yesterday's chest x-ray. Oxygenation is unchanged. Clinically, he is still the same. He is slightly confused and his baseline level of alertness is or OA2. Urine output is in order of 30 mL an hour and the patient is receiving IV fluids in the form of normal saline at the rate of 20 mL an hour. Oral intake is quite minimal at this point in time on today's evaluation of 06/10/2020, the patient is not showing any progress. In fact there may be some worsening. He is very much lethargic. Is unable to swallow. He is essentially laying down in bed and has minimal amount of conversation. He seems to be disoriented. He is on high flow oxygen 6 L with an FiO2 of 90% in addition to 100% nonrebreather facemask. Chest x-ray showing diffuse bilateral pulmonary infiltrates consistent with bilateral pneumonia. The patient is on IV Solu-Medrol. He completed Remdesivir and he also still less than plasma. We're quite concerned about his respiratory status. He is a full code for now. He is in atrial fibrillation and the rate is controlled for now. His blood sugars are controlled with NovoLog mix 7030 20 units at nighttime and 30 units in the morning. He is also taking Actos. He is also on empiric antibiotic coverage with IV cefepime as the patient will pseudomonas in his sputum. He is afebrile. His LDH is 2003 and his CRP is 9.8. on 06/11/2020, the patient is less lethargic and more awake. He is having some few conversations with me. He was able to follow simple commands. He is profoundly weak. He remains on 60 L with an FiO2 of 80% and 100% nonrebreather facemask. Yesterday, he was able to pass a swallow evaluation. He was given some diet. This was encouraging and I did not have the need to insert an NG tube on him. He has a congested cough. No significant sputum production. He remains on IV cefepime regarding pseudomonas in the sputum. Chest x-ray shows improvement in the left lung infiltration. The right lung is still consolidated actively. He is weak. He seems to be much better spirits for now.He is on IV Solu-Medrol 60 mg every 6 hours. He is also on Lasix 40 mg on a daily basis. He remains on anticoagulation with Eliquis regarding his atrial fibrillation 5 m g by mouth twice a day. On today's evaluation of 06/12/2020, the patient is feeling very much depressed. He is stating that he set up with his condition and he is ready to go and diet. He is a bit tearful also. I was able to get him off the 100% on a beta facemask and currently is only on high flow oxygen at 60 L with an FiO2 of 80%. His pulse ox is above 88%. He is able to swallow. He has a in front of him. His oral intake is minimal or lower this point in time. He has no significant c ough. He is a bit lethargic. No fever. No nausea. No vomiting. No abdominal pain. He remains on IV cefepime. Chest x-ray showing some limited improvement in the aeration bilaterally. There is however the excess amount of consolidation. The patient remains on IV Solu-Medrol. He is still in a controlled atrial fibrillation and the patient is on long-term anticoagulation with Eliquis 5 mg by mouth twice a day. He is also taking the Lasix doses IV. Blood sugars are being controlled with NovoLog 7030 minutes 20 in the evening and 30 units in the morning. He is also on Actos. on 06/13/2020, the patient is on 60 L with an 80% FiO2. On the monitor, his pulse ox is 92%. I think he should be able to wean down further. He was feeling quite depressed yesterday. It added Lexapro to his regimen. He remains on IV cefepime. He remains on Eliquis 5 mg by mouth twice a day. He remains on IV Decadron. His chest x-ray is showing some improvement/on the right side. The patient is much improved in terms of his energy level and his ability to communicate and swallow foods. No aspiration. o nausea. No vomiting. No diarrhea. His cardiac rhythm as atrial fibrillation and the rate is controlled for now. He is afebrile.tthe LDH is down to 1545 and a CRP level is down to 7.8. Objective - Vital Signs Vital signs: Vital Signs Temp 98.8 F 06/13/20 08:00 Pulse 72 06/13/20 09:00 Resp 18 06/13/20 09:00 BP 108/60 06/13/20 09:00 Pulse Ox 93 L 06/13/20 09:00 Intake & Output 06/12/20 06/13/20 06/13/20 18:59 06:59 18:59 Intake Total 400 400 175 Output Total 1720 1015 130 Balance -1320 -615 45 Weight 105.8 kg Intake: IV 400 400 175 Cefepime 2 gm In Sodium 100 100 Chloride 0.9% 100 ml @ 25 mls/hr IVPB Q12HR [facility] Rx #:[id number] Potassium Chloride 10 meq 100 100 In Water For Injection 1 100ml.bag @ 100 mls/hr IVPB Q1H [facility] Rx#: [id number] Sodium Chloride 0.9% 1, 300 200 75 000 ml @ 25 mls/hr IV . Q24H [facility] Rx#:[id number] Output: Urine 1720 1015 130 Other: Voiding Method Indwelling Catheter Indwelling Catheter - Exam GENERAL EXAM: Alert, very pleasant, 74-year-old white male, on Airvo at 60 L and FiO2 of 80% with a pulse ox of 95%, comfortable in no apparent distress.patient on and off is also utilizing an on a pnonrebreather facemask with a 100% HEAD: Normocephalic/atraumatic. EYES: Normal reaction of pupils, equal size. Conjunctiva pink, sclera white. NOSE: Clear with pink turbinates. THROAT: No erythema or exudates. NECK: No masses, no JVD, no thyroid enlargement, no adenopathy. CHEST: No chest wall deformity. Symmetrical expansion. LUNGS: Equal air entry with no crackles, wheeze, rhonchi or dullness. CVS: Regular rate and rhythm, normal S1 and S2, no gallops, no murmurs, no rubs ABDOMEN: Soft, nontender. No hepatosplenomegaly, normal bowel sounds, no guarding or rigidity. EXTREMITIES: No clubbing, no edema, no cyanosis, 2+ pulses and upper and lower extremities. MUSCULOSKELETAL: Muscle strength and tone normal. SPINE: No scoliosis or deformity SKIN: No rashes CENTRAL NERVOUS SYSTEM: Alert and oriented -3. No focal deficits, tone is normal in all 4 extremities.the patient has global weakness and profound weakness in all 4 extremities. He is able to communicate. PSYCHIATRIC: Alert and oriented -3. Appropriate affect. Intact judgment and insight., the patient is feeling quite depressedand is tearful and is an extremely low mood on today's evaluation. - Labs CBC & Chem 7: 06/13/20 04:23 06/13/20 04:22 Labs: Abnormal Lab Results - Last 24 Hours (Table) 06/12/20 06/12/20 06/12/20 Range/Units 11:49 17:00 19:58 WBC (3.8-10.6) k/uL Plt Count (150-450) k/uL Carbon Dioxide (22-30) mmol/L BUN (9-20) mg/dL Glucose (74-99) mg/dL POC Glucose (mg/dL) 164 H 143 H 109 H (75-99) mg/dL Ferritin (22.0-322.0) ng/mL Lactate Dehydrogenase (313-618) U/L Creatine Kinase (55-170) U/L Total Protein (6.3-8.2) g/dL Albumin (3.5-5.0) g/dL 06/13/20 06/13/20 06/13/20 Range/Units 04:22 04:23 06:51 WBC 18.4 H (3.8-10.6) k/uL Plt Count 105 L (150-450) k/uL Carbon Dioxide 32 H (22-30) mmol/L BUN 49 H (9-20) mg/dL Glucose 56 L (74-99) mg/dL POC Glucose (mg/dL) 58 L (75-99) mg/dL Ferritin 571.7 H (22.0-322.0) ng/mL Lactate Dehydrogenase 1545 H (313-618) U/L Creatine Kinase 33 L (55-170) U/L Total Protein 5.9 L (6.3-8.2) g/dL Albumin 3.0 L (3.5-5.0) g/dL 06/13/20 06/13/20 06/13/20 Range/Units 06:52 07:39 09:08 WBC (3.8-10.6) k/uL Plt Count (150-450) k/uL Carbon Dioxide (22-30) mmol/L BUN (9-20) mg/dL Glucose (74-99) mg/dL POC Glucose (mg/dL) 60 L 73 L 68 L (75-99) mg/dL Ferritin (22.0-322.0) ng/mL Lactate Dehydrogenase (313-618) U/L Creatine Kinase (55-170) U/L Total Protein (6.3-8.2) g/dL Albumin (3.5-5.0) g/dL Assessment and Plan Plan: #1. Acute hypoxic respiratory failure related to COVID 19 pneumonitis, which lindo s progressed since admission, and patient is currently on AIRVO at 60 L and FiO2 of 80%, his CTA chest shows extensive and diffuse bilateral lung infiltrates, no evidence of pulmonary embolism. Patient has completed Remdesivir course on 05/31/2020 and received convalescent immunoglobulin and the patient is on IV Decadron. Overall condition is improving. Oxygenation is still borderline. We will attempt to drop down the FiO2 in the flow today and monitor his pulse ox. His chest that shows some limited infiltration improvement on the right. He does have also pseudomonas in the sputum and the patient is currently on IV cefepime. #2. Increased d-dimer of 18and then drop down to 11 and then down to 3., patient has been on Eliquis, CTA chest showed no evidence of pulmonary embolism #3. Diabetes mellitus type 2, currently is running a lower blood sugar and the patient was held on his insulin. #4. GERD/reflux #5. Hyperlipidemia #6. History of hypertension #7. Obesity # 8 Paroxysmal atrial fibrillation current rhythm is sinus and the patient is on anticoagulation with Eliquis. #9 depression plan keep on the same oxygen flow at 60 L with an FiO2 of 80% , attempts to wean this continued IV Solu-Medrol and put the patient 6 mg of Decadron. continue Lexapro 10 mg daily. advance diet Continue anticoagulation with Eliquis continue Lasix IVEvery 24 hours Prognosis extremely poor baseline above-mentioned comorbidities. The patient is quite debilitated. He is not showing any signs of progress. No improvement in his oxygenation. Condition is critical. he patient is improving slowly. Critically care evaluation Time with Patient: Greater than 30
[2020-06-13 12:23] LABS: Glucose,Whole Blood 111 mg/dL (75-99)
[2020-06-13 15:27] LABS: Glucose,Whole Blood 190 mg/dL (75-99)
[2020-06-13 16:36] LABS: Glucose,Whole Blood 185 mg/dL (75-99)
[2020-06-13] MEDS: SODIUM CHLORIDE 0.9% 1,000 ML IV SCH (16:45)
[2020-06-13] MEDS ORDERED: FUROSEMIDE 10 MG/ML 2 ML VIAL IV ONE (19:22)
--- NOTE | 2020-06-13 19:36 | PN ---
PROGRESS NOTE DATE OF SERVICE: 06/13/2020 CHIEF COMPLAINT: COVID pneumonia. HISTORY OF PRESENT ILLNESS: This gentleman is doing about the same. There may be slight improvement. X-ray suggests there might be minimal improvement, and he seems to be holding his oxygen level a little bit more steadily. PHYSICAL EXAMINATION: Physical exam is unchanged. IMPRESSION: 1. COVID pneumonia. 2. Diabetes. 3. Obesity. PLAN: Continue to follow with Intensive Medicine and Infectious Disease. MMODL / IJN: [id number] /
[2020-06-13 20:23] LABS: Glucose,Whole Blood 232 mg/dL (75-99)
[2020-06-13] MEDS: MELATONIN 5 MG TABLET PO SCH (21:15)
[2020-06-13] MEDS: TAMSULOSIN 0.4 MG CAP.ER.24H PO SCH (21:15)
[2020-06-13] MEDS: OXYBUTYNIN 15 MG TAB.ER.24 PO SCH (21:15)
[2020-06-13] MEDS: PIOGLITAZONE 30 MG TAB PO SCH (21:15)
--- NOTE | 2020-06-13 22:33 | PN ---
PROGRESS NOTE DATE OF SERVICE: 06/13/2020 REASON FOR FOLLOWUP: Pneumonia. INTERVAL HISTORY: The patient is currently afebrile. The patient remains on high-flow nasal cannula oxygen. The patient denies having any chest pain. He did have some cough; no sputum, no vomiting or any diarrhea. PHYSICAL EXAMINATION: Blood pressure 112/61 with a pulse of 70, temperature 99. He is 93% on 50% FiO2. General description is an elderly male lying in bed in no distress. RESPIRATORY SYSTEM: Unlabored breathing with decreased intensity of breath sounds. No wheeze. HEART: S1, S2. Regular rate and rhythm. ABDOMEN: Soft. No tenderness. LABS: Hemoglobin is 14.8, white count up to 18.4, BUN 49, creatinine 0.87. DIAGNOSTIC IMPRESSION AND PLAN: Patient with acute respiratory failure which is multifactorial in this patient who did have COVID-19 infection and completed his remdesivir therapy. Subsequently sputum has been Pseudomonas and the patient is covered with cefepime; now did have a significant jump in the white count, more likely related to the steroids plus/minus candidiasis. White count will be monitored closely. Continue with supportive care. MMODL / IJN: [id number] / [facility]
[2020-06-14 04:39] LABS: HCT 43.5 % (39.0-53.0); HGB 13.8 gm/dL (13.0-17.5); MCH 28.7 pg (25.0-35.0); MCHC 31.6 g/dL (31.0-37.0); MCV 90.6 fL (80.0-100.0); Mean Platelet Volume 8.1; RDW 14.8 % (11.5-15.5); WBC 18.8 k/uL (3.8-10.6)
[2020-06-14 04:47] LABS: Platelet Count 92 k/uL (150-450)
[2020-06-14 04:51] LABS: Potassium 3.8 mmol/L (3.5-5.1)
[2020-06-14 04:55] LABS: ALT 27 U/L (4-49); AST 31 U/L (17-59); African American GFR (CKD) >90 (>60 ml/min/1.73 sqM); Alkaline Phosphatase 51 U/L (38-126); Anion Gap 3 mmol/L; Blood Urea Nitrogen 49 mg/dL (9-20); C Reactive Protein 50.8 mg/L (<10.0); Calcium 8.6 mg/dL (8.4-10.2); Carbon Dioxide 33 mmol/L (22-30); Chloride 105 mmol/L (98-107); Creatine Kinase 131 U/L (55-170); Glucose 61 mg/dL (74-99); LDH 1406 U/L (313-618); Non-African American GFR(CKD) 86 (>60 ml/min/1.73 sqM); Sodium 141 mmol/L (137-145); Total Bilirubin 1.4 mg/dL (0.2-1.3); Total Protein 5.9 g/dL (6.3-8.2)
[2020-06-14] MEDS: SULFACETAMIDE SOD 10% OPHTH DROPS 15 ML BTL RIGHT EYE SCH ×4 (06:47→22:16)
[2020-06-14 06:50] LABS: Glucose,Whole Blood 48 mg/dL (75-99)
[2020-06-14] MEDS: INSULIN ASPART (NovoLOG) 100 UNIT/ML VIAL SQ SCH ×4 (06:50→21:22)
[2020-06-14] MEDS ORDERED: DEXTROSE 50% SYRINGE 50 ML IVP ONE (06:51)
[2020-06-14 07:09] LABS: Glucose,Whole Blood 171 mg/dL (75-99)
[2020-06-14] MEDS: POTASSIUM CHLORIDE 10 MEQ in WATER FOR INJECTION 1 100ML.BAG IVPB SCH ×2 (07:31→09:27)
[2020-06-14] MEDS: ALBUTEROL HFA INHALER INHALATION SCH ×4 (08:25→21:06)
[2020-06-14] MEDS: SYMBICORT 160-4.5 MCG INHALER INHALATION SCH ×2 (08:26→21:06)
--- NOTE | 2020-06-14 08:46 | P.PN ---
Subjective Progress Note Date: 06/14/20 74-year-old male patient admitted on 05/27/2024 and acute COVID19 related pneumonia. The patient developed acute hypoxic respiratory failure. The patient got transferred to the intensive care unit and the patient is currently requiring high flow oxygen at 60 L per minute nasal cannula, 90% Fio2 and 100 NRB. His chest x-ray showing diffuse bilateral pulmonary infiltrates consistent with COVID 19 related pneumonia. He has completed a five-day course of Remdesivir and the patient is on Steroids. The patient on IV Solu-Medrol 60 mg IV push every 6 hours. The patient was also found to have pseudomonas aeruginosa in the sputum and the patient purulent sputum production currently on antibiotics. The patient is currently on IV cefepime. The CT angiogram was negative for pulmonary embolism. The patient's history of obesity, hypertension, diabetes mellitus and acid reflux. The patient is on a nticoagulation with Eliquis 5 mg by mouth twice a day. The patient on Symbicort 2 puffs twice a day and albuterol HFA on a when necessary basis. The patient is on Levemir insulin 20 units daily in addition to NovoLog mix 7030 20 units at nighttime and 30 units in the morning. The patient is also on Actos 30 mg at bedtime. Note that the procalcitonin level is at 0.08.The chest x-rays essentially the same. There is still diffuse bilateral pulmonary infiltrates, mainly in the peripheries and more so on the right compared to the left and is unchanged compared to yesterday's chest x-ray. Oxygenation is unchanged. Clinically, he is still the same. He is slightly confused and his baseline level of alertness is or OA2. Urine output is in order of 30 mL an hour and the patient is receiving IV fluids in the form of normal saline at the rate of 20 mL an hour. Oral intake is quite minimal at this point in time on today's evaluation of 06/10/2020, the patient is not showing any progress. In fact there may be some worsening. He is very much lethargic. Is unable to swallow. He is essentially laying down in bed and has minimal amount of conversation. He seems to be disoriented. He is on high flow oxygen 6 L with an FiO2 of 90% in addition to 100% nonrebreather facemask. Chest x-ray showing diffuse bilateral pulmonary infiltrates consistent with bilateral pneumonia. The patient is on IV Solu-Medrol. He completed Remdesivir and he also still less than plasma. We're quite concerned about his respiratory status. He is a full code for now. He is in atrial fibrillation and the rate is controlled for now. His blood sugars are controlled with NovoLog mix 7030 20 units at nighttime and 30 units in the morning. He is also taking Actos. He is also on empiric antibiotic coverage with IV cefepime as the patient will pseudomonas in his sputum. He is afebrile. His LDH is 2003 and his CRP is 9.8. on 06/11/2020, the patient is less lethargic and more awake. He is having some few conversations with me. He was able to follow simple commands. He is profoundly weak. He remains on 60 L with an FiO2 of 80% and 100% nonrebreather facemask. Yesterday, he was able to pass a swallow evaluation. He was given some diet. This was encouraging and I did not have the need to insert an NG tube on him. He has a congested cough. No significant sputum production. He remains on IV cefepime regarding pseudomonas in the sputum. Chest x-ray shows improvement in the left lung infiltration. The right lung is still consolidated actively. He is weak. He seems to be much better spirits for now.He is on IV Solu-Medrol 60 mg every 6 hours. He is also on Lasix 40 mg on a daily basis. He remains on anticoagulation with Eliquis regarding his atrial fibrillation 5 m g by mouth twice a day. On today's evaluation of 06/12/2020, the patient is feeling very much depressed. He is stating that he set up with his condition and he is ready to go and diet. He is a bit tearful also. I was able to get him off the 100% on a beta facemask and currently is only on high flow oxygen at 60 L with an FiO2 of 80%. His pulse ox is above 88%. He is able to swallow. He has a in front of him. His oral intake is minimal or lower this point in time. He has no significant c ough. He is a bit lethargic. No fever. No nausea. No vomiting. No abdominal pain. He remains on IV cefepime. Chest x-ray showing some limited improvement in the aeration bilaterally. There is however the excess amount of consolidation. The patient remains on IV Solu-Medrol. He is still in a controlled atrial fibrillation and the patient is on long-term anticoagulation with Eliquis 5 mg by mouth twice a day. He is also taking the Lasix doses IV. Blood sugars are being controlled with NovoLog 7030 minutes 20 in the evening and 30 units in the morning. He is also on Actos. on 06/13/2020, the patient is on 60 L with an 80% FiO2. On the monitor, his pulse ox is 92%. I think he should be able to wean down further. He was feeling quite depressed yesterday. It added Lexapro to his regimen. He remains on IV cefepime. He remains on Eliquis 5 mg by mouth twice a day. He remains on IV Decadron. His chest x-ray is showing some improvement/on the right side. The patient is much improved in terms of his energy level and his ability to communicate and swallow foods. No aspiration. o nausea. No vomiting. No diarrhea. His cardiac rhythm as atrial fibrillation and the rate is controlled for now. He is afebrile.tthe LDH is down to 1545 and a CRP level is down to 7.8. On 06/14/2022 patient remains on 55 L with an FiO2 of 90% and he is also utilizing 100% nonrebreather facemask. He has a congested cough. He was given Lasix without any improvement. His chest x-ray still showing diffuse bilateral pulmonary infiltrates, unchanged from yesterday. He is a bit lethargic. He had T is unresponsive. He is awake. He is able to cough. At times is bringing up some sputum. No fever. No chills. His LDH is gradually improving. The LDH is down to 1406 she is lower and the patient's CRP level is down to 50.8. The pro-calcitonin level is low. The patient is on Decadron. The patient is on daily Lasix. The patient remains in a adequate fluid balance. He remains in atrial fibrillation. He is taking oral intake. He is able to swallow adequately. No nausea. No vomiting. No emesis. Objective - Vital Signs Vital signs: Vital Signs Temp 97.3 F L 06/14/20 04:00 Pulse 74 12/12/20 07:00 Resp 22 06/14/20 07:00 BP 121/68 06/14/20 07:00 Pulse Ox 93 L 06/14/20 08:26 Intake & Output 06/13/20 06/14/20 06/14/20 18:59 06:59 18:59 Intake Total 400 565 Output Total 1240 860 Balance -840 -295 Weight 104.4 kg Intake: IV 400 325 Potassium Chloride 10 meq 100 In Water For Injection 1 100ml.bag @ 100 mls/hr IVPB Q1H [facility] Rx#: [id number] Sodium Chloride 0.9% 1, 300 325 000 ml @ 25 mls/hr IV . Q24H [facility] Rx#:[id number] Oral 240 Output: Urine 1240 860 Other: Voiding Method Indwelling Catheter Indwelling Catheter - Exam GENERAL EXAM: Alert, very pleasant, 74-year-old white male, on Airvo at 55 L and FiO2 of 90% with a pulse ox of 95%, comfortable in no apparent distress.patient on and off is also utilizing an on a nonrebreather facemask with a 100% HEAD: Normocephalic/atraumatic. EYES: Normal reaction of pupils, equal size. Conjunctiva pink, sclera white. NOSE: Clear with pink turbinates. THROAT: No erythema or exudates. NECK: No masses, no JVD, no thyroid enlargement, no adenopathy. CHEST: No chest wall deformity. Symmetrical expansion. LUNGS: Equal air entry with no crackles, wheeze, rhonchi or dullness. CVS: Regular rate and rhythm, normal S1 and S2, no gallops, no murmurs, no rubs ABDOMEN: Soft, nontender. No hepatosplenomegaly, normal bowel sounds, no guarding or rigidity. EXTREMITIES: No clubbing, no edema, no cyanosis, 2+ pulses and upper and lower extremities. MUSCULOSKELETAL: Muscle strength and tone normal. SPINE: No scoliosis or deformity SKIN: No rashes CENTRAL NERVOUS SYSTEM: Alert and oriented -3. No focal deficits, tone is normal in all 4 extremities.the patient has global weakness and profound weakness in all 4 extremities. He is able to communicate. PSYCHIATRIC: Alert and oriented -3. Appropriate affect. Intact judgment and insight., the patient is feeling quite depressedand is tearful and is an extremely low mood on today's evaluation. - Labs CBC & Chem 7: 06/14/20 04:18 06/14/20 04:18 Labs: Abnormal Lab Results - Last 24 Hours (Table) 06/13/20 06/13/20 06/13/20 Range/Units 04:22 09:08 12:22 WBC (3.8-10.6) k/uL Plt Count (150-450) k/uL Carbon Dioxide (22-30) mmol/L BUN (9-20) mg/dL Glucose (74-99) mg/dL POC Glucose (mg/dL) 68 L 111 H (75-99) mg/dL Ferritin 571.7 H (22.0-322.0) ng/mL Total Bilirubin (0.2-1.3) mg/dL Lactate Dehydrogenase (313-618) U/L C-Reactive Protein (<10.0) mg/L Total Protein (6.3-8.2) g/dL Albumin (3.5-5.0) g/dL 06/13/20 06/13/20 06/13/20 Range/Units 15:25 16:34 20:21 WBC (3.8-10.6) k/uL Plt Count (150-450) k/uL Carbon Dioxide (22-30) mmol/L BUN (9-20) mg/dL Glucose (74-99) mg/dL POC Glucose (mg/dL) 190 H 185 H 232 H (75-99) mg/dL Ferritin (22.0-322.0) ng/mL Total Bilirubin (0.2-1.3) mg/dL Lactate Dehydrogenase (313-618) U/L C-Reactive Protein (<10.0) mg/L Total Protein (6.3-8.2) g/dL Albumin (3.5-5.0) g/dL 06/14/20 06/14/20 06/14/20 Range/Units 04:18 04:18 06:49 WBC 18.8 H (3.8-10.6) k/uL Plt Count 92 L (150-450) k/uL Carbon Dioxide 33 H (22-30) mmol/L BUN 49 H (9-20) mg/dL Glucose 61 L (74-99) mg/dL POC Glucose (mg/dL) 48 L (75-99) mg/dL Ferritin (22.0-322.0) ng/mL Total Bilirubin 1.4 H (0.2-1.3) mg/dL Lactate Dehydrogenase 1406 H (313-618) U/L C-Reactive Protein 50.8 H (<10.0) mg/L Total Protein 5.9 L (6.3-8.2) g/dL Albumin 3.0 L (3.5-5.0) g/dL 06/14/20 Range/Units 07:08 WBC (3.8-10.6) k/uL Plt Count (150-450) k/uL Carbon Dioxide (22-30) mmol/L BUN (9-20) mg/dL Glucose (74-99) mg/dL POC Glucose (mg/dL) 171 H (75-99) mg/dL Ferritin (22.0-322.0) ng/mL Total Bilirubin (0.2-1.3) mg/dL Lactate Dehydrogenase (313-618) U/L C-Reactive Protein (<10.0) mg/L Total Protein (6.3-8.2) g/dL Albumin (3.5-5.0) g/dL Assessment and Plan Plan: #1. Acute hypoxic respiratory failure related to COVID 19 pneumonitis, which has progressed since admission, and patient is currently on AIRVO at 55 L and FiO2 of 90%, ration continues to require 100% nonrebreather facemask to showed a saturation above 90%. His chest x-ray still showing diffuse bilateral pulmonary infiltrates, unchanged compared to earlier chest x-rays.. Patient has completed Remdesivir course on 05/31/2020 and received convalescent immunoglobulin and the patient is on IV Decadron. She is also on IV cefepime. The sputum has shown pseudomonas aeruginosa. The level is low. LDH level continues to be elevated although slightly improved. CRP level is also high at 50.8. #2. Increased d-dimer of 18 and then drop down to 11 and then down to 3., patient has been on Eliquis, CTA chest showed no evidence of pulmonary embolism #3. Diabetes mellitus type 2, on Levemir and sliding scale #4. GERD/reflux #5. Hyperlipidemia #6. History of hypertension #7. Obesity # 8 Paroxysmal atrial fibrillation current rhythm is sinus and the patient is on anticoagulation with Eliquis. #9 depression plan keep on the same oxygen flow at 55 L with an FiO2 of 80% , attempts to wean this continued IV Solu-Medrol and put the patient 6 mg of Decadron. continue Lexapro 10 mg daily. advance diet Continue anticoagulation with Eliquis Stop the Lasix IV Every 24 hours. The patient is a negative fluid balance of 1.9 L for yesterday. Fluids of normal saline at the rate of 50 hour. Prognosis extremely poor baseline above-mentioned comorbidities. The patient is quite debilitated. He is not showing any signs of progress Limited improvement if any Condition is critical. . Critically care evaluation
[2020-06-14] MEDS: ASCORBIC ACID 500 MG TAB PO SCH (09:28)
[2020-06-14] MEDS: APIXABAN 5 MG TAB PO SCH ×2 (09:28→21:21)
[2020-06-14] MEDS: CEFEPIME 2 GM in SODIUM CHLORIDE 0.9% 100 ML IVPB SCH ×2 (09:28→21:22)
[2020-06-14] MEDS: dexAMETHasone 2 MG TAB PO SCH (09:28)
[2020-06-14] MEDS: ESCITALOPRAM 10 MG TAB PO SCH (09:29)
[2020-06-14] MEDS: ZINC SULFATE 220 MG CAP PO SCH (09:29)
[2020-06-14] MEDS: CHOLECALCIFEROL 400 UNIT TAB PO SCH (09:29)
[2020-06-14] MEDS: FAMOTIDINE 20 MG/2 ML VIAL IV SCH (09:30)
[2020-06-14] MEDS: ONDANSETRON 4 MG/2 ML VIAL IVP PRN (09:49)
[2020-06-14 12:13] LABS: Glucose,Whole Blood 94 mg/dL (75-99)
[2020-06-14] MEDS: INSULN ASP PRT/INSULIN ASPART 100 UNIT/ML 10 ML VIAL SQ SCH (12:34)
[2020-06-14] MEDS: INSULIN DETEMIR (LEVEMIR) 100 UNIT/ML SYR SQ SCH (12:34)
--- NOTE | 2020-06-14 12:42 | XR ---
EXAMINATION TYPE: XR chest 1V portable DATE OF EXAM: 06/14/2020 COMPARISON: 06/13/2020 INDICATION: Short of breath TECHNIQUE: Single frontal view of the chest is obtained. FINDINGS: The heart size is mild cardiomegaly. The pulmonary vasculature is prominent. Patchy infiltrates are present greater on the right. Findings are stable IMPRESSION: 1. Stable patchy infiltrates. Follow-up is recommended.
[2020-06-14 12:44] LABS: Ferritin 565.2 ng/mL (22.0-322.0)
[2020-06-14] MEDS: SODIUM CHLORIDE 0.9% 1,000 ML IV SCH (15:29)
[2020-06-14 17:06] LABS: Glucose,Whole Blood 219 mg/dL (75-99)
[2020-06-14 20:50] LABS: Glucose,Whole Blood 252 mg/dL (75-99)
[2020-06-14] MEDS: OXYBUTYNIN 15 MG TAB.ER.24 PO SCH (21:21)
[2020-06-14] MEDS: TAMSULOSIN 0.4 MG CAP.ER.24H PO SCH (21:21)
[2020-06-14] MEDS: PIOGLITAZONE 30 MG TAB PO SCH (21:22)
[2020-06-14] MEDS: MELATONIN 5 MG TABLET PO SCH (21:22)
[2020-06-14] MEDS ORDERED: FLUCONAZOLE 100 MG TAB PO ONE (22:00)
--- NOTE | 2020-06-14 22:29 | PN ---
PROGRESS NOTE DATE OF SERVICE: 06/14/2020 REASON FOR FOLLOWUP: Pneumonia. INTERVAL COURSE: The patient is currently afebrile. The patient is breathing slightly comfortably. The patient did have a congested cough but not bringing up any sputum. Denies any chest pain. No nausea, no vomiting. No abdominal pain, no diarrhea. PHYSICAL EXAMINATION: Blood pressure 113/70 with a pulse of 73, temperature of 98.2. He is 94% on 50% FiO2. General description is an elderly male lying in bed in no distress. Respiratory system: Unlabored breathing, some coarse breath sounds. No wheeze. HEART: S1, S2. Regular rate and rhythm. ABDOMEN: Soft, no tenderness. LABS: Hemoglobin is 13, white count 18.8, BUN of 49, creatinine 0.83. DIAGNOSTIC IMPRESSION AND PLAN: Patient with acute COVID-19 pneumonia followed by development of a Pseudomonas pneumonia for which the patient is currently covered with cefepime. Elevated white count, possible steroid effect as well as oral candidiasis as the patient has been on steroids almost 2 weeks now. I will give him a dose of Diflucan and monitor clinical course closely. MMODL / IJN: [id number] / MTDLars
[2020-06-15 03:51] LABS: Glucose,Whole Blood 174 mg/dL (75-99)
[2020-06-15 04:56] LABS: HCT 39.6 % (39.0-53.0); HGB 13.1 gm/dL (13.0-17.5); MCH 30.3 pg (25.0-35.0); MCV 91.7 fL (80.0-100.0); RBC 4.32 m/uL (4.30-5.90); RDW 14.7 % (11.5-15.5); WBC 19.8 k/uL (3.8-10.6)
[2020-06-15] MEDS: SULFACETAMIDE SOD 10% OPHTH DROPS 15 ML BTL RIGHT EYE SCH ×3 (05:03→17:46)
[2020-06-15 05:07] LABS: Platelet Count 78 k/uL (150-450)
[2020-06-15 05:08] LABS: C Reactive Protein 65.8 mg/L (<10.0)
[2020-06-15 06:10] LABS: Glucose,Whole Blood 136 mg/dL (75-99)
[2020-06-15] MEDS: INSULIN ASPART (NovoLOG) 100 UNIT/ML VIAL SQ SCH ×4 (06:36→20:25)
[2020-06-15 07:02] LABS: African American GFR (CKD) >90 (>60 ml/min/1.73 sqM); Anion Gap 3 mmol/L; Blood Urea Nitrogen 40 mg/dL (9-20); Calcium 8.3 mg/dL (8.4-10.2); Carbon Dioxide 30 mmol/L (22-30); Chloride 108 mmol/L (98-107); Glucose 134 mg/dL (74-99); Non-African American GFR(CKD) 87 (>60 ml/min/1.73 sqM); Potassium 4.5 mmol/L (3.5-5.1); Sodium 141 mmol/L (137-145)
--- NOTE | 2020-06-15 08:36 | P.PN ---
Subjective Progress Note Date: 06/15/20 74-year-old male patient admitted on 05/27/2024 and acute COVID19 related pneumonia. The patient developed acute hypoxic respiratory failure. The patient got transferred to the intensive care unit and the patient is currently requiring high flow oxygen at 60 L per minute nasal cannula, 90% Fio2 and 100 NRB. His chest x-ray showing diffuse bilateral pulmonary infiltrates consistent with COVID 19 related pneumonia. He has completed a five-day course of Remdesivir and the patient is on Steroids. The patient on IV Solu-Medrol 60 mg IV push every 6 hours. The patient was also found to have pseudomonas aeruginosa in the sputum and the patient purulent sputum production currently on antibiotics. The patient is currently on IV cefepime. The CT angiogram was negative for pulmonary embolism. The patient's history of obesity, hypertension, diabetes mellitus and acid reflux. The patient is on a nticoagulation with Eliquis 5 mg by mouth twice a day. The patient on Symbicort 2 puffs twice a day and albuterol HFA on a when necessary basis. The patient is on Levemir insulin 20 units daily in addition to NovoLog mix 7030 20 units at nighttime and 30 units in the morning. The patient is also on Actos 30 mg at bedtime. Note that the procalcitonin level is at 0.08.The chest x-rays essentially the same. There is still diffuse bilateral pulmonary infiltrates, mainly in the peripheries and more so on the right compared to the left and is unchanged compared to yesterday's chest x-ray. Oxygenation is unchanged. Clinically, he is still the same. He is slightly confused and his baseline level of alertness is or OA2. Urine output is in order of 30 mL an hour and the patient is receiving IV fluids in the form of normal saline at the rate of 20 mL an hour. Oral intake is quite minimal at this point in time on today's evaluation of 06/10/2020, the patient is not showing any progress. In fact there may be some worsening. He is very much lethargic. Is unable to swallow. He is essentially laying down in bed and has minimal amount of conversation. He seems to be disoriented. He is on high flow oxygen 6 L with an FiO2 of 90% in addition to 100% nonrebreather facemask. Chest x-ray showing diffuse bilateral pulmonary infiltrates consistent with bilateral pneumonia. The patient is on IV Solu-Medrol. He completed Remdesivir and he also still less than plasma. We're quite concerned about his respiratory status. He is a full code for now. He is in atrial fibrillation and the rate is controlled for now. His blood sugars are controlled with NovoLog mix 7030 20 units at nighttime and 30 units in the morning. He is also taking Actos. He is also on empiric antibiotic coverage with IV cefepime as the patient will pseudomonas in his sputum. He is afebrile. His LDH is 2003 and his CRP is 9.8. on 06/11/2020, the patient is less lethargic and more awake. He is having some few conversations with me. He was able to follow simple commands. He is profoundly weak. He remains on 60 L with an FiO2 of 80% and 100% nonrebreather facemask. Yesterday, he was able to pass a swallow evaluation. He was given some diet. This was encouraging and I did not have the need to insert an NG tube on him. He has a congested cough. No significant sputum production. He remains on IV cefepime regarding pseudomonas in the sputum. Chest x-ray shows improvement in the left lung infiltration. The right lung is still consolidated actively. He is weak. He seems to be much better spirits for now.He is on IV Solu-Medrol 60 mg every 6 hours. He is also on Lasix 40 mg on a daily basis. He remains on anticoagulation with Eliquis regarding his atrial fibrillation 5 m g by mouth twice a day. On today's evaluation of 06/12/2020, the patient is feeling very much depressed. He is stating that he set up with his condition and he is ready to go and diet. He is a bit tearful also. I was able to get him off the 100% on a beta facemask and currently is only on high flow oxygen at 60 L with an FiO2 of 80%. His pulse ox is above 88%. He is able to swallow. He has a in front of him. His oral intake is minimal or lower this point in time. He has no significant c ough. He is a bit lethargic. No fever. No nausea. No vomiting. No abdominal pain. He remains on IV cefepime. Chest x-ray showing some limited improvement in the aeration bilaterally. There is however the excess amount of consolidation. The patient remains on IV Solu-Medrol. He is still in a controlled atrial fibrillation and the patient is on long-term anticoagulation with Eliquis 5 mg by mouth twice a day. He is also taking the Lasix doses IV. Blood sugars are being controlled with NovoLog 7030 minutes 20 in the evening and 30 units in the morning. He is also on Actos. on 06/13/2020, the patient is on 60 L with an 80% FiO2. On the monitor, his pulse ox is 92%. I think he should be able to wean down further. He was feeling quite depressed yesterday. It added Lexapro to his regimen. He remains on IV cefepime. He remains on Eliquis 5 mg by mouth twice a day. He remains on IV Decadron. His chest x-ray is showing some improvement/on the right side. The patient is much improved in terms of his energy level and his ability to communicate and swallow foods. No aspiration. o nausea. No vomiting. No diarrhea. His cardiac rhythm as atrial fibrillation and the rate is controlled for now. He is afebrile.tthe LDH is down to 1545 and a CRP level is down to 7.8. On 06/14/2022 patient remains on 55 L with an FiO2 of 90% and he is also utilizing 100% nonrebreather facemask. He has a congested cough. He was given Lasix without any improvement. His chest x-ray still showing diffuse bilateral pulmonary infiltrates, unchanged from yesterday. He is a bit lethargic. He had T is unresponsive. He is awake. He is able to cough. At times is bringing up some sputum. No fever. No chills. His LDH is gradually improving. The LDH is down to 1406 she is lower and the patient's CRP level is down to 50.8. The pro-calcitonin level is low. The patient is on Decadron. The patient is on daily Lasix. The patient remains in a adequate fluid balance. He remains in atrial fibrillation. He is taking oral intake. He is able to swallow adequately. No nausea. No vomiting. No emesis. On 06/15/2020, patient is on a high flow oxygen at 60 L and an FiO2 of 90%. He was briefly taken off the 100% nonrebreather yesterday. He did well for a while. Subsequently, he desaturated and had to be placed back. No chest x-ray from today. Blood work from today shows no major abnormalities. The LDH level is 1419 100 comparable to yesterday. CRP level is high at 65.8. Renal function stable with a creatinine of 0.8. The patient is on Decadron. He is still v ocal. He communicates. No altered mentation. He was bringing up some sputum. Note that the previous sputum culture was positive for Pseudomonas and the patient was started on IV cefepime. Diflucan was also added by infectious disease for oropharyngeal candidiasis. The patient remains in atrial fibrillation. No improvement in his condition. He is at a standstill in terms of his colon 19 related pneumonia. He is able to swallow. Oral intake remains low and the patient is taking around 20% of his caloric intake. He was started on Lexapro for some underlying low more than depression. Objective - Vital Signs Vital signs: Vital Signs Temp 98.8 F 06/15/20 04:00 Pulse 66 06/15/20 07:00 Resp 25 H 06/15/20 07:00 BP 116/74 06/15/20 07:00 Pulse Ox 90 L 06/15/20 07:00 Intake & Output 06/14/20 06/15/20 06/15/20 18:59 06:59 18:59 Intake Total 850 690 Output Total 540 510 Balance 310 180 Weight 104.5 kg Intake: IV 450 650 Sodium Chloride 0.9% 1, 450 650 000 ml @ 50 mls/hr IV . Q20H [facility] Rx#:[id number] Oral 400 40 Output: Urine 540 510 Other: Voiding Method Indwelling Catheter Indwelling Catheter - Exam GENERAL EXAM: Alert, very pleasant, 74-year-old white male, on Airvo at 60 L and FiO2 of 90% with a pulse ox of 95%, comfortable in no apparent distress.patient on and off is also utilizing an on a nonrebreather facemask with a 100% HEAD: Normocephalic/atraumatic. EYES: Normal reaction of pupils, equal size. Conjunctiva pink, sclera white. NOSE: Clear with pink turbinates. THROAT: No erythema or exudates. NECK: No masses, no JVD, no thyroid enlargement, no adenopathy. CHEST: No chest wall deformity. Symmetrical expansion. LUNGS: Equal air entry with no crackles, wheeze, rhonchi or dullness. CVS: Regular rate and rhythm, normal S1 and S2, no gallops, no murmurs, no rubs ABDOMEN: Soft, nontender. No hepatosplenomegaly, normal bowel sounds, no guarding or rigidity. EXTREMITIES: No clubbing, no edema, no cyanosis, 2+ pulses and upper and lower extremities. MUSCULOSKELETAL: Muscle strength and tone normal. SPINE: No scoliosis or deformity SKIN: No rashes CENTRAL NERVOUS SYSTEM: Alert and oriented -3. No focal deficits, tone is normal in all 4 extremities.the patient has global weakness and profound weakness in all 4 extremities. He is able to communicate. PSYCHIATRIC: Alert and oriented -3. Appropriate affect. Intact judgment and insight., the patient is feeling quite depressedand is tearful and is an extremely low mood on today's evaluation. - Labs CBC & Chem 7: 06/15/20 04:26 06/15/20 04:26 Labs: Abnormal Lab Results - Last 24 Hours (Table) 06/14/20 06/14/20 06/14/20 Range/Units 04:18 17:05 20:49 WBC (3.8-10.6) k/uL Plt Count (150-450) k/uL Chloride (98-107) mmol/L BUN (9-20) mg/dL Glucose (74-99) mg/dL POC Glucose (mg/dL) 219 H 252 H (75-99) mg/dL Calcium (8.4-10.2) mg/dL Ferritin 565.2 H (22.0-322.0) ng/mL Lactate Dehydrogenase (313-618) U/L Creatine Kinase (55-170) U/L C-Reactive Protein (<10.0) mg/L 06/15/20 06/15/20 06/15/20 Range/Units 03:49 04:26 04:26 WBC 19.8 H (3.8-10.6) k/uL Plt Count 78 L (150-450) k/uL Chloride (98-107) mmol/L BUN (9-20) mg/dL Glucose (74-99) mg/dL POC Glucose (mg/dL) 174 H (75-99) mg/dL Calcium (8.4-10.2) mg/dL Ferritin (22.0-322.0) ng/mL Lactate Dehydrogenase 1419 H (313-618) U/L Creatine Kinase 43 L (55-170) U/L C-Reactive Protein 65.8 H (<10.0) mg/L 06/15/20 06/15/20 Range/Units 04:26 06:08 WBC (3.8-10.6) k/uL Plt Count (150-450) k/uL Chloride 108 H (98-107) mmol/L BUN 40 H (9-20) mg/dL Glucose 134 H (74-99) mg/dL POC Glucose (mg/dL) 136 H (75-99) mg/dL Calcium 8.3 L (8.4-10.2) mg/dL Ferritin (22.0-322.0) ng/mL Lactate Dehydrogenase (313-618) U/L Creatine Kinase (55-170) U/L C-Reactive Protein (<10.0) mg/L Assessment and Plan Plan: #1. Acute hypoxic respiratory failure related to COVID 19 pneumonitis, which has progressed since admission, and patient is currently on AIRVO at 60 L and FiO2 of 90%, ration continues to require 100% nonrebreather facemask to showed a saturation above 90%. His chest x-ray still from yesterday was still showing diffuse bilateral pulmonary infiltrates, unchanged compared to earlier chest x-rays.. Patient has completed Remdesivir course on 05/31/2020 and received convalescent immunoglobulin and the patient is on IV Decadron. She is also on IV cefepime. The sputum has shown pseudomonas aeruginosa. The pro-calcitonin level is low. LDH level continues to be elevated. CRP level is also elevated. #2. Increased d-dimer of 18 and then drop down to 11 and then down to 3., patient has been on Eliquis, CTA chest showed no evidence of pulmonary embolism #3. Diabetes mellitus type 2, on Levemir and sliding scale #4. GERD/reflux #5. Hyperlipidemia #6. History of hypertension #7. Obesity # 8 Paroxysmal atrial fibrillation current rhythm is sinus and the patient is on anticoagulation with Eliquis. #9 depression plan keep on the same oxygen flow at 60 L with an FiO2 of 80% , attempts to wean Decadron 6 mg by mouth daily continue Lexapro 10 mg daily. advance diet Continue anticoagulation with Eliquis Fluids of normal saline at the rate of 50 hour. Prognosis extremely poor baseline above-mentioned comorbidities. The patient is quite debilitated. He is not showing any signs of progress Limited improvement if any Condition is critical.
[2020-06-15] MEDS: ALBUTEROL HFA INHALER INHALATION SCH ×4 (08:50→20:34)
[2020-06-15] MEDS: SYMBICORT 160-4.5 MCG INHALER INHALATION SCH ×2 (08:50→20:34)
[2020-06-15] MEDS: FAMOTIDINE 20 MG/2 ML VIAL IV SCH (09:32)
[2020-06-15] MEDS: CEFEPIME 2 GM in SODIUM CHLORIDE 0.9% 100 ML IVPB SCH ×2 (09:32→20:23)
[2020-06-15] MEDS: ONDANSETRON 4 MG/2 ML VIAL IVP PRN (09:33)
[2020-06-15 10:18] LABS: Ferritin 688.1 ng/mL (22.0-322.0)
[2020-06-15] MEDS: APIXABAN 5 MG TAB PO SCH ×2 (10:47→20:23)
[2020-06-15] MEDS: dexAMETHasone 2 MG TAB PO SCH (10:47)
[2020-06-15 12:50] LABS: Glucose,Whole Blood 178 mg/dL (75-99)
[2020-06-15] MEDS: ZINC SULFATE 220 MG CAP PO SCH (12:56)
[2020-06-15] MEDS: ESCITALOPRAM 10 MG TAB PO SCH (12:56)
[2020-06-15] MEDS: CHOLECALCIFEROL 400 UNIT TAB PO SCH (12:56)
[2020-06-15] MEDS: ASCORBIC ACID 500 MG TAB PO SCH (12:56)
[2020-06-15] MEDS: SODIUM CHLORIDE 0.9% 1,000 ML IV SCH (14:25)
[2020-06-15 17:48] LABS: Glucose,Whole Blood 208 mg/dL (75-99)
[2020-06-15] MEDS: TAMSULOSIN 0.4 MG CAP.ER.24H PO SCH (20:23)
[2020-06-15] MEDS: OXYBUTYNIN 15 MG TAB.ER.24 PO SCH (20:23)
[2020-06-15] MEDS: PIOGLITAZONE 30 MG TAB PO SCH (20:23)
[2020-06-15] MEDS: MELATONIN 5 MG TABLET PO SCH (20:23)
[2020-06-15 20:25] LABS: Glucose,Whole Blood 321 mg/dL (75-99)
[2020-06-15] MEDS ORDERED: ANIDULAFUNGIN 200 MG in SODIUM CHLORIDE 0.9% 200 ML IVPB ONE (20:52)
--- NOTE | 2020-06-15 23:09 | PN ---
PROGRESS NOTE DATE OF SERVICE: 06/14/2020 CHIEF COMPLAINT: Coronavirus pneumonitis. HISTORY OF PRESENT ILLNESS: This gentleman is still about the same. He still receiving high-flow oxygen. He seems a little bit more stable and seems to be slightly improving. PHYSICAL EXAMINATION: Hydration is good. Color is good. Chest demonstrates scattered rales, rhonchi and decreased breath sounds. Cardiac exam remains in atrial fibrillation. IMPRESSION: 1. COVID pneumonia. 2. Diabetes. 3. Obesity. 4. General debility. PLAN: No change in his program at this time and follow with tin dipper and Infectious Disease. MMODL / IJN: [id number] /
--- NOTE | 2020-06-15 23:09 | PN ---
PROGRESS NOTE DATE OF SERVICE: 06/15/2020 CHIEF COMPLAINT: COVID pneumonia. HISTORY OF PRESENT ILLNESS: This gentleman continues to be fairly stable and makes slight improvements. He is still on high flow oxygen and efforts are to be made to slowly start trying to wean him to a lower FiO2. PHYSICAL EXAMINATION: On exam, his vital signs are normal. Still in atrial fibrillation. Chest demonstrates occasional rhonchi and rales. Abdomen is soft. IMPRESSION: 1. COVID pneumonia. 2. Diabetes. PLAN: No change in his treatment program from my perspective. MMODL / IJN: [id number] /
--- NOTE | 2020-06-16 00:03 | PN ---
PROGRESS NOTE DATE OF SERVICE: 06/15/2020 REASON FOR FOLLOWUP: Pneumonia. INTERVAL HISTORY: The patient is currently afebrile. The patient is a hemodynamically stable not on any pressor support. The patient is requiring high-flow nasal cannula also along with No vomiting, no diarrhea or any other changes reported by the nursing staff. PHYSICAL EXAMINATION: Blood pressure 116/58 with a pulse of 90, temperature 98.2. He is 92% on 60% FiO2. General description is an elderly male lying in bed in no distress. RESPIRATORY SYSTEM: Unlabored breathing with decreased intensity of breath sounds. No wheeze. HEART: S1, S2. Regular rate and rhythm. ABDOMEN: Soft, no tenderness. LABS: Hemoglobin is 13.1, white count 19.8. Creatinine 0.81. DIAGNOSTIC IMPRESSION AND PLAN: Patient with respiratory failure source likely COVID-19 pneumonia in patient completed remdesivir. Subsequent sputum with Pseudomonas, covered with cefepime with worsening of the white count more likely steroid plus/minus component component of oropharyngeal candidiasis. With inability to use Diflucan because of Lexapro, will Eraxis and see clinical response and monitor his clinical course closely. MMODL / IJN: [id number] / [facility]
[2020-06-16] MEDS: SULFACETAMIDE SOD 10% OPHTH DROPS 15 ML BTL RIGHT EYE SCH ×4 (00:29→18:09)
[2020-06-16 04:31] LABS: Basophils # (A) 0.1 k/uL (0-0.2); Basophils % (A) 1 %; Eosinophils # (A) 0.1 k/uL (0-0.7); Eosinophils % (A) 1 %; HCT 39.8 % (39.0-53.0); HGB 12.7 gm/dL (13.0-17.5); Lymphocytes # (A) 0.6 k/uL (1.0-4.8); Lymphocytes % (A) 5 %; MCH 29.6 pg (25.0-35.0); MCHC 31.9 g/dL (31.0-37.0); MCV 92.8 fL (80.0-100.0); Mean Platelet Volume 8.3; Monocytes # (A) 1.5 k/uL (0-1.0); Monocytes % (A) 13 %; Neutrophils # (A) 9.6 k/uL (1.3-7.7); Neutrophils % (A) 80 %; RBC 4.28 m/uL (4.30-5.90); RDW 14.9 % (11.5-15.5)
[2020-06-16 04:32] LABS: Platelet Count 81 k/uL (150-450)
[2020-06-16 04:33] LABS: African American GFR (CKD) >90 (>60 ml/min/1.73 sqM); Anion Gap 1 mmol/L; Blood Urea Nitrogen 38 mg/dL (9-20); Calcium 8.2 mg/dL (8.4-10.2); Carbon Dioxide 30 mmol/L (22-30); Chloride 107 mmol/L (98-107); Glucose 139 mg/dL (74-99); Non-African American GFR(CKD) 89 (>60 ml/min/1.73 sqM); Potassium 4.6 mmol/L (3.5-5.1); Sodium 138 mmol/L (137-145)
[2020-06-16 05:51] LABS: Glucose,Whole Blood 127 mg/dL (75-99)
[2020-06-16] MEDS: SODIUM CHLORIDE 0.9% 1,000 ML IV SCH ×2 (05:53→08:26)
[2020-06-16] MEDS: INSULIN ASPART (NovoLOG) 100 UNIT/ML VIAL SQ SCH ×4 (05:53→20:33)
--- NOTE | 2020-06-16 07:30 | XR ---
EXAMINATION TYPE: XR chest 1V portable DATE OF EXAM: 06/16/2020 HISTORY: Shortness of breath. COMPARISON: 06/14/2020 TECHNIQUE: Single view of the chest is submitted. FINDINGS: Demonstrated are scattered senescent parenchymal change. Patchy infiltrates throughout both lung [place] right greater than left persist and appear to be sligh tly improved. The heart is stable. Hilar and mediastinal structures are within normal limits. Degenerative changes are seen of the dorsal spine. IMPRESSION: 1. Patchy infiltrates throughout both lung benton right greater than left persist and appear to be s lightly improved.
[2020-06-16] MEDS: SYMBICORT 160-4.5 MCG INHALER INHALATION SCH ×2 (07:35→20:06)
[2020-06-16] MEDS: ALBUTEROL HFA INHALER INHALATION SCH ×4 (07:35→20:06)
[2020-06-16] MEDS: ZINC SULFATE 220 MG CAP PO SCH (08:24)
[2020-06-16] MEDS: APIXABAN 5 MG TAB PO SCH ×2 (08:24→20:05)
[2020-06-16] MEDS: dexAMETHasone 2 MG TAB PO SCH (08:25)
[2020-06-16] MEDS: FAMOTIDINE 20 MG/2 ML VIAL IV SCH (08:25)
[2020-06-16] MEDS: ASCORBIC ACID 500 MG TAB PO SCH (08:25)
[2020-06-16] MEDS: CHOLECALCIFEROL 400 UNIT TAB PO SCH (08:25)
[2020-06-16] MEDS: CEFEPIME 2 GM in SODIUM CHLORIDE 0.9% 100 ML IVPB SCH ×2 (08:25→20:05)
[2020-06-16] MEDS: ESCITALOPRAM 10 MG TAB PO SCH (08:27)
--- NOTE | 2020-06-16 11:15 | P.PN ---
Subjective Progress Note Date: 06/16/20 Principal diagnosis: COVID19 pneumonitis 74-year-old male patient admitted on 05/27/2024 and acute COVID19 related pneumonia. The patient developed acute hypoxic respiratory failure. The patient got transferred to the intensive care unit and the patient is currently requiring high flow oxygen at 60 L per minute nasal cannula, 90% Fio2 and 100 NRB. His chest x-ray showing diffuse bilateral pulmonary infiltrates consistent with COVID 19 related pneumonia. He has completed a five-day course of Remdesivir and the patient is on Steroids. The patient on IV Solu-Medrol 60 mg IV push every 6 hours. The patient was also found to have pseudomonas aeruginosa in the sputum and the patient purulent sputum production currently on antibiotics. The patient is currently on IV cefepime. The CT angiogram was negative for pulmonary embolism. The patient's history of obesity, hy pertension, diabetes mellitus and acid reflux. The patient is on anticoagulation with Eliquis 5 mg by mouth twice a day. The patient on Symbicort 2 puffs twice a day and albuterol HFA on a when necessary basis. The patient is on Levemir insulin 20 units daily in addition to NovoLog mix 7030 20 units at nighttime and 30 units in the morning. The patient is also on Actos 30 mg at bedtime. Note that the procalcitonin level is at 0.08.The chest x-rays essentially the same. There is still diffuse bilateral pulmonary infiltrates, mainly in the peripheries and more so on the right compared to the left and is unchanged compared to yesterday's chest x-ray. Oxygenation is unchanged. Clinically, he is still the same. He is slightly confused and his baseline level of alertness is or OA2. Urine output is in order of 30 mL an hour and the patient is receiving IV fluids in the form of normal saline at the rate of 20 mL an hour. Oral intake is quite minimal at this point in time on today's evaluation of 06/10/2020, the patient is not showing any progress. In fact there may be some worsening. He is very much lethargic. Is unable to swallow. He is essentially laying down in bed and has minimal amount of conversation. He seems to be disoriented. He is on high flow oxygen 6 L with an FiO2 of 90% in addition to 100% nonrebreather facemask. Chest x-ray showing diffuse bilateral pulmonary infiltrates consistent with bilateral pneumonia. The patient is on IV Solu-Medrol. He completed Remdesivir and he also still less than plasma. We're quite concerned about his respiratory status. He is a full code for now. He is in atrial fibrillation and the rate is controlled for now. His blood sugars are controlled with NovoLog mix 7030 20 units at nighttime and 30 units in the morning. He is also taking Actos. He is also on empiric antibiotic coverage with IV cefepime as the patient will pseudomonas in his sputum. He is afebrile. His LDH is 2003 and his CRP is 9.8. on 06/11/2020, the patient is less lethargic and more awake. He is having some few conversations with me. He was able to follow simple commands. He is profoundly weak. He remains on 60 L with an FiO2 of 80% and 100% nonrebreather facemask. Yesterday, he was able to pass a swallow evaluation. He was given some diet. This was encouraging and I did not have the need to insert an NG tube on him. He has a congested cough. No significant sputum production. He remains on IV cefepime regarding pseudomonas in the sputum. Chest x-ray shows improvement in the left lung infiltration. The right lung is still consolidated actively. He is weak. He seems to be much better spirits for now.He is on IV Solu-Medrol 60 mg every 6 hours. He is also on Lasix 40 mg on a daily basis. He remains on anticoagulation with Eliquis regarding his atrial fibrillation 5 mg by mouth twice a day. On today's evaluation of 06/12/2020, the patient is feeling very much depressed. He is stating that he set up with his condition and he is ready to go and diet. He is a bit tearful also. I was able to get him off the 100% on a beta facemask and currently is only on high flow oxygen at 60 L with an FiO2 of 80%. His pulse ox is above 88%. He is able to swallow. He has a in front of him. His oral intake is minimal or lower this point in time. He has no significant cough. He is a bit lethargic. No fever. No nausea. No vomiting. No abdominal pain. He remains on IV cefepime. Chest x-ray showing some limited improvement in the aeration bilaterally. There is however the excess amount of consolidation. The patient remains on IV Solu-Medrol. He is still in a controlled atrial fibrillation and the patient is on long-term anticoagulation with Eliquis 5 mg by mouth twice a day. He is also taking the Lasix doses IV. Blood sugars are being controlled with NovoLog 7030 minutes 20 in the evening and 30 units in the morning. He is also on Actos. on 06/13/2020, the patient is on 60 L with an 80% FiO2. On the monitor, his pulse ox is 92%. I think he should be able to wean down further. He was feeling quite depressed yesterday. It added Lexapro to his regimen. He remains on IV cefepime. He remains on Eliquis 5 mg by mouth twice a day. He remains on IV Decadron. His chest x-ray is showing some improvement/on the right side. The patient is much improved in terms of his energy level and his ability to communicate and swallow foods. No aspiration. o nausea. No vomiting. No diarrhea. His cardiac rhythm as atrial fibrillation and the rate is controlled for now. He is afebrile.tthe LDH is down to 1545 and a CRP level is down to 7.8. On 06/14/2022 patient remains on 55 L with an FiO2 of 90% and he is also utilizing 100% nonrebreather facemask. He has a congested cough. He was given Lasix without any improvement. His chest x-ray still showing diffuse bilateral pulmonary infiltrates, unchanged from yesterday. He is a bit lethargic. He had T is unresponsive. He is awake. He is able to cough. At times is bringing up some sputum. No fever. No chills. His LDH is gradually improving. The LDH is down to 1406 she is lower and the patient's CRP level is down to 50.8. The pro-calcitonin level is low. The patient is on Decadron. The patient is on daily Lasix. The patient remains in a adequate fluid balance. He remains in atrial fibrillation. He is taking oral intake. He is able to swallow adequately. No nausea. No vomiting. No emesis. On 06/15/2020, patient is on a high flow oxygen at 60 L and an FiO2 of 90%. He was briefly taken off the 100% nonrebreather yesterday. He did well for a while. Subsequently, he desaturated and had to be placed back. No chest x-ray from today. Blood work from today shows no major abnormalities. The LDH level is 1419 100 comparable to yesterday. CRP level is high at 65.8. Renal function stable with a creatinine of 0.8. The patient is on Decadron. He is still vocal. He communicates. No altered mentation. He was bringing up some sputum. Note that the previous sputum culture was positive for Pseudomonas and the patient was started on IV cefepime. Diflucan was also added by yvonne yepez for oropharyngeal candidiasis. The patient remains in atrial fibrillation. No improvement in his condition. He is at a standstill in terms of his colon 19 related pneumonia. He is able to swallow. Oral intake remains low and the patient is taking around 20% of his caloric intake. He was started on Lexapro for some underlying low more than depression. On 06/16/2020 patient seen in follow-up in the intensive care unit, he remains on high flow oxygen per Airvo at 60 l, and Fio2 of 90%, in addition to 100% nonrebreather, with a pulse ox of 93%. Patient has received a course of Remdes ivir, remains on Decadron, and received 1 unit of normal less than plasma. He was found to have a pseudomonal infection in the sputum, and he remains on cefepime for that, in addition to the rectus, ID service is following. His been afebrile,, dynamically stable, he is on IV 0.8 normal saline at a rate of 50 ML per hour. He remains on Decadron 6 mg daily, she is on Robitussin, Pepcid, Martinez E, zinc, vitamin D, on Eliquis for anticoagulation. He is lethargic, but arousable, denies any acute distress, his chest x-ray today shows a patchy infiltrates throughout both lungs right greater than the left, slightly improved. No complaints of chest discomfort, has had no nausea vomiting or diarrhea, no abdominal pain, his labs 7 reviewed, showing white blood cell count of 12, hemoglobin of 12.7, electrolytes were within normal limits, BUN of 30 and creatinine 0.7 Objective - Vital Signs Vital signs: Vital Signs Temp 98.2 F 06/16/20 04:00 Pulse 87 12/14/20 10:00 Resp 14 06/16/20 10:00 BP 127/70 06/16/20 10:00 Pulse Ox 93 L 06/16/20 10:00 Intake & Output 06/15/20 06/16/20 06/16/20 18:59 06:59 18:59 Intake Total 1100 800 350 Output Total 515 656 125 Balance 585 144 225 Weight 104.5 kg 104.6 kg Intake: IV 550 600 200 Sodium Chloride 0.9% 1, 550 600 200 000 ml @ 50 mls/hr IV . Q20H [facility] Rx#:[id number] Oral 550 200 150 Output: Urine 515 655 125 Stool 1 Other: Voiding Method Indwelling Catheter Indwelling Catheter # Voids 1 # Bowel Movements 1 1 - Exam GENERAL EXAM: Alert, very pleasant, 74-year-old white male, on Airvo at 60 L and FiO2 of 90% with a pulse ox of 95%, in addition to 100% nonrebreather mask , pulse ox of 93% comfortable in no apparent distress. HEAD: Normocephalic/atraumatic. EYES: Normal reaction of pupils, equal size. Conjunctiva pink, sclera white. NOSE: Clear with pink turbinates. THROAT: No erythema or exudates. NECK: No masses, no JVD, no thyroid enlargement, no adenopathy. CHEST: No chest wall deformity. Symmetrical expansion. LUNGS: Equal air entry with no crackles, wheeze, rhonchi or dullness. CVS: Regular rate and rhythm, normal S1 and S2, no gallops, no murmurs, no rubs ABDOMEN: Soft, nontender. No hepatosplenomegaly, normal bowel sounds, no guarding or rigidity. EXTREMITIES: No clubbing, no edema, no cyanosis, 2+ pulses and upper and lower extremities. MUSCULOSKELETAL: Muscle strength and tone normal. SPINE: No scoliosis or deformity SKIN: No rashes CENTRAL NERVOUS SYSTEM: Alert and oriented -3. No focal deficits, tone is normal in all 4 extremities. PSYCHIATRIC: Alert and oriented -3. Appropriate affect. Intact judgment and insight. - Labs CBC & Chem 7: 06/16/20 03:43 06/16/20 03:43 Labs: Abnormal Lab Results - Last 24 Hours (Table) 06/15/20 06/15/20 06/15/20 Range/Units 12:48 17:47 20:23 WBC (3.8-10.6) k/uL RBC (4.30-5.90) m/uL Hgb (13.0-17.5) gm/dL Plt Count (150-450) k/uL Neutrophils # (1.3-7.7) k/uL Lymphocytes # (1.0-4.8) k/uL Monocytes # (0-1.0) k/uL BUN (9-20) mg/dL Glucose (74-99) mg/dL POC Glucose (mg/dL) 178 H 208 H 321 H (75-99) mg/dL Calcium (8.4-10.2) mg/dL 06/16/20 06/16/20 06/16/20 Range/Units 03:43 03:43 05:49 WBC 12.0 H (3.8-10.6) k/uL RBC 4.28 L (4.30-5.90) m/uL Hgb 12.7 L (13.0-17.5) gm/dL Plt Count 81 L (150-450) k/uL Neutrophils # 9.6 H (1.3-7.7) k/uL Lymphocytes # 0.6 L (1.0-4.8) k/uL Monocytes # 1.5 H (0-1.0) k/uL BUN 38 H (9-20) mg/dL Glucose 139 H (74-99) mg/dL POC Glucose (mg/dL) 127 H (75-99) mg/dL Calcium 8.2 L (8.4-10.2) mg/dL Assessment and Plan Plan: #1. Acute hypoxic respiratory failure related to COVID 19 pneumonitis, which has progressed since admission, and patient is currently on AIRVO at 60 L and FiO2 of 90%, ration continues to require 100% nonrebreather facemask to showed a saturation above 90%. His chest x-ray still from yesterday was still showing diffuse bilateral pulmonary infiltrates, unchanged compared to earlier chest x- rays.. Patient has completed Remdesivir course on 05/31/2020 and received convalescent immunoglobulin and the patient is on IV Decadron. She is also on IV cefepime. The sputum has shown pseudomonas aeruginosa. The pro-calcitonin level is low. LDH level continues to be elevated. CRP level is also elevated. #2. Increased d-dimer of 18 and then drop down to 11 and then down to 3., patient has been on Eliquis, CTA chest showed no evidence of pulmonary embolism #3. Diabetes mellitus type 2, on Levemir and sliding scale #4. GERD/reflux #5. Hyperlipidemia #6. History of hypertension #7. Obesity # 8 Paroxysmal atrial fibrillation current rhythm is sinus and the patient is on anticoagulation with Eliquis. #9 depression Plan: Current medical treatment, continue antibiotics, continue breathing treatments, patient has been afebrile, still requiring significant amount of oxygen, today's chest x-ray has been reviewed, showing some improvement in aeration bilaterally. Continue oral steroids, continue oral anticoagulation, vitamins, we will continue to closely monitor in the intensive care unit I performed a history & physical examination of the patient and discussed their management with my nurse practitioner, Brigid Cody. I reviewed the nurse practitioner's note and agree with the documented findings and plan of care. Lung sounds are positive for diminished breath sounds. The findings and the impression was discussed with the patient. I attest to the documentation by the nurse practitioner. Time with Patient: Less than 30 Time with Patient: Less than 30
[2020-06-16 11:27] LABS: Glucose,Whole Blood 199 mg/dL (75-99)
[2020-06-16] MEDS: LORazepam 2 MG/ML INJ IV PRN ×2 (15:14→20:43)
[2020-06-16 18:07] LABS: Glucose,Whole Blood 143 mg/dL (75-99)
[2020-06-16] MEDS: PIOGLITAZONE 30 MG TAB PO SCH (20:04)
[2020-06-16] MEDS: OXYBUTYNIN 15 MG TAB.ER.24 PO SCH (20:04)
[2020-06-16] MEDS: MELATONIN 5 MG TABLET PO SCH (20:05)
[2020-06-16] MEDS: TAMSULOSIN 0.4 MG CAP.ER.24H PO SCH (20:05)
[2020-06-16 20:12] LABS: Glucose,Whole Blood 168 mg/dL (75-99)
[2020-06-16] MEDS: ANIDULAFUNGIN 100 MG in SODIUM CHLORIDE 0.9% 100 ML IVPB SCH (20:29)
--- NOTE | 2020-06-16 23:25 | PN ---
PROGRESS NOTE DATE OF SERVICE: 06/16/2020 REASON FOR FOLLOWUP: Pneumonia. INTERVAL HISTORY: The patient is currently afebrile. The patient seems to be getting tired and slightly weak, lethargic, though denies having any chest pain. He did have a cough, not bringing up any sputum. No vomiting or diarrhea reported by the nursing staff. PHYSICAL EXAMINATION: Blood pressure 122/76, pulse of 74, temperature 98.9. He is 94% on 90% FiO2. General description is an elderly male lying in bed in no distress. RESPIRATORY SYSTEM: Unlabored breathing with decreased intensity of breath sounds. No wheeze. HEART: S1, S2. Regular rate and rhythm. ABDOMEN: Soft. No tenderness. LABS: Hemoglobin is 12.7, white count 12.0, BUN of 38, creatinine 0.77. DIAGNOSTIC IMPRESSION AND PLAN: Patient with pneumonia in this patient who completed treatment for the COVID-19, subsequently with worsening respiratory status. Sputum shows Pseudomonas, for which the patient has been on cefepime. X-rays were evaluated in view of the persistent elevated white count and evidence of Tessa in sputum, possible oropharyngeal candidiasis. Patient to continue current treatment and respiratory support and monitor clinical course closely. MMODL / IJN: [id number] / [facility]
[2020-06-17] MEDS: SULFACETAMIDE SOD 10% OPHTH DROPS 15 ML BTL RIGHT EYE SCH ×4 (00:56→17:07)
[2020-06-17 05:06] LABS: Basophils # (A) 0.2 k/uL (0-0.2); Basophils % (A) 2 %; Eosinophils # (A) 0.1 k/uL (0-0.7); Eosinophils % (A) 1 %; HCT 38.8 % (39.0-53.0); HGB 12.6 gm/dL (13.0-17.5); Lymphocytes # (A) 0.3 k/uL (1.0-4.8); Lymphocytes % (A) 3 %; MCH 30.3 pg (25.0-35.0); MCHC 32.5 g/dL (31.0-37.0); MCV 93.3 fL (80.0-100.0); Mean Platelet Volume 7.8; Monocytes # (A) 1.2 k/uL (0-1.0); Monocytes % (A) 14 %; Neutrophils # (A) 6.6 k/uL (1.3-7.7); Neutrophils % (A) 77 %; RBC 4.16 m/uL (4.30-5.90); RDW 14.9 % (11.5-15.5); WBC 8.5 k/uL (3.8-10.6)
[2020-06-17 05:17] LABS: Platelet Count 75 k/uL (150-450)
[2020-06-17 05:22] LABS: African American GFR (CKD) >90 (>60 ml/min/1.73 sqM); Anion Gap 1 mmol/L; Blood Urea Nitrogen 31 mg/dL (9-20); C Reactive Protein 26.6 mg/L (<10.0); Carbon Dioxide 25 mmol/L (22-30); Chloride 111 mmol/L (98-107); Creatine Kinase 27 U/L (55-170); Glucose 176 mg/dL (74-99); Non-African American GFR(CKD) >90 (>60 ml/min/1.73 sqM); Potassium 4.8 mmol/L (3.5-5.1); Sodium 137 mmol/L (137-145)
[2020-06-17 05:40] LABS: Glucose,Whole Blood 160 mg/dL (75-99)
[2020-06-17] MEDS: INSULIN ASPART (NovoLOG) 100 UNIT/ML VIAL SQ SCH ×4 (05:47→21:41)
[2020-06-17] MEDS: dexAMETHasone 2 MG TAB PO SCH (08:00)
[2020-06-17] MEDS: ESCITALOPRAM 10 MG TAB PO SCH (08:01)
[2020-06-17] MEDS: CEFEPIME 2 GM in SODIUM CHLORIDE 0.9% 100 ML IVPB SCH ×2 (08:01→20:32)
[2020-06-17] MEDS: CHOLECALCIFEROL 400 UNIT TAB PO SCH (08:01)
[2020-06-17] MEDS: FAMOTIDINE 20 MG/2 ML VIAL IV SCH (08:01)
[2020-06-17] MEDS: ASCORBIC ACID 500 MG TAB PO SCH (08:01)
[2020-06-17] MEDS: APIXABAN 5 MG TAB PO SCH ×2 (08:01→20:32)
[2020-06-17] MEDS: ZINC SULFATE 220 MG CAP PO SCH (08:03)
[2020-06-17] MEDS: ALBUTEROL HFA INHALER INHALATION SCH ×4 (08:06→20:43)
--- NOTE | 2020-06-17 10:19 | XR ---
EXAMINATION TYPE: XR chest 1V portable DATE OF EXAM: 06/17/2020 COMPARISON: 06/16/2020 INDICATION: Short of breath TECHNIQUE: Single frontal view of the chest is obtained. FINDINGS: The heart size is enlarged. The pulmonary vasculature is normal. Diffuse increased lung markings are present within the periphery of the right lung. Findings are wors ening over the interval mild infiltrate is at the left base slightly improved from comparison. IMPRESSION: 1. Bilateral lung infiltrates. Right-sided is worsening from comparison.
[2020-06-17 12:03] LABS: Glucose,Whole Blood 144 mg/dL (75-99)
[2020-06-17] MEDS: SYMBICORT 160-4.5 MCG INHALER INHALATION SCH ×2 (12:45→20:44)
--- NOTE | 2020-06-17 13:40 | P.PN ---
Subjective Progress Note Date: 06/17/20 Principal diagnosis: Acute hypoxic respiratory failure secondary to covid 19 pneumonitis 74-year-old male patient admitted on 05/27/2024 and acute COVID19 related pneumonia. The patient developed acute hypoxic respiratory failure. The patient got transferred to the intensive care unit and the patient is currently requiring high flow oxygen at 60 L per minute nasal cannula, 90% Fio2 and 100 NRB. His chest x-ray showing diffuse bilateral pulmonary infiltrates consistent with COVID 19 related pneumonia. He has completed a five-day course of Remdesivir and the patient is on Steroids. The patient on IV Solu-Medrol 60 mg IV push every 6 hours. The patient was also found to have pseudomonas aeruginosa in the sputum and the patient purulent sputum production currently on antibiotics. The patient is currently on IV cefepime. The CT angiogram was negative for pulmonary embolism. The patient's history of obesity, hypertension, diabetes mellitus and acid reflux. The patient is on anticoagulation with Eliquis 5 mg by mouth twice a day. The patient on Symbicort 2 puffs twice a day and albuterol HFA on a when necessary basis. The patient is on Levemir insulin 20 units daily in addition to NovoLog mix 7030 20 units at nighttime and 30 units in the morning. The patient is also on Actos 30 mg at bedtime. Note that the procalcitonin level is at 0.08.The chest x-rays essentially the same. There is still diffuse bilateral pulmonary infiltrates, mainly in the peripheries and more so on the right compared to the left and is unchanged compared to yesterday's chest x-ray. Oxygenation is unchanged. Clinically, he is still the same. He is slightly confused and his baseline level of alertness is or OA2. Urine output is in order of 30 mL an hour and the patient is receiving IV fluids in the form of normal saline at the rate of 20 mL an hour. Oral intake is quite minimal at this point in time on today's evaluation of 06/10/2020, the patient is not showing any progress. In fact there may be some worsening. He is very much lethargic. Is unable to swallow. He is essentially laying down in bed and has minimal amount of conversation. He seems to be disoriented. He is on high flow oxygen 6 L with an FiO2 of 90% in addition to 100% nonrebreather facemask. Chest x-ray showing diffuse bilateral pulmonary infiltrates consistent with bilateral pneumonia. The patient is on IV Solu-Medrol. He completed Remdesivir and he also still less than plasma. We're quite concerned about his respiratory status. He is a full code for now. He is in atrial fibrillation and the rate is controlled for now. His blood sugars are controlled with NovoLog mix 7030 20 units at nighttime and 30 units in the morning. He is also taking Actos. He is also on empiric antibiotic coverage with IV cefepime as the patient will pseudomonas in his sputum. He is afebrile. His LDH is 2003 and his CRP is 9.8. on 06/11/2020, the patient is less lethargic and more awake. He is having some few conversations with me. He was able to follow simple commands. He is profoundly weak. He remains on 60 L with an FiO2 of 80% and 100% nonrebreather facemask. Yesterday, he was able to pass a swallow evaluation. He was given some diet. This was encouraging and I did not have the need to insert an NG tube on him. He has a congested cough. No significant sputum production. He remains on IV cefepime regarding pseudomonas in the sputum. Chest x-ray shows improvement in the left lung infiltration. The right lung is still consolidated actively. He is weak. He seems to be much better spirits for now.He is on IV Solu-Medrol 60 mg every 6 hours. He is also on Lasix 40 mg on a daily basis. He remains on anticoagulation with Eliquis regarding his atrial fibrillation 5 mg by mouth twice a day. On today's evaluation of 06/12/2020, the patient is feeling very much depressed. He is stating that he set up with his condition and he is ready to go and diet. He is a bit tearful also. I was able to get him off the 100% on a beta facemask and currently is only on high flow oxygen at 60 L with an FiO2 of 80%. His pulse ox is above 88%. He is able to swallow. He has a in front of him. His oral intake is minimal or lower this point in time. He has no significant cough. He is a bit lethargic. No fever. No nausea. No vomiting. No abdominal pain. He remains on IV cefepime. Chest x-ray showing some limited improvement in the aeration bilaterally. There is however the excess amount of consolidation. The patient remains on IV Solu-Medrol. He is still in a controlled atrial fibrillation and the patient is on long-term anticoagulation with Eliquis 5 mg by mouth twice a day. He is also taking the Lasix doses IV. Blood sugars are being controlled with NovoLog 7030 minutes 20 in the evening and 30 units in the morning. He is also on Actos. on 06/13/2020, the patient is on 60 L with an 80% FiO2. On the monitor, his pulse ox is 92%. I think he should be able to wean down further. He was feeling quite depressed yesterday. It added Lexapro to his regimen. He remains on IV cefepime. He remains on Eliquis 5 mg by mouth twice a day. He remains on IV Decadron. His chest x-ray is showing some improvement/on the right side. The patient is much improved in terms of his energy level and his ability to communicate and swallow foods. No aspiration. o nausea. No vomiting. No diarrhea. His cardiac rhythm as atrial fibrillation and the rate is controlled for now. He is afebrile.tthe LDH is down to 1545 and a CRP level is down to 7.8. On 06/14/2022 patient remains on 55 L with an FiO2 of 90% and he is also utilizing 100% nonrebreather facemask. He has a congested cough. He was given Lasix without any improvement. His chest x-ray still showing diffuse bilateral pulmonary infiltrates, unchanged from yesterday. He is a bit lethargic. He had T is unresponsive. He is awake. He is able to cough. At times is bringing up some sputum. No fever. No chills. His LDH is gradually improving. The LDH is down to 1406 she is lower and the patient's CRP level is down to 50.8. The pro-calcitonin level is low. The patient is on Decadron. The patient is on daily Lasix. The patient remains in a adequate fluid balance. He remains in atrial fibrillation. He is taking oral intake. He is able to swallow adequatel y. No nausea. No vomiting. No emesis. On 06/15/2020, patient is on a high flow oxygen at 60 L and an FiO2 of 90%. He was briefly taken off the 100% nonrebreather yesterday. He did well for a whi le. Subsequently, he desaturated and had to be placed back. No chest x-ray from today. Blood work from today shows no major abnormalities. The LDH level is 1419 100 comparable to yesterday. CRP level is high at 65.8. Renal function stable with a creatinine of 0.8. The patient is on Decadron. He is still vocal. He communicates. No altered mentation. He was bringing up some sputum. Note that the previous sputum culture was positive for Pseudomonas and the patient was started on IV cefepime. Diflucan was also added by infectious disease for oropharyngeal candidiasis. The patient remains in atrial fibrillation. No improvement in his condition. He is at a standstill in terms of his colon 19 related pneumonia. He is able to swallow. Oral intake remains low and the patient is taking around 20% of his caloric intake. He was started on Lexapro for some underlying low more than depression. On 06/16/2020 patient seen in follow-up in the intensive care unit, he remains on high flow oxygen per Airvo at 60 l, and Fio2 of 90%, in addition to 100% nonrebreather, with a pulse ox of 93%. Patient has received a course of Remdesivir, remains on Decadron, and received 1 unit of normal less than plasma. He was found to have a pseudomonal infection in the sputum, and he remains on cefepime for that, in addition to the rectus, ID service is following. His been afebrile,, dynamically stable, he is on IV 0.8 normal saline at a rate of 50 ML per hour. He remains on Decadron 6 mg daily, she is on Robitussin, Pepcid, Martinez E, zinc, vitamin D, on Eliquis for anticoagulation. He is lethargic, but arousable, denies any acute distress, his chest x-ray today shows a patchy infiltrates throughout both lungs right greater than the left, slightly improved. No complaints of chest discomfort, has had no nausea vomiting or diarrhea, no abdominal pain, his labs 7 reviewed, showing white blood cell count of 12, hemoglobin of 12.7, electrolytes were within normal limits, BUN of 30 and creatinine 0.7 Patient was reevaluated today on 06/17/20, remains in the intensive care unit, p boy is on high flow oxygen, utilizing airvo with 90% FiO2 and 60 L/m flow patient is on IV fluid at 0.9 normal saline 50 mL per hour. He is in atrial fibrillation with a rate fairly well controlled. His sputum is positive for Pseudomonas. Patient received remdesivir,, convalescent plasma, eliquis, and he remains on cefepime and eraxis. Chest x-ray continues to show worsening infiltrates, more so on the right side. CBC is relatively normal electrolytes and renal profile are normal C-reactive protein is 26. Sputum culture was positive for Pseudomonas and for Tessa albicans. Objective - Vital Signs Vital signs: Vital Signs Temp 97.9 F 06/17/20 12:00 Pulse 77 06/17/20 12:00 Resp 39 H 06/17/20 12:00 BP 126/67 06/17/20 12:00 Pulse Ox 89 L 06/17/20 12:00 Intake & Output 06/16/20 06/17/20 06/17/20 18:59 06:59 18:59 Intake Total 800 850 500 Output Total 410 410 230 Balance 390 440 270 Weight 105.3 kg Intake: IV 650 550 400 Cefepime 2 gm In Sodium 100 Chloride 0.9% 100 ml @ 25 mls/hr IVPB Q12HR [facility] Rx #:[id number] Sodium Chloride 0.9% 1, 650 550 300 000 ml @ 50 mls/hr IV . Q20H [facility] Rx#:[id number] Intake, IV Titration 200 Amount Anidulafungin 100 mg In 100 Sodium Chloride 0.9% 100 ml @ 84 mls/hr IVPB HS [facility] Rx#:[id number] Cefepime 2 gm In Sodium 100 Chloride 0.9% 100 ml @ 25 mls/hr IVPB Q12HR [facility] Rx #:[id number] Oral 150 100 100 Output: Urine 410 410 230 Other: Voiding Method Indwelling Catheter Indwelling Catheter Indwelling Catheter - Exam GENERAL EXAM: Alert, very pleasant, 74-year-old white male, on Airvo at 60 L and FiO2 of 90% HEAD: Normocephalic/atraumatic. EENT: PERRLA, EOMI, no icterus, moist mucous membranes. CHEST: No chest wall deformity. Symmetrical expansion. LUNGS: Equal air entry, fine crackles at the bases. CVS: Regular rate and rhythm, normal S1 and S2, no gallops, no murmurs, no rubs ABDOMEN: Soft, nontender. No hepatosplenomegaly, normal bowel sounds, no guarding or rigidity. EXTREMITIES: No clubbing, no edema, no cyanosis, 2+ pulses and upper and lower extremities. MUSCULOSKELETAL: No evidence of Deformities, good range of motion. SKIN: No rashes CENTRAL NERVOUS SYSTEM: Alert and oriented 3, no focal deficits. PSYCHIATRIC: Normal mood, affect and normal mental status examination - Labs CBC & Chem 7: 06/17/20 04:35 06/17/20 04:35 Labs: Abnormal Lab Results - Last 24 Hours (Table) 06/16/20 06/16/20 06/17/20 Range/Units 18:05 20:10 04:35 RBC (4.30-5.90) m/uL Hgb (13.0-17.5) gm/dL Hct (39.0-53.0) % Plt Count (150-450) k/uL Lymphocytes # (1.0-4.8) k/uL Monocytes # (0-1.0) k/uL Chloride 111 H (98-107) mmol/L BUN 31 H (9-20) mg/dL Glucose 176 H (74-99) mg/dL POC Glucose (mg/dL) 143 H 168 H (75-99) mg/dL Calcium 8.0 L (8.4-10.2) mg/dL Creatine Kinase 27 L (55-170) U/L C-Reactive Protein 26.6 H (<10.0) mg/L 06/17/20 06/17/20 06/17/20 Range/Units 04:35 05:39 12:02 RBC 4.16 L (4.30-5.90) m/uL Hgb 12.6 L (13.0-17.5) gm/dL Hct 38.8 L (39.0-53.0) % Plt Count 75 L (150-450) k/uL Lymphocytes # 0.3 L (1.0-4.8) k/uL Monocytes # 1.2 H (0-1.0) k/uL Chloride (98-107) mmol/L BUN (9-20) mg/dL Glucose (74-99) mg/dL POC Glucose (mg/dL) 160 H 144 H (75-99) mg/dL Calcium (8.4-10.2) mg/dL Creatine Kinase (55-170) U/L C-Reactive Protein (<10.0) mg/L Assessment and Plan Assessment: Impression: Acute hypoxic respiratory failure secondary to covid 19 pneumonitis. Possible underlying pseudomonal pneumonia, remains on cefepime. Type 2 diabetes. GERD without esophagitis. History of hypertension. Obesity. Paroxysmal atrial fibrillation maintained on anticoagulation therapy. History of depression. Recommendation: Patient remains very marginal at best. Titrate FiO2 to maintain O2 saturation above 90%. Chest x-ray still concerning. Patient completed his remdesivir Received convalescent plasma, and he remains on Decadron. Continues to have elevated inflammatory markers. We will continue to monitor the patient in the ICU. Again his pulmonary status is marginal at best. Continue Covid 19 cocktail. Continue cefepime. And continue Eraxis. Prognosis remains guarded. Critical care time is over 30 minutes. Time with Patient: Greater than 30
[2020-06-17 16:49] LABS: Glucose,Whole Blood 187 mg/dL (75-99)
--- NOTE | 2020-06-17 17:41 | PN ---
PROGRESS NOTE DATE OF SERVICE: 06/16/2020 CHIEF COMPLAINT: COVID pneumonia. HISTORY OF PRESENT ILLNESS: This gentleman remains in critical condition, but he is slightly improved. He is still on high-flow oxygen. PHYSICAL EXAMINATION: Physical examination is essentially unchanged, with decreased breath sounds and atrial fibrillation. IMPRESSION: 1. COVID pneumonia with respiratory failure, slightly improved. 2. Diabetes mellitus. PLAN: Continue to follow while he is receiving his ICU therapy and care. MMODL / IJN: [id number] /
--- NOTE | 2020-06-17 17:50 | PN ---
PROGRESS NOTE CHIEF COMPLAINT: COVID pneumonia. HISTORY OF PRESENT ILLNESS: This patient's progress is slow. Apparently his respiratory function and capacity have improved somewhat. He is eating, but very little. PHYSICAL EXAMINATION: Physical exam is unchanged, with poor breath sounds bilaterally with bilateral rales. Cardiac exam is unchanged. IMPRESSION: 1. COVID pneumonia with respiratory failure. 2. Obesity. 3. Diabetes. 4. Hypertension. PLAN: Continue to follow his progress in ICU until he is able to be transferred to another unit. MMODL / IJN: [id number] /
[2020-06-17 20:15] LABS: Ferritin 683.4 ng/mL (22.0-322.0)
[2020-06-17] MEDS: MELATONIN 5 MG TABLET PO SCH (20:32)
[2020-06-17] MEDS: ANIDULAFUNGIN 100 MG in SODIUM CHLORIDE 0.9% 100 ML IVPB SCH (20:36)
[2020-06-17] MEDS: PIOGLITAZONE 30 MG TAB PO SCH (21:08)
[2020-06-17] MEDS: OXYBUTYNIN 15 MG TAB.ER.24 PO SCH (21:08)
[2020-06-17] MEDS: TAMSULOSIN 0.4 MG CAP.ER.24H PO SCH (21:08)
[2020-06-17] MEDS: SODIUM CHLORIDE 0.9% 1,000 ML IV SCH (21:09)
[2020-06-17] MEDS: FUROSEMIDE 10 MG/ML 4 ML VIAL IV SCH (21:19)
[2020-06-17 21:30] LABS: Glucose,Whole Blood 224 mg/dL (75-99)
--- NOTE | 2020-06-17 22:15 | PN ---
PROGRESS NOTE DATE OF SERVICE: 06/17/2020 REASON FOR FOLLOWUP: Pneumonia. INTERVAL HISTORY: The patient is currently afebrile. The patient remains on high-flow nasal cannula oxygen. The patient denies having any chest pain. He is feeling weak and tired, with no energy. Cough but no sputum. No abdominal pain or diarrhea. PHYSICAL EXAMINATION: Blood pressure 133/80 with a pulse of 76, temperature 97.9. He is 96% on high- flow oxygen. General description is an elderly male lying in bed in no distress. RESPIRATORY SYSTEM: Unlabored breathing with decreased intensity of breath sounds. No wheeze. HEART: S1, S2. Regular rate and rhythm. ABDOMEN: Soft. No tenderness. LABS: Hemoglobin is 12.3, white count 8.5. BUN of 31, creatinine 0.67. CRP is 26.6. DIAGNOSTIC IMPRESSION AND PLAN: Patient with acute respiratory failure which is multifactorial in this patient who did have COVID-19 pneumonia. He completed his remdesivir therapy. possibly component of secondary bacterial pneumonia. Sputum with Pseudomonas, covered with cefepime. Some worsening on the chest x-ray. Continue with the current treatment protocol, including dexamethasone and monitor his clinical course closely. Continue with supportive care. MMODL / IJN: [id number] / MTDLars
[2020-06-18] MEDS: SULFACETAMIDE SOD 10% OPHTH DROPS 15 ML BTL RIGHT EYE SCH ×4 (00:32→17:43)
[2020-06-18 04:48] LABS: Basophils # (A) 0.2 k/uL (0-0.2); Basophils % (A) 3 %; Eosinophils % (A) 1 %; HCT 37.9 % (39.0-53.0); HGB 12.5 gm/dL (13.0-17.5); Lymphocytes # (A) 0.3 k/uL (1.0-4.8); Lymphocytes % (A) 5 %; MCH 30.5 pg (25.0-35.0); MCV 92.4 fL (80.0-100.0); Mean Platelet Volume 7.7; Monocytes # (A) 0.7 k/uL (0-1.0); Monocytes % (A) 12 %; Neutrophils # (A) 4.4 k/uL (1.3-7.7); Neutrophils % (A) 77 %; RBC 4.11 m/uL (4.30-5.90); WBC 5.7 k/uL (3.8-10.6)
[2020-06-18 04:54] LABS: Platelet Count 69 k/uL (150-450)
[2020-06-18 04:59] LABS: ALT 25 U/L (4-49); AST 26 U/L (17-59); African American GFR (CKD) >90 (>60 ml/min/1.73 sqM); Albumin 2.6 g/dL (3.5-5.0); Alkaline Phosphatase 51 U/L (38-126); Anion Gap 3 mmol/L; Blood Urea Nitrogen 29 mg/dL (9-20); C Reactive Protein 25.3 mg/L (<10.0); Calcium 8.2 mg/dL (8.4-10.2); Carbon Dioxide 25 mmol/L (22-30); Chloride 112 mmol/L (98-107); Creatine Kinase 33 U/L (55-170); Glucose 160 mg/dL (74-99); Non-African American GFR(CKD) >90 (>60 ml/min/1.73 sqM); Potassium 4.2 mmol/L (3.5-5.1); Sodium 140 mmol/L (137-145); Total Bilirubin 0.9 mg/dL (0.2-1.3); Total Protein 5.5 g/dL (6.3-8.2)
--- NOTE | 2020-06-18 07:03 | XR ---
EXAMINATION TYPE: XR chest 1V portable DATE OF EXAM: 06/18/2020 HISTORY: Shortness of breath. COMPARISON: 06/17/2020 TECHNIQUE: Single view of the chest is submitted. FINDINGS: Demonstrated are scattered senescent parenchymal change. Patchy infiltrates persist throughout bilaterally right greater than left. The heart is stable. Hilar and mediastinal structures are within normal limits. Degenerative changes are seen of the dorsal spine. IMPRESSION: 1. Patchy infiltrates persist throughout bilaterally right greater than left.
[2020-06-18] MEDS ORDERED: FUROSEMIDE 10 MG/ML 4 ML VIAL IV STA (08:29)
[2020-06-18] MEDS: ZINC SULFATE 220 MG CAP PO SCH (08:51)
[2020-06-18] MEDS: dexAMETHasone 2 MG TAB PO SCH (08:51)
[2020-06-18] MEDS: APIXABAN 5 MG TAB PO SCH ×2 (08:51→19:54)
[2020-06-18] MEDS: ASCORBIC ACID 500 MG TAB PO SCH (08:51)
[2020-06-18] MEDS: ESCITALOPRAM 10 MG TAB PO SCH (08:51)
[2020-06-18] MEDS: CHOLECALCIFEROL 400 UNIT TAB PO SCH (08:52)
[2020-06-18] MEDS: CEFEPIME 2 GM in SODIUM CHLORIDE 0.9% 100 ML IVPB SCH ×2 (08:52→19:55)
[2020-06-18] MEDS: FAMOTIDINE 20 MG/2 ML VIAL IV SCH (08:53)
[2020-06-18] MEDS: INSULIN ASPART (NovoLOG) 100 UNIT/ML VIAL SQ SCH ×4 (08:55→20:28)
[2020-06-18] MEDS: SYMBICORT 160-4.5 MCG INHALER INHALATION SCH ×2 (09:19→19:32)
[2020-06-18] MEDS: ALBUTEROL HFA INHALER INHALATION SCH ×4 (09:19→19:32)
[2020-06-18 11:40] LABS: Glucose,Whole Blood 194 mg/dL (75-99)
--- NOTE | 2020-06-18 14:12 | P.PN ---
Subjective Progress Note Date: 06/18/20 Principal diagnosis: Acute hypoxic respiratory failure secondary to covid 19 pneumonitis 74-year-old male patient admitted on 05/27/2024 and acute COVID19 related pneumonia. The patient developed acute hypoxic respiratory failure. The patient got transferred to the intensive care unit and the patient is currently requiring high flow oxygen at 60 L per minute nasal cannula, 90% Fio2 and 100 NRB. His chest x-ray showing diffuse bilateral pulmonary infiltrates consistent with COVID 19 related pneumonia. He has completed a five-day course of Remdesivir and the patient is on Steroids. The patient on IV Solu-Medrol 60 mg IV push every 6 hours. The patient was also found to have pseudomonas aeruginosa in the sputum and the patient purulent sputum production currently on antibiotics. The patient is currently on IV cefepime. The CT angiogram was negative for pulmonary embolism. The patient's history of obesity, hypertension, diabetes mellitus and acid reflux. The patient is on anticoagulation with Eliquis 5 mg by mouth twice a day. The patient on Symbicort 2 puffs twice a day and albuterol HFA on a when necessary basis. The patient is on Levemir insulin 20 units daily in addition to NovoLog mix 7030 20 units at nighttime and 30 units in the morning. The patient is also on Actos 30 mg at bedtime. Note that the procalcitonin level is at 0.08.The chest x-rays essentially the same. There is still diffuse bilateral pulmonary infiltrates, mainly in the peripheries and more so on the right compared to the left and is unchanged compared to yesterday's chest x-ray. Oxygenation is unchanged. Clinically, he is still the same. He is slightly confused and his baseline level of alertness is or OA2. Urine output is in order of 30 mL an hour and the patient is receiving IV fluids in the form of normal saline at the rate of 20 mL an hour. Oral intake is quite minimal at this point in time on today's evaluation of 06/10/2020, the patient is not showing any progress. In fact there may be some worsening. He is very much lethargic. Is unable to swallow. He is essentially laying down in bed and has minimal amount of conversation. He seems to be disoriented. He is on high flow oxygen 6 L with an FiO2 of 90% in addition to 100% nonrebreather facemask. Chest x-ray showing diffuse bilateral pulmonary infiltrates consistent with bilateral pneumonia. The patient is on IV Solu-Medrol. He completed Remdesivir and he also still less than plasma. We're quite concerned about his respiratory status. He is a full code for now. He is in atrial fibrillation and the rate is controlled for now. His blood sugars are controlled with NovoLog mix 7030 20 units at nighttime and 30 units in the morning. He is also taking Actos. He is also on empiric antibiotic coverage with IV cefepime as the patient will pseudomonas in his sputum. He is afebrile. His LDH is 2003 and his CRP is 9.8. on 06/11/2020, the patient is less lethargic and more awake. He is having some few conversations with me. He was able to follow simple commands. He is profoundly weak. He remains on 60 L with an FiO2 of 80% and 100% nonrebreather facemask. Yesterday, he was able to pass a swallow evaluation. He was given some diet. This was encouraging and I did not have the need to insert an NG tube on him. He has a congested cough. No significant sputum production. He remains on IV cefepime regarding pseudomonas in the sputum. Chest x-ray shows improvement in the left lung infiltration. The right lung is still consolidated actively. He is weak. He seems to be much better spirits for now.He is on IV Solu-Medrol 60 mg every 6 hours. He is also on Lasix 40 mg on a daily basis. He remains on anticoagulation with Eliquis regarding his atrial fibrillation 5 mg by mouth twice a day. On today's evaluation of 06/12/2020, the patient is feeling very much depressed. He is stating that he set up with his condition and he is ready to go and diet. He is a bit tearful also. I was able to get him off the 100% on a beta facemask and currently is only on high flow oxygen at 60 L with an FiO2 of 80%. His pulse ox is above 88%. He is able to swallow. He has a in front of him. His oral intake is minimal or lower this point in time. He has no significant cough. He is a bit lethargic. No fever. No nausea. No vomiting. No abdominal pain. He remains on IV cefepime. Chest x-ray showing some limited improvement in the aeration bilaterally. There is however the excess amount of consolidation. The patient remains on IV Solu-Medrol. He is still in a controlled atrial fibrillation and the patient is on long-term anticoagulation with Eliquis 5 mg by mouth twice a day. He is also taking the Lasix doses IV. Blood sugars are being controlled with NovoLog 7030 minutes 20 in the evening and 30 units in the morning. He is also on Actos. on 06/13/2020, the patient is on 60 L with an 80% FiO2. On the monitor, his pulse ox is 92%. I think he should be able to wean down further. He was feeling quite depressed yesterday. It added Lexapro to his regimen. He remains on IV cefepime. He remains on Eliquis 5 mg by mouth twice a day. He remains on IV Decadron. His chest x-ray is showing some improvement/on the right side. The patient is much improved in terms of his energy level and his ability to communicate and swallow foods. No aspiration. o nausea. No vomiting. No diarrhea. His cardiac rhythm as atrial fibrillation and the rate is controlled for now. He is afebrile.tthe LDH is down to 1545 and a CRP level is down to 7.8. On 06/14/2022 patient remains on 55 L with an FiO2 of 90% and he is also utilizing 100% nonrebreather facemask. He has a congested cough. He was given Lasix without any improvement. His chest x-ray still showing diffuse bilateral pulmonary infiltrates, unchanged from yesterday. He is a bit lethargic. He had T is unresponsive. He is awake. He is able to cough. At times is bringing up some sputum. No fever. No chills. His LDH is gradually improving. The LDH is down to 1406 she is lower and the patient's CRP level is down to 50.8. The pro-calcitonin level is low. The patient is on Decadron. The patient is on daily Lasix. The patient remains in a adequate fluid balance. He remains in atrial fibrillation. He is taking oral intake. He is able to swallow adequatel y. No nausea. No vomiting. No emesis. On 06/15/2020, patient is on a high flow oxygen at 60 L and an FiO2 of 90%. He was briefly taken off the 100% nonrebreather yesterday. He did well for a whi le. Subsequently, he desaturated and had to be placed back. No chest x-ray from today. Blood work from today shows no major abnormalities. The LDH level is 1419 100 comparable to yesterday. CRP level is high at 65.8. Renal function stable with a creatinine of 0.8. The patient is on Decadron. He is still vocal. He communicates. No altered mentation. He was bringing up some sputum. Note that the previous sputum culture was positive for Pseudomonas and the patient was started on IV cefepime. Diflucan was also added by infectious disease for oropharyngeal candidiasis. The patient remains in atrial fibrillation. No improvement in his condition. He is at a standstill in terms of his colon 19 related pneumonia. He is able to swallow. Oral intake remains low and the patient is taking around 20% of his caloric intake. He was started on Lexapro for some underlying low more than depression. On 06/16/2020 patient seen in follow-up in the intensive care unit, he remains on high flow oxygen per Airvo at 60 l, and Fio2 of 90%, in addition to 100% nonrebreather, with a pulse ox of 93%. Patient has received a course of Remdesivir, remains on Decadron, and received 1 unit of normal less than plasma. He was found to have a pseudomonal infection in the sputum, and he remains on cefepime for that, in addition to the rectus, ID service is following. His been afebrile,, dynamically stable, he is on IV 0.8 normal saline at a rate of 50 ML per hour. He remains on Decadron 6 mg daily, she is on Robitussin, Pepcid, Martinez E, zinc, vitamin D, on Eliquis for anticoagulation. He is lethargic, but arousable, denies any acute distress, his chest x-ray today shows a patchy infiltrates throughout both lungs right greater than the left, slightly improved. No complaints of chest discomfort, has had no nausea vomiting or diarrhea, no abdominal pain, his labs 7 reviewed, showing white blood cell count of 12, hemoglobin of 12.7, electrolytes were within normal limits, BUN of 30 and creatinine 0.7 Patient was reevaluated today on 06/17/20, remains in the intensive care unit, p boy is on high flow oxygen, utilizing airvo with 90% FiO2 and 60 L/m flow patient is on IV fluid at 0.9 normal saline 50 mL per hour. He is in atrial fibrillation with a rate fairly well controlled. His sputum is positive for Pseudomonas. Patient received remdesivir,, convalescent plasma, eliquis, and he remains on cefepime and eraxis. Chest x-ray continues to show worsening infiltrates, more so on the right side. CBC is relatively normal electrolytes and renal profile are normal C-reactive protein is 26. Sputum culture was positive for Pseudomonas and for Tessa albicans. Reevaluated today on 06/18/20, patient remains in the ICU, he is marginal at best, he is on 75% FiO2, 60 L/m, via airvo, O2 saturation is 94% at best. Patient continues to have IV fluid at KVO, remains on Covid 19 cocktails, he is also on eliquis cefepime, and Eraxis. Patient did receive 1 dose of Lasix 40 mg IV push today, chest x-ray does not seem to be changing much, continues to have bilateral interstitial infiltrates, and with some consolidation noted in the right lung peripherally. He believes he count is 5.7 hemoglobin is 12.5. Lites are normal renal profile is normal d-dimer 0.86 inflammatory markers are not that significantly elevated, his C-reactive protein is 25.3. Ferritin is 676. No LDH done today. Objective - Vital Signs Vital signs: Vital Signs Temp 98.9 F 06/18/20 12:00 Pulse 67 06/18/20 14:00 Resp 23 06/18/20 14:00 BP 125/80 06/18/20 14:00 Pulse Ox 98 06/18/20 14:00 Intake & Output 06/17/20 06/18/20 06/18/20 18:59 06:59 18:59 Intake Total 800 800 450 Output Total 152 480 4740 Balance 340 110 -741 Weight 105.3 kg Intake: IV 700 700 450 Cefepime 2 gm In Sodium 100 100 100 Chloride 0.9% 100 ml @ 25 mls/hr IVPB Q12HR [facility] Rx #:[id number] Sodium Chloride 0.9% 1, 600 600 350 000 ml @ 50 mls/hr IV . Q20H [facility] Rx#:[id number] Intake, IV Titration 100 Amount Anidulafungin 100 mg In 100 Sodium Chloride 0.9% 100 ml @ 84 mls/hr IVPB HS [facility] Rx#:[id number] Oral 100 Output: Urine 834 [id number] [id number] Stool 1 Other: Voiding Method Indwelling Catheter Indwelling Catheter Indwelling Catheter # Bowel Movements 1 - Exam GENERAL EXAM: Alert, very pleasant, 74-year-old white male, on Airvo at 60 L and FiO2 75 % HEAD: Normocephalic/atraumatic. EENT: PERRLA, EOMI, no icterus, moist mucous membranes. CHEST: No chest wall deformity. Symmetrical expansion. LUNGS: Equal air entry, fine crackles at the bases. CVS: Regular rate and rhythm, normal S1 and S2, no gallops, no murmurs, no rubs ABDOMEN: Soft, nontender. No hepatosplenomegaly, normal bowel sounds, no guarding or rigidity. EXTREMITIES: No clubbing, no edema, no cyanosis, 2+ pulses and upper and lower extremities. MUSCULOSKELETAL: No evidence of Deformities, good range of motion. SKIN: No rashes CENTRAL NERVOUS SYSTEM: Alert and oriented 3, no focal deficits. PSYCHIATRIC: Normal mood, affect and normal mental status examination - Labs CBC & Chem 7: 06/18/20 04:14 06/18/20 04:14 Labs: Abnormal Lab Results - Last 24 Hours (Table) 06/17/20 06/17/20 06/17/20 Range/Units 04:35 16:48 21:29 RBC (4.30-5.90) m/uL Hgb (13.0-17.5) gm/dL Hct (39.0-53.0) % Plt Count (150-450) k/uL Lymphocytes # (1.0-4.8) k/uL D-Dimer (<0.60) mg/L FEU Chloride (98-107) mmol/L BUN (9-20) mg/dL Creatinine (0.66-1.25) mg/dL Glucose (74-99) mg/dL POC Glucose (mg/dL) 187 H 224 H (75-99) mg/dL Calcium (8.4-10.2) mg/dL Ferritin 683.4 H (22.0-322.0) ng/mL Creatine Kinase (55-170) U/L C-Reactive Protein (<10.0) mg/L Total Protein (6.3-8.2) g/dL Albumin (3.5-5.0) g/dL 06/18/20 06/18/20 06/18/20 Range/Units 04:14 04:14 04:14 RBC 4.11 L (4.30-5.90) m/uL Hgb 12.5 L (13.0-17.5) gm/dL Hct 37.9 L (39.0-53.0) % Plt Count 69 L (150-450) k/uL Lymphocytes # 0.3 L (1.0-4.8) k/uL D-Dimer 0.86 H (<0.60) mg/L FEU Chloride 112 H (98-107) mmol/L BUN 29 H (9-20) mg/dL Creatinine 0.63 L (0.66-1.25) mg/dL Glucose 160 H (74-99) mg/dL POC Glucose (mg/dL) (75-99) mg/dL Calcium 8.2 L (8.4-10.2) mg/dL Ferritin 676.0 H (22.0-322.0) ng/mL Creatine Kinase 33 L (55-170) U/L C-Reactive Protein 25.3 H (<10.0) mg/L Total Protein 5.5 L (6.3-8.2) g/dL Albumin 2.6 L (3.5-5.0) g/dL 06/18/20 Range/Units 11:38 RBC (4.30-5.90) m/uL Hgb (13.0-17.5) gm/dL Hct (39.0-53.0) % Plt Count (150-450) k/uL Lymphocytes # (1.0-4.8) k/uL D-Dimer (<0.60) mg/L FEU Chloride (98-107) mmol/L BUN (9-20) mg/dL Creatinine (0.66-1.25) mg/dL Glucose (74-99) mg/dL POC Glucose (mg/dL) 194 H (75-99) mg/dL Calcium (8.4-10.2) mg/dL Ferritin (22.0-322.0) ng/mL Creatine Kinase (55-170) U/L C-Reactive Protein (<10.0) mg/L Total Protein (6.3-8.2) g/dL Albumin (3.5-5.0) g/dL Assessment and Plan Assessment: Impression: Acute hypoxic respiratory failure secondary to covid 19 pneumonitis. Possible underlying pseudomonal pneumonia, remains on cefepime. Type 2 diabetes. GERD without esophagitis. History of hypertension. Obesity. Paroxysmal atrial fibrillation maintained on anticoagulation therapy. History of depression. Recommendation: Patient remains very marginal at best. Hence I will continue to monitor the patient in the ICU, he may eventually require intubation if he deteriorates any further. Titrate FiO2 to maintain O2 saturation above 90%. Continues to have significantly abnormal chest x-ray. completed his remdesivir Received convalescent plasma, and he remains on Decadron. We will continue to monitor the patient in the ICU. Again his pulmonary status is marginal at best. Continue Covid 19 cocktail. Continue cefepime. continue Eraxis. Prognosis remains guarded. Critical care time is over 30 minutes. Time with Patient: Greater than 30
--- NOTE | 2020-06-18 15:36 | PN ---
PROGRESS NOTE DATE OF SERVICE: 06/18/2020. REASON FOR FOLLOWUP: Pneumonia. INTERVAL HISTORY: Patient is currently afebrile. The patient is feeling better. Breathing comfortably. Currently on high-flow nasal oxygen. Denies having any chest pain. Occasional cough. No sputum. No abdominal pain, no diarrhea. PHYSICAL EXAMINATION: Blood pressure 95/80 with a pulse of 57, temperature 98.9, he is 92% on room air. General description is an elderly male, lying in bed in no distress. RESPIRATORY SYSTEM: Unlabored breathing with decrease in breath sounds, no wheeze. HEART: S1, S2. Regular rate and rhythm. ABDOMEN: Soft, no tenderness. LABS: White count of 5.7, creatinine 0.63. CRP 25.3. DIAGNOSTIC IMPRESSION AND PLAN: Patient with acute respiratory failure which is multifactorial in this patient did have a COVID-19 infection, has been treated, subsequent sputum has been Pseudomonas treated with cefepime. The patient is currently afebrile. White count normal. Also with a component of oral vancomycin. Covered with Eraxis. Continue current antibiotic and monitor clinical course closely. MMODL / IJN: [id number] /
[2020-06-18 17:35] LABS: Glucose,Whole Blood 184 mg/dL (75-99)
[2020-06-18] MEDS: SODIUM CHLORIDE 0.9% 1,000 ML IV SCH (17:43)
[2020-06-18] MEDS: ANIDULAFUNGIN 100 MG in SODIUM CHLORIDE 0.9% 100 ML IVPB SCH ×2 (19:53→19:54)
[2020-06-18] MEDS: TAMSULOSIN 0.4 MG CAP.ER.24H PO SCH (19:54)
[2020-06-18] MEDS: MELATONIN 5 MG TABLET PO SCH (19:54)
[2020-06-18] MEDS: OXYBUTYNIN 15 MG TAB.ER.24 PO SCH (19:55)
[2020-06-18] MEDS: PIOGLITAZONE 30 MG TAB PO SCH (19:55)
[2020-06-18 20:23] LABS: Glucose,Whole Blood 230 mg/dL (75-99)
[2020-06-19] MEDS: SULFACETAMIDE SOD 10% OPHTH DROPS 15 ML BTL RIGHT EYE SCH ×5 (01:47→23:46)
[2020-06-19 04:43] LABS: Basophils # (A) 0.1 k/uL (0-0.2); Basophils % (A) 1 %; Eosinophils # (A) 0.1 k/uL (0-0.7); Eosinophils % (A) 1 %; HCT 34.9 % (39.0-53.0); Lymphocytes # (A) 0.5 k/uL (1.0-4.8); Lymphocytes % (A) 8 %; MCH 31.2 pg (25.0-35.0); MCHC 34.4 g/dL (31.0-37.0); MCV 90.9 fL (80.0-100.0); Mean Platelet Volume 7.3; Monocytes % (A) 15 %; Neutrophils # (A) 4.9 k/uL (1.3-7.7); Neutrophils % (A) 74 %; RBC 3.84 m/uL (4.30-5.90); RDW 15.4 % (11.5-15.5); WBC 6.6 k/uL (3.8-10.6)
[2020-06-19 04:52] LABS: Platelet Count 74 k/uL (150-450)
[2020-06-19 05:06] LABS: ALT 26 U/L (4-49); AST 28 U/L (17-59); African American GFR (CKD) >90 (>60 ml/min/1.73 sqM); Albumin 2.4 g/dL (3.5-5.0); Alkaline Phosphatase 48 U/L (38-126); Anion Gap 3 mmol/L; Blood Urea Nitrogen 27 mg/dL (9-20); C Reactive Protein 15.1 mg/L (<10.0); Carbon Dioxide 27 mmol/L (22-30); Chloride 110 mmol/L (98-107); Creatine Kinase 22 U/L (55-170); Glucose 104 mg/dL (74-99); Non-African American GFR(CKD) >90 (>60 ml/min/1.73 sqM); Potassium 3.9 mmol/L (3.5-5.1); Sodium 140 mmol/L (137-145); Total Bilirubin 0.8 mg/dL (0.2-1.3); Total Protein 5.3 g/dL (6.3-8.2)
[2020-06-19 06:37] LABS: Glucose,Whole Blood 121 mg/dL (75-99)
[2020-06-19] MEDS: INSULIN ASPART (NovoLOG) 100 UNIT/ML VIAL SQ SCH ×4 (06:39→20:31)
[2020-06-19] MEDS: ALBUTEROL HFA INHALER INHALATION SCH ×4 (08:13→19:38)
[2020-06-19] MEDS: SYMBICORT 160-4.5 MCG INHALER INHALATION SCH ×2 (08:14→19:38)
--- NOTE | 2020-06-19 08:45 | XR ---
EXAMINATION TYPE: XR chest 1V portable DATE OF EXAM: 06/19/2020 CLINICAL HISTORY: Difficulty breathing and covid pneumonia progress study. TECHNIQUE: Single AP portable upright view of the chest is obtained. COMPARISON: Chest x-ray from one day earlier and older studies. FINDINGS: Persistent low lung volumes with multifocal bilateral opacities and organizing consolidati ons in the right lung periphery are redemonstrated. Stable cardiomegaly with atherosclerotic aortic k nob. Osseous structures are intact. IMPRESSION: Low lung volumes with significant bilateral multifocal acute infiltrates and organizing r ight peripheral consolidations consistent with covid -19 infection . No significant change from most recent chest x-ray.
[2020-06-19] MEDS: ASCORBIC ACID 500 MG TAB PO SCH (09:15)
[2020-06-19] MEDS: CHOLECALCIFEROL 400 UNIT TAB PO SCH (09:16)
[2020-06-19] MEDS: FAMOTIDINE 20 MG TAB PO SCH (09:16)
[2020-06-19] MEDS: POTASSIUM CHLORIDE 10 MEQ in WATER FOR INJECTION 1 100ML.BAG IVPB SCH ×2 (09:18→09:20)
[2020-06-19] MEDS: ZINC SULFATE 220 MG CAP PO SCH (09:19)
[2020-06-19] MEDS: APIXABAN 5 MG TAB PO SCH ×2 (09:19→20:03)
[2020-06-19] MEDS: CEFEPIME 2 GM in SODIUM CHLORIDE 0.9% 100 ML IVPB SCH (09:19)
[2020-06-19] MEDS: ESCITALOPRAM 10 MG TAB PO SCH (09:19)
[2020-06-19] MEDS: dexAMETHasone 2 MG TAB PO SCH (09:19)
[2020-06-19 10:46] LABS: Ferritin 501.7 ng/mL (22.0-322.0)
[2020-06-19 11:16] LABS: Glucose,Whole Blood 233 mg/dL (75-99)
[2020-06-19] MEDS: SODIUM CHLORIDE 0.9% 1,000 ML IV SCH (15:05)
--- NOTE | 2020-06-19 16:06 | P.PN ---
Subjective Progress Note Date: 06/19/20 Principal diagnosis: Acute hypoxic respiratory failure secondary to covid 19 pneumonitis 74-year-old male patient admitted on 05/27/2024 and acute COVID19 related pneumonia. The patient developed acute hypoxic respiratory failure. The patient got transferred to the intensive care unit and the patient is currently requiring high flow oxygen at 60 L per minute nasal cannula, 90% Fio2 and 100 NRB. His chest x-ray showing diffuse bilateral pulmonary infiltrates consistent with COVID 19 related pneumonia. He has completed a five-day course of Remdesivir and the patient is on Steroids. The patient on IV Solu-Medrol 60 mg IV push every 6 hours. The patient was also found to have pseudomonas aeruginosa in the sputum and the patient purulent sputum production currently on antibiotics. The patient is currently on IV cefepime. The CT angiogram was negative for pulmonary embolism. The patient's history of obesity, hypertension, diabetes mellitus and acid reflux. The patient is on anticoagulation with Eliquis 5 mg by mouth twice a day. The patient on Symbicort 2 puffs twice a day and albuterol HFA on a when necessary basis. The patient is on Levemir insulin 20 units daily in addition to NovoLog mix 7030 20 units at nighttime and 30 units in the morning. The patient is also on Actos 30 mg at bedtime. Note that the procalcitonin level is at 0.08.The chest x-rays essentially the same. There is still diffuse bilateral pulmonary infiltrates, mainly in the peripheries and more so on the right compared to the left and is unchanged compared to yesterday's chest x-ray. Oxygenation is unchanged. Clinically, he is still the same. He is slightly confused and his baseline level of alertness is or OA2. Urine output is in order of 30 mL an hour and the patient is receiving IV fluids in the form of normal saline at the rate of 20 mL an hour. Oral intake is quite minimal at this point in time on today's evaluation of 06/10/2020, the patient is not showing any progress. In fact there may be some worsening. He is very much lethargic. Is unable to swallow. He is essentially laying down in bed and has minimal amount of conversation. He seems to be disoriented. He is on high flow oxygen 6 L with an FiO2 of 90% in addition to 100% nonrebreather facemask. Chest x-ray showing diffuse bilateral pulmonary infiltrates consistent with bilateral pneumonia. The patient is on IV Solu-Medrol. He completed Remdesivir and he also still less than plasma. We're quite concerned about his respiratory status. He is a full code for now. He is in atrial fibrillation and the rate is controlled for now. His blood sugars are controlled with NovoLog mix 7030 20 units at nighttime and 30 units in the morning. He is also taking Actos. He is also on empiric antibiotic coverage with IV cefepime as the patient will pseudomonas in his sputum. He is afebrile. His LDH is 2003 and his CRP is 9.8. on 06/11/2020, the patient is less lethargic and more awake. He is having some few conversations with me. He was able to follow simple commands. He is profoundly weak. He remains on 60 L with an FiO2 of 80% and 100% nonrebreather facemask. Yesterday, he was able to pass a swallow evaluation. He was given some diet. This was encouraging and I did not have the need to insert an NG tube on him. He has a congested cough. No significant sputum production. He remains on IV cefepime regarding pseudomonas in the sputum. Chest x-ray shows improvement in the left lung infiltration. The right lung is still consolidated actively. He is weak. He seems to be much better spirits for now.He is on IV Solu-Medrol 60 mg every 6 hours. He is also on Lasix 40 mg on a daily basis. He remains on anticoagulation with Eliquis regarding his atrial fibrillation 5 mg by mouth twice a day. On today's evaluation of 06/12/2020, the patient is feeling very much depressed. He is stating that he set up with his condition and he is ready to go and diet. He is a bit tearful also. I was able to get him off the 100% on a beta facemask and currently is only on high flow oxygen at 60 L with an FiO2 of 80%. His pulse ox is above 88%. He is able to swallow. He has a in front of him. His oral intake is minimal or lower this point in time. He has no significant cough. He is a bit lethargic. No fever. No nausea. No vomiting. No abdominal pain. He remains on IV cefepime. Chest x-ray showing some limited improvement in the aeration bilaterally. There is however the excess amount of consolidation. The patient remains on IV Solu-Medrol. He is still in a controlled atrial fibrillation and the patient is on long-term anticoagulation with Eliquis 5 mg by mouth twice a day. He is also taking the Lasix doses IV. Blood sugars are being controlled with NovoLog 7030 minutes 20 in the evening and 30 units in the morning. He is also on Actos. on 06/13/2020, the patient is on 60 L with an 80% FiO2. On the monitor, his pulse ox is 92%. I think he should be able to wean down further. He was feeling quite depressed yesterday. It added Lexapro to his regimen. He remains on IV cefepime. He remains on Eliquis 5 mg by mouth twice a day. He remains on IV Decadron. His chest x-ray is showing some improvement/on the right side. The patient is much improved in terms of his energy level and his ability to communicate and swallow foods. No aspiration. o nausea. No vomiting. No diarrhea. His cardiac rhythm as atrial fibrillation and the rate is controlled for now. He is afebrile.tthe LDH is down to 1545 and a CRP level is down to 7.8. On 06/14/2022 patient remains on 55 L with an FiO2 of 90% and he is also utilizing 100% nonrebreather facemask. He has a congested cough. He was given Lasix without any improvement. His chest x-ray still showing diffuse bilateral pulmonary infiltrates, unchanged from yesterday. He is a bit lethargic. He had T is unresponsive. He is awake. He is able to cough. At times is bringing up some sputum. No fever. No chills. His LDH is gradually improving. The LDH is down to 1406 she is lower and the patient's CRP level is down to 50.8. The pro-calcitonin level is low. The patient is on Decadron. The patient is on daily Lasix. The patient remains in a adequate fluid balance. He remains in atrial fibrillation. He is taking oral intake. He is able to swallow adequatel y. No nausea. No vomiting. No emesis. On 06/15/2020, patient is on a high flow oxygen at 60 L and an FiO2 of 90%. He was briefly taken off the 100% nonrebreather yesterday. He did well for a whi le. Subsequently, he desaturated and had to be placed back. No chest x-ray from today. Blood work from today shows no major abnormalities. The LDH level is 1419 100 comparable to yesterday. CRP level is high at 65.8. Renal function stable with a creatinine of 0.8. The patient is on Decadron. He is still vocal. He communicates. No altered mentation. He was bringing up some sputum. Note that the previous sputum culture was positive for Pseudomonas and the patient was started on IV cefepime. Diflucan was also added by infectious disease for oropharyngeal candidiasis. The patient remains in atrial fibrillation. No improvement in his condition. He is at a standstill in terms of his colon 19 related pneumonia. He is able to swallow. Oral intake remains low and the patient is taking around 20% of his caloric intake. He was started on Lexapro for some underlying low more than depression. On 06/16/2020 patient seen in follow-up in the intensive care unit, he remains on high flow oxygen per Airvo at 60 l, and Fio2 of 90%, in addition to 100% nonrebreather, with a pulse ox of 93%. Patient has received a course of Remdesivir, remains on Decadron, and received 1 unit of normal less than plasma. He was found to have a pseudomonal infection in the sputum, and he remains on cefepime for that, in addition to the rectus, ID service is following. His been afebrile,, dynamically stable, he is on IV 0.8 normal saline at a rate of 50 ML per hour. He remains on Decadron 6 mg daily, she is on Robitussin, Pepcid, Martinez E, zinc, vitamin D, on Eliquis for anticoagulation. He is lethargic, but arousable, denies any acute distress, his chest x-ray today shows a patchy infiltrates throughout both lungs right greater than the left, slightly improved. No complaints of chest discomfort, has had no nausea vomiting or diarrhea, no abdominal pain, his labs 7 reviewed, showing white blood cell count of 12, hemoglobin of 12.7, electrolytes were within normal limits, BUN of 30 and creatinine 0.7 Patient was reevaluated today on 06/17/20, remains in the intensive care unit, p boy is on high flow oxygen, utilizing airvo with 90% FiO2 and 60 L/m flow patient is on IV fluid at 0.9 normal saline 50 mL per hour. He is in atrial fibrillation with a rate fairly well controlled. His sputum is positive for Pseudomonas. Patient received remdesivir,, convalescent plasma, eliquis, and he remains on cefepime and eraxis. Chest x-ray continues to show worsening infiltrates, more so on the right side. CBC is relatively normal electrolytes and renal profile are normal C-reactive protein is 26. Sputum culture was positive for Pseudomonas and for Tessa albicans. Reevaluated today on 06/18/20, patient remains in the ICU, he is marginal at best, he is on 75% FiO2, 60 L/m, via airvo, O2 saturation is 94% at best. Patient continues to have IV fluid at KVO, remains on Covid 19 cocktails, he is also on eliquis cefepime, and Eraxis. Patient did receive 1 dose of Lasix 40 mg IV push today, chest x-ray does not seem to be changing much, continues to have bilateral interstitial infiltrates, and with some consolidation noted in the right lung peripherally. He believes he count is 5.7 hemoglobin is 12.5. Lites are normal renal profile is normal d-dimer 0.86 inflammatory markers are not that significantly elevated, his C-reactive protein is 25.3. Ferritin is 676. No LDH done today. Reevaluated today on 06/19/20, patient remains in the ICU, his overall pulmonary status remains marginal at best. Patient remains on relatively high FiO2, he is on airvo FiO2 is 70%, 60 L high flow, O2 saturation is in the low 90s, patient desaturates easily with any activity. Chest x-ray continues to show bilateral interstitial infiltrates consistent with Covid 19 pneumonitis. CBC is relatively normal basic metabolic profile is normal renal profile is normal LDH remains high [id number], C-reactive protein is slightly elevated at 15.1. Ferritin is 501. Patient remains on adequacy and on cefepime as well as Eraxis. Minimal improvement noted in the last 24 hours, however I believe the patient should stay in the ICU as I'm still concerned that the patient may require intubation and mechanical ventilation if his condition does not improve much in the next couple of days. Objective - Vital Signs Vital signs: Vital Signs Temp 98.9 F 06/19/20 08:00 Pulse 82 06/19/20 15:00 Resp 14 06/19/20 15:00 BP 104/50 06/19/20 15:00 Pulse Ox 93 L 06/19/20 15:26 Intake & Output 06/18/20 06/19/20 06/19/20 18:59 06:59 18:59 Intake Total 700 850 700 Output Total 1691 630 476 Balance -991 220 224 Weight 105.5 kg Intake: IV 700 750 700 Cefepime 2 gm In Sodium 100 100 100 Chloride 0.9% 100 ml @ 25 mls/hr IVPB Q12HR [facility] Rx #:[id number] Potassium Chloride 10 meq 200 In Water For Injection 1 100ml.bag @ 100 mls/hr IVPB Q1H [facility] Rx#: [id number] Sodium Chloride 0.9% 1, 600 650 400 000 ml @ 50 mls/hr IV . Q20H [facility] Rx#:[id number] Intake, IV Titration 100 Amount Anidulafungin 100 mg In 100 Sodium Chloride 0.9% 100 ml @ 84 mls/hr IVPB HS [facility] Rx#:[id number] Output: Urine 1690 630 475 Stool 1 1 Other: Voiding Method Indwelling Catheter Indwelling Catheter Indwelling Catheter # Bowel Movements 1 1 - Exam GENERAL EXAM: Obese, Alert, very pleasant, 74-year-old white male, on Airvo at 60 L and FiO2 70% HEAD: Normocephalic/atraumatic. EENT: PERRLA, EOMI, no icterus, moist mucous membranes. CHEST: No chest wall deformity. Symmetrical expansion. LUNGS: Equal air entry, fine crackles at the bases. CVS: Regular rate and rhythm, normal S1 and S2, no gallops, no murmurs, no rubs ABDOMEN: Soft, nontender. No hepatosplenomegaly, normal bowel sounds, no guarding or rigidity. EXTREMITIES: No clubbing, no edema, no cyanosis, 2+ pulses and upper and lower extremities. MUSCULOSKELETAL: No evidence of Deformities, good range of motion. SKIN: No rashes CENTRAL NERVOUS SYSTEM: Alert and oriented 3, no focal deficits. PSYCHIATRIC: Normal mood, affect and normal mental status examination - Labs CBC & Chem 7: 06/19/20 04:00 06/19/20 04:00 Labs: Abnormal Lab Results - Last 24 Hours (Table) 06/18/20 06/18/20 06/19/20 Range/Units 17:34 20:21 04:00 RBC (4.30-5.90) m/uL Hgb (13.0-17.5) gm/dL Hct (39.0-53.0) % Plt Count (150-450) k/uL Lymphocytes # (1.0-4.8) k/uL Chloride 110 H (98-107) mmol/L BUN 27 H (9-20) mg/dL Glucose 104 H (74-99) mg/dL POC Glucose (mg/dL) 184 H 230 H (75-99) mg/dL Calcium 8.0 L (8.4-10.2) mg/dL Ferritin 501.7 H (22.0-322.0) ng/mL Lactate Dehydrogenase (313-618) U/L Creatine Kinase 22 L (55-170) U/L C-Reactive Protein 15.1 H (<10.0) mg/L Total Protein 5.3 L (6.3-8.2) g/dL Albumin 2.4 L (3.5-5.0) g/dL 06/19/20 06/19/20 06/19/20 Range/Units 04:00 06:36 09:31 RBC 3.84 L (4.30-5.90) m/uL Hgb 12.0 L (13.0-17.5) gm/dL Hct 34.9 L (39.0-53.0) % Plt Count 74 L (150-450) k/uL Lymphocytes # 0.5 L (1.0-4.8) k/uL Chloride (98-107) mmol/L BUN (9-20) mg/dL Glucose (74-99) mg/dL POC Glucose (mg/dL) 121 H (75-99) mg/dL Calcium (8.4-10.2) mg/dL Ferritin (22.0-322.0) ng/mL Lactate Dehydrogenase 1501 H (313-618) U/L Creatine Kinase (55-170) U/L C-Reactive Protein (<10.0) mg/L Total Protein (6.3-8.2) g/dL Albumin (3.5-5.0) g/dL 06/19/20 Range/Units 11:15 RBC (4.30-5.90) m/uL Hgb (13.0-17.5) gm/dL Hct (39.0-53.0) % Plt Count (150-450) k/uL Lymphocytes # (1.0-4.8) k/uL Chloride (98-107) mmol/L BUN (9-20) mg/dL Glucose (74-99) mg/dL POC Glucose (mg/dL) 233 H (75-99) mg/dL Calcium (8.4-10.2) mg/dL Ferritin (22.0-322.0) ng/mL Lactate Dehydrogenase (313-618) U/L Creatine Kinase (55-170) U/L C-Reactive Protein (<10.0) mg/L Total Protein (6.3-8.2) g/dL Albumin (3.5-5.0) g/dL Assessment and Plan Assessment: Impression: Acute hypoxic respiratory failure secondary to covid 19 pneumonitis. Possible underlying pseudomonal pneumonia, remains on cefepime. Type 2 diabetes. GERD without esophagitis. History of hypertension. Obesity. Paroxysmal atrial fibrillation maintained on anticoagulation therapy. History of depression. Recommendation: Pulmonary status remains marginal. Prognosis remains guarded. Titrate FiO2 to maintain O2 saturation above 90%. Continues to have significantly abnormal chest x-ray. completed his remdesivir Received convalescent plasma, and he remains on Decadron. Keep patient in ICU for now. Continue Covid 19 cocktail. Continue cefepime. continue Eraxis. As per infectious disease on the case. Critical care time is over 30 minutes. Time with Patient: Greater than 30
[2020-06-19 17:04] LABS: Glucose,Whole Blood 196 mg/dL (75-99)
[2020-06-19 19:41] LABS: LD Isoenzymes 1 25 % (19-38); LD Isoenzymes 2 36 % (30-43); LD Isoenzymes 3 16 % (16-26); LD Isoenzymes 4 8 % (3-12); LD Isoenzymes 5 15 % (3-14); Lactacte Dehydrogenase(LD) ISO 373 U/L (120-250)
--- NOTE | 2020-06-19 19:43 | PN ---
PROGRESS NOTE DATE OF SERVICE: 06/18/2020 CHIEF COMPLAINT: COVID pneumonia. HISTORY OF PRESENT ILLNESS: This gentleman remains about the same. Chest infiltrates on x-ray are not significantly improving. He continues to run low pulse oxes. He is not eating. Blood sugars are not elevated. PHYSICAL EXAMINATION: Physical exam is unchanged with poor breath sounds. Abdomen is soft. IMPRESSION: 1. COVID pneumonia with little improvement. 2. Diabetes mellitus. 3. Obesity. PLAN: He will continue to be managed in the intensive care unit unless he improves enough that he can be discharged to the floor. MMODL / IJN: [id number] /
[2020-06-19] MEDS: ANIDULAFUNGIN 100 MG in SODIUM CHLORIDE 0.9% 100 ML IVPB SCH (20:02)
[2020-06-19] MEDS: MELATONIN 5 MG TABLET PO SCH (20:03)
[2020-06-19] MEDS: PIOGLITAZONE 30 MG TAB PO SCH (20:03)
[2020-06-19] MEDS: OXYBUTYNIN 15 MG TAB.ER.24 PO SCH (20:03)
[2020-06-19] MEDS: TAMSULOSIN 0.4 MG CAP.ER.24H PO SCH (20:03)
--- NOTE | 2020-06-19 20:04 | PN ---
PROGRESS NOTE DATE OF SERVICE: 06/19/2020 CHIEF COMPLAINT: COVID pneumonia and ARDS. HISTORY OF PRESENT ILLNESS: This patient's condition is essentially unchanged. He still has bilateral bronchial pneumonia and he is not eating. There is still a possibility that he may have to be intubated. He is progressing very little. PHYSICAL EXAMINATION: Physical examination demonstrates decreased breath sounds throughout with scattered rales and rhonchi. Cardiac exam is unchanged. Abdomen is soft. IMPRESSION: Bilateral COVID pneumonia with adult respiratory distress syndrome. PLAN: He will be continue to be maintained in ICU for the present unless he continues to improve. MMODL / IJN: [id number] /
[2020-06-19 20:28] LABS: Glucose,Whole Blood 187 mg/dL (75-99)
--- NOTE | 2020-06-19 22:46 | PN ---
PROGRESS NOTE DATE OF SERVICE: 06/19/2020 REASON FOR FOLLOWUP: Pneumonia. INTERVAL HISTORY: The patient is currently afebrile. The patient is slightly lethargic today, though hemodynamically stable, not on any pressor support. FiO2 is currently 60%. No vomiting or any diarrhea has been reported. PHYSICAL EXAMINATION: Blood pressure 150/68 with pulse of 73, temperature 98.7. He is 96% on 60% FiO2. General description is an elderly male lying in bed in no distress. RESPIRATORY SYSTEM: Unlabored breathing with decreased intensity of breath sounds. No wheeze. HEART: S1, S2. Regular rate and rhythm. ABDOMEN: Soft. No tenderness. LABS: Hemoglobin is 12, white count 6.6, BUN of 27, creatinine 0.68. CRP is 15.1. DIAGNOSTIC IMPRESSION AND PLAN: Patient with acute respiratory failure which is multifactorial in this patient who has completed treatment for his COVID-19 infection. Subsequently sputum has been Pseudomonas, and he has completed two courses of IV cefepime and is currently off it. Covered with Eraxis for possible oropharyngeal candidiasis along with Eliquis, dexamethasone, and to continue supportive care. Overall prognosis remains guarded. MMODL / IJN: [id number] / MTDLars
[2020-06-20 04:39] LABS: ALT 31 U/L (4-49); AST 29 U/L (17-59); African American GFR (CKD) >90 (>60 ml/min/1.73 sqM); Albumin 2.5 g/dL (3.5-5.0); Alkaline Phosphatase 55 U/L (38-126); Anion Gap 3 mmol/L; Blood Urea Nitrogen 25 mg/dL (9-20); C Reactive Protein 10.6 mg/L (<10.0); Calcium 8.2 mg/dL (8.4-10.2); Carbon Dioxide 28 mmol/L (22-30); Chloride 109 mmol/L (98-107); Glucose 134 mg/dL (74-99); Non-African American GFR(CKD) >90 (>60 ml/min/1.73 sqM); Potassium 3.9 mmol/L (3.5-5.1); Sodium 140 mmol/L (137-145); Total Protein 5.5 g/dL (6.3-8.2)
[2020-06-20 04:51] LABS: Basophils % (A) 0 %; Eosinophils % (A) 0 %; HCT 38.2 % (39.0-53.0); HGB 12.4 gm/dL (13.0-17.5); Lymphocytes # (A) 0.7 k/uL (1.0-4.8); Lymphocytes % (A) 11 %; MCH 29.8 pg (25.0-35.0); MCHC 32.4 g/dL (31.0-37.0); Mean Platelet Volume 7.1; Monocytes # (A) 0.8 k/uL (0-1.0); Monocytes % (A) 13 %; Neutrophils # (A) 4.4 k/uL (1.3-7.7); Neutrophils % (A) 73 %; RBC 4.15 m/uL (4.30-5.90); RDW 15.8 % (11.5-15.5); WBC 6.1 k/uL (3.8-10.6)
[2020-06-20 05:01] LABS: Platelet Count 79 k/uL (150-450)
[2020-06-20] MEDS: SULFACETAMIDE SOD 10% OPHTH DROPS 15 ML BTL RIGHT EYE SCH ×3 (05:06→17:18)
[2020-06-20 06:38] LABS: Glucose,Whole Blood 167 mg/dL (75-99)
[2020-06-20] MEDS: INSULIN ASPART (NovoLOG) 100 UNIT/ML VIAL SQ SCH ×4 (06:43→21:45)
[2020-06-20] MEDS: ALBUTEROL HFA INHALER INHALATION SCH ×4 (07:33→20:00)
[2020-06-20] MEDS: SYMBICORT 160-4.5 MCG INHALER INHALATION SCH ×2 (07:33→20:00)
[2020-06-20 07:52] LABS: Glucose,Whole Blood 166 mg/dL (75-99)
[2020-06-20] MEDS: APIXABAN 5 MG TAB PO SCH ×2 (08:12→20:02)
[2020-06-20] MEDS: ZINC SULFATE 220 MG CAP PO SCH (08:12)
[2020-06-20] MEDS: dexAMETHasone 2 MG TAB PO SCH (08:12)
[2020-06-20] MEDS: FAMOTIDINE 20 MG TAB PO SCH (08:12)
[2020-06-20] MEDS: SODIUM CHLORIDE 0.9% 1,000 ML IV SCH (08:12)
[2020-06-20] MEDS: ASCORBIC ACID 500 MG TAB PO SCH (08:12)
[2020-06-20] MEDS: CHOLECALCIFEROL 400 UNIT TAB PO SCH (08:12)
[2020-06-20] MEDS: ESCITALOPRAM 10 MG TAB PO SCH (08:14)
[2020-06-20] MEDS ORDERED: Potassium Replacement Protocol 1 EACH MISC MISCELLANE PRN (09:35)
[2020-06-20] MEDS: POTASSIUM CHLORIDE 10 MEQ in WATER FOR INJECTION 1 100ML.BAG IVPB SCH ×2 (09:47→10:32)
[2020-06-20 12:11] LABS: Glucose,Whole Blood 215 mg/dL (75-99)
--- NOTE | 2020-06-20 14:49 | P.PN ---
Subjective Progress Note Date: 06/20/20 Principal diagnosis: Acute hypoxic respiratory failure secondary to covid 19 pneumonitis 74-year-old male patient admitted on 05/27/2024 and acute COVID19 related pneumonia. The patient developed acute hypoxic respiratory failure. The patient got transferred to the intensive care unit and the patient is currently requiring high flow oxygen at 60 L per minute nasal cannula, 90% Fio2 and 100 NRB. His chest x-ray showing diffuse bilateral pulmonary infiltrates consistent with COVID 19 related pneumonia. He has completed a five-day course of Remdesivir and the patient is on Steroids. The patient on IV Solu-Medrol 60 mg IV push every 6 hours. The patient was also found to have pseudomonas aeruginosa in the sputum and the patient purulent sputum production currently on antibiotics. The patient is currently on IV cefepime. The CT angiogram was negative for pulmonary embolism. The patient's history of obesity, hypertension, diabetes mellitus and acid reflux. The patient is on anticoagulation with Eliquis 5 mg by mouth twice a day. The patient on Symbicort 2 puffs twice a day and albuterol HFA on a when necessary basis. The patient is on Levemir insulin 20 units daily in addition to NovoLog mix 7030 20 units at nighttime and 30 units in the morning. The patient is also on Actos 30 mg at bedtime. Note that the procalcitonin level is at 0.08.The chest x-rays essentially the same. There is still diffuse bilateral pulmonary infiltrates, mainly in the peripheries and more so on the right compared to the left and is unchanged compared to yesterday's chest x-ray. Oxygenation is unchanged. Clinically, he is still the same. He is slightly confused and his baseline level of alertness is or OA2. Urine output is in order of 30 mL an hour and the patient is receiving IV fluids in the form of normal saline at the rate of 20 mL an hour. Oral intake is quite minimal at this point in time on today's evaluation of 06/10/2020, the patient is not showing any progress. In fact there may be some worsening. He is very much lethargic. Is unable to swallow. He is essentially laying down in bed and has minimal amount of conversation. He seems to be disoriented. He is on high flow oxygen 6 L with an FiO2 of 90% in addition to 100% nonrebreather facemask. Chest x-ray showing diffuse bilateral pulmonary infiltrates consistent with bilateral pneumonia. The patient is on IV Solu-Medrol. He completed Remdesivir and he also still less than plasma. We're quite concerned about his respiratory status. He is a full code for now. He is in atrial fibrillation and the rate is controlled for now. His blood sugars are controlled with NovoLog mix 7030 20 units at nighttime and 30 units in the morning. He is also taking Actos. He is also on empiric antibiotic coverage with IV cefepime as the patient will pseudomonas in his sputum. He is afebrile. His LDH is 2003 and his CRP is 9.8. on 06/11/2020, the patient is less lethargic and more awake. He is having some few conversations with me. He was able to follow simple commands. He is profoundly weak. He remains on 60 L with an FiO2 of 80% and 100% nonrebreather facemask. Yesterday, he was able to pass a swallow evaluation. He was given some diet. This was encouraging and I did not have the need to insert an NG tube on him. He has a congested cough. No significant sputum production. He remains on IV cefepime regarding pseudomonas in the sputum. Chest x-ray shows improvement in the left lung infiltration. The right lung is still consolidated actively. He is weak. He seems to be much better spirits for now.He is on IV Solu-Medrol 60 mg every 6 hours. He is also on Lasix 40 mg on a daily basis. He remains on anticoagulation with Eliquis regarding his atrial fibrillation 5 mg by mouth twice a day. On today's evaluation of 06/12/2020, the patient is feeling very much depressed. He is stating that he set up with his condition and he is ready to go and diet. He is a bit tearful also. I was able to get him off the 100% on a beta facemask and currently is only on high flow oxygen at 60 L with an FiO2 of 80%. His pulse ox is above 88%. He is able to swallow. He has a in front of him. His oral intake is minimal or lower this point in time. He has no significant cough. He is a bit lethargic. No fever. No nausea. No vomiting. No abdominal pain. He remains on IV cefepime. Chest x-ray showing some limited improvement in the aeration bilaterally. There is however the excess amount of consolidation. The patient remains on IV Solu-Medrol. He is still in a controlled atrial fibrillation and the patient is on long-term anticoagulation with Eliquis 5 mg by mouth twice a day. He is also taking the Lasix doses IV. Blood sugars are being controlled with NovoLog 7030 minutes 20 in the evening and 30 units in the morning. He is also on Actos. on 06/13/2020, the patient is on 60 L with an 80% FiO2. On the monitor, his pulse ox is 92%. I think he should be able to wean down further. He was feeling quite depressed yesterday. It added Lexapro to his regimen. He remains on IV cefepime. He remains on Eliquis 5 mg by mouth twice a day. He remains on IV Decadron. His chest x-ray is showing some improvement/on the right side. The patient is much improved in terms of his energy level and his ability to communicate and swallow foods. No aspiration. o nausea. No vomiting. No diarrhea. His cardiac rhythm as atrial fibrillation and the rate is controlled for now. He is afebrile.tthe LDH is down to 1545 and a CRP level is down to 7.8. On 06/14/2022 patient remains on 55 L with an FiO2 of 90% and he is also utilizing 100% nonrebreather facemask. He has a congested cough. He was given Lasix without any improvement. His chest x-ray still showing diffuse bilateral pulmonary infiltrates, unchanged from yesterday. He is a bit lethargic. He had T is unresponsive. He is awake. He is able to cough. At times is bringing up some sputum. No fever. No chills. His LDH is gradually improving. The LDH is down to 1406 she is lower and the patient's CRP level is down to 50.8. The pro-calcitonin level is low. The patient is on Decadron. The patient is on daily Lasix. The patient remains in a adequate fluid balance. He remains in atrial fibrillation. He is taking oral intake. He is able to swallow adequatel y. No nausea. No vomiting. No emesis. On 06/15/2020, patient is on a high flow oxygen at 60 L and an FiO2 of 90%. He was briefly taken off the 100% nonrebreather yesterday. He did well for a whi le. Subsequently, he desaturated and had to be placed back. No chest x-ray from today. Blood work from today shows no major abnormalities. The LDH level is 1419 100 comparable to yesterday. CRP level is high at 65.8. Renal function stable with a creatinine of 0.8. The patient is on Decadron. He is still vocal. He communicates. No altered mentation. He was bringing up some sputum. Note that the previous sputum culture was positive for Pseudomonas and the patient was started on IV cefepime. Diflucan was also added by infectious disease for oropharyngeal candidiasis. The patient remains in atrial fibrillation. No improvement in his condition. He is at a standstill in terms of his colon 19 related pneumonia. He is able to swallow. Oral intake remains low and the patient is taking around 20% of his caloric intake. He was started on Lexapro for some underlying low more than depression. On 06/16/2020 patient seen in follow-up in the intensive care unit, he remains on high flow oxygen per Airvo at 60 l, and Fio2 of 90%, in addition to 100% nonrebreather, with a pulse ox of 93%. Patient has received a course of Remdesivir, remains on Decadron, and received 1 unit of normal less than plasma. He was found to have a pseudomonal infection in the sputum, and he remains on cefepime for that, in addition to the rectus, ID service is following. His been afebrile,, dynamically stable, he is on IV 0.8 normal saline at a rate of 50 ML per hour. He remains on Decadron 6 mg daily, she is on Robitussin, Pepcid, Martinez E, zinc, vitamin D, on Eliquis for anticoagulation. He is lethargic, but arousable, denies any acute distress, his chest x-ray today shows a patchy infiltrates throughout both lungs right greater than the left, slightly improved. No complaints of chest discomfort, has had no nausea vomiting or diarrhea, no abdominal pain, his labs 7 reviewed, showing white blood cell count of 12, hemoglobin of 12.7, electrolytes were within normal limits, BUN of 30 and creatinine 0.7 Patient was reevaluated today on 06/17/20, remains in the intensive care unit, p boy is on high flow oxygen, utilizing airvo with 90% FiO2 and 60 L/m flow patient is on IV fluid at 0.9 normal saline 50 mL per hour. He is in atrial fibrillation with a rate fairly well controlled. His sputum is positive for Pseudomonas. Patient received remdesivir,, convalescent plasma, eliquis, and he remains on cefepime and eraxis. Chest x-ray continues to show worsening infiltrates, more so on the right side. CBC is relatively normal electrolytes and renal profile are normal C-reactive protein is 26. Sputum culture was positive for Pseudomonas and for Tessa albicans. Reevaluated today on 06/18/20, patient remains in the ICU, he is marginal at best, he is on 75% FiO2, 60 L/m, via airvo, O2 saturation is 94% at best. Patient continues to have IV fluid at KVO, remains on Covid 19 cocktails, he is also on eliquis cefepime, and Eraxis. Patient did receive 1 dose of Lasix 40 mg IV push today, chest x-ray does not seem to be changing much, continues to have bilateral interstitial infiltrates, and with some consolidation noted in the right lung peripherally. He believes he count is 5.7 hemoglobin is 12.5. Lites are normal renal profile is normal d-dimer 0.86 inflammatory markers are not that significantly elevated, his C-reactive protein is 25.3. Ferritin is 676. No LDH done today. Reevaluated today on 06/19/20, patient remains in the ICU, his overall pulmonary status remains marginal at best. Patient remains on relatively high FiO2, he is on airvo FiO2 is 70%, 60 L high flow, O2 saturation is in the low 90s, patient desaturates easily with any activity. Chest x-ray continues to show bilateral interstitial infiltrates consistent with Covid 19 pneumonitis. CBC is relatively normal basic metabolic profile is normal renal profile is normal LDH remains high [id number], C-reactive protein is slightly elevated at 15.1. Ferritin is 501. Patient remains on adequacy and on cefepime as well as Eraxis. Minimal improvement noted in the last 24 hours, however I believe the patient should stay in the ICU as I'm still concerned that the patient may require intubation and mechanical ventilation if his condition does not improve much in the next couple of days. Reevaluated today on 06/20/20, patient remains in the ICU, remains on high flow oxygen 60 L and 65%, O2 sats is 96%. Patient is generally weak, he is on IV fluid at 50 mL per hour, remains on the Covid 19 cocktails, remains on Decadron and he is also on all her questions. Less shortness of breath but he feels generally weak. CBC and basic metabolic profile are noted to be normal. E reactive protein is 10.6. Objective - Vital Signs Vital signs: Vital Signs Temp 97.8 F 06/20/20 08:00 Pulse 76 06/20/20 10:00 Resp 11 L 06/20/20 10:00 BP 140/66 06/20/20 10:00 Pulse Ox 94 L 06/20/20 10:00 Intake & Output 06/19/20 06/20/20 06/20/20 18:59 06:59 18:59 Intake Total 850 800 750 Output Total 676 1095 200 Balance 174 -295 550 Weight 105.5 kg 105.5 kg Intake: IV 850 700 150 Cefepime 2 gm In Sodium 100 Chloride 0.9% 100 ml @ 25 mls/hr IVPB Q12HR [facility] Rx #:[id number] Potassium Chloride 10 meq 200 In Water For Injection 1 100ml.bag @ 100 mls/hr IVPB Q1H [facility] Rx#: [id number] Sodium Chloride 0.9% 1, 550 700 150 000 ml @ 50 mls/hr IV . Q20H [facility] Rx#:[id number] Intake, IV Titration 100 Amount Anidulafungin 100 mg In 100 Sodium Chloride 0.9% 100 ml @ 84 mls/hr IVPB HS [facility] Rx#:[id number] Oral 600 Output: Urine 675 1095 200 Stool 1 Other: Voiding Method Indwelling Catheter Indwelling Catheter Indwelling Catheter # Bowel Movements 1 1 - Exam GENERAL EXAM: Obese, Alert, very pleasant, 74-year-old white male, on Airvo at 60 L and FiO2 65 percent. HEAD: Normocephalic/atraumatic. EENT: PERRLA, EOMI, no icterus, moist mucous membranes. CHEST: No chest wall deformity. Symmetrical expansion. LUNGS: Equal air entry, fine crackles at the bases. CVS: Regular rate and rhythm, normal S1 and S2, no gallops, no murmurs, no rubs ABDOMEN: Soft, nontender. No hepatosplenomegaly, normal bowel sounds, no guarding or rigidity. EXTREMITIES: No clubbing, no edema, no cyanosis, 2+ pulses and upper and lower extremities. MUSCULOSKELETAL: No evidence of Deformities, good range of motion. SKIN: No rashes CENTRAL NERVOUS SYSTEM: Alert and oriented 3, no focal deficits. PSYCHIATRIC: Normal mood, affect and normal mental status examination - Labs CBC & Chem 7: 06/20/20 03:51 06/20/20 03:51 Labs: Abnormal Lab Results - Last 24 Hours (Table) 06/17/20 06/19/20 06/19/20 Range/Units 12:08 17:02 20:26 RBC (4.30-5.90) m/uL Hgb (13.0-17.5) gm/dL Hct (39.0-53.0) % RDW (11.5-15.5) % Plt Count (150-450) k/uL Lymphocytes # (1.0-4.8) k/uL D-Dimer (<0.60) mg/L FEU Chloride (98-107) mmol/L BUN (9-20) mg/dL Glucose (74-99) mg/dL POC Glucose (mg/dL) 196 H 187 H (75-99) mg/dL Calcium (8.4-10.2) mg/dL LD Isoenzymes 373 H (120-250) U/L LD 5 15 H (3-14) % C-Reactive Protein (<10.0) mg/L Total Protein (6.3-8.2) g/dL Albumin (3.5-5.0) g/dL 06/20/20 06/20/20 06/20/20 Range/Units 03:51 03:51 03:51 RBC 4.15 L (4.30-5.90) m/uL Hgb 12.4 L (13.0-17.5) gm/dL Hct 38.2 L (39.0-53.0) % RDW 15.8 H (11.5-15.5) % Plt Count 79 L (150-450) k/uL Lymphocytes # 0.7 L (1.0-4.8) k/uL D-Dimer 1.05 H (<0.60) mg/L FEU Chloride 109 H (98-107) mmol/L BUN 25 H (9-20) mg/dL Glucose 134 H (74-99) mg/dL POC Glucose (mg/dL) (75-99) mg/dL Calcium 8.2 L (8.4-10.2) mg/dL LD Isoenzymes (120-250) U/L LD 5 (3-14) % C-Reactive Protein 10.6 H (<10.0) mg/L Total Protein 5.5 L (6.3-8.2) g/dL Albumin 2.5 L (3.5-5.0) g/dL 06/20/20 06/20/20 06/20/20 Range/Units 06:36 07:51 12:10 RBC (4.30-5.90) m/uL Hgb (13.0-17.5) gm/dL Hct (39.0-53.0) % RDW (11.5-15.5) % Plt Count (150-450) k/uL Lymphocytes # (1.0-4.8) k/uL D-Dimer (<0.60) mg/L FEU Chloride (98-107) mmol/L BUN (9-20) mg/dL Glucose (74-99) mg/dL POC Glucose (mg/dL) 167 H 166 H 215 H (75-99) mg/dL Calcium (8.4-10.2) mg/dL LD Isoenzymes (120-250) U/L LD 5 (3-14) % C-Reactive Protein (<10.0) mg/L Total Protein (6.3-8.2) g/dL Albumin (3.5-5.0) g/dL Assessment and Plan Assessment: Impression: Acute hypoxic respiratory failure secondary to covid 19 pneumonitis. Possible underlying pseudomonal pneumonia, remains on cefepime. Type 2 diabetes. GERD without esophagitis. History of hypertension. Obesity. Paroxysmal atrial fibrillation maintained on anticoagulation therapy. History of depression. Recommendation: Slight improvement noted in the last 24 hours. Titrate FiO2 to maintain O2 saturation above 90%. Continues to have significantly abnormal chest x-ray. completed his remdesivir Received convalescent plasma, and he remains on Decadron. Transfer patient to a monitor bed today. Continue Covid 19 cocktail. Continue cefepime. continue Eraxis. We'll continue to follow Time with Patient: Less than 30
[2020-06-20 16:54] LABS: Glucose,Whole Blood 183 mg/dL (75-99)
--- NOTE | 2020-06-20 19:11 | PN ---
PROGRESS NOTE CHIEF COMPLAINT: Covid pneumonia. HISTORY OF PRESENT ILLNESS: This gentleman is basically stable. He remains extremely weak and short of breath. It is planned that he be moved out of ICU today. PHYSICAL EXAMINATION: He is afebrile. Breath sounds are diminished. Cardiac exam is normal. IMPRESSION: 1. COVID pneumonia. 2. Diabetes. 3. Obesity. 4. General debility with weakness. PLAN: Transferred to selective care. MMODL / IJN: [id number] /
[2020-06-20] MEDS: TAMSULOSIN 0.4 MG CAP.ER.24H PO SCH (20:02)
[2020-06-20] MEDS: MELATONIN 5 MG TABLET PO SCH (20:02)
[2020-06-20 20:19] LABS: Glucose,Whole Blood 177 mg/dL (75-99)
[2020-06-20] MEDS: PIOGLITAZONE 30 MG TAB PO SCH (21:45)
[2020-06-20] MEDS: OXYBUTYNIN 15 MG TAB.ER.24 PO SCH (21:45)
--- NOTE | 2020-06-21 00:13 | PN ---
PROGRESS NOTE DATE OF SERVICE: 06/20/2020 REASON FOR FOLLOWUP: Pneumonia and oropharyngeal candidiasis. INTERVAL HISTORY: The patient is currently afebrile. The patient remains to be slightly sleepy and lethargic and not able to provide any history. No vomiting, diarrhea has been reported by the nursing staff. No change in his clinical condition. EXAMINATION: Blood pressure 132/60 with a pulse of 72, temperature 97.9. He is 97% on high-flow oxygen. General description is an elderly male lying in bed in no distress. Respiratory system: Unlabored breathing with decreased breath sounds in the base. Heart S1, S2. Regular rate and rhythm. Abdomen soft, no tenderness. LABS: Hemoglobin is 10.4, white count 6.1. BUN of 25, creatinine 0.66. DIAGNOSTIC IMPRESSION AND PLAN: Patient with acute COVID-19 pneumonia has been adequately treated in this patient who did have a Pseudomonas pneumonia for which the patient has completed a two week course of cefepime. Currently covered with Eraxis with concern for possible oropharyngeal candidiasis. Continue with current treatment protocol and monitor clinical course closely. MMODL / IJN: [id number] /
[2020-06-21] MEDS: SULFACETAMIDE SOD 10% OPHTH DROPS 15 ML BTL RIGHT EYE SCH ×5 (02:55→22:58)
[2020-06-21] MEDS: SODIUM CHLORIDE 0.9% 1,000 ML IV SCH (04:20)
[2020-06-21 06:07] LABS: Glucose,Whole Blood 158 mg/dL (75-99)
[2020-06-21] MEDS: INSULIN ASPART (NovoLOG) 100 UNIT/ML VIAL SQ SCH ×4 (06:23→20:20)
[2020-06-21 08:04] LABS: ALT 35 U/L (4-49); AST 35 U/L (17-59); African American GFR (CKD) >90 (>60 ml/min/1.73 sqM); Albumin 2.5 g/dL (3.5-5.0); Alkaline Phosphatase 47 U/L (38-126); Anion Gap 2 mmol/L; Blood Urea Nitrogen 22 mg/dL (9-20); C Reactive Protein 8.4 mg/L (<10.0); Calcium 8.1 mg/dL (8.4-10.2); Carbon Dioxide 27 mmol/L (22-30); Chloride 107 mmol/L (98-107); Glucose 134 mg/dL (74-99); LDH 1017 U/L (313-618); Non-African American GFR(CKD) >90 (>60 ml/min/1.73 sqM); Potassium 4.1 mmol/L (3.5-5.1); Sodium 136 mmol/L (137-145); Total Protein 5.4 g/dL (6.3-8.2)
[2020-06-21] MEDS: ALBUTEROL HFA INHALER INHALATION SCH ×4 (08:25→20:59)
[2020-06-21] MEDS: SYMBICORT 160-4.5 MCG INHALER INHALATION SCH ×2 (08:25→20:59)
[2020-06-21] MEDS: ZINC SULFATE 220 MG CAP PO SCH (09:55)
[2020-06-21] MEDS: dexAMETHasone 2 MG TAB PO SCH (09:55)
[2020-06-21] MEDS: APIXABAN 5 MG TAB PO SCH ×2 (09:55→20:12)
[2020-06-21] MEDS: ASCORBIC ACID 500 MG TAB PO SCH (09:56)
[2020-06-21] MEDS: FAMOTIDINE 20 MG TAB PO SCH (09:56)
[2020-06-21] MEDS: CHOLECALCIFEROL 400 UNIT TAB PO SCH (09:57)
[2020-06-21] MEDS ORDERED: FUROSEMIDE 10 MG/ML 4 ML VIAL IV STA (10:34)
[2020-06-21 12:05] LABS: Glucose,Whole Blood 205 mg/dL (75-99)
[2020-06-21] MEDS: methylPREDNISolone SOD SUCCI 125 MG/2 ML VIAL IV SCH ×3 (12:26→22:54)
[2020-06-21] MEDS: ESCITALOPRAM 10 MG TAB PO SCH (12:27)
--- NOTE | 2020-06-21 14:31 | P.PN ---
Subjective Progress Note Date: 06/21/20 Principal diagnosis: Acute hypoxic respiratory failure secondary to acute CoVID 19 pneumonia The patient is seen today 06/21/2020 in follow-up on the regular medical floor. He was transferred out of the ICU yesterday. He is currently sitting up in bed. Awake and alert. He continues to require AirVo high flow oxygen at 60 L and 90% to maintain O2 saturation in the 90s. He has been very slow to improve. He is continued on Eliquis, dexamethasone, Pepcid, melatonin, vitamin supplements. Remains on Symbicort, albuterol, Sodium 136. Potassium 4.1. Creatinine 0.62. LDH 1017. C-reactive protein 8.4. Objective - Vital Signs Vital signs: Vital Signs Temp 98.1 F 06/21/20 12:00 Pulse 73 06/21/20 12:00 Resp 22 06/21/20 12:00 BP 146/84 06/21/20 12:00 Pulse Ox 94 L 06/21/20 12:00 Intake & Output 06/20/20 06/21/20 06/21/20 18:59 06:59 18:59 Intake Total 750 870 Output Total 200 405 501 Balance 550 -405 369 Weight 105.5 kg 104 kg Intake: IV 150 150 Sodium Chloride 0.9% 1, 150 150 000 ml @ 20 mls/hr IV . Q24H [facility] Rx#:[id number] Oral 600 720 Output: Urine 200 405 500 Uretheral (Ryder) 500 Stool 1 Other: Voiding Method Indwelling Catheter Indwelling Catheter Indwelling Catheter # Voids 0 1 # Bowel Movements 0 - Exam GENERAL EXAM: Alert, obese 74-year-old gentleman, on AirVo at 60 L and 90% FiO2, fairly comfortable in no apparent distress. HEAD: Normocephalic. EYES: Normal reaction of pupils, equal size. NOSE: Clear with pink turbinates. THROAT: No erythema or exudates. NECK: No masses, no JVD. CHEST: No chest wall deformity. LUNGS: Equal air entry with bibasilar crackles CVS: S1 and S2 normal with no audible murmur, regular rhythm. ABDOMEN: No hepatosplenomegaly, normal bowel sounds, no guarding or rigidity. SPINE: No scoliosis or deformity SKIN: No rashes CENTRAL NERVOUS SYSTEM: No focal deficits, tone is normal in all 4 extremities. EXTREMITIES: There is no peripheral edema. No clubbing, no cyanosis. Peripheral pulses are intact. - Labs CBC & Chem 7: 06/20/20 03:51 06/21/20 07:12 Labs: Abnormal Lab Results - Last 24 Hours (Table) 06/20/20 06/20/20 06/21/20 Range/Units 16:48 20:17 06:05 Sodium (137-145) mmol/L BUN (9-20) mg/dL Creatinine (0.66-1.25) mg/dL Glucose (74-99) mg/dL POC Glucose (mg/dL) 183 H 177 H 158 H (75-99) mg/dL Calcium (8.4-10.2) mg/dL Lactate Dehydrogenase (313-618) U/L Total Protein (6.3-8.2) g/dL Albumin (3.5-5.0) g/dL 06/21/20 06/21/20 Range/Units 07:12 12:04 Sodium 136 L (137-145) mmol/L BUN 22 H (9-20) mg/dL Creatinine 0.62 L (0.66-1.25) mg/dL Glucose 134 H (74-99) mg/dL POC Glucose (mg/dL) 205 H (75-99) mg/dL Calcium 8.1 L (8.4-10.2) mg/dL Lactate Dehydrogenase 1017 H (313-618) U/L Total Protein 5.4 L (6.3-8.2) g/dL Albumin 2.5 L (3.5-5.0) g/dL Assessment and Plan Assessment: 1 Acute hypoxic respiratory failure secondary to covid 19 pneumonitis. 2 Possible underlying pseudomonal pneumonia, remains on cefepime. 3 Type 2 diabetes. 4 GERD without esophagitis. 5 History of hypertension. 6 Obesity. 7Paroxysmal atrial fibrillation maintained on anticoagulation therapy. 8History of depression. Plan: The patient was seen and evaluated by Dr. Neewll We'll discontinue the dexamethasone Initiate Solu-Medrol 60 mg every 6 hours Add Lasix 40 mg IVP 1 Discontinue her axis Repeat chest x-ray and labs in a.m. Titrate down the FiO2 as tolerated Utilize BiPAP 12/6 in the evenings and throughout the day while napping Increase his activity as tolerated Encouraged regarding the increased use of the incentive spirometer and cough and deep breathing exercises We will continue to follow and make further recommendations based on his clin ical status I, the cosigning physician, performed a history & physical examination of the patient. Lungs sounds with basilar crackles. Maintaining good O2 saturations in the 90s on 60 L and 90% FiO2 via AirVo.. I discussed the assessment and plan of care with my nurse practitioner, Tashia Pelayo. I attest to the above note as dictated by her.
[2020-06-21 16:44] LABS: Glucose,Whole Blood 268 mg/dL (75-99)
--- NOTE | 2020-06-21 16:49 | PN ---
PROGRESS NOTE DATE OF SERVICE: 06/21/2020 CHIEF COMPLAINT: COVID pneumonia. HISTORY OF PRESENT ILLNESS: This gentleman continues to struggle. He remains extremely weak and short of breath. He is oriented. PHYSICAL EXAMINATION: Breath sounds are heard bilaterally and cardiac exam is normal. Abdomen is soft and nontender. IMPRESSION: 1. COVID pneumonia. 2. Adult respiratory distress syndrome. 3. Diabetes. PLAN: Continue with current treatment with the hopes that his pulmonary and respiratory function will continue to improve. MMODL / IJN: [id number] /
[2020-06-21 20:11] LABS: Glucose,Whole Blood 286 mg/dL (75-99)
[2020-06-21] MEDS: MELATONIN 5 MG TABLET PO SCH (20:12)
[2020-06-21] MEDS: PIOGLITAZONE 30 MG TAB PO SCH (20:13)
[2020-06-21] MEDS: OXYBUTYNIN 15 MG TAB.ER.24 PO SCH (20:13)
[2020-06-21] MEDS: TAMSULOSIN 0.4 MG CAP.ER.24H PO SCH (20:13)
[2020-06-21] MEDS ORDERED: INSULIN DETEMIR (LEVEMIR) 100 UNIT/ML SYR SQ STA (21:47)
--- NOTE | 2020-06-21 22:20 | PN ---
PROGRESS NOTE DATE OF SERVICE: 06/21/2020 REASON FOR FOLLOWUP: Pneumonia. INTERVAL HISTORY: The patient is currently afebrile. Still requiring high-flow nasal oxygen though when asked, he mentioned feeling better. No chest pain. Did have a cough, not bringing up any sputum. No vomiting or diarrhea. PHYSICAL EXAMINATION: Blood pressure 138/70 with a pulse of 82. Temperature 98.2. He is 94% on 50% FIO2. General description is an elderly male lying in bed in no distress. Respiratory system: Unlabored breathing. Upper airway rhonchi, Heart S1-S2 regular rate and rhythm. ABDOMEN: Soft, no tenderness. LABS: BUN of 52, creatinine 0.62. DIAGNOSTIC IMPRESSION AND PLAN: Patient with Covid 19 pneumonia followed by Pseudomonas pneumonia has been adequately treated, currently off Remdesivir as well as the cefepime, on Solu-Medrol, zinc to continue and monitor clinical course closely. MMODL / IJN: [id number] / MTDD
[2020-06-22] MEDS ORDERED: FUROSEMIDE 10 MG/ML 4 ML VIAL ONE (05:21)
[2020-06-22] MEDS ORDERED: FUROSEMIDE 10 MG/ML 4 ML VIAL IV STA ×2 (05:21→06:25)
--- NOTE | 2020-06-22 05:49 | XR ---
EXAM: XR Chest, 1 View CLINICAL HISTORY: ITS.REASON XR Reason: Resp distress TECHNIQUE: Frontal view of the chest. COMPARISON: 06/19/2020. FINDINGS: Lungs: Patchy airspace disease which predominate at the periphery in the mid lower lung zones, right lung worse than the left lung, similar to the previous study. Pleural space: Unremarkable. No pneumothorax. Heart: Cardiomegaly. Mediastinum: Unremarkable. Bones/joints: Osteopenia. Other findings: Hypoaeration. IMPRESSION: 1. No significant change from the earlier study. 2. Findings of Covid-19 pneumonia. 3. Cardiomegaly.
--- NOTE | 2020-06-22 05:51 | P.EN ---
A team note Activated at 5:20 am. Arrived on the scene shorty after. Discussed the case with the patient's RN and reviewed the chart. The patient was noted to be hypoxic despite being on high flow nasal cannula. A chest x-ray was ordered. The patient was switched to BiPAP which was tolerated well throughout the night previously. Upon examination, the patient is an elderly male in no acute distress. Lung examination revealed bilateral rhonchi with no rales or wheezing appreciated. Lower extremities revealed no edema. The patient noted that his wheezing somewhat improved. Denied chest pain and pain elsewhere. Patient's SpO2 increased to 92%. Patient's primary team notified by the RN.
[2020-06-22] MEDS: SODIUM CHLORIDE 0.9% 1,000 ML IV SCH (06:23)
[2020-06-22 06:34] LABS: Glucose,Whole Blood 218 mg/dL (75-99)
[2020-06-22] MEDS: methylPREDNISolone SOD SUCCI 125 MG/2 ML VIAL IV SCH ×3 (06:47→18:00)
[2020-06-22] MEDS: INSULIN ASPART (NovoLOG) 100 UNIT/ML VIAL SQ SCH ×4 (06:47→21:01)
[2020-06-22] MEDS: SULFACETAMIDE SOD 10% OPHTH DROPS 15 ML BTL RIGHT EYE SCH ×3 (06:48→17:48)
[2020-06-22] MEDS ORDERED: INSULIN DETEMIR (LEVEMIR) 100 UNIT/ML SYR SQ SCH (07:00)
[2020-06-22] MEDS: ALBUTEROL HFA INHALER INHALATION SCH ×4 (07:15→20:10)
[2020-06-22] MEDS: SYMBICORT 160-4.5 MCG INHALER INHALATION SCH ×2 (07:15→20:10)
[2020-06-22 07:42] LABS: ABG Base Excess 6.2 mmol/L; ABG HCO3 29 mmol/L (21-25); ABG Oxygen Saturation 94.2 % (94-97); ABG PCO2 35 mmHg (35-45); ABG PH 7.53 (7.35-7.45); ABG PO2 63 mmHg (83-108); ABG TCO2 30 mmol/L (19-24); Allen Test Performed? Yes
[2020-06-22] MEDS: FAMOTIDINE 20 MG TAB PO SCH (08:30)
[2020-06-22] MEDS: ASCORBIC ACID 500 MG TAB PO SCH (08:30)
[2020-06-22] MEDS: ZINC SULFATE 220 MG CAP PO SCH (08:30)
[2020-06-22] MEDS: APIXABAN 5 MG TAB PO SCH ×2 (08:31→20:56)
[2020-06-22] MEDS: ESCITALOPRAM 10 MG TAB PO SCH (08:31)
[2020-06-22] MEDS: CHOLECALCIFEROL 400 UNIT TAB PO SCH (08:31)
[2020-06-22 11:38] LABS: ALT 54 U/L (4-49); AST 46 U/L (17-59); African American GFR (CKD) >90 (>60 ml/min/1.73 sqM); Albumin 2.9 g/dL (3.5-5.0); Alkaline Phosphatase 62 U/L (38-126); Anion Gap 4 mmol/L; Blood Urea Nitrogen 25 mg/dL (9-20); C Reactive Protein 6.3 mg/L (<10.0); Calcium 8.5 mg/dL (8.4-10.2); Carbon Dioxide 30 mmol/L (22-30); Chloride 98 mmol/L (98-107); Glucose 352 mg/dL (74-99); LDH 1127 U/L (313-618); Non-African American GFR(CKD) >90 (>60 ml/min/1.73 sqM); Sodium 132 mmol/L (137-145); Total Bilirubin 1.1 mg/dL (0.2-1.3)
[2020-06-22 12:12] LABS: Glucose,Whole Blood 332 mg/dL (75-99)
--- NOTE | 2020-06-22 16:31 | P.PN ---
Subjective Progress Note Date: 06/22/20 Principal diagnosis: Acute hypoxic respiratory failure secondary to acute CoVID 19 pneumonia The patient is seen today 06/21/2020 in follow-up on the regular medical floor. He was transferred out of the ICU yesterday. He is currently sitting up in bed. Awake and alert. He continues to require AirVo high flow oxygen at 60 L and 90% to maintain O2 saturation in the 90s. He has been very slow to improve. He is continued on Eliquis, dexamethasone, Pepcid, melatonin, vitamin supplements. Remains on Symbicort, albuterol, Sodium 136. Potassium 4.1. Creatinine 0.62. LDH 1017. C-reactive protein 8.4. The patient is seen today 06/22/2020 in follow-up on the selective care unit. He is currently sitting up in bed. Awake and alert in no acute distress. Approximate 520 this morning and 18 was called based on the patient being found to be hypoxic despite being on high flow nasal cannula. He was switched back to BiPAP which he had been tolerating quite well the previous night. Chest x-ray continued to show bilateral infiltrates but no worse compared to previous. Lasix was given. Arterial blood gases on 40% FiO2 revealed a pO2 of 63, pCO2 35, pH 7.53. When we rounded on him later in the morning he was doing quite a bit better. He is currently on AirVo at 55 L and 80% FiO2. He is afebrile. Hemodynamically stable. Sodium 132. Potassium 4.0. Creatinine 0.67. LDH 1127. C-reactive protein 6.3. Remains on IV Solu-Medrol, Symbicort, albuterol. Anticoagulated with Eliquis. Remains on Pepcid, melatonin, vitamin supplements. Objective - Vital Signs Vital signs: Vital Signs Temp 97.9 F 06/22/20 08:00 Pulse 92 06/22/20 13:38 Resp 22 06/22/20 13:38 BP 140/78 06/22/20 08:00 Pulse Ox 93 L 06/22/20 16:14 Intake & Output 06/21/20 06/22/20 06/22/20 18:59 06:59 18:59 Intake Total 1700 850 Output Total 010 151 8738 Balance 948 -550 -250 Weight 100 kg 100 kg Intake: IV 300 Sodium Chloride 0.9% 1, 300 000 ml @ 20 mls/hr IV . Q24H COUNT INCLUDES THE [facility] Rx#:[id number] Oral 1400 850 Output: Urine 992 748 8511 Uretheral (Ryder) 750 350 Stool 2 Other: Voiding Method Indwelling Catheter Indwelling Catheter Indwelling Catheter # Voids 1 - Exam GENERAL EXAM: Alert, obese 74-year-old gentleman, on AirVo at 55 L and 80% FiO2, fairly comfortable in no apparent distress. HEAD: Normocephalic. EYES: Normal reaction of pupils, equal size. NOSE: Clear with pink turbinates. THROAT: No erythema or exudates. NECK: No masses, no JVD. CHEST: No chest wall deformity. LUNGS: Equal air entry with bibasilar crackles CVS: S1 and S2 normal with no audible murmur, regular rhythm. ABDOMEN: No hepatosplenomegaly, normal bowel sounds, no guarding or rigidity. SPINE: No scoliosis or deformity SKIN: No rashes CENTRAL NERVOUS SYSTEM: No focal deficits, tone is normal in all 4 extremities. EXTREMITIES: There is no peripheral edema. No clubbing, no cyanosis. Peripheral pulses are intact. - Labs CBC & Chem 7: 06/20/20 03:51 06/22/20 11:01 Labs: Abnormal Lab Results - Last 24 Hours (Table) 06/21/20 06/21/20 06/22/20 Range/Units 16:42 20:00 06:26 ABG pH (7.35-7.45) ABG pO2 (83-108) mmHg ABG HCO3 (21-25) mmol/L ABG Total CO2 (19-24) mmol/L Sodium (137-145) mmol/L BUN (9-20) mg/dL Glucose (74-99) mg/dL POC Glucose (mg/dL) 268 H 286 H 218 H (75-99) mg/dL ALT (4-49) U/L Lactate Dehydrogenase (313-618) U/L Total Protein (6.3-8.2) g/dL Albumin (3.5-5.0) g/dL 06/22/20 06/22/20 06/22/20 Range/Units 07:42 11:01 12:11 ABG pH 7.53 H (7.35-7.45) ABG pO2 63 L (83-108) mmHg ABG HCO3 29 H (21-25) mmol/L ABG Total CO2 30 H (19-24) mmol/L Sodium 132 L (137-145) mmol/L BUN 25 H (9-20) mg/dL Glucose 352 H (74-99) mg/dL POC Glucose (mg/dL) 332 H (75-99) mg/dL ALT 54 H (4-49) U/L Lactate Dehydrogenase 1127 H (313-618) U/L Total Protein 6.0 L (6.3-8.2) g/dL Albumin 2.9 L (3.5-5.0) g/dL Assessment and Plan Assessment: 1 Acute hypoxic respiratory failure secondary to covid 19 pneumonitis. 2 Possible underlying pseudomonal pneumonia, remains on cefepime. 3 Type 2 diabetes. 4 GERD without esophagitis. 5 History of hypertension. 6 Obesity. 7Paroxysmal atrial fibrillation maintained on anticoagulation therapy. 8History of depression. Plan: The patient was seen and evaluated by Dr. Newell Chest x-ray, ABG and labs reviewed Continue bronchodilators and Solu-Medrol 60 mg every 6 hours Add Lasix 40 mg IVP 1 Anticoagulated with Eliquis Titrate down the FiO2 as tolerated Utilize BiPAP 12/6 in the evenings and throughout the day while napping Increase his activity as tolerated Encouraged regarding the increased use of the incentive spirometer and cough and deep breathing exercises Prognosis remains guarded We will continue to follow I, the cosigning physician, performed a history & physical examination of the patient. Lungs sounds with basilar crackles. Maintaining good O2 saturations in the 90s on 55 L and 80% FiO2 via AirVo.. I discussed the assessment and plan of care with my nurse practitioner, Tashia Pelayo. I attest to the above note as dictated by her.
[2020-06-22 17:03] LABS: Glucose,Whole Blood 229 mg/dL (75-99)
[2020-06-22 20:40] LABS: Glucose,Whole Blood 199 mg/dL (75-99)
[2020-06-22] MEDS: TAMSULOSIN 0.4 MG CAP.ER.24H PO SCH (20:57)
[2020-06-22] MEDS: MELATONIN 5 MG TABLET PO SCH (21:00)
[2020-06-22] MEDS: PIOGLITAZONE 30 MG TAB PO SCH (21:01)
[2020-06-22] MEDS: OXYBUTYNIN 15 MG TAB.ER.24 PO SCH (21:01)
[2020-06-23] MEDS: SULFACETAMIDE SOD 10% OPHTH DROPS 15 ML BTL RIGHT EYE SCH ×4 (00:06→17:20)
[2020-06-23] MEDS: methylPREDNISolone SOD SUCCI 125 MG/2 ML VIAL IV SCH ×3 (00:06→12:06)
--- NOTE | 2020-06-23 01:35 | PN ---
PROGRESS NOTE DATE OF SERVICE: 06/22/2020 REASON FOR FOLLOWUP: Pneumonia. INTERVAL HISTORY: The patient is currently afebrile. He is breathing comfortably. Denies having any chest pain. He did have a cough not bringing up any sputum. No abdominal pain or diarrhea. PHYSICAL EXAMINATION: Blood pressure 118/68, pulse 82, temperature 98. He is 95% on 50% FiO2. General description is an elderly male lying in bed in no distress. RESPIRATORY SYSTEM: Unlabored breathing, coarse breath sounds bilaterally. No wheeze. HEART: S1, S2. Regular rate and rhythm. ABDOMEN: Soft, no tenderness. LABS: BUN of 25, creatinine 0.67. CRP normal down to 6.3. DIAGNOSTIC IMPRESSION AND PLAN: Patient with COVID-19 pneumonia followed by the gram-negative pneumonia. The patient underlying pneumonia has been adequately treated, currently afebrile and CRP has normalized. Still requiring high-flow oxygen. Pulmonary is following the patient. Continue with supportive care. MMODL / IJN: [id number] /
[2020-06-23] MEDS: SODIUM CHLORIDE 0.9% 1,000 ML IV SCH (03:11)
[2020-06-23 06:29] LABS: Glucose,Whole Blood 253 mg/dL (75-99)
[2020-06-23] MEDS: INSULIN ASPART (NovoLOG) 100 UNIT/ML VIAL SQ SCH ×4 (06:29→20:42)
[2020-06-23] MEDS: INSULIN DETEMIR (LEVEMIR) 100 UNIT/ML SYR SQ SCH (06:29)
[2020-06-23] MEDS: FAMOTIDINE 20 MG TAB PO SCH (08:35)
[2020-06-23] MEDS: ALBUTEROL HFA INHALER INHALATION SCH ×4 (08:35→22:03)
[2020-06-23] MEDS: SYMBICORT 160-4.5 MCG INHALER INHALATION SCH ×2 (08:35→22:04)
[2020-06-23] MEDS: APIXABAN 5 MG TAB PO SCH ×2 (08:35→20:41)
[2020-06-23] MEDS: ZINC SULFATE 220 MG CAP PO SCH (08:35)
[2020-06-23] MEDS: ASCORBIC ACID 500 MG TAB PO SCH (08:35)
[2020-06-23] MEDS: CHOLECALCIFEROL 400 UNIT TAB PO SCH (08:36)
[2020-06-23] MEDS: ESCITALOPRAM 10 MG TAB PO SCH (08:37)
[2020-06-23 11:35] LABS: Glucose,Whole Blood 218 mg/dL (75-99)
[2020-06-23] MEDS: guaiFENesin SYRUP 100MG/5ML 200 MG/10 ML CUP PO PRN ×2 (11:45→20:41)
--- NOTE | 2020-06-23 15:37 | P.PN ---
Subjective Progress Note Date: 06/23/20 Principal diagnosis: COVID19 pneumonitis 74-year-old male patient admitted on 05/27/2024 and acute COVID19 related pneumonia. The patient developed acute hypoxic respiratory failure. The patient got transferred to the intensive care unit and the patient is currently requiring high flow oxygen at 60 L per minute nasal cannula, 90% Fio2 and 100 NRB. His chest x-ray showing diffuse bilateral pulmonary infiltrates consistent with COVID 19 related pneumonia. He has completed a five-day course of Remdesivir and the patient is on Steroids. The patient on IV Solu-Medrol 60 mg IV push every 6 hours. The patient was also found to have pseudomonas aeruginosa in the sputum and the patient purulent sputum production currently on antibiotics. The patient is currently on IV cefepime. The CT angiogram was negative for pulmonary embolism. The patient's history of obesity, hy pertension, diabetes mellitus and acid reflux. The patient is on anticoagulation with Eliquis 5 mg by mouth twice a day. The patient on Symbicort 2 puffs twice a day and albuterol HFA on a when necessary basis. The patient is on Levemir insulin 20 units daily in addition to NovoLog mix 7030 20 units at nighttime and 30 units in the morning. The patient is also on Actos 30 mg at bedtime. Note that the procalcitonin level is at 0.08.The chest x-rays essentially the same. There is still diffuse bilateral pulmonary infiltrates, mainly in the peripheries and more so on the right compared to the left and is unchanged compared to yesterday's chest x-ray. Oxygenation is unchanged. Clinically, he is still the same. He is slightly confused and his baseline level of alertness is or OA2. Urine output is in order of 30 mL an hour and the patient is receiving IV fluids in the form of normal saline at the rate of 20 mL an hour. Oral intake is quite minimal at this point in time on today's evaluation of 06/10/2020, the patient is not showing any progress. In fact there may be some worsening. He is very much lethargic. Is unable to swallow. He is essentially laying down in bed and has minimal amount of conversation. He seems to be disoriented. He is on high flow oxygen 6 L with an FiO2 of 90% in addition to 100% nonrebreather facemask. Chest x-ray showing diffuse bilateral pulmonary infiltrates consistent with bilateral pneumonia. The patient is on IV Solu-Medrol. He completed Remdesivir and he also still less than plasma. We're quite concerned about his respiratory status. He is a full code for now. He is in atrial fibrillation and the rate is controlled for now. His blood sugars are controlled with NovoLog mix 7030 20 units at nighttime and 30 units in the morning. He is also taking Actos. He is also on empiric antibiotic coverage with IV cefepime as the patient will pseudomonas in his sputum. He is afebrile. His LDH is 2003 and his CRP is 9.8. on 06/11/2020, the patient is less lethargic and more awake. He is having some few conversations with me. He was able to follow simple commands. He is profoundly weak. He remains on 60 L with an FiO2 of 80% and 100% nonrebreather facemask. Yesterday, he was able to pass a swallow evaluation. He was given some diet. This was encouraging and I did not have the need to insert an NG tube on him. He has a congested cough. No significant sputum production. He remains on IV cefepime regarding pseudomonas in the sputum. Chest x-ray shows improvement in the left lung infiltration. The right lung is still consolidated actively. He is weak. He seems to be much better spirits for now.He is on IV Solu-Medrol 60 mg every 6 hours. He is also on Lasix 40 mg on a daily basis. He remains on anticoagulation with Eliquis regarding his atrial fibrillation 5 mg by mouth twice a day. On today's evaluation of 06/12/2020, the patient is feeling very much depressed. He is stating that he set up with his condition and he is ready to go and diet. He is a bit tearful also. I was able to get him off the 100% on a beta facemask and currently is only on high flow oxygen at 60 L with an FiO2 of 80%. His pulse ox is above 88%. He is able to swallow. He has a in front of him. His oral intake is minimal or lower this point in time. He has no significant cough. He is a bit lethargic. No fever. No nausea. No vomiting. No abdominal pain. He remains on IV cefepime. Chest x-ray showing some limited improvement in the aeration bilaterally. There is however the excess amount of consolidation. The patient remains on IV Solu-Medrol. He is still in a controlled atrial fibrillation and the patient is on long-term anticoagulation with Eliquis 5 mg by mouth twice a day. He is also taking the Lasix doses IV. Blood sugars are being controlled with NovoLog 7030 minutes 20 in the evening and 30 units in the morning. He is also on Actos. on 06/13/2020, the patient is on 60 L with an 80% FiO2. On the monitor, his pulse ox is 92%. I think he should be able to wean down further. He was feeling quite depressed yesterday. It added Lexapro to his regimen. He remains on IV cefepime. He remains on Eliquis 5 mg by mouth twice a day. He remains on IV Decadron. His chest x-ray is showing some improvement/on the right side. The patient is much improved in terms of his energy level and his ability to communicate and swallow foods. No aspiration. o nausea. No vomiting. No diarrhea. His cardiac rhythm as atrial fibrillation and the rate is controlled for now. He is afebrile.tthe LDH is down to 1545 and a CRP level is down to 7.8. On 06/14/2022 patient remains on 55 L with an FiO2 of 90% and he is also utilizing 100% nonrebreather facemask. He has a congested cough. He was given Lasix without any improvement. His chest x-ray still showing diffuse bilateral pulmonary infiltrates, unchanged from yesterday. He is a bit lethargic. He had T is unresponsive. He is awake. He is able to cough. At times is bringing up some sputum. No fever. No chills. His LDH is gradually improving. The LDH is down to 1406 she is lower and the patient's CRP level is down to 50.8. The pro-calcitonin level is low. The patient is on Decadron. The patient is on daily Lasix. The patient remains in a adequate fluid balance. He remains in atrial fibrillation. He is taking oral intake. He is able to swallow adequately. No nausea. No vomiting. No emesis. On 06/15/2020, patient is on a high flow oxygen at 60 L and an FiO2 of 90%. He was briefly taken off the 100% nonrebreather yesterday. He did well for a while. Subsequently, he desaturated and had to be placed back. No chest x-ray from today. Blood work from today shows no major abnormalities. The LDH level is 1419 100 comparable to yesterday. CRP level is high at 65.8. Renal function stable with a creatinine of 0.8. The patient is on Decadron. He is still vocal. He communicates. No altered mentation. He was bringing up some sputum. Note that the previous sputum culture was positive for Pseudomonas and the patient was started on IV cefepime. Diflucan was also added by yvonne yepez for oropharyngeal candidiasis. The patient remains in atrial fibrillation. No improvement in his condition. He is at a standstill in terms of his colon 19 related pneumonia. He is able to swallow. Oral intake remains low and the patient is taking around 20% of his caloric intake. He was started on Lexapro for some underlying low more than depression. On 06/16/2020 patient seen in follow-up in the intensive care unit, he remains on high flow oxygen per Airvo at 60 l, and Fio2 of 90%, in addition to 100% nonrebreather, with a pulse ox of 93%. Patient has received a course of Remdes ivir, remains on Decadron, and received 1 unit of normal less than plasma. He was found to have a pseudomonal infection in the sputum, and he remains on cefepime for that, in addition to the rectus, ID service is following. His been afebrile,, dynamically stable, he is on IV 0.8 normal saline at a rate of 50 ML per hour. He remains on Decadron 6 mg daily, she is on Robitussin, Pepcid, Martinez E, zinc, vitamin D, on Eliquis for anticoagulation. He is lethargic, but arousable, denies any acute distress, his chest x-ray today shows a patchy infiltrates throughout both lungs right greater than the left, slightly improved. No complaints of chest discomfort, has had no nausea vomiting or diarrhea, no abdominal pain, his labs 7 reviewed, showing white blood cell count of 12, hemoglobin of 12.7, electrolytes were within normal limits, BUN of 30 and creatinine 0.7 On 06/23/2020 patient seen in follow-up on selective care unit, he remains on high flow oxygen, per Airvo at 55 L and FiO2 of 80%, his pulse ox is between 91- 95%, blood pressure stable, he is afebrile, he is very confused, remains on IV Solu-Medrol, oral Eliquis, melatonin, vitamin supplements, Pepcid. He is on cefepime for the pseudomonal pneumonia. Yesterday chest x-ray showed no significant change from the earlier study, showing patchy airspace disease with predominance at the periphery in the mid to lower lung zones, right worse than the left lung. Denies any chest pain, has a cough, which is nonproductive, patient is not able to bring up any sputum, no significant congestion, no vomiting, no nausea, no diarrhea, or abdominal pain. Objective - Vital Signs Vital signs: Vital Signs Temp 98 F 06/23/20 04:00 Pulse 67 06/23/20 14:00 Resp 22 06/23/20 12:00 BP 131/64 06/23/20 12:00 Pulse Ox 95 06/23/20 12:00 Intake & Output 06/22/20 06/23/20 06/23/20 18:59 06:59 18:59 Intake Total 850 90 Output Total 1100 625 2 Balance -250 -625 88 Weight 100 kg 102.5 kg Intake: Oral 850 90 Output: Urine 1100 625 Uretheral (Ryder) 25 Stool 2 Other: Voiding Method Indwelling Catheter Indwelling Catheter Indwelling Catheter # Voids 1 0 # Bowel Movements 0 - Exam GENERAL EXAM: Alert, very pleasant, 74-year-old white male, on Airvo at 55 L and FiO2 of 80% with a pulse ox of 95%, in addition to 100% nonrebreather mask , pulse ox of 95% comfortable in no apparent distress. HEAD: Normocephalic/atraumatic. EYES: Normal reaction of pupils, equal size. Conjunctiva pink, sclera white. NOSE: Clear with pink turbinates. THROAT: No erythema or exudates. NECK: No masses, no JVD, no thyroid enlargement, no adenopathy. CHEST: No chest wall deformity. Symmetrical expansion. LUNGS: Equal air entry with no crackles, wheeze, rhonchi or dullness. CVS: Regular rate and rhythm, normal S1 and S2, no gallops, no murmurs, no rubs ABDOMEN: Soft, nontender. No hepatosplenomegaly, normal bowel sounds, no guarding or rigidity. EXTREMITIES: No clubbing, no edema, no cyanosis, 2+ pulses and upper and lower extremities. MUSCULOSKELETAL: Muscle strength and tone normal. SPINE: No scoliosis or deformity SKIN: No rashes CENTRAL NERVOUS SYSTEM: Alert and oriented -2. No focal deficits, tone is normal in all 4 extremities. PSYCHIATRIC: Alert and oriented -2. Appropriate affect. Intact judgment and insight. - Labs CBC & Chem 7: 06/20/20 03:51 06/22/20 11:01 Labs: Abnormal Lab Results - Last 24 Hours (Table) 06/22/20 06/22/20 06/23/20 Range/Units 17:01 20:37 06:22 POC Glucose (mg/dL) 229 H 199 H 253 H (75-99) mg/dL Lactate Dehydrogenase (313-618) U/L 06/23/20 06/23/20 Range/Units 09:18 11:21 POC Glucose (mg/dL) 218 H (75-99) mg/dL Lactate Dehydrogenase 1084 H (313-618) U/L Assessment and Plan Plan: #1. Acute hypoxic respiratory failure related to COVID 19 pneumonitis, which has progressed since admission, and patient is currently on AIRVO at 55 L and FiO2 of 80%. His chest x-ray still from yesterday was still showing diffuse bilateral pulmonary infiltrates, unchanged compared to earlier chest x-rays.. Patient has completed Remdesivir course on 05/31/2020 and received convalescent immunoglobulin and the patient is on IV Decadron. Patient is also on IV cefepime. The sputum has shown pseudomonas aeruginosa. The pro-calcitonin level is low. LDH level continues to be elevated. CRP level is also elevated. #2. Increased d-dimer of 18 and then drop down to 11 and then down to 3., patient has been on Eliquis, CTA chest showed no evidence of pulmonary embolism #3. Diabetes mellitus type 2, on Levemir and sliding scale #4. GERD/reflux #5. Hyperlipidemia #6. History of hypertension #7. Obesity # 8 Paroxysmal atrial fibrillation current rhythm is sinus and the patient is on anticoagulation with Eliquis. #9 depression Plan: Continue weaning FiO2, to keep O2 sat at or above 90%, continue cefepime for pseudomonal pneumonia, we'll decrease the IV Solu-Medrol to 40 mg every 8 hours, we'll discontinue Ativan, patient is confused, appears to be in no acute distress, continue monitoring oxygenation pattern, febrile pattern, repeat chest x-ray tomorrow I performed a history & physical examination of the patient and discussed their management with my nurse practitioner, Brigid Cody. I reviewed the nurse practitioner's note and agree with the documented findings and plan of care. Lung sounds are positive for diminished breath sounds. The findings and the impression was discussed with the patient. I attest to the documentation by the nurse practitioner. Time with Patient: Less than 30 Time with Patient: Less than 30
[2020-06-23 17:05] LABS: Glucose,Whole Blood 199 mg/dL (75-99)
[2020-06-23] MEDS: methylPREDNISolone SOD SUCCI 40 MG/ML 1 ML VIAL IV SCH (17:20)
--- NOTE | 2020-06-23 20:07 | PN ---
PROGRESS NOTE DATE OF SERVICE: 06/22/2020 CHIEF COMPLAINT: COVID pneumonia with persistent respiratory failure. HISTORY OF PRESENT ILLNESS: This gentleman is still not responding well. He is on high-flow oxygen and remains very weak, with inability to move about. He is not eating. PHYSICAL EXAMINATION: Breath sounds are poor with rales scattered throughout both lung [place]. Cardiac exam sounds like atrial fibrillation. IMPRESSION: 1. COVID pneumonia with acute respiratory distress syndrome. 2. Diabetes. PLAN: Continue to try to provide as much support as possible, although his prognosis is poor. MMODL / IJN: [id number] /
--- NOTE | 2020-06-23 20:10 | PN ---
PROGRESS NOTE DATE OF SERVICE: 06/23/2020 CHIEF COMPLAINT: Persistent respiratory distress secondary to COVID pneumonia. HISTORY OF PRESENT ILLNESS: This gentleman still is requiring high-flow oxygen and remains quite lethargic and weak. PHYSICAL EXAMINATION: Color is good. Hydration is good. Chest demonstrates good aeration bilaterally with rales. The cardiac exam is unremarkable. The abdomen is protuberant and soft. IMPRESSION: COVID pneumonia and adult respiratory distress syndrome. PLAN: He continues to be followed and continues to require high oxygen flow rate to maintain pulse ox. Prognosis remains poor. MMODL / IJN: [id number] /
[2020-06-23 20:11] LABS: Glucose,Whole Blood 230 mg/dL (75-99)
[2020-06-23] MEDS: OXYBUTYNIN 15 MG TAB.ER.24 PO SCH (20:41)
[2020-06-23] MEDS: TAMSULOSIN 0.4 MG CAP.ER.24H PO SCH (20:41)
[2020-06-23] MEDS: PIOGLITAZONE 30 MG TAB PO SCH (20:41)
[2020-06-23] MEDS: MELATONIN 5 MG TABLET PO SCH (20:41)
--- NOTE | 2020-06-23 23:19 | PN ---
PROGRESS NOTE DATE OF SERVICE: 06/23/2020 REASON FOR FOLLOWUP: Pneumonia. INTERVAL HISTORY: The patient is currently afebrile. The patient is breathing comfortably. He did have a congested cough, not bringing up any sputum. No nausea, no vomiting. No abdominal pain or diarrhea. PHYSICAL EXAMINATION: Blood pressure 134/66, pulse of 71, temperature of 98. He is 97% on 55% FiO2. General description is an elderly male lying in bed in no distress. RESPIRATORY SYSTEM: Unlabored breathing. Coarse breath sounds bilaterally. No wheeze. HEART: S1, S2. Regular rate and rhythm. ABDOMEN: Soft. No tenderness. LABS: No new labs have been obtained today. DIAGNOSTIC IMPRESSION AND PLAN: Patient with acute COVID-19 pneumonia, for which the patient has completed his remdesivir, to be followed by a component of secondary bacterial pneumonia with Pseudomonas , patient is still requiring high-flow oxygen therapy, being managed with steroids, bronchodilators and zinc; to continue, and monitor his clinical course closely. Continue supportive care. MMODL / IJN: [id number] / [facility]
[2020-06-24] MEDS: SODIUM CHLORIDE 0.9% 1,000 ML IV SCH (00:31)
[2020-06-24] MEDS: methylPREDNISolone SOD SUCCI 40 MG/ML 1 ML VIAL IV SCH ×4 (00:31→23:19)
[2020-06-24] MEDS: SULFACETAMIDE SOD 10% OPHTH DROPS 15 ML BTL RIGHT EYE SCH ×5 (00:31→23:19)
[2020-06-24] MEDS: INSULIN ASPART (NovoLOG) 100 UNIT/ML VIAL SQ SCH ×4 (06:11→23:16)
[2020-06-24 06:12] LABS: Glucose,Whole Blood 178 mg/dL (75-99)
[2020-06-24] MEDS: INSULIN DETEMIR (LEVEMIR) 100 UNIT/ML SYR SQ SCH (06:13)
--- NOTE | 2020-06-24 07:53 | XR ---
EXAMINATION TYPE: XR chest 1V portable DATE OF EXAM: 06/24/2020 COMPARISON: Prior chest x-ray 06/22/2020 HISTORY: Covid 19 pneumonia TECHNIQUE: Single frontal view of the chest is obtained. FINDINGS: Patient is rotated. Patchy peripheral densities again noted in the right lung retrocardiac density is present in the left hemidiaphragm is obscured. No evident pneumothorax. Heart size may be accentuated due to technique. Aorta is dense. Lung volumes are low. There are overlying leads. IMPRESSION: Correlate for pneumonia. Expiratory rotated exam. Follow-up suggested.
[2020-06-24] MEDS: SYMBICORT 160-4.5 MCG INHALER INHALATION SCH ×2 (08:06→19:56)
[2020-06-24] MEDS: ALBUTEROL HFA INHALER INHALATION SCH ×4 (08:06→19:56)
[2020-06-24] MEDS: APIXABAN 5 MG TAB PO SCH ×2 (08:32→20:04)
[2020-06-24] MEDS: FAMOTIDINE 20 MG TAB PO SCH (08:32)
[2020-06-24] MEDS: ESCITALOPRAM 10 MG TAB PO SCH (08:32)
[2020-06-24] MEDS: ACETAMINOPHEN TAB 325 MG TAB PO PRN (08:32)
[2020-06-24] MEDS: ZINC SULFATE 220 MG CAP PO SCH (08:32)
[2020-06-24] MEDS: ASCORBIC ACID 500 MG TAB PO SCH (08:32)
[2020-06-24] MEDS: CHOLECALCIFEROL 400 UNIT TAB PO SCH (08:33)
[2020-06-24] MEDS: guaiFENesin SYRUP 100MG/5ML 200 MG/10 ML CUP PO PRN ×2 (08:33→17:07)
[2020-06-24 11:34] LABS: Glucose,Whole Blood 144 mg/dL (75-99)
--- NOTE | 2020-06-24 13:41 | FL ---
Modified barium swallow HISTORY: Aspiration Patient was evaluated in real-time fluoroscopy in the lateral projection during ingestion of barium m ixed with liquids and food 1 minute 40 seconds fluoroscopy time. No images obtained Initial swallow with thin liquid showed didier aspiration, patient coughed following the aspiration. T ransient laryngeal penetration was noted on the remainder of the exam. No additional aspiration was i dentified. IMPRESSION: See dictated report these pathology.
--- NOTE | 2020-06-24 15:20 | P.PN ---
Subjective Progress Note Date: 06/24/20 Principal diagnosis: COVID19 pneumonitis 74-year-old male patient admitted on 05/27/2024 and acute COVID19 related pneumonia. The patient developed acute hypoxic respiratory failure. The patient got transferred to the intensive care unit and the patient is currently requiring high flow oxygen at 60 L per minute nasal cannula, 90% Fio2 and 100 NRB. His chest x-ray showing diffuse bilateral pulmonary infiltrates consistent with COVID 19 related pneumonia. He has completed a five-day course of Remdesivir and the patient is on Steroids. The patient on IV Solu-Medrol 60 mg IV push every 6 hours. The patient was also found to have pseudomonas aeruginosa in the sputum and the patient purulent sputum production currently on antibiotics. The patient is currently on IV cefepime. The CT angiogram was negative for pulmonary embolism. The patient's history of obesity, hy pertension, diabetes mellitus and acid reflux. The patient is on anticoagulation with Eliquis 5 mg by mouth twice a day. The patient on Symbicort 2 puffs twice a day and albuterol HFA on a when necessary basis. The patient is on Levemir insulin 20 units daily in addition to NovoLog mix 7030 20 units at nighttime and 30 units in the morning. The patient is also on Actos 30 mg at bedtime. Note that the procalcitonin level is at 0.08.The chest x-rays essentially the same. There is still diffuse bilateral pulmonary infiltrates, mainly in the peripheries and more so on the right compared to the left and is unchanged compared to yesterday's chest x-ray. Oxygenation is unchanged. Clinically, he is still the same. He is slightly confused and his baseline level of alertness is or OA2. Urine output is in order of 30 mL an hour and the patient is receiving IV fluids in the form of normal saline at the rate of 20 mL an hour. Oral intake is quite minimal at this point in time on today's evaluation of 06/10/2020, the patient is not showing any progress. In fact there may be some worsening. He is very much lethargic. Is unable to swallow. He is essentially laying down in bed and has minimal amount of conversation. He seems to be disoriented. He is on high flow oxygen 6 L with an FiO2 of 90% in addition to 100% nonrebreather facemask. Chest x-ray showing diffuse bilateral pulmonary infiltrates consistent with bilateral pneumonia. The patient is on IV Solu-Medrol. He completed Remdesivir and he also still less than plasma. We're quite concerned about his respiratory status. He is a full code for now. He is in atrial fibrillation and the rate is controlled for now. His blood sugars are controlled with NovoLog mix 7030 20 units at nighttime and 30 units in the morning. He is also taking Actos. He is also on empiric antibiotic coverage with IV cefepime as the patient will pseudomonas in his sputum. He is afebrile. His LDH is 2003 and his CRP is 9.8. on 06/11/2020, the patient is less lethargic and more awake. He is having some few conversations with me. He was able to follow simple commands. He is profoundly weak. He remains on 60 L with an FiO2 of 80% and 100% nonrebreather facemask. Yesterday, he was able to pass a swallow evaluation. He was given some diet. This was encouraging and I did not have the need to insert an NG tube on him. He has a congested cough. No significant sputum production. He remains on IV cefepime regarding pseudomonas in the sputum. Chest x-ray shows improvement in the left lung infiltration. The right lung is still consolidated actively. He is weak. He seems to be much better spirits for now.He is on IV Solu-Medrol 60 mg every 6 hours. He is also on Lasix 40 mg on a daily basis. He remains on anticoagulation with Eliquis regarding his atrial fibrillation 5 mg by mouth twice a day. On today's evaluation of 06/12/2020, the patient is feeling very much depressed. He is stating that he set up with his condition and he is ready to go and diet. He is a bit tearful also. I was able to get him off the 100% on a beta facemask and currently is only on high flow oxygen at 60 L with an FiO2 of 80%. His pulse ox is above 88%. He is able to swallow. He has a in front of him. His oral intake is minimal or lower this point in time. He has no significant cough. He is a bit lethargic. No fever. No nausea. No vomiting. No abdominal pain. He remains on IV cefepime. Chest x-ray showing some limited improvement in the aeration bilaterally. There is however the excess amount of consolidation. The patient remains on IV Solu-Medrol. He is still in a controlled atrial fibrillation and the patient is on long-term anticoagulation with Eliquis 5 mg by mouth twice a day. He is also taking the Lasix doses IV. Blood sugars are being controlled with NovoLog 7030 minutes 20 in the evening and 30 units in the morning. He is also on Actos. on 06/13/2020, the patient is on 60 L with an 80% FiO2. On the monitor, his pulse ox is 92%. I think he should be able to wean down further. He was feeling quite depressed yesterday. It added Lexapro to his regimen. He remains on IV cefepime. He remains on Eliquis 5 mg by mouth twice a day. He remains on IV Decadron. His chest x-ray is showing some improvement/on the right side. The patient is much improved in terms of his energy level and his ability to communicate and swallow foods. No aspiration. o nausea. No vomiting. No diarrhea. His cardiac rhythm as atrial fibrillation and the rate is controlled for now. He is afebrile.tthe LDH is down to 1545 and a CRP level is down to 7.8. On 06/14/2022 patient remains on 55 L with an FiO2 of 90% and he is also utilizing 100% nonrebreather facemask. He has a congested cough. He was given Lasix without any improvement. His chest x-ray still showing diffuse bilateral pulmonary infiltrates, unchanged from yesterday. He is a bit lethargic. He had T is unresponsive. He is awake. He is able to cough. At times is bringing up some sputum. No fever. No chills. His LDH is gradually improving. The LDH is down to 1406 she is lower and the patient's CRP level is down to 50.8. The pro-calcitonin level is low. The patient is on Decadron. The patient is on daily Lasix. The patient remains in a adequate fluid balance. He remains in atrial fibrillation. He is taking oral intake. He is able to swallow adequately. No nausea. No vomiting. No emesis. On 06/15/2020, patient is on a high flow oxygen at 60 L and an FiO2 of 90%. He was briefly taken off the 100% nonrebreather yesterday. He did well for a while. Subsequently, he desaturated and had to be placed back. No chest x-ray from today. Blood work from today shows no major abnormalities. The LDH level is 1419 100 comparable to yesterday. CRP level is high at 65.8. Renal function stable with a creatinine of 0.8. The patient is on Decadron. He is still vocal. He communicates. No altered mentation. He was bringing up some sputum. Note that the previous sputum culture was positive for Pseudomonas and the patient was started on IV cefepime. Diflucan was also added by yvonne yepez for oropharyngeal candidiasis. The patient remains in atrial fibrillation. No improvement in his condition. He is at a standstill in terms of his colon 19 related pneumonia. He is able to swallow. Oral intake remains low and the patient is taking around 20% of his caloric intake. He was started on Lexapro for some underlying low more than depression. On 06/16/2020 patient seen in follow-up in the intensive care unit, he remains on high flow oxygen per Airvo at 60 l, and Fio2 of 90%, in addition to 100% nonrebreather, with a pulse ox of 93%. Patient has received a course of Remdes ivir, remains on Decadron, and received 1 unit of normal less than plasma. He was found to have a pseudomonal infection in the sputum, and he remains on cefepime for that, in addition to the rectus, ID service is following. His been afebrile,, dynamically stable, he is on IV 0.8 normal saline at a rate of 50 ML per hour. He remains on Decadron 6 mg daily, she is on Robitussin, Pepcid, Martinez E, zinc, vitamin D, on Eliquis for anticoagulation. He is lethargic, but arousable, denies any acute distress, his chest x-ray today shows a patchy infiltrates throughout both lungs right greater than the left, slightly improved. No complaints of chest discomfort, has had no nausea vomiting or diarrhea, no abdominal pain, his labs 7 reviewed, showing white blood cell count of 12, hemoglobin of 12.7, electrolytes were within normal limits, BUN of 30 and creatinine 0.7 On 06/23/2020 patient seen in follow-up on selective care unit, he remains on high flow oxygen, per Airvo at 55 L and FiO2 of 80%, his pulse ox is between 91- 95%, blood pressure stable, he is afebrile, he is very confused, remains on IV Solu-Medrol, oral Eliquis, melatonin, vitamin supplements, Pepcid. He is on cefepime for the pseudomonal pneumonia. Yesterday chest x-ray showed no significant change from the earlier study, showing patchy airspace disease with predominance at the periphery in the mid to lower lung zones, right worse than the left lung. Denies any chest pain, has a cough, which is nonproductive, patient is not able to bring up any sputum, no significant congestion, no vomiting, no nausea, no diarrhea, or abdominal pain. On 06/24/2020 patient seen in follow-up on [facility] care unit. He remains on Airvo 55 L and FiO2 of 80%, his pulse ox is about 92%, he is been afebrile, hemodynamically he remains stable. She reports a concern for possible aspiration as the patient sounds more wet and congested after eating, and swallow evaluation is pending, patient underwent modified barium swallow, showed didier aspiration with thin liquids, and patient coughed following the aspiration, there was a transient laryngeal penetration on the remainder of the exam. Patient is on IV steroids, with 40 mg every 8 hours, he is on breathing treatments, had any blood work done in the last several days, he denies any chest pain, he does cough, and sounds congested, patient has completed a course of antibiotics including cefepime and Eraxis. He is also complicated Remdesivir treatment, and received 1 unit of convalescent plasma. Objective - Vital Signs Vital signs: Vital Signs Temp 98.5 F 06/24/20 00:00 Pulse 61 06/24/20 12:00 Resp 20 06/24/20 12:00 BP 133/69 06/24/20 12:00 Pulse Ox 92 L 06/24/20 12:00 Intake & Output 06/23/20 06/24/20 06/24/20 18:59 06:59 18:59 Intake Total 210 Output Total 302 502 322 Balance -92 -502 -322 Weight 101.5 kg Intake: Oral 210 Output: Urine 300 500 320 Stool 2 2 2 Other: Voiding Method Indwelling Catheter Indwelling Catheter Indwelling Catheter # Voids 0 1 1 # Bowel Movements 0 - Exam GENERAL EXAM: Alert, very pleasant, 74-year-old white male, on Airvo at 55 L and FiO2 of 80% with a pulse ox of 92% pulse ox of 95% comfortable in no apparent distress. HEAD: Normocephalic/atraumatic. EYES: Normal reaction of pupils, equal size. Conjunctiva pink, sclera white. NOSE: Clear with pink turbinates. THROAT: No erythema or exudates. NECK: No masses, no JVD, no thyroid enlargement, no adenopathy. CHEST: No chest wall deformity. Symmetrical expansion. LUNGS: Equal air entry with no crackles, wheeze, rhonchi or dullness. CVS: Regular rate and rhythm, normal S1 and S2, no gallops, no murmurs, no rubs ABDOMEN: Soft, nontender. No hepatosplenomegaly, normal bowel sounds, no guarding or rigidity. EXTREMITIES: No clubbing, no edema, no cyanosis, 2+ pulses and upper and lower extremities. MUSCULOSKELETAL: Muscle strength and tone normal. SPINE: No scoliosis or deformity SKIN: No rashes CENTRAL NERVOUS SYSTEM: Alert and oriented -2. No focal deficits, tone is normal in all 4 extremities. PSYCHIATRIC: Alert and oriented -2. Appropriate affect. Intact judgment and insight. - Labs CBC & Chem 7: 06/20/20 03:51 06/22/20 11:01 Labs: Abnormal Lab Results - Last 24 Hours (Table) 06/23/20 06/23/20 06/24/20 Range/Units 16:57 20:09 06:11 POC Glucose (mg/dL) 199 H 230 H 178 H (75-99) mg/dL 06/24/20 Range/Units 11:32 POC Glucose (mg/dL) 144 H (75-99) mg/dL Assessment and Plan Plan: #1. Acute hypoxic respiratory failure related to COVID 19 pneumonitis, which has progressed since admission, and patient is currently on AIRVO at 55 L and FiO2 of 80%. His chest x-ray still from yesterday was still showing diffuse bilateral pulmonary infiltrates, unchanged compared to earlier chest x-rays.. Patient has completed Remdesivir course on 05/31/2020 and received convalescent immunoglobulin and the patient is on IV Decadron. Patient has completed a course of cefepime for pseudomonal pneumonia. The pro-calcitonin level is low. LDH level continues to be elevated. CRP level is also elevated. #2. Dysphagia, and the patient was found to have didier silent aspiration mild to moderate with thin liquids, and transient penetration noted with subsequent trials, currently on dysphagia level III diet #2. Increased d-dimer of 18 and then drop down to 11 and then down to 3., patient has been on Eliquis, CTA chest showed no evidence of pulmonary embolism #3. Diabetes mellitus type 2, on Levemir and sliding scale #4. GERD/reflux #5. Hyperlipidemia #6. History of hypertension #7. Obesity # 8 Paroxysmal atrial fibrillation current rhythm is sinus and the patient is on anticoagulation with Eliquis. #9 depression Plan: Diet per speech pathologist recommendations, he was found to have been frankly aspirating on thin liquids at times, he continues to require high flow oxygen, will obtain pro-calcitonin level, he completed his cefepime treatment, ID service is following, will obtain follow blood work tomorrow. I performed a history & physical examination of the patient and discussed their management with my nurse practitioner, Brigid Cody. I reviewed the nurse practitioner's note and agree with the documented findings and plan of care. Lung sounds are positive for diminished breath sounds. The findings and the impression was discussed with the patient. I attest to the documentation by the nurse practitioner. Time with Patient: Less than 30 Time with Patient: Less than 30
[2020-06-24 16:36] LABS: LD Isoenzymes 1 30 % (19-38); LD Isoenzymes 2 38 % (30-43); LD Isoenzymes 3 16 % (16-26); LD Isoenzymes 4 7 % (3-12); LD Isoenzymes 5 9 % (3-14); Lactacte Dehydrogenase(LD) ISO 353 U/L (120-250)
[2020-06-24 17:22] LABS: Glucose,Whole Blood 232 mg/dL (75-99)
--- NOTE | 2020-06-24 18:09 | PN ---
PROGRESS NOTE CHIEF COMPLAINT: COVID pneumonia. HISTORY OF PRESENT ILLNESS: This gentleman continues to be basically the same. He still has significant respiratory distress without significant changes in his chest x-ray. There apparently is also an issue of aspiration now as documented on his swallow evaluation. PHYSICAL EXAMINATION: Breath sounds are diminished with bilateral rales and rhonchi. Cardiac exam is unchanged. IMPRESSION: 1. COVID pneumonia. 2. Aspiration pneumonia. PLAN: Continue to follow with Infectious Disease and Pulmonology. Prognosis remains poor. MMODL / IJN: [id number] /
[2020-06-24] MEDS: MELATONIN 5 MG TABLET PO SCH (20:04)
[2020-06-24] MEDS: OXYBUTYNIN 15 MG TAB.ER.24 PO SCH (20:04)
[2020-06-24] MEDS: TAMSULOSIN 0.4 MG CAP.ER.24H PO SCH (20:04)
[2020-06-24] MEDS: PIOGLITAZONE 30 MG TAB PO SCH (20:04)
[2020-06-24 21:49] LABS: Glucose,Whole Blood 266 mg/dL (75-99)
--- NOTE | 2020-06-24 22:53 | PN ---
PROGRESS NOTE DATE OF SERVICE: 06/24/2020 REASON FOR FOLLOWUP: Pneumonia and oropharyngeal candidiasis. INTERVAL HISTORY: The patient is currently afebrile. The patient is slightly sleepy and lethargic, unable to provide any history. Still requiring high-flow nasal cannula oxygen. No vomiting or diarrhea has been reported. PHYSICAL EXAMINATION: His blood pressure is 133/69 with a pulse of 92, temperature of 98. General description is an elderly male lying in bed in no distress. RESPIRATORY SYSTEM: Unlabored breathing with decreased intensity of breath sounds. No wheeze. HEART: S1, S2. Regular rate and rhythm. ABDOMEN: Soft. No tenderness. LABS: Hemoglobin is 12.4, white count 6.1. BUN of 25, creatinine 0.67. DIAGNOSTIC IMPRESSION AND PLAN: Patient with acute COVID-19 infection, for which the patient completed his remdesivir therapy followed by Pseudomonas pneumonia; completed his antibiotic. The patient did have a modified barium swallow with evidence of aspiration. Patient to continue with current treatment protocol. No need for antibiotic at this point. Continue with supportive care. MMJACYL / CARTERN: [id number] /
[2020-06-25] MEDS: SODIUM CHLORIDE 0.9% 1,000 ML IV SCH (04:56)
[2020-06-25] MEDS: SULFACETAMIDE SOD 10% OPHTH DROPS 15 ML BTL RIGHT EYE SCH ×4 (04:56→23:41)
[2020-06-25 06:14] LABS: Glucose,Whole Blood 143 mg/dL (75-99)
[2020-06-25] MEDS: INSULIN ASPART (NovoLOG) 100 UNIT/ML VIAL SQ SCH ×4 (06:15→20:44)
[2020-06-25] MEDS: INSULIN DETEMIR (LEVEMIR) 100 UNIT/ML SYR SQ SCH (06:19)
[2020-06-25 08:17] LABS: African American GFR (CKD) >90 (>60 ml/min/1.73 sqM); Anion Gap 3 mmol/L; Anisocytosis Slight; Basophils # (A) 0.1 k/uL (0-0.2); Basophils % (A) 1 %; Blood Urea Nitrogen 26 mg/dL (9-20); Calcium 8.7 mg/dL (8.4-10.2); Carbon Dioxide 33 mmol/L (22-30); Chloride 100 mmol/L (98-107); Eosinophils % (A) 0 %; Glucose 109 mg/dL (74-99); HCT 38.8 % (39.0-53.0); HGB 12.4 gm/dL (13.0-17.5); LDH 1035 U/L (313-618); Lymphocytes # (A) 0.5 k/uL (1.0-4.8); Lymphocytes % (A) 6 %; MCH 29.3 pg (25.0-35.0); MCHC 32.1 g/dL (31.0-37.0); MCV 91.2 fL (80.0-100.0); Mean Platelet Volume 7.2; Monocytes # (A) 0.9 k/uL (0-1.0); Monocytes % (A) 11 %; Neutrophils # (A) 7.2 k/uL (1.3-7.7); Neutrophils % (A) 82 %; Non-African American GFR(CKD) >90 (>60 ml/min/1.73 sqM); RBC 4.25 m/uL (4.30-5.90); RDW 16.4 % (11.5-15.5); Sodium 136 mmol/L (137-145); WBC 8.8 k/uL (3.8-10.6)
[2020-06-25 08:24] LABS: Platelet Count 145 k/uL (150-450)
[2020-06-25] MEDS: ALBUTEROL HFA INHALER INHALATION SCH ×4 (08:41→21:53)
[2020-06-25] MEDS: SYMBICORT 160-4.5 MCG INHALER INHALATION SCH ×2 (08:41→21:53)
[2020-06-25] MEDS: methylPREDNISolone SOD SUCCI 40 MG/ML 1 ML VIAL IV SCH ×3 (08:44→23:41)
[2020-06-25] MEDS: APIXABAN 5 MG TAB PO SCH ×2 (08:45→21:05)
[2020-06-25] MEDS: ESCITALOPRAM 10 MG TAB PO SCH (08:45)
[2020-06-25] MEDS: ZINC SULFATE 220 MG CAP PO SCH (08:45)
[2020-06-25] MEDS: ASCORBIC ACID 500 MG TAB PO SCH (08:45)
[2020-06-25] MEDS: FAMOTIDINE 20 MG TAB PO SCH (08:45)
[2020-06-25] MEDS: ACETAMINOPHEN TAB 325 MG TAB PO PRN (08:45)
[2020-06-25] MEDS: guaiFENesin SYRUP 100MG/5ML 200 MG/10 ML CUP PO PRN (08:45)
[2020-06-25] MEDS: CHOLECALCIFEROL 400 UNIT TAB PO SCH (08:47)
[2020-06-25 12:53] LABS: Glucose,Whole Blood 169 mg/dL (75-99)
--- NOTE | 2020-06-25 15:49 | P.PN ---
Subjective Progress Note Date: 06/25/20 Principal diagnosis: COVID19 pneumonitis 74-year-old male patient admitted on 05/27/2024 and acute COVID19 related pneumonia. The patient developed acute hypoxic respiratory failure. The patient got transferred to the intensive care unit and the patient is currently requiring high flow oxygen at 60 L per minute nasal cannula, 90% Fio2 and 100 NRB. His chest x-ray showing diffuse bilateral pulmonary infiltrates consistent with COVID 19 related pneumonia. He has completed a five-day course of Remdesivir and the patient is on Steroids. The patient on IV Solu-Medrol 60 mg IV push every 6 hours. The patient was also found to have pseudomonas aeruginosa in the sputum and the patient purulent sputum production currently on antibiotics. The patient is currently on IV cefepime. The CT angiogram was negative for pulmonary embolism. The patient's history of obesity, hy pertension, diabetes mellitus and acid reflux. The patient is on anticoagulation with Eliquis 5 mg by mouth twice a day. The patient on Symbicort 2 puffs twice a day and albuterol HFA on a when necessary basis. The patient is on Levemir insulin 20 units daily in addition to NovoLog mix 7030 20 units at nighttime and 30 units in the morning. The patient is also on Actos 30 mg at bedtime. Note that the procalcitonin level is at 0.08.The chest x-rays essentially the same. There is still diffuse bilateral pulmonary infiltrates, mainly in the peripheries and more so on the right compared to the left and is unchanged compared to yesterday's chest x-ray. Oxygenation is unchanged. Clinically, he is still the same. He is slightly confused and his baseline level of alertness is or OA2. Urine output is in order of 30 mL an hour and the patient is receiving IV fluids in the form of normal saline at the rate of 20 mL an hour. Oral intake is quite minimal at this point in time on today's evaluation of 06/10/2020, the patient is not showing any progress. In fact there may be some worsening. He is very much lethargic. Is unable to swallow. He is essentially laying down in bed and has minimal amount of conversation. He seems to be disoriented. He is on high flow oxygen 6 L with an FiO2 of 90% in addition to 100% nonrebreather facemask. Chest x-ray showing diffuse bilateral pulmonary infiltrates consistent with bilateral pneumonia. The patient is on IV Solu-Medrol. He completed Remdesivir and he also still less than plasma. We're quite concerned about his respiratory status. He is a full code for now. He is in atrial fibrillation and the rate is controlled for now. His blood sugars are controlled with NovoLog mix 7030 20 units at nighttime and 30 units in the morning. He is also taking Actos. He is also on empiric antibiotic coverage with IV cefepime as the patient will pseudomonas in his sputum. He is afebrile. His LDH is 2003 and his CRP is 9.8. on 06/11/2020, the patient is less lethargic and more awake. He is having some few conversations with me. He was able to follow simple commands. He is profoundly weak. He remains on 60 L with an FiO2 of 80% and 100% nonrebreather facemask. Yesterday, he was able to pass a swallow evaluation. He was given some diet. This was encouraging and I did not have the need to insert an NG tube on him. He has a congested cough. No significant sputum production. He remains on IV cefepime regarding pseudomonas in the sputum. Chest x-ray shows improvement in the left lung infiltration. The right lung is still consolidated actively. He is weak. He seems to be much better spirits for now.He is on IV Solu-Medrol 60 mg every 6 hours. He is also on Lasix 40 mg on a daily basis. He remains on anticoagulation with Eliquis regarding his atrial fibrillation 5 mg by mouth twice a day. On today's evaluation of 06/12/2020, the patient is feeling very much depressed. He is stating that he set up with his condition and he is ready to go and diet. He is a bit tearful also. I was able to get him off the 100% on a beta facemask and currently is only on high flow oxygen at 60 L with an FiO2 of 80%. His pulse ox is above 88%. He is able to swallow. He has a in front of him. His oral intake is minimal or lower this point in time. He has no significant cough. He is a bit lethargic. No fever. No nausea. No vomiting. No abdominal pain. He remains on IV cefepime. Chest x-ray showing some limited improvement in the aeration bilaterally. There is however the excess amount of consolidation. The patient remains on IV Solu-Medrol. He is still in a controlled atrial fibrillation and the patient is on long-term anticoagulation with Eliquis 5 mg by mouth twice a day. He is also taking the Lasix doses IV. Blood sugars are being controlled with NovoLog 7030 minutes 20 in the evening and 30 units in the morning. He is also on Actos. on 06/13/2020, the patient is on 60 L with an 80% FiO2. On the monitor, his pulse ox is 92%. I think he should be able to wean down further. He was feeling quite depressed yesterday. It added Lexapro to his regimen. He remains on IV cefepime. He remains on Eliquis 5 mg by mouth twice a day. He remains on IV Decadron. His chest x-ray is showing some improvement/on the right side. The patient is much improved in terms of his energy level and his ability to communicate and swallow foods. No aspiration. o nausea. No vomiting. No diarrhea. His cardiac rhythm as atrial fibrillation and the rate is controlled for now. He is afebrile.tthe LDH is down to 1545 and a CRP level is down to 7.8. On 06/14/2022 patient remains on 55 L with an FiO2 of 90% and he is also utilizing 100% nonrebreather facemask. He has a congested cough. He was given Lasix without any improvement. His chest x-ray still showing diffuse bilateral pulmonary infiltrates, unchanged from yesterday. He is a bit lethargic. He had T is unresponsive. He is awake. He is able to cough. At times is bringing up some sputum. No fever. No chills. His LDH is gradually improving. The LDH is down to 1406 she is lower and the patient's CRP level is down to 50.8. The pro-calcitonin level is low. The patient is on Decadron. The patient is on daily Lasix. The patient remains in a adequate fluid balance. He remains in atrial fibrillation. He is taking oral intake. He is able to swallow adequately. No nausea. No vomiting. No emesis. On 06/15/2020, patient is on a high flow oxygen at 60 L and an FiO2 of 90%. He was briefly taken off the 100% nonrebreather yesterday. He did well for a while. Subsequently, he desaturated and had to be placed back. No chest x-ray from today. Blood work from today shows no major abnormalities. The LDH level is 1419 100 comparable to yesterday. CRP level is high at 65.8. Renal function stable with a creatinine of 0.8. The patient is on Decadron. He is still vocal. He communicates. No altered mentation. He was bringing up some sputum. Note that the previous sputum culture was positive for Pseudomonas and the patient was started on IV cefepime. Diflucan was also added by yvonne yepez for oropharyngeal candidiasis. The patient remains in atrial fibrillation. No improvement in his condition. He is at a standstill in terms of his colon 19 related pneumonia. He is able to swallow. Oral intake remains low and the patient is taking around 20% of his caloric intake. He was started on Lexapro for some underlying low more than depression. On 06/16/2020 patient seen in follow-up in the intensive care unit, he remains on high flow oxygen per Airvo at 60 l, and Fio2 of 90%, in addition to 100% nonrebreather, with a pulse ox of 93%. Patient has received a course of Remdes ivir, remains on Decadron, and received 1 unit of normal less than plasma. He was found to have a pseudomonal infection in the sputum, and he remains on cefepime for that, in addition to the rectus, ID service is following. His been afebrile,, dynamically stable, he is on IV 0.8 normal saline at a rate of 50 ML per hour. He remains on Decadron 6 mg daily, she is on Robitussin, Pepcid, Martinez E, zinc, vitamin D, on Eliquis for anticoagulation. He is lethargic, but arousable, denies any acute distress, his chest x-ray today shows a patchy infiltrates throughout both lungs right greater than the left, slightly improved. No complaints of chest discomfort, has had no nausea vomiting or diarrhea, no abdominal pain, his labs 7 reviewed, showing white blood cell count of 12, hemoglobin of 12.7, electrolytes were within normal limits, BUN of 30 and creatinine 0.7 On 06/23/2020 patient seen in follow-up on selective care unit, he remains on high flow oxygen, per Airvo at 55 L and FiO2 of 80%, his pulse ox is between 91- 95%, blood pressure stable, he is afebrile, he is very confused, remains on IV Solu-Medrol, oral Eliquis, melatonin, vitamin supplements, Pepcid. He is on cefepime for the pseudomonal pneumonia. Yesterday chest x-ray showed no significant change from the earlier study, showing patchy airspace disease with predominance at the periphery in the mid to lower lung zones, right worse than the left lung. Denies any chest pain, has a cough, which is nonproductive, patient is not able to bring up any sputum, no significant congestion, no vomiting, no nausea, no diarrhea, or abdominal pain. On 06/24/2020 patient seen in follow-up on selective care unit. He remains on Airvo 55 L and FiO2 of 80%, his pulse ox is about 92%, he is been afebrile, hemodynamically he remains stable. She reports a concern for possible aspiration as the patient sounds more wet and congested after eating, and swallow evaluation is pending, patient underwent modified barium swallow, showed didier aspiration with thin liquids, and patient coughed following the aspiration, there was a transient laryngeal penetration on the remainder of the exam. Patient is on IV steroids, with 40 mg every 8 hours, he is on breathing treatments, had any blood work done in the last several days, he denies any chest pain, he does cough, and sounds congested, patient has completed a course of antibiotics including cefepime and Eraxis. He is also complicated Remdesivir treatment, and received 1 unit of convalescent plasma. On 06/25/2020 patient seen in follow-up on selective care unit, he still r equiring high flow oxygen, per Airvo of 55l, Fio2 60%. FiO2 needs slightly improved, afebrile, remains. Short of breath with any exertion and with conversation, no significant improvement. Patient was noted to be aspirating with thin liquids on his modified barium swallow, and dysphagia level III diet with chopped food and nectar thick liquids and one-to-one supervision is recommended per speech therapy. No new chest x-ray today, today's labs have been reviewed, including blood blood cell count of 8.8, hemoglobin 12.4, d-dimer needs to improve, down to 0.7 on today's labs, CO2 33, sodium is 136, last electrolytes and renal profile are relatively unremarkable. LDH is improving, pro-calcitonin is low at 0.12 suggesting absence of bacterial infection, CRP is actually increased to 59. He services following, and agree that there is no need for antibiotics right now Objective - Vital Signs Vital signs: Vital Signs Temp 97.7 F 06/25/20 12:00 Pulse 71 06/25/20 12:00 Resp 24 06/25/20 12:00 BP 131/78 06/25/20 12:00 Pulse Ox 96 06/25/20 12:38 Intake & Output 06/24/20 06/25/20 06/25/20 18:59 06:59 18:59 Intake Total 250 360 Output Total 323 602 1 Balance -73 -242 -1 Weight 101.5 kg 101.5 kg Intake: Oral 250 360 Output: Urine 320 600 Stool 3 2 1 Other: Voiding Method Indwelling Catheter Indwelling Catheter Indwelling Catheter # Voids 1 - Exam GENERAL EXAM: Alert, very pleasant, 74-year-old white male, on Airvo at 55 L and FiO2 of 60% with a pulse ox of 95% comfortable in no apparent distress. HEAD: Normocephalic/atraumatic. EYES: Normal reaction of pupils, equal size. Conjunctiva pink, sclera white. NOSE: Clear with pink turbinates. THROAT: No erythema or exudates. NECK: No masses, no JVD, no thyroid enlargement, no adenopathy. CHEST: No chest wall deformity. Symmetrical expansion. LUNGS: Equal air entry with no crackles, wheeze, rhonchi or dullness. CVS: Regular rate and rhythm, normal S1 and S2, no gallops, no murmurs, no rubs ABDOMEN: Soft, nontender. No hepatosplenomegaly, normal bowel sounds, no guarding or rigidity. EXTREMITIES: No clubbing, no edema, no cyanosis, 2+ pulses and upper and lower extremities. MUSCULOSKELETAL: Muscle strength and tone normal. SPINE: No scoliosis or deformity SKIN: No rashes CENTRAL NERVOUS SYSTEM: Alert and oriented -2. No focal deficits, tone is normal in all 4 extremities. PSYCHIATRIC: Alert and oriented -2. Appropriate affect. Intact judgment and insight. - Labs CBC & Chem 7: 06/25/20 06:55 06/25/20 06:55 Labs: Abnormal Lab Results - Last 24 Hours (Table) 06/18/20 06/24/20 06/24/20 Range/Units 04:14 17:21 21:47 RBC (4.30-5.90) m/uL Hgb (13.0-17.5) gm/dL Hct (39.0-53.0) % RDW (11.5-15.5) % Plt Count (150-450) k/uL Lymphocytes # (1.0-4.8) k/uL D-Dimer (<0.60) mg/L FEU Sodium (137-145) mmol/L Carbon Dioxide (22-30) mmol/L BUN (9-20) mg/dL Creatinine (0.66-1.25) mg/dL Glucose (74-99) mg/dL POC Glucose (mg/dL) 232 H 266 H (75-99) mg/dL Lactate Dehydrogenase (313-618) U/L LD Isoenzymes 353 H (120-250) U/L C-Reactive Protein (<10.0) mg/L Procalcitonin (0.02-0.09) ng/mL 06/25/20 06/25/20 06/25/20 Range/Units 06:00 06:55 06:55 RBC 4.25 L (4.30-5.90) m/uL Hgb 12.4 L (13.0-17.5) gm/dL Hct 38.8 L (39.0-53.0) % RDW 16.4 H (11.5-15.5) % Plt Count 145 L D (150-450) k/uL Lymphocytes # 0.5 L (1.0-4.8) k/uL D-Dimer (<0.60) mg/L FEU Sodium (137-145) mmol/L Carbon Dioxide (22-30) mmol/L BUN (9-20) mg/dL Creatinine (0.66-1.25) mg/dL Glucose (74-99) mg/dL POC Glucose (mg/dL) 143 H (75-99) mg/dL Lactate Dehydrogenase (313-618) U/L LD Isoenzymes (120-250) U/L C-Reactive Protein (<10.0) mg/L Procalcitonin 0.12 H (0.02-0.09) ng/mL 06/25/20 06/25/20 06/25/20 Range/Units 06:55 06:55 12:51 RBC (4.30-5.90) m/uL Hgb (13.0-17.5) gm/dL Hct (39.0-53.0) % RDW (11.5-15.5) % Plt Count (150-450) k/uL Lymphocytes # (1.0-4.8) k/uL D-Dimer 0.70 H (<0.60) mg/L FEU Sodium 136 L (137-145) mmol/L Carbon Dioxide 33 H (22-30) mmol/L BUN 26 H (9-20) mg/dL Creatinine 0.63 L (0.66-1.25) mg/dL Glucose 109 H (74-99) mg/dL POC Glucose (mg/dL) 169 H (75-99) mg/dL Lactate Dehydrogenase 1035 H (313-618) U/L LD Isoenzymes (120-250) U/L C-Reactive Protein 59.0 H (<10.0) mg/L Procalcitonin (0.02-0.09) ng/mL Assessment and Plan Plan: #1. Acute hypoxic respiratory failure related to COVID 19 pneumonitis, which has progressed since admission, and patient is currently on AIRVO at 55 L and FiO2 of 60%. His chest x-ray still from yesterday was still showing diffuse bilateral pulmonary infiltrates, unchanged compared to earlier chest x-rays.. Patient has completed Remdesivir course on 05/31/2020 and received convalescent immunoglobulin and the patient is on IV Decadron. Patient has completed a course of cefepime for pseudomonal pneumonia. The pro-calcitonin level is low. LDH level continues to be elevated. CRP level is also elevated. #2. Dysphagia, and the patient was found to have didier silent aspiration mild to moderate with thin liquids, and transient penetration noted with subsequent trials, currently on dysphagia level III diet #2. Increased d-dimer of 18 and then drop down to 11 and then down to 3., patient has been on Eliquis, CTA chest showed no evidence of pulmonary embolism #3. Diabetes mellitus type 2, on Levemir and sliding scale #4. GERD/reflux #5. Hyperlipidemia #6. History of hypertension #. Obesity #8. Paroxysmal atrial fibrillation current rhythm is sinus and the patient is on anticoagulation with Eliquis. #9. depression Plan: Follow-up chest x-ray in the morning, continue weaning FiO2, continue diet with thickened liquids and one-to-one supervision per speech therapy recommendations, no need for antibiotics, procalcitonin level low, continue with IV steroids, maintain aspiration precautions, will continue to follow I performed a history & physical examination of the patient and discussed their management with my nurse practitioner, Brigid Cody. I reviewed the nurse practitioner's note and agree with the documented findings and plan of care. Lung sounds are positive for diminished breath sounds. The findings and the impression was discussed with the patient. I attest to the documentation by the nurse practitioner. Time with Patient: Less than 30 Time with Patient: Less than 30
[2020-06-25 16:42] LABS: Glucose,Whole Blood 180 mg/dL (75-99)
--- NOTE | 2020-06-25 19:12 | PN ---
PROGRESS NOTE DATE OF SERVICE: 06/25/2020. CHIEF COMPLAINT: COVID pneumonia with no improvement. HISTORY OF PRESENT ILLNESS: This gentleman seemed just about the same. He remains weak and essentially bedridden. Pulse ox is running in the low 90s. He is not eating. He may be aspirating. PHYSICAL EXAMINATION: He is afebrile. Chest demonstrates scattered rales. Cardiac exam is unremarkable with atrial fibrillation. Abdomen is soft. IMPRESSION: 1. COVID pneumonia with little or no improvement. 2. Possible aspiration. 3. Diabetes. PLAN: Continue with current program. Sugars have come down significantly. Long-term outlook is still very poor. MMODL / IJN: [id number] /
[2020-06-25 20:26] LABS: Glucose,Whole Blood 122 mg/dL (75-99)
[2020-06-25] MEDS: OXYBUTYNIN 15 MG TAB.ER.24 PO SCH (21:05)
[2020-06-25] MEDS: PIOGLITAZONE 30 MG TAB PO SCH (21:05)
[2020-06-25] MEDS: MELATONIN 5 MG TABLET PO SCH (21:05)
[2020-06-25] MEDS: TAMSULOSIN 0.4 MG CAP.ER.24H PO SCH (21:17)
[2020-06-26] MEDS: SODIUM CHLORIDE 0.9% 1,000 ML IV SCH (05:34)
[2020-06-26] MEDS: INSULIN DETEMIR (LEVEMIR) 100 UNIT/ML SYR SQ SCH (07:16)
[2020-06-26] MEDS: INSULIN ASPART (NovoLOG) 100 UNIT/ML VIAL SQ SCH ×4 (07:17→20:57)
[2020-06-26] MEDS: SULFACETAMIDE SOD 10% OPHTH DROPS 15 ML BTL RIGHT EYE SCH ×4 (07:17→23:46)
[2020-06-26] MEDS: ALBUTEROL HFA INHALER INHALATION SCH ×4 (07:35→19:53)
[2020-06-26] MEDS: SYMBICORT 160-4.5 MCG INHALER INHALATION SCH ×2 (07:35→19:53)
[2020-06-26] MEDS: methylPREDNISolone SOD SUCCI 40 MG/ML 1 ML VIAL IV SCH ×3 (08:38→23:46)
[2020-06-26] MEDS: FAMOTIDINE 20 MG TAB PO SCH (08:39)
[2020-06-26] MEDS: CHOLECALCIFEROL 400 UNIT TAB PO SCH (08:39)
[2020-06-26] MEDS: ESCITALOPRAM 10 MG TAB PO SCH (08:39)
[2020-06-26] MEDS: ASCORBIC ACID 500 MG TAB PO SCH (08:39)
[2020-06-26] MEDS: APIXABAN 5 MG TAB PO SCH ×2 (08:39→20:56)
[2020-06-26] MEDS: ZINC SULFATE 220 MG CAP PO SCH (08:39)
[2020-06-26] MEDS ORDERED: HALOPERIDOL LACTATE 5 MG/ML 1 ML VIAL ONE (12:59)
[2020-06-26 13:10] LABS: HCT 40.7 % (39.0-53.0); HGB 13.4 gm/dL (13.0-17.5); MCH 30.1 pg (25.0-35.0); MCHC 32.9 g/dL (31.0-37.0); MCV 91.6 fL (80.0-100.0); Mean Platelet Volume 7.2; Platelet Count 187 k/uL (150-450); RBC 4.44 m/uL (4.30-5.90); WBC 7.1 k/uL (3.8-10.6)
--- NOTE | 2020-06-26 13:26 | PN ---
PROGRESS NOTE This is a patient who was admitted way back on May 27. The patient was admitted with a diagnosis of acute hypoxemic respiratory failure secondary to COVID-19 pneumonia. The patient remains on AIRVO. His oxygenation does seem to be improving and that his current settings include 55 L/minute with a FiO2 of 55%. With that, saturations are in the low 90s. Other than that, he is doing about the same. Today, he was sleeping. We did not wake him. He seemed to be relatively comfortable. He did not appear to have any complaints according to the nurses. PHYSICAL EXAMINATION: VITAL SIGNS: Current vital signs include temperature 98, heart rate 80, respiratory rate 20, blood pressure 141/76, mean 97, saturations are in the low 90s on the AIRVO. HEENT: Examination is grossly unremarkable. AIRVO cannula noted. NECK: Supple. Full range of motion. No adenopathy or thyromegaly. Neck veins are flat. CARDIOVASCULAR: Examination reveals regular rhythm and rate. Heart rate 80 beats per minute. S1, S2 normal. Heart sounds distant. LUNGS: Reveal diffuse coarse rhonchi and crackles. Breath sounds equal. ABDOMEN: Obese. Bowel sounds are heard. EXTREMITIES: Are intact. No significant edema. No cyanosis or clubbing. SKIN: Without rash. NEUROLOGIC: Examination is nonfocal. LABS: Labs are reviewed. Nothing new from today. Microbiology showing evidence of Pseudomonas aeruginosa in the sputum from June 05. No recent chest x-ray. The last chest x-ray was done on the . It shows patchy peripheral infiltrates, essentially unchanged. MEDICATIONS: Medications are reviewed. The patient is on Tylenol, albuterol inhaler, Eliquis, Artificial Tears, vitamin C, Symbicort, vitamin D3, Lexapro, Pepcid, Robitussin, insulin, melatonin, Solu-Medrol, Narcan, Zofran, Ditropan XL, Actos, potassium replacement, eye drops, Flomax and zinc. ASSESSMENT: 1. Acute hypoxemic respiratory failure secondary to COVID-19 pneumonitis/pneumonia, currently on AIRVO at 55 L/minute with a FiO2 of 55%. The patient did receive remdesivir, convalescent plasma, and IV Decadron. 2. Probable chronic aspiration, currently being evaluated by speech pathology. 3. No evidence of pulmonary embolism on CT angiogram. 4. Diabetes mellitus, type 2. 5. Gastroesophageal reflux disease. 6. Hyperlipidemia. 7. Obesity. 8. Hypertension. 9. Paroxysmal atrial fibrillation. 10.Depression. PLAN: Currently, the patient seems to be doing a bit better. His FiO2 requirements have come down a bit. We will continue to follow. Prognosis is guarded. He has been in the hospital now for 27 days. Prognosis is guarded. MMODL / IJN: [id number] /
[2020-06-26 13:27] LABS: ALT 61 U/L (4-49); AST 41 U/L (17-59); African American GFR (CKD) >90 (>60 ml/min/1.73 sqM); Alkaline Phosphatase 61 U/L (38-126); Anion Gap 4 mmol/L; Blood Urea Nitrogen 28 mg/dL (9-20); Calcium 8.9 mg/dL (8.4-10.2); Carbon Dioxide 28 mmol/L (22-30); Chloride 103 mmol/L (98-107); Glucose 171 mg/dL (74-99); Non-African American GFR(CKD) >90 (>60 ml/min/1.73 sqM); Potassium 4.9 mmol/L (3.5-5.1); Sodium 135 mmol/L (137-145); Total Bilirubin 1.4 mg/dL (0.2-1.3); Total Protein 6.2 g/dL (6.3-8.2)
--- NOTE | 2020-06-26 13:53 | PN ---
PROGRESS NOTE DATE OF SERVICE: 06/26/2020. CHIEF COMPLAINT: COVID pneumonia. HISTORY OF PRESENT ILLNESS: This patient is stable. There has been no significant change either way. He is still on high-flow oxygen. He is still weak and he is not eating well. PHYSICAL EXAMINATION: Physical exam demonstrates poor breath sounds bilaterally and he is weak. Cardiac exam reveals tachycardia. Abdomen is protuberant and soft. IMPRESSION: 1. COVID pneumonia. 2. Secondary bacterial pneumonia. 3. Aspiration. 4. Diabetes. 5. Obesity. PLAN: He will continue on current management until he improves enough that his O2 can be decreased. MMODL / IJN: [id number] /
[2020-06-26 13:57] LABS: Basophils # (M) 0.07 k/uL (0-0.2); Monocytes # (M) 0.71 k/uL (0-1.0); Neutrophils # (M) 5.82 k/uL (1.3-7.7); Neutrophils % (M) 82 %; Nucleated Red Blood Cells 0 /100 WBC (0-0); Total Cells Counted 100
[2020-06-26 13:58] LABS: Anisocytosis (M) Present
--- NOTE | 2020-06-26 14:14 | P.GSCN ---
History of Present Illness Consult date: 06/26/20 Reason for Consult: Malnutrition History of present illness: Is a 74-year-old male admitted Dr. Tomlinson service. Patient has had poor nutrition. I've asked him regarding PEG tube placement. Patient unable to give any significant medical history. Past Medical History Past Medical History: Diabetes Mellitus, GERD/Reflux, Hyperlipidemia, Hypertension Additional Past Medical History / Comment(s): leg pain History of Any Multi-Drug Resistant Organisms: None Reported Past Surgical History: Hernia Repair Additional Past Surgical History / Comment(s): umbilical hernia rep Past Anesthesia/Blood Transfusion Reactions: No Reported Reaction Past Psychological History: No Psychological Hx Reported Smoking Status: Never smoker Past Alcohol Use History: None Reported Past Drug Use History: None Reported - Past Family History Mother Additional Family Medical History / Comment(s): of heart attack, patient states had heart problems Medications and Allergies Home Medications Medication Instructions Recorded Confirmed Type Cholecalciferol [Vitamin D3 (25 1,000 unit PO DAILY 09/04/14 05/27/20 History Mcg = 1000 Iu)] Omeprazole [PriLOSEC] 20 mg PO DAILY 09/04/14 05/27/20 History Apixaban [Eliquis] 5 mg PO BID #60 tab 05/31/16 05/27/20 Rx Insuln Asp Prt/Insulin Aspart 20 unit SQ HS 01/06/18 05/27/20 History [NovoLOG MIX 70-30 VIAL] Insuln Asp Prt/Insulin Aspart 30 unit SQ QAM 01/06/18 05/27/20 History [NovoLOG MIX 70-30 VIAL] Oxybutynin Chloride [Oxybutynin 15 mg PO HS 05/27/20 05/27/20 History Chloride ER] Pioglitazone [Actos] 30 mg PO HS 05/27/20 05/27/20 History Tamsulosin [Flomax] 0.4 mg PO HS 05/27/20 05/27/20 History amLODIPine [Norvasc] 5 mg PO HS 05/27/20 05/27/20 History Allergies Allergy/AdvReac Type Severity Reaction Status Date / Time No Known Allergies Allergy Verified 05/27/20 07:01 Surgical - Exam Vital Signs Temp Pulse Resp BP Pulse Ox 98.6 F 104 H 24 135/63 96 05/27/20 01:01 05/27/20 01:01 05/27/20 01:01 05/27/20 01:01 05/27/20 01:01 - General well developed, well nourished, no distress - Eyes PERRL - ENT normal pinna - Neck no masses - Respiratory normal expansion - Abdomen Abdomen: soft, non tender Results - Labs 06/26/20 12:51 06/26/20 12:51 Abnormal Lab Results - Last 24 Hours (Table) 06/25/20 06/25/20 06/26/20 Range/Units 16:41 20:23 12:51 RDW 16.0 H (11.5-15.5) % Lymphocytes # (Manual) 0.50 L (1.0-4.8) k/uL Sodium (137-145) mmol/L BUN (9-20) mg/dL Creatinine (0.66-1.25) mg/dL Glucose (74-99) mg/dL POC Glucose (mg/dL) 180 H 122 H (75-99) mg/dL Total Bilirubin (0.2-1.3) mg/dL ALT (4-49) U/L Total Protein (6.3-8.2) g/dL Albumin (3.5-5.0) g/dL 06/26/20 Range/Units 12:51 RDW (11.5-15.5) % Lymphocytes # (Manual) (1.0-4.8) k/uL Sodium 135 L (137-145) mmol/L BUN 28 H (9-20) mg/dL Creatinine 0.49 L (0.66-1.25) mg/dL Glucose 171 H (74-99) mg/dL POC Glucose (mg/dL) (75-99) mg/dL Total Bilirubin 1.4 H (0.2-1.3) mg/dL ALT 61 H (4-49) U/L Total Protein 6.2 L (6.3-8.2) g/dL Albumin 3.0 L (3.5-5.0) g/dL Diabetes panel 06/26/20 Range/Units 12:51 Sodium 135 L (137-145) mmol/L Potassium 4.9 (3.5-5.1) mmol/L Chloride 103 (98-107) mmol/L Carbon Dioxide 28 (22-30) mmol/L BUN 28 H (9-20) mg/dL Creatinine 0.49 L (0.66-1.25) mg/dL Glucose 171 H (74-99) mg/dL Calcium 8.9 (8.4-10.2) mg/dL AST 41 (17-59) U/L ALT 61 H (4-49) U/L Alkaline Phosphatase 61 (38-126) U/L Total Protein 6.2 L (6.3-8.2) g/dL Albumin 3.0 L (3.5-5.0) g/dL Calcium panel 06/26/20 Range/Units 12:51 Calcium 8.9 (8.4-10.2) mg/dL Albumin 3.0 L (3.5-5.0) g/dL Pituitary panel 06/26/20 Range/Units 12:51 Sodium 135 L (137-145) mmol/L Potassium 4.9 (3.5-5.1) mmol/L Chloride 103 (98-107) mmol/L Carbon Dioxide 28 (22-30) mmol/L BUN 28 H (9-20) mg/dL Creatinine 0.49 L (0.66-1.25) mg/dL Glucose 171 H (74-99) mg/dL Calcium 8.9 (8.4-10.2) mg/dL Adrenal panel 06/26/20 Range/Units 12:51 Sodium 135 L (137-145) mmol/L Potassium 4.9 (3.5-5.1) mmol/L Chloride 103 (98-107) mmol/L Carbon Dioxide 28 (22-30) mmol/L BUN 28 H (9-20) mg/dL Creatinine 0.49 L (0.66-1.25) mg/dL Glucose 171 H (74-99) mg/dL Calcium 8.9 (8.4-10.2) mg/dL Total Bilirubin 1.4 H (0.2-1.3) mg/dL AST 41 (17-59) U/L ALT 61 H (4-49) U/L Alkaline Phosphatase 61 (38-126) U/L Total Protein 6.2 L (6.3-8.2) g/dL Albumin 3.0 L (3.5-5.0) g/dL Assessment and Plan Assessment: Malnutrition We'll perform PEG tube placement on Tuesday
[2020-06-26] MEDS: ACETAMINOPHEN TAB 325 MG TAB PO PRN (14:51)
--- NOTE | 2020-06-26 17:21 | XR ---
EXAM: XR Chest, 1 View CLINICAL HISTORY: ITS.REASON XR Reason: progress TECHNIQUE: Frontal view of the chest. COMPARISON: Chest radiograph on 06/24/2020 FINDINGS: Hardware: None. Lungs/pleura: Patchy opacities in the right greater than left mid and lower lungs, grossly similar to minimally increased compared to prior exam. Stable elevation of the right hemidiaphragm. Small bilateral pleural effusions are not excluded. Low lung volumes. Heart/mediastinum: Stable enlargement of the cardiac silhouette. Atherosclerotic calcifications in the aorta. Soft tissues: Unremarkable. Bones: No acute fracture. Degenerative changes of the spine. Upper abdomen: Normal. IMPRESSION: 1. Patchy opacities in the right greater than left mid and lower lungs, grossly similar to minimally increased compared to prior exam. 2. Small bilateral pleural effusions are not excluded.
[2020-06-26] MEDS: MELATONIN 5 MG TABLET PO SCH (20:56)
[2020-06-26] MEDS: TAMSULOSIN 0.4 MG CAP.ER.24H PO SCH ×2 (20:56→21:32)
[2020-06-26] MEDS: PIOGLITAZONE 30 MG TAB PO SCH (20:56)
[2020-06-26] MEDS: OXYBUTYNIN 15 MG TAB.ER.24 PO SCH (20:57)
[2020-06-27] MEDS: SODIUM CHLORIDE 0.9% 1,000 ML IV SCH (03:27)
[2020-06-27] MEDS: INSULIN ASPART (NovoLOG) 100 UNIT/ML VIAL SQ SCH ×4 (06:29→20:26)
[2020-06-27] MEDS: SULFACETAMIDE SOD 10% OPHTH DROPS 15 ML BTL RIGHT EYE SCH ×4 (06:48→22:47)
[2020-06-27] MEDS: FAMOTIDINE 20 MG TAB PO SCH (08:22)
[2020-06-27] MEDS: ASCORBIC ACID 500 MG TAB PO SCH (08:22)
[2020-06-27] MEDS: CHOLECALCIFEROL 400 UNIT TAB PO SCH (08:23)
[2020-06-27] MEDS: ESCITALOPRAM 10 MG TAB PO SCH (08:23)
[2020-06-27] MEDS: APIXABAN 5 MG TAB PO SCH ×2 (08:23→20:15)
[2020-06-27] MEDS: ZINC SULFATE 220 MG CAP PO SCH (08:23)
[2020-06-27] MEDS: methylPREDNISolone SOD SUCCI 40 MG/ML 1 ML VIAL IV SCH ×3 (08:27→22:46)
[2020-06-27] MEDS: INSULIN DETEMIR (LEVEMIR) 100 UNIT/ML SYR SQ SCH (08:33)
[2020-06-27] MEDS: ALBUTEROL HFA INHALER INHALATION SCH ×4 (08:53→20:07)
[2020-06-27] MEDS: SYMBICORT 160-4.5 MCG INHALER INHALATION SCH ×2 (08:53→20:07)
--- NOTE | 2020-06-27 14:17 | PN ---
PROGRESS NOTE PULMONARY/CRITICAL CARE PROGRESS NOTE: DATE OF SERVICE: 06/27/2020 This is a 74-year-old gentleman with a history of COVID-19 pneumonia and acute hypoxemic respiratory failure. The patient was admitted back on May 27. Currently he remains on AIRVO. His oxygen requirements have declined. He appears very depressed. When he was admitted, both he and his for admitted the same time. She was subsequently discharged to [facility]. When I asked him how he is doing, he just sort of shakes his head. PHYSICAL EXAMINATION: VITAL SIGNS: Current vital signs include temperature 97.8, heart rate 78, respiratory rate 22, blood pressure 131/73, mean 92. Currently, he is on AIRVO. His settings are 55 L/minute and FiO2 of 55%. His saturations on that are between 92 and 94%. Appears in no acute distress. There is no conversational dyspnea, audible wheezing or use of accessory muscles. HEENT: Examination is grossly unremarkable. AIRVO cannula noted. NECK: Supple. Full range of motion. No adenopathy. Neck veins are flat. CARDIOVASCULAR: Examination reveals regular rhythm and rate. Heart rate 78 beats per minute. S1, S2 normal. Heart sounds distant. LUNGS: Reveal diffuse coarse rhonchi. ABDOMEN: Obese. Bowel sounds are heard. EXTREMITIES are intact. No significant edema. No cyanosis or clubbing. SKIN: Without rash. NEUROLOGIC: Examination is nonfocal. LABS: Reviewed. Nothing new from today as yet. Microbiology includes sputum on June 05 showing Pseudomonas aeruginosa. That was treated. Chest x-ray last done on the and that shows stable bilateral infiltrates. CURRENT MEDICATIONS: Reviewed. The patient is on Tylenol, albuterol inhaler, Eliquis, Artificial Tears, vitamin C, Symbicort, vitamin D3, Lexapro, Pepcid, Robitussin, insulin, melatonin, Solu- Medrol, Narcan, Zofran, Ditropan, Actos, potassium replacement, eye drops, Flomax and zinc. ASSESSMENT: 1. Acute hypoxemic respiratory failure secondary to COVID-19 pneumonitis/pneumonia, currently on AIRVO at 55 L/minute with a FiO2 of 55%. The patient had been previously treated with Remdesivir, plasma, and Decadron. 2. Probable chronic aspiration, currently being evaluated by speech pathology. 3. No evidence of pulmonary embolism on CT angiogram. 4. Diabetes mellitus, type 2. 5. Gastroesophageal reflux disease. 6. Hyperlipidemia. 7. Obesity. 8. Hypertension. 9. Paroxysmal atrial fibrillation. 10.Depression. PLAN: The patient remains on AIRVO. He seems to be more and more depressed daily. He and his were admitted at the same time. She has subsequently been discharged to [facility]. I am not sure if she is still there now. He remains on AIRVO. His oxygen requirements have come down. No additional recommendations are made. We will continue to follow. MMODL / IJN: [id number] /
--- NOTE | 2020-06-27 15:01 | P.PN ---
Subjective Progress Note Date: 06/27/20 CHIEF COMPLAINT: Inadequate protein malnutrition HISTORY OF PRESENT ILLNESS: The patient is a 74-year-old male with COVID-19 including prolonged hospitalization. Patient reports low appetite. He is not ea ting. He is on respiratory support. He has history of severe dysphagia and aspiration. ROS: No fevers or chills. Decreased appetite. He is on Airvo PHYSICAL EXAM: VITAL SIGNS: Reviewed CONSTITUTIONAL: Well developed and in no acute distress. EYES: Conjuctivae without sclera icterus. Extraocular movements grossly intact. HEAD, EARS, NOSE, THROAT: Moist buccal mucosa. Head is atraumatic, no rmocephalic. Hears conversational speech. No nasal drainage. NECK: No thyroidomegaly. RESPIRATORY: Non-labored respirations and equal bilateral excursions. CARDIOVASCULAR: 2+ radial pulses. ABDOMEN: No peritonitis. MUSCULOSKELETAL: No gross deformity of the lower extremities noted. SKIN: Good skin turgor. Well perfused. NEUROLOGIC: Cranial nerves II through XII grossly intact. No focal or lateralizing signs. CLINICAL LABS: White blood cell count normal, 7.1 ASSESSMENT: 1. Inadequate protein intake 2. COVID 19 pneumonia 3. Dysphagia PLAN: 1. Recommedn gastrostomy tube placement for an adequate protein intake and dysphagia Objective - Vital Signs Vital signs: Vital Signs Temp 97.8 F 06/27/20 12:00 Pulse 78 06/27/20 13:45 Resp 22 06/27/20 13:45 BP 131/73 06/27/20 12:00 Pulse Ox 92 L 06/27/20 12:00 Intake & Output 06/26/20 06/27/20 06/27/20 18:59 06:59 18:59 Output Total 400 Balance -400 Weight 108 kg 102.5 kg Output: Urine 400 Other: Voiding Method Indwelling Catheter Indwelling Catheter Indwelling Catheter - Labs CBC & Chem 7: 06/26/20 12:51 06/26/20 12:51 Assessment and Plan (1) Dysphagia Current Visit: Yes Status: Acute Code(s): R13.10 - DYSPHAGIA, UNSPECIFIED SNOMED Code(s): 32155589 (2) Inadequate dietary intake of protein Current Visit: Yes Status: Acute Code(s): E63.9 - NUTRITIONAL DEFICIENCY, UNSPECIFIED SNOMED Code(s): 854876758 (3) COVID-19 Current Visit: Yes Status: Acute Code(s): U07.1 - COVID-19 SNOMED Code(s): 014594773 (4) Altered mental status Current Visit: No Status: Acute Code(s): R41.82 - ALTERED MENTAL STATUS, UNSPECIFIED SNOMED Code(s): 572580581
[2020-06-27] MEDS: PIOGLITAZONE 30 MG TAB PO SCH (20:15)
[2020-06-27] MEDS: MELATONIN 5 MG TABLET PO SCH (20:15)
[2020-06-27] MEDS: OXYBUTYNIN 15 MG TAB.ER.24 PO SCH (20:15)
[2020-06-27] MEDS: TAMSULOSIN 0.4 MG CAP.ER.24H PO SCH (20:15)
--- NOTE | 2020-06-27 22:22 | PN ---
PROGRESS NOTE DATE OF SERVICE: 06/27/2020 Main concern is Covid. INTERVAL HISTORY: Patient is currently afebrile. The patient is still requiring high-flow oxygen. The patient has failed his swallow and is scheduled for a PEG tube placement. No vomiting or diarrhea has been reported by the nursing staff. The patient himself is unable to provide any history. PHYSICAL EXAMINATION: His blood pressure is 134/70 with a pulse of 73, temperature 98.3. He is 98% on high- flow O2. General description is an elderly male lying in bed in no distress. RESPIRATORY SYSTEM: Unlabored breathing. Coarse breath sounds bilaterally. No wheeze. Heart S1, S2. Regular rate and rhythm. ABDOMEN: Soft, no tenderness. LABS: Hemoglobin 13.4, white count 7.1. BUN of 28, creatinine 0.49. DIAGNOSTIC IMPRESSION AND PLAN: Patient with acute respiratory failure which is multifactorial in this patient who did have a component of COVID-19 pneumonia in this patient who completed remdesivir therapy. Currently is currently on steroids albicans and zinc and respiratory support otherwise following the patient closely. Patient passed barium swallow. Clinically, not berhaving as aspiration pneumonia with normal white coiunt and no fever. Hence we will hold on any systemic antibiotic therapy at this point. MMODL / IJN: [id number] / MTDLars
[2020-06-27] MEDS: ONDANSETRON 4 MG/2 ML VIAL IVP PRN (22:47)
[2020-06-28] MEDS: SODIUM CHLORIDE 0.9% 1,000 ML IV SCH (00:41)
[2020-06-28] MEDS: INSULIN DETEMIR (LEVEMIR) 100 UNIT/ML SYR SQ SCH (06:31)
[2020-06-28] MEDS: INSULIN ASPART (NovoLOG) 100 UNIT/ML VIAL SQ SCH ×4 (06:31→21:40)
[2020-06-28] MEDS: SULFACETAMIDE SOD 10% OPHTH DROPS 15 ML BTL RIGHT EYE SCH ×4 (06:31→23:40)
[2020-06-28] MEDS: APIXABAN 5 MG TAB PO SCH ×2 (08:59→13:06)
[2020-06-28] MEDS: ASCORBIC ACID 500 MG TAB PO SCH (08:59)
[2020-06-28] MEDS: methylPREDNISolone SOD SUCCI 40 MG/ML 1 ML VIAL IV SCH ×3 (08:59→23:40)
[2020-06-28] MEDS: ZINC SULFATE 220 MG CAP PO SCH (09:00)
[2020-06-28] MEDS: ESCITALOPRAM 10 MG TAB PO SCH (09:00)
[2020-06-28] MEDS: CHOLECALCIFEROL 400 UNIT TAB PO SCH (09:00)
[2020-06-28] MEDS: FAMOTIDINE 20 MG TAB PO SCH (09:00)
[2020-06-28] MEDS: ALBUTEROL HFA INHALER INHALATION SCH ×4 (09:07→20:00)
[2020-06-28] MEDS: SYMBICORT 160-4.5 MCG INHALER INHALATION SCH ×2 (09:08→20:00)
--- NOTE | 2020-06-28 12:56 | PN ---
PROGRESS NOTE PULMONARY/CRITICAL CARE PROGRESS NOTE: DATE OF SERVICE: June 28, 2020. INTERVAL HISTORY: This is a 74-year-old gentleman with history of COVID-19 pneumonia and acute hypoxemic respiratory failure. He was admitted back on May 27. He remains on AIRVO. His oxygen requirements have declined. He appears to be depressed. I did ask the nurse to see if she could contact his Marianela at the [facility], so those two could speak. They were previously admitted on the same day, but she went home very quickly after admission. He has been in the hospital now for 29 days. The patient states he is doing about the same. He makes the motion with his hand that he is "so-so." PHYSICAL EXAMINATION: VITAL SIGNS: Temperature 97.8, heart rate 71, respiratory rate mid 20s about 25 breaths per minute. Blood pressure 120/69, and mean is 86. Saturations are 93%-95%. on the AIRVO at settings of 50 L/minute and FiO2 of 50%. GENERAL: Appears in no acute distress. Seems depressed. HEENT: Examination is grossly unremarkable. Neck is supple. Full range of motion. No adenopathy. Neck veins are flat. CARDIOVASCULAR: Examination reveals regular rhythm and rate. Heart rate 63 to 71 beats per minute. S1, S2 normal. Heart sounds are distant. LUNGS: Reveal diffuse coarse rhonchi. There are some bilateral crackles. No wheezes. ABDOMEN is obese. Bowel sounds are heard. EXTREMITIES are intact. Mild edema. SKIN: Without rash. NEUROLOGIC: Examination is nonfocal. No labs from today. Microbiology showing evidence of Pseudomonas aeruginosa in the sputum from June 05. No recent chest x-ray. CURRENT MEDICATIONS: Reviewed. The patient is on Tylenol, albuterol inhaler, Eliquis, Artificial Tears, vitamin C, Symbicort, vitamin D3, Lexapro, Pepcid, Robitussin, insulin, melatonin, Solu- Medrol, Narcan, Zofran, Ditropan XL, Actos, potassium replacement, sulfa eyedrops, saline at 20 mL an hour, Flomax and zinc. ASSESSMENT: 1. Acute hypoxemic respiratory failure secondary to COVID-19 pneumonitis/pneumonia, currently on AIRVO at 50 L/minute with a FiO2 of 50%. The patient has previously received Remdesivir, convalescent plasma, and Decadron. 2. Probable chronic aspiration, currently being evaluated by speech pathology. 3. No evidence of pulmonary embolism on CT angiogram. 4. Type 2 diabetes mellitus. 5. Gastroesophageal reflux disease. 6. Hyperlipidemia. 7. Obesity. 8. Hypertension. 9. Paroxysmal atrial fibrillation. 10.Depression. PLAN: I have asked the nurse to try to contact his , Marianela, who is residing at the [facility]. We will continue with the current recommendations. I asked him to try to keep the spirits up and not to give up. Additional recommendations and suggestions are forthcoming. I may add an antidepressant. This might help him. MMODL / IJN: [id number] /
[2020-06-28] MEDS: guaiFENesin SYRUP 100MG/5ML 200 MG/10 ML CUP PO PRN (13:02)
--- NOTE | 2020-06-28 14:03 | P.PN ---
Subjective Progress Note Date: 06/28/20 CHIEF COMPLAINT: Inadequate protein malnutrition HISTORY OF PRESENT ILLNESS: The patient is a 74-year-old male with COVID-19 including prolonged hospitalization. Per discussion with nursing, is tolerating applesauce with pills. Otherwise she has poor appetite. ROS: No fevers or chills. Decreased appetite. He is on Airvo PHYSICAL EXAM: VITAL SIGNS: Reviewed CONSTITUTIONAL: Well developed and in no acute distress. EYES: Conjuctivae without sclera icterus. Extraocular movements grossly intact. HEAD, EARS, NOSE, THROAT: Moist buccal mucosa. Head is atraumatic, normocephalic. Hears conversational speech. No nasal drainage. NECK: No thyroidomegaly. RESPIRATORY: Non-labored respirations and equal bilateral excursions. CARDIOVASCULAR: 2+ radial pulses. ABDOMEN: No peritonitis. MUSCULOSKELETAL: No gross deformity of the lower extremities noted. SKIN: Good skin turgor. Well perfused. NEUROLOGIC: Cranial nerves II through XII grossly intact. No focal or lateralizing signs. CLINICAL LABS: White blood cell count normal, 7.1 ASSESSMENT: 1. Inadequate protein intake 2. COVID 19 pneumonia 3. Dysphagia PLAN: 1. Encourage modified nectar diet 2. Stop blood thinners to decrease risk for bleeding 3. Gastrostomy deferred pending discontinue blood thinners Objective - Vital Signs Vital signs: Vital Signs Temp 98.1 F 06/28/20 12:59 Pulse 76 06/28/20 12:59 Resp 34 H 06/28/20 12:59 BP 132/73 06/28/20 12:59 Pulse Ox 92 L 06/28/20 12:59 Intake & Output 06/27/20 06/28/20 06/28/20 18:59 06:59 18:59 Intake Total 360 Output Total 375 Balance -15 Weight 98 kg Intake: Oral 360 Output: Urine 375 Other: Voiding Method Indwelling Catheter Indwelling Catheter Indwelling Catheter - Labs CBC & Chem 7: 06/26/20 12:51 06/26/20 12:51 Assessment and Plan (1) Dysphagia Current Visit: Yes Status: Acute Code(s): R13.10 - DYSPHAGIA, UNSPECIFIED SNOMED Code(s): 23119784 (2) Inadequate dietary intake of protein Current Visit: Yes Status: Acute Code(s): E63.9 - NUTRITIONAL DEFICIENCY, UNSPECIFIED SNOMED Code(s): 923327951 (3) COVID-19 Current Visit: Yes Status: Acute Code(s): U07.1 - COVID-19 SNOMED Code(s): 545143479 (4) Altered mental status Current Visit: No Status: Acute Code(s): R41.82 - ALTERED MENTAL STATUS, UNSPECIFIED SNOMED Code(s): 457540100
--- NOTE | 2020-06-28 16:21 | PN ---
PROGRESS NOTE DATE OF SERVICE: 06/28/2020. CHIEF COMPLAINT: Acute respiratory failure and coronavirus pneumonia. HISTORY OF PRESENT ILLNESS: The patient remains essentially the same. He is still not eating well and there is still concern for aspiration. He is to receive a PEG tube. PHYSICAL EXAMINATION: He is afebrile. Chest sounds are diminished bilaterally and cardiac exam is normal. IMPRESSION: 1. COVID pneumonia. 2. Aspiration pneumonia. 3. Diabetes. 4. Acute respiratory distress syndrome. PLAN: Continue to follow recommendations guidelines of Infectious Disease and Pulmonology at this point. MMODL / IJN: [id number] /
--- NOTE | 2020-06-28 16:21 | PN ---
PROGRESS NOTE DATE OF SERVICE: 06/27/2020. CHIEF COMPLAINT: COVID pneumonia. HISTORY OF PRESENT ILLNESS: This gentleman is doing about the same. He has requested to be DNR. PHYSICAL EXAMINATION: Breath sounds are diminished with scattered rales. Cardiac exam is unchanged. Abdomen is soft and nontender. IMPRESSION: 1. COVID pneumonia. 2. Acute respiratory failure. 3. Diabetes. PLAN: He continues to be followed and managed by Pulmonology and Infectious Disease with no significant improvement. MMODL / IJN: [id number] /
[2020-06-28] MEDS: MELATONIN 5 MG TABLET PO SCH (21:39)
[2020-06-28] MEDS: PIOGLITAZONE 30 MG TAB PO SCH (21:39)
[2020-06-28] MEDS: OXYBUTYNIN 15 MG TAB.ER.24 PO SCH (21:39)
[2020-06-28] MEDS: TAMSULOSIN 0.4 MG CAP.ER.24H PO SCH (21:39)
[2020-06-29] MEDS: SODIUM CHLORIDE 0.9% 1,000 ML IV SCH (00:18)
--- NOTE | 2020-06-29 01:02 | PN ---
PROGRESS NOTE DATE OF SERVICE: 06/28/2020 REASON FOR FOLLOWUP: Pneumonia. INTERVAL HISTORY: The patient is currently afebrile. The patient is breathing comfortably. Still requiring high-flow nasal cannula oxygen. No chest pain. No vomiting or diarrhea reported. Waiting for a PEG tube placement. PHYSICAL EXAMINATION: Blood pressure 136/73 with a pulse of 69, temperature 98.1. He is 90% on 50% FIO2. General description is an elderly male lying in bed in no distress. Respiratory system: Unlabored breathing, decreased breath sounds in the base, with no wheeze. Heart S1, S2. Regular rate and rhythm. Abdomen soft. No tenderness. LABS: Hemoglobin is 13.4, white count 7.1. BUN of 28, creatinine 0.49. DIAGNOSTIC IMPRESSION AND PLAN: Patient with acute Covid 19 pneumonia in this patient has been adequately treated. The patient is currently monitored closely off antibiotic therapy with concern for aspiration and planning for a PEG tube placement. Continue to hold on any antibiotic therapy at this point. Continue supportive care. MMODL / IJN: [id number] / ADAMS
[2020-06-29 04:03] LABS: HCT 41.4 % (39.0-53.0); HGB 13.7 gm/dL (13.0-17.5); MCH 30.5 pg (25.0-35.0); MCHC 33.1 g/dL (31.0-37.0); MCV 92.1 fL (80.0-100.0); Mean Platelet Volume 6.8; Platelet Count 239 k/uL (150-450); RBC 4.49 m/uL (4.30-5.90); RDW 15.9 % (11.5-15.5); WBC 7.6 k/uL (3.8-10.6)
[2020-06-29 04:09] LABS: African American GFR (CKD) >90 (>60 ml/min/1.73 sqM); Anion Gap 4 mmol/L; Blood Urea Nitrogen 30 mg/dL (9-20); Carbon Dioxide 28 mmol/L (22-30); Chloride 107 mmol/L (98-107); Glucose 145 mg/dL (74-99); Magnesium 2.1 mg/dL (1.6-2.3); Non-African American GFR(CKD) >90 (>60 ml/min/1.73 sqM); Sodium 139 mmol/L (137-145)
[2020-06-29] MEDS: INSULIN DETEMIR (LEVEMIR) 100 UNIT/ML SYR SQ SCH (06:44)
[2020-06-29] MEDS: INSULIN ASPART (NovoLOG) 100 UNIT/ML VIAL SQ SCH ×4 (06:44→21:12)
[2020-06-29] MEDS: SULFACETAMIDE SOD 10% OPHTH DROPS 15 ML BTL RIGHT EYE SCH ×3 (06:45→16:58)
[2020-06-29] MEDS: ALBUTEROL HFA INHALER INHALATION SCH ×4 (08:52→19:38)
[2020-06-29] MEDS: SYMBICORT 160-4.5 MCG INHALER INHALATION SCH ×2 (08:52→19:39)
[2020-06-29 09:30] LABS: Glucose,Whole Blood 177 mg/dL (75-99)
[2020-06-29 09:31] LABS: Glucose,Whole Blood 264 mg/dL (75-99)
[2020-06-29 09:32] LABS: Glucose,Whole Blood 92 mg/dL (75-99)
[2020-06-29 09:34] LABS: Glucose,Whole Blood 203 mg/dL (75-99)
[2020-06-29 09:35] LABS: Glucose,Whole Blood 139 mg/dL (75-99)
[2020-06-29 09:35] LABS: Glucose,Whole Blood 138 mg/dL (75-99)
[2020-06-29 09:35] LABS: Glucose,Whole Blood 166 mg/dL (75-99)
[2020-06-29 09:35] LABS: Glucose,Whole Blood 186 mg/dL (75-99)
[2020-06-29 09:37] LABS: Glucose,Whole Blood 195 mg/dL (75-99)
[2020-06-29 09:37] LABS: Glucose,Whole Blood 162 mg/dL (75-99)
--- NOTE | 2020-06-29 09:37 | P.PN ---
Subjective Progress Note Date: 06/29/20 CHIEF COMPLAINT: Inadequate protein malnutrition HISTORY OF PRESENT ILLNESS: The patient is a 74-year-old male with COVID-19 including prolonged hospitalization. He is resting comfortably. Overnight, he h ad troubles with breathing. Now back on Airvo. No reports of abdominal pain. ROS: No fevers or chills. Had shortness of breath now improved. PHYSICAL EXAM: VITAL SIGNS: Reviewed CONSTITUTIONAL: Well developed and in no acute distress. EYES: Conjuctivae without sclera icterus. Extraocular movements grossly intact. HEAD, EARS, NOSE, THROAT: Moist buccal mucosa. Head is atraumatic, normocep halic. Hears conversational speech. No nasal drainage. NECK: No thyroidomegaly. RESPIRATORY: Non-labored respirations and equal bilateral excursions. CARDIOVASCULAR: 2+ radial pulses. ABDOMEN: No peritonitis. MUSCULOSKELETAL: No gross deformity of the lower extremities noted. SKIN: Good skin turgor. Well perfused. NEUROLOGIC: Cranial nerves II through XII grossly intact. No focal or late ralizing signs. CLINICAL LABS: White blood cell count normal, 7.1, now 7.6 ASSESSMENT: 1. Inadequate protein intake 2. COVID 19 pneumonia 3. Dysphagia PLAN: 1. Blood thinners held 2. Gastrostomy placement for inadequate protein malnutrition. Objective - Vital Signs Vital signs: Vital Signs Temp 97 F L 06/29/20 04:00 Pulse 67 06/29/20 04:00 Resp 26 H 06/29/20 04:00 BP 140/82 06/29/20 04:00 Pulse Ox 98 06/29/20 04:00 Intake & Output 06/28/20 06/29/20 06/29/20 18:59 06:59 18:59 Output Total 100 Balance -100 Weight 92.5 kg Output: Urine 100 Other: Voiding Method Indwelling Catheter Indwelling Catheter - Labs CBC & Chem 7: 06/29/20 03:41 06/29/20 03:41 Labs: Abnormal Lab Results - Last 24 Hours (Table) 06/26/20 06/26/20 06/28/20 Range/Units 07:09 20:38 06:09 RDW (11.5-15.5) % BUN (9-20) mg/dL Creatinine (0.66-1.25) mg/dL Glucose (74-99) mg/dL POC Glucose (mg/dL) 177 H 264 H 203 H (75-99) mg/dL 06/28/20 06/28/20 06/28/20 Range/Units 11:57 16:43 20:11 RDW (11.5-15.5) % BUN (9-20) mg/dL Creatinine (0.66-1.25) mg/dL Glucose (74-99) mg/dL POC Glucose (mg/dL) 166 H 186 H 139 H (75-99) mg/dL 06/29/20 06/29/20 Range/Units 03:41 03:41 RDW 15.9 H (11.5-15.5) % BUN 30 H (9-20) mg/dL Creatinine 0.50 L (0.66-1.25) mg/dL Glucose 145 H (74-99) mg/dL POC Glucose (mg/dL) (75-99) mg/dL Assessment and Plan (1) Dysphagia Current Visit: Yes Status: Acute Code(s): R13.10 - DYSPHAGIA, UNSPECIFIED SNOMED Code(s): 82956671 (2) Inadequate dietary intake of protein Current Visit: Yes Status: Acute Code(s): E63.9 - NUTRITIONAL DEFICIENCY, UNSPECIFIED SNOMED Code(s): 446186407 (3) COVID-19 Current Visit: Yes Status: Acute Code(s): U07.1 - COVID-19 SNOMED Code(s): 340034119 (4) Altered mental status Current Visit: No Status: Acute Code(s): R41.82 - ALTERED MENTAL STATUS, UNSPECIFIED SNOMED Code(s): 124273019
[2020-06-29 09:38] LABS: Glucose,Whole Blood 153 mg/dL (75-99)
[2020-06-29 09:39] LABS: Glucose,Whole Blood 127 mg/dL (75-99)
[2020-06-29 09:39] LABS: Glucose,Whole Blood 165 mg/dL (75-99)
[2020-06-29 09:40] LABS: Glucose,Whole Blood 157 mg/dL (75-99)
[2020-06-29] MEDS: ZINC SULFATE 220 MG CAP PO SCH (10:47)
[2020-06-29] MEDS: SERTRALINE 100 MG TAB PO SCH (10:47)
[2020-06-29] MEDS: CHOLECALCIFEROL 400 UNIT TAB PO SCH (10:47)
[2020-06-29] MEDS: ESCITALOPRAM 10 MG TAB PO SCH (10:47)
[2020-06-29] MEDS: FAMOTIDINE 20 MG TAB PO SCH (10:47)
[2020-06-29] MEDS: methylPREDNISolone SOD SUCCI 40 MG/ML 1 ML VIAL IV SCH ×2 (10:47→16:58)
[2020-06-29] MEDS: ASCORBIC ACID 500 MG TAB PO SCH (10:47)
[2020-06-29] MEDS: APIXABAN 5 MG TAB PO SCH (11:11)
[2020-06-29 11:45] LABS: Glucose,Whole Blood 145 mg/dL (75-99)
--- NOTE | 2020-06-29 13:45 | PN ---
PROGRESS NOTE PULMONARY/CRITICAL CARE PROGRESS NOTE: DATE OF SERVICE: June 29, 2020. INTERVAL HISTORY: This is a 74-year-old male with a history of COVID-19 pneumonia and acute hypoxemic respiratory failure. He was admitted back on May 27. He remains on AIRVO. Currently, his settings include an FiO2 40% at 35 L/minute. That has improved over the last few days or so. The patient was able to speak to his . The nurse in charge of the patient was able to get in touch with his , Marianela, who was apparently a resident at [facility]. The patient does seem depressed. He feels about the same today as he did yesterday. Not a particularly good historian. Denies any chest pain or chest discomfort. No fever or chills. Not coughing up any phlegm. PHYSICAL EXAMINATION: VITAL SIGNS: Current vital signs are reviewed. Temperature is 98. Heart rate 102, respiratory rate 26, blood pressure 136/74 mean 94. Saturations are 94%. GENERAL: Appears in no acute distress. HEENT: Examination is grossly unremarkable. AIRVO cannula noted. NECK: Supple. Full range of motion. No adenopathy. Neck veins are flat. CARDIOVASCULAR: Examination reveals regular rhythm and rate. Heart rate about 100 beats per minute. S1, S2 normal. No S3, S4, or murmurs. LUNGS: Reveal some coarse rhonchi. No wheezes. There are a few scattered crackles. Breath sounds equal. ABDOMEN: Soft, but obese. Bowel sounds are heard. EXTREMITIES are intact. No significant cyanosis, clubbing, or edema. SKIN: Without rash. NEUROLOGIC: Examination is nonfocal. LABS: Reviewed. White count 7.6, hemoglobin 13.7, hematocrit 41.4, platelet count 239,000. Sodium 139, potassium 5, chloride 107. CO2 28 anion gap is 4. BUN and creatinine were 30 and 0.5. Microbiology was positive back on June 05 for Pseudomonas aeruginosa in the sputum. No recent chest x-ray to report. CURRENT MEDICATIONS: Reviewed. Currently he is on Tylenol, albuterol inhaler, Artificial Tears, vitamin C, Symbicort, vitamin D3, Lexapro, Pepcid, Robitussin, insulin, melatonin, Solu-Medrol, Narcan, Zofran, Ditropan, Actos, potassium, Zoloft, eye drops, Flomax and zinc. ASSESSMENT: 1. Acute hypoxemic respiratory failure secondary to COVID-19 pneumonitis/pneumonia, currently on AIRVO, with decreasing oxygen requirements. The patient has also previously received Remdesivir, convalescent plasma, Decadron, vitamin C, vitamin D3, and zinc. 2. Probable chronic aspiration, currently being evaluated by speech pathology. 3. No evidence of pulmonary embolism on CT angiogram. 4. Type 2 diabetes mellitus. 5. Gastroesophageal reflux disease. 6. Hyperlipidemia. 7. Obesity. 8. Essential hypertension. 9. Paroxysmal atrial fibrillation. 10.Depression. PLAN: Yesterday, I added Zoloft to his regimen. I am hoping that will help him with his depression. Currently, he is doing better with his oxygenation. His oxygen requirements have decreased. No additional recommendations are made. He was able to speak to his , Marianela, who is a resident at [facility]. We will continue to follow. Prognosis is guarded. MMODL / IJN: [id number] /
[2020-06-29 16:52] LABS: Glucose,Whole Blood 183 mg/dL (75-99)
[2020-06-29 21:05] LABS: Glucose,Whole Blood 166 mg/dL (75-99)
[2020-06-29] MEDS: TAMSULOSIN 0.4 MG CAP.ER.24H PO SCH (21:12)
[2020-06-29] MEDS: PIOGLITAZONE 30 MG TAB PO SCH (21:12)
[2020-06-29] MEDS: MELATONIN 5 MG TABLET PO SCH (21:12)
[2020-06-29] MEDS: OXYBUTYNIN 15 MG TAB.ER.24 PO SCH (21:12)
--- NOTE | 2020-06-29 23:17 | PN ---
PROGRESS NOTE DATE OF SERVICE: 06/29/2020 REASON FOR FOLLOWUP: COVID-19 infection. INTERVAL HISTORY: The patient is currently afebrile. The patient remains to be lethargic. He is hemodynamically stable. Not on any pressor support. FiO2 is currently at 4 L nasal cannula. No vomiting or diarrhea has been reported. PHYSICAL EXAMINATION: Blood pressure 128/74 with a pulse of 73, temperature 98.6, he is 94% on 4 L nasal cannula. General description is an elderly male lying in bed in no distress. Respiratory system: Unlabored breathing with decreased breath sounds in the base, with no wheeze. Heart S1, S2. Regular rate and rhythm. Abdomen soft. No tenderness. LAB: Hemoglobin 13.1, white count 10.3, BUN of 20, creatinine 0.50. DIAGNOSTIC IMPRESSION AND PLAN: Patient with acute COVID-19 infection, Pseudomonas pneumonia that has been adequately treated. Currently being monitored closely off antibiotic therapy. Patient did fail his swallow evaluation and is being considered for a PEG tube placement tomorrow. No need for systematic antibiotic therapy at this point. MMODL / IJN: [id number] /
[2020-06-30] MEDS: methylPREDNISolone SOD SUCCI 40 MG/ML 1 ML VIAL IV SCH ×4 (00:17→23:43)
[2020-06-30] MEDS: SULFACETAMIDE SOD 10% OPHTH DROPS 15 ML BTL RIGHT EYE SCH ×5 (00:17→23:43)
[2020-06-30] MEDS: SODIUM CHLORIDE 0.9% 1,000 ML IV SCH (04:23)
[2020-06-30 06:17] LABS: Glucose,Whole Blood 143 mg/dL (75-99)
[2020-06-30] MEDS: INSULIN DETEMIR (LEVEMIR) 100 UNIT/ML SYR SQ SCH (06:29)
[2020-06-30] MEDS: INSULIN ASPART (NovoLOG) 100 UNIT/ML VIAL SQ SCH ×4 (07:04→21:38)
[2020-06-30] MEDS: ALBUTEROL HFA INHALER INHALATION SCH ×5 (07:28→19:58)
[2020-06-30] MEDS: SYMBICORT 160-4.5 MCG INHALER INHALATION SCH ×3 (07:28→19:59)
--- NOTE | 2020-06-30 09:51 | P.PN ---
Subjective Progress Note Date: 06/30/20 74-year-old male patient admitted on 05/27/2024 and acute COVID19 related pneumonia. 74-year-old male patient with COVID19 related pneumonia and acute hypoxic respiratory failure. The patient was originally admitted on 05/27/2020 and the patient was in the intensive care unit requiring high flow oxygen up to 50/60 L. He was gradually weaned off the oxygen and currently he is on 4 L of oxygen by nasal cannula. His most recent chest x-ray from 06/26/2020 showed bilateral lower lobe pulmonary infiltrates in addition to significant infiltrate on the right lung consistent with pneumonia. The patient also had pseudomonas aeruginosa in his sputum. He was given IV Zosyn. If he does have a congested cough. Unable to bring up much sputum. His swallow was poor and the patient failed the swallow evaluation and the patient is scheduled to undergo a PEG tube insertion today. The patient remains nothing by mouth. Is using a suction catheter to aspirate the respiratory secretions. Have a congested cough. No signs of any significant respiratory distress at this point. No fever. No chills. He is able to communicate and follows commands appropriately. He remains on IV Solu-Medrol 40 mg every 6 hours. Receiving albuterol and the patient is on Symbicort maintenance. Objective - Vital Signs Vital signs: Vital Signs Temp 98.6 F 06/29/20 16:00 Pulse 77 06/30/20 03:08 Resp 18 06/30/20 03:08 BP 137/86 06/30/20 03:08 Pulse Ox 95 06/30/20 03:08 Intake & Output 06/29/20 06/30/20 06/30/20 18:59 06:59 18:59 Output Total 402 Balance -402 Weight 92.5 kg 98.5 kg Output: Urine 400 Stool 2 Other: Voiding Method Indwelling Catheter Indwelling Catheter - Exam GENERAL EXAM: Alert, very pleasant, 74-year-old white male, on 4 liters with a pulse ox of 95% comfortable in no apparent distress. HEAD: Normocephalic/atraumatic. EYES: Normal reaction of pupils, equal size. Conjunctiva pink, sclera white. NOSE: Clear with pink turbinates. THROAT: No erythema or exudates. NECK: No masses, no JVD, no thyroid enlargement, no adenopathy. CHEST: No chest wall deformity. Symmetrical expansion. LUNGS: Equal air entry with crackles, wheeze, rhonchi on the lungs bilaterally. The patient has a congested cough. Unable to bring up the sputum and is using a suction catheter for pulmonary toileting. CVS: Regular rate and rhythm, normal S1 and S2, no gallops, no murmurs, no rubs ABDOMEN: Soft, nontender. No hepatosplenomegaly, normal bowel sounds, no guarding or rigidity. EXTREMITIES: No clubbing, no edema, no cyanosis, 2+ pulses and upper and lower extremities. MUSCULOSKELETAL: Muscle strength and tone normal. SPINE: No scoliosis or deformity SKIN: No rashes CENTRAL NERVOUS SYSTEM: Alert and oriented -2. No focal deficits, tone is normal in all 4 extremities. PSYCHIATRIC: Alert and oriented -2. Appropriate affect. Intact judgment and insight. - Labs CBC & Chem 7: 06/29/20 03:41 06/29/20 03:41 Labs: Abnormal Lab Results - Last 24 Hours (Table) 06/29/20 06/29/20 06/29/20 Range/Units 11:43 16:49 21:00 POC Glucose (mg/dL) 145 H 183 H 166 H (75-99) mg/dL 06/30/20 Range/Units 06:04 POC Glucose (mg/dL) 143 H (75-99) mg/dL Assessment and Plan Plan: #1. Acute hypoxic respiratory failure related to COVID 19 pneumonitis, which has progressed since admission, and patient treated with AIRVO Patient has completed Remdesivir course on 05/31/2020 and received convalescent immunoglobulin and the patient is on IV Decadron. Patient has completed a course of cefepime for pseudomonal pneumonia. The pro-calcitonin level is low. For the last, the patient continues to have a congested cough and he is unable to completely clear up is as per secretions and is using a suction catheter for pulmonary toileting. He also failed a swallow evaluation the patient is going to undergo a PEG tube insertion today. He needs aggressive pulmonary toileting. A repeat sputum culture will be also needed to rule out recurrent pseudomonal infection. Currently the patient is on no antibiotic treatment. #2. Dysphagia, and the patient was found to have didier silent aspiration mild to moderate with thin liquids, and transient penetration noted with subsequent trials, currently on dysphagia level III diet #2. Increased d-dimer of 18 and then drop down to 11 and then down to 3., patient has been on Eliquis, CTA chest showed no evidence of pulmonary embolism #3. Diabetes mellitus type 2, on Levemir and sliding scale #4. GERD/reflux #5. Hyperlipidemia #6. History of hypertension #. Obesity #8. Paroxysmal atrial fibrillation current rhythm is sinus and the patient is on anticoagulation with Eliquis. #9. depression Plan Keep the patient nothing by mouth PEG tube insertion today Continue IV Solu-Medrol Continue Ventolin HFA [id number] 4 times a day Continue Symbicort Aspiration precautions Ideally, a bronchoscopy will be needed to previous episodes secretions. Nevertheless, based on his Covid positivity, we will hold off on this procedure. Repeat chest x-ray and pro-calcitonin level We'll follow
--- NOTE | 2020-06-30 10:36 | XR ---
EXAMINATION TYPE: XR chest 1V DATE OF EXAM: 06/30/2020 COMPARISON: Prior chest x-ray 06/26/2020 HISTORY: Dyspnea, shortness of breath TECHNIQUE: Single frontal view of the chest is obtained. FINDINGS: Findings are similar to prior exam. Patient is rotated. Patchy density present along the r ight lateral subpleural margin is similar to prior exam. Left hemidiaphragm is obscured. There is no evident pneumothorax. Heart size may be accentuated by technique, rotation. Aorta is dense. There are overlying leads. IMPRESSION: Correlate for pneumonia. Difficult to exclude pleural effusion.
[2020-06-30 12:16] LABS: Glucose,Whole Blood 149 mg/dL (75-99)
[2020-06-30] MEDS ORDERED: PROPOFOL 10 MG/ML 20 ML VIAL IV ONE (13:33)
[2020-06-30] MEDS ORDERED: LACTATED RINGERS 1,000 ML IV ONE (13:35)
--- NOTE | 2020-06-30 13:54 | P.OP ---
Date of Procedure: 06/30/20 Preoperative Diagnosis: Malnutrition Postoperative Diagnosis: Malnutrition Procedure(s) Performed: EGD with PEG tube placement Anesthesia: MAC Surgeon: Esvin Chung Pathology: none sent Condition: stable Disposition: PACU Description of Procedure: Patient's placed on the endoscopy table in the lateral position. He received IV sedation. The gastric was placed oropharynx passed in the esophagus and stomach. Scope was placed through the pylorus. The first and second portion of the duodenum appeared normal. Scope was then brought back and the antrum and this appeared normal. Scope was insufflated air in the gastric light reflux seen the anterior abdominal wall. The skin isn't anesthetized 1% local Xylocaine. A 11 blade was used to incise skin and then the needles placed and stomach under direct visualization. The needle was snared and the wire was placed through the needle. The wire was then snared and brought through the oropharynx. The wire AND stomach. PEG tube secured at 3 cm pey[place]. Patient top she will was sent back to the floor in stable condition..
[2020-06-30] MEDS: ASCORBIC ACID 500 MG TAB PO SCH (14:11)
[2020-06-30] MEDS: CHOLECALCIFEROL 400 UNIT TAB PO SCH (14:11)
[2020-06-30] MEDS: ZINC SULFATE 220 MG CAP PO SCH (14:11)
[2020-06-30] MEDS: ESCITALOPRAM 10 MG TAB PO SCH (14:12)
[2020-06-30] MEDS: SERTRALINE 100 MG TAB PO SCH (14:12)
[2020-06-30] MEDS: FAMOTIDINE 20 MG TAB PO SCH (14:12)
[2020-06-30 16:55] LABS: Glucose,Whole Blood 257 mg/dL (75-99)
--- NOTE | 2020-06-30 18:27 | PN ---
PROGRESS NOTE DATE OF SERVICE: 06/29/2020 CHIEF COMPLAINT: COVID pneumonia with little improvement. HISTORY OF PRESENT ILLNESS: This patient is still on high-flow nasal oxygen. He is unable to maintain any nutrition and has difficulty swallowing. He will be going for PEG tube placement. PHYSICAL EXAMINATION: Cardiac exam is unremarkable and breath sounds are diminished with rales bilaterally. Abdomen is soft, nontender. IMPRESSION: 1. COVID pneumonia. 2. Respiratory failure. 3. Diabetes. 4. Aspiration and difficulty swallowing. PLAN: PEG tube placement. Continue with supportive care. MMODL / IJN: [id number] /
[2020-06-30 20:30] LABS: Glucose,Whole Blood 183 mg/dL (75-99)
[2020-06-30] MEDS: PIOGLITAZONE 30 MG TAB PO SCH ×2 (21:38→21:42)
[2020-06-30] MEDS: MELATONIN 5 MG TABLET PO SCH ×2 (21:38→21:42)
[2020-06-30] MEDS: TAMSULOSIN 0.4 MG CAP.ER.24H PO SCH (21:42)
[2020-06-30] MEDS: OXYBUTYNIN 15 MG TAB.ER.24 PO SCH (21:42)
[2020-07-01 06:17] LABS: Glucose,Whole Blood 161 mg/dL (75-99)
[2020-07-01] MEDS: SODIUM CHLORIDE 0.9% 1,000 ML IV SCH (06:58)
[2020-07-01] MEDS: INSULIN ASPART (NovoLOG) 100 UNIT/ML VIAL SQ SCH ×4 (06:59→21:19)
[2020-07-01] MEDS: INSULIN DETEMIR (LEVEMIR) 100 UNIT/ML SYR SQ SCH (06:59)
[2020-07-01] MEDS: SULFACETAMIDE SOD 10% OPHTH DROPS 15 ML BTL RIGHT EYE SCH ×4 (07:00→23:10)
[2020-07-01] MEDS: SYMBICORT 160-4.5 MCG INHALER INHALATION SCH ×2 (08:00→19:56)
[2020-07-01] MEDS: ALBUTEROL HFA INHALER INHALATION SCH ×4 (08:00→19:56)
[2020-07-01] MEDS: ASCORBIC ACID 500 MG TAB PO SCH (09:20)
[2020-07-01] MEDS: CHOLECALCIFEROL 400 UNIT TAB PO SCH (09:20)
[2020-07-01] MEDS: methylPREDNISolone SOD SUCCI 40 MG/ML 1 ML VIAL IV SCH ×3 (09:20→23:10)
[2020-07-01] MEDS: FAMOTIDINE 20 MG TAB PO SCH (09:21)
[2020-07-01] MEDS: ESCITALOPRAM 10 MG TAB PO SCH (09:21)
[2020-07-01] MEDS: SERTRALINE 100 MG TAB PO SCH (09:21)
[2020-07-01] MEDS: ZINC SULFATE 220 MG CAP PO SCH (09:26)
--- NOTE | 2020-07-01 10:03 | P.PN ---
Subjective Progress Note Date: 07/01/20 74-year-old male patient admitted on 05/27/2024 and acute COVID19 related pneumonia. 74-year-old male patient with COVID19 related pneumonia and acute hypoxic respiratory failure. The patient was originally admitted on 05/27/2020 and the patient was in the intensive care unit requiring high flow oxygen up to 50/60 L. He was gradually weaned off the oxygen and currently he is on 4 L of oxygen by nasal cannula. His most recent chest x-ray from 06/26/2020 showed bilateral lower lobe pulmonary infiltrates in addition to significant infiltrate on the right lung consistent with pneumonia. The patient also had pseudomonas aeruginosa in his sputum. He was given IV Zosyn. If he does have a congested cough. Unable to bring up much sputum. His swallow was poor and the patient failed the swallow evaluation and the patient is scheduled to undergo a PEG tube insertion today. The patient remains nothing by mouth. Is using a suction catheter to aspirate the respiratory secretions. Have a congested cough. No signs of any significant respiratory distress at this point. No fever. No chills. He is able to communicate and follows commands appropriately. He remains on IV Solu-Medrol 40 mg every 6 hours. Receiving albuterol and the patient is on Symbicort maintenance. On 07/01/2020, I'm seeing the patient for a follow-up. The patient underwent a PEG tube insertion yesterday for nutritional support. The patient was having difficulties in swallowing and the patient was not taken his caloric requirements. Based on that, the patient was given a PEG tube and enteral feeding with incisional support will be started today. The patient also had difficulties with cough and chest congestion. After arriving from the PEG tube insertion, he was on 4 L and subsequently his oxygen requirements went up overnight and currently is on 50 L of oxygen by nasal cannula. His pulse ox in the order of 93-94%. He is on a combination of Symbicort and albuterol around the clock. He is also on IV Solu-Medrol. On my evaluation this morning, the patient was quite lethargic and somnolent. He was given frequent stimulation by squeezing and pinching on his fingers. I noticed that the patient is not moving his left upper extremity. The patient was unable to communicate with me and he was not following any commands. Pupils were equal and reactive without any preferential gaze and did not appreciate any facial asymmetry. He was hemodynamically stable. No hypotension is been noted. Heart rate was in the 110 range. He is in atrial fibrillation. Anti-coagulation was hold because of his PEG tube insertion. Objective - Vital Signs Vital signs: Vital Signs Temp 98.0 F 07/01/20 08:00 Pulse 55 L 07/01/20 08:00 Resp 20 07/01/20 08:00 BP 132/64 07/01/20 08:00 Pulse Ox 93 L 07/01/20 08:00 Intake & Output 06/30/20 07/01/20 07/01/20 18:59 06:59 18:59 Intake Total 20 45 Output Total 225 310 Balance -205 -310 45 Weight 96 kg Intake: IV 20 Oral 45 Output: Urine 225 310 Other: Voiding Method Indwelling Catheter Indwelling Catheter Indwelling Catheter - Exam GENERAL EXAM: Alert, very pleasant, 74-year-old white male, on 4 liters with a pulse ox of 95% comfortable in no apparent distress. HEAD: Normocephalic/atraumatic. EYES: Normal reaction of pupils, equal size. Conjunctiva pink, sclera white. NOSE: Clear with pink turbinates. THROAT: No erythema or exudates. NECK: No masses, no JVD, no thyroid enlargement, no adenopathy. CHEST: No chest wall deformity. Symmetrical expansion. LUNGS: Equal air entry with crackles, wheeze, rhonchi on the lungs bilaterally. The patient has a congested cough. Unable to bring up the sputum and is using a suction catheter for pulmonary toileting. CVS: iregular rate and rhythm, normal S1 and S2, no gallops, no murmurs, no rubs ABDOMEN: Soft, nontender. No hepatosplenomegaly, normal bowel sounds, no guarding or rigidity. EXTREMITIES: No clubbing, no edema, no cyanosis, 2+ pulses and upper and lower extremities. MUSCULOSKELETAL: Muscle strength and tone normal. SPINE: No scoliosis or deformity SKIN: No rashes CENTRAL NERVOUS SYSTEM: Alert and oriented -2. No focal deficits, tone is normal in all 4 extremities. PSYCHIATRIC: Alert and oriented -2. Appropriate affect. Intact judgment and insight. - Labs CBC & Chem 7: 06/29/20 03:41 06/29/20 03:41 Labs: Abnormal Lab Results - Last 24 Hours (Table) 06/30/20 06/30/20 06/30/20 Range/Units 10:23 12:15 16:53 POC Glucose (mg/dL) 149 H 257 H (75-99) mg/dL Procalcitonin 0.10 H (0.02-0.09) ng/mL 06/30/20 07/01/20 Range/Units 20:29 06:16 POC Glucose (mg/dL) 183 H 161 H (75-99) mg/dL Procalcitonin (0.02-0.09) ng/mL Assessment and Plan Plan: #1. Acute hypoxic respiratory failure related to COVID 19 pneumonitis, in itially treated with AIRVO Patient has completed Remdesivir course on 05/31/2020 and received convalescent immunoglobulin and the patient is on IV Decadron. Patient has completed a course of cefepime for pseudomonal pneumonia. The pro-calcitonin level is low. The patient improved. His oxidation improved and yesterday was on 4 L of oxygen by nasal cannula. the patient continued to have a congested cough and he is unable to completely clear up is as per secretions and is using a suction catheter for pulmonary toileting. He also failed a swallow evaluation the patient is going to undergo a PEG tube insertion yesterday. After arriving from this perspective insertion, the patient's oxygen requirements went up and currently is up to 15 L of oxygen by nasal cannula. He is on no antibiotics for now. #2. Dysphagia, and the patient was found to have didier silent aspiration mild to moderate with thin liquids, and transient penetration noted with subsequent trials, currently has a PEG tube inserted with #2. Increased d-dimer of 18 and then drop down to 11 and then down to 3., oliver ent has been on Eliquis, CTA chest showed no evidence of pulmonary embolism #3. Diabetes mellitus type 2, on Levemir and sliding scale #4. GERD/reflux #5. Hyperlipidemia #6. History of hypertension #. Obesity #8. Paroxysmal atrial fibrillation current rhythm is sinus and the patient is on anticoagulation with Eliquis. #9. depression #10 acute alteration in mental status with diminished level of consciousness and possibility of weakness in the left upper extremity more than right. Other the patient on no anticoagulants for now. He is off Eliquis post PEG tube insertion #11 PEG tube insertion for enteral feeding and nutritional support. Plan Keep the patient nothing by mouth I'm concerned of this acute mental status change. I'm going to do a blood sugar evaluation. His blood pressure is stable for now. Keep 15 L of oxygen by nasal cannula and a blood gas. Obtain a chest x-ray. Obtain a noncontrast CAT scan of the brain. PEG tube insertion completed Continue IV Solu-Medrol Continue Ventolin HFA [id number] 4 times a day Continue Symbicort Aspiration precautions We'll follow
[2020-07-01 10:07] LABS: Glucose,Whole Blood 152 mg/dL (75-99)
--- NOTE | 2020-07-01 10:33 | XR ---
EXAMINATION TYPE: XR chest 1V DATE OF EXAM: 07/01/2020 COMPARISON: 06/30/2020 INDICATION: Hypoxia TECHNIQUE: Single frontal view of the chest is obtained. FINDINGS: The heart size is mildly prominent. The pulmonary vasculature is normal. Peripheral infiltrates to the right mid and lower lung field. Left lower lobe infiltrate is also pres ent silhouetting the diaphragm. Small left pleural effusion is not excluded. Findings appear stable. IMPRESSION: 1. Peripheral right mid and lower lung field and left retrocardiac infiltrates, similar to prior exam . 2. Small left pleural effusion
[2020-07-01 10:39] LABS: ABG PCO2 37 mmHg (35-45); ABG PH 7.54 (7.35-7.45); Allen Test Performed? Yes
[2020-07-01 10:42] LABS: ABG Base Excess 9.1 mmol/L; ABG HCO3 32 mmol/L (21-25); ABG PO2 59 mmHg (83-108); ABG TCO2 33 mmol/L (19-24)
--- NOTE | 2020-07-01 11:43 | CT ---
EXAMINATION TYPE: CT brain wo con DATE OF EXAM: 07/01/2020 HISTORY: Altered mentation CT DLP: 2483.4 mGycm. Automated Exposure Control for Dose Reduction was Utilized. TECHNIQUE: CT scan of the head is performed without contrast. COMPARISON: CT brain June 03, 2016. FINDINGS: There is no acute intracranial hemorrhage or midline shift identified. There is diffuse v entricular and sulcal prominence consistent with diffuse age-related cerebral atrophy. There is low- attenuation in the periventricular white matter consistent with chronic small vessel ischemic change. Soft tissue density left external auditory canal is consistent with cerumen. The globes are intact and the visualized sinuses are clear. IMPRESSION: No acute intracranial hemorrhage or midline shift. There is moderate diffuse cerebral a trophy and chronic small vessel ischemic change noted.
[2020-07-01 12:15] LABS: Glucose,Whole Blood 131 mg/dL (75-99)
--- NOTE | 2020-07-01 12:57 | P.PN ---
Progress Note - Text Progress Note Date: 07/01/20 Patient had PEG tube placed yesterday. On exam abdomen soft. PEG tube site is clean. He may start tube feedings today.
[2020-07-01 17:03] LABS: Glucose,Whole Blood 106 mg/dL (75-99)
--- NOTE | 2020-07-01 18:01 | US ---
EXAMINATION TYPE: US carotid duplex BILAT DATE OF EXAM: 07/01/2020 COMPARISON: NONE CLINICAL HISTORY: CVA. CVA EXAM MEASUREMENTS: RIGHT: Peak Systolic Velocity (PSV) cm/sec ----- Right CCA: 41.6 ----- Right ICA: 59.9 ----- Right ECA: 52.0 ICA/CCA ratio: 1.4 RIGHT: End Diastole cm/sec ----- Right CCA: 0 ----- Right ICA: 20.7 ----- Right ECA: 0 LEFT: Peak Systolic Velocity (PSV) cm/sec ----- Left CCA: 59.9 ----- Left ICA: 54.6 ----- Left ECA: 72.5 ICA/CCA ratio: 0.9 LEFT: End Diastole cm/sec ----- Left CCA: 12.9 ----- Left ICA: 14.2 ----- Left ECA: 0 VERTEBRALS (direction of flow): Right Vertebral: Antegrade Left Vertebral: Antegrade Rhythm: Normal No significant stenosis seen Some mild plaquing may be present within the right carotid bulb. IMPRESSION: 1. No flow-limiting stenosis carotid bifurcations Criteria for Assigning % of Stenosis / Diameter reduction (Estimation based on the indirect measurements of the internal carotid artery velocities (ICA PSV). 1. Normal (no stenosis)=ICA PSV < 125 cm/s: ratio < 2.0: ICA EDV<40 cm/s. 2. Less than 50% stenosis=ICA PSV < 125 cm/s: ratio < 2.0: ICA EDV<40 cm/s. 3. 50 to 69% stenosis=ICA PSV of 125 to 230 cm/s: ration 2.0 ? 4.0: ICA EDV 40-100 cm/s. 4. Greater than 70% stenosis to near occlusion= ICA PSV > 230 cm/s: ratio > 4.0: ICA EDV > 100 cm/s. 5. Near occlusion= ICA PSV velocities may be low or undetectable: variable ratio and ICA EDV. 6. Total occlusion=unable to detect flow.
--- NOTE | 2020-07-01 18:37 | P.CNNES ---
History of Present Illness Consult date: 07/01/20 Requesting physician: Cali Arreguin Reason for Consult: Altered mental status, left arm weakness History of Present Illness: Patient is a 74-year-old male, came to the hospital by ambulance on 05/27/2020 for cough, congestion, difficulty breathing of 2 days' duration. Patient was diagnosed with acute COVID 19 pneumonitis, treated with Remdesivir course completed on 05/31/2020 and also received convalescent immunoglobulin and is on IV Decadron. Patient also has completed course of cefepime for pseudomonal pneumonia. Patient has developed dysphagia for which she had undergone PEG tube insertion. Patient also has diabetes mellitus type 2, hyperlipidemia, hypertension, obesity, paroxysmal atrial fibrillation, currently in sinus rhythm, on anticoagulation with Eliquis. Patient was noted to have acute alteration in mental status with diminished level of consciousness and possibility of weakness in the left upper extremity more than the right, as per rounds from the beading installer. He was unable to communicate and was not following any commands. Pupils were equal and reactive without any preferential gaze and there was no facial asymmetry. Patient was in atrial fibrillation. Patient has been off anticoagulation for PEG tube insertion. CT head was performed today which revealed no acute intracranial hemorrhage or midline shift. There is moderate diffuse cerebral atrophy and chronic small vessel ischemic change. On my review, there is evidence of possible subacute ischemia in the right parietal periventricular and centrum semiovale region. This is new as compared to computed tomography scan from 06/03/2016, although uncertain if subacute or chronic. Patient's previous 2-D echo from 01/26/2018 showed EF 50-55%. Left atrium is mildly dilated moderate aortic stenosis. Patient's hemoglobin A1c 7.6 on 06/03/2020. Review of Systems ROS unobtainable: due to mental status Past Medical History Past Medical History: Diabetes Mellitus, GERD/Reflux, Hyperlipidemia, Hypertension Additional Past Medical History / Comment(s): leg pain History of Any Multi-Drug Resistant Organisms: None Reported Past Surgical History: Hernia Repair Additional Past Surgical History / Comment(s): umbilical hernia rep Past Anesthesia/Blood Transfusion Reactions: No Reported Reaction Past Psychological History: No Psychological Hx Reported Smoking Status: Never smoker Past Alcohol Use History: None Reported Past Drug Use History: None Reported - Past Family History Mother Additional Family Medical History / Comment(s): of heart attack, patient states had heart problems Medications and Allergies Home Medications Medication Instructions Recorded Confirmed Type Cholecalciferol [Vitamin D3 (25 1,000 unit PO DAILY 09/04/14 05/27/20 History Mcg = 1000 Iu)] Omeprazole [PriLOSEC] 20 mg PO DAILY 09/04/14 05/27/20 History Apixaban [Eliquis] 5 mg PO BID #60 tab 05/31/16 05/27/20 Rx Insuln Asp Prt/Insulin Aspart 20 unit SQ HS 01/06/18 05/27/20 History [NovoLOG MIX 70-30 VIAL] Insuln Asp Prt/Insulin Aspart 30 unit SQ QAM 01/06/18 05/27/20 History [NovoLOG MIX 70-30 VIAL] Oxybutynin Chloride [Oxybutynin 15 mg PO HS 05/27/20 05/27/20 History Chloride ER] Pioglitazone [Actos] 30 mg PO HS 05/27/20 05/27/20 History Tamsulosin [Flomax] 0.4 mg PO HS 05/27/20 05/27/20 History amLODIPine [Norvasc] 5 mg PO HS 05/27/20 05/27/20 History Allergies Allergy/AdvReac Type Severity Reaction Status Date / Time No Known Allergies Allergy Verified 05/27/20 07:01 Physical Examination - Vital Signs Vital Signs: Vital Signs Temp Pulse Resp BP BP Pulse Ox 07/01/20 15:54 99 07/01/20 14:00 89 22 07/01/20 12:00 99.2 F 89 22 149/81 99 07/01/20 08:00 98.0 F 55 L 20 132/64 93 L 07/01/20 04:21 94 L 07/01/20 04:00 98.3 F 91 20 118/66 93 L 07/01/20 00:00 98.0 F 91 20 138/69 93 L 06/30/20 23:45 92 L 06/30/20 20:00 98.3 F 80 19 137/76 96 06/30/20 19:42 96 Intake and Output 07/01/20 07/01/20 07/01/20 06:59 14:59 22:59 Intake Total 165 Output Total 110 200 Balance -110 165 -200 Intake: Oral 45 Tube Feeding 60 Other 60 Output: Urine 110 200 Other: Voiding Method Indwelling Catheter Indwelling Catheter # Bowel Movements 1 Weight 96 kg 96 kg On examination patient is an elderly male, who appears to be in moderate respiratory distress, coughing, with a lot of phlegm, and congestion. Patient speaks with low volume, runs out of breath while talking. He knows his date of and states is July and the year is 20. Patient knows he is in [facility] in [facility]. There is no obvious aphasia or dysarthria. On cranial nerve examination his pupils are round and reactive to light, visual benton appears full, extraocular muscles are intact with no nystagmus. Face is symmetric, tongue protrudes the midline. Palatal elevation sensation normal, hearing slightly decreased, shoulder shrug normal. On muscle strength testing patient has significant left pronator drift. Strength is (right/left), private equity associate 4+/3+, biceps and deltoids are 3+/2, ankle dorsiflexion 4/4, hip flexion 3-/4. Patient very groggy, not able to provide full effort, therefore examination is not reliable. Reflexes are absent, plantars are withdrawal. Sensory touch is equal. No definitive neglect. Tone is decreased in the left arm. Bulk of muscles is intact. Gait deferred. Patient has ataxia for [id number] on the left. On general examination, no definitive carotid bruit, S1 and S2 audible, as patient has a lot of congestion, abdomen is soft nontender, patient has peripheral edema. Results - Laboratory Findings CBC and BMP: 06/29/20 03:41 06/29/20 03:41 Abnormal Lab Findings: Abnormal Labs 05/27/20 05/27/20 05/27/20 01:45 01:45 01:45 WBC RBC Hgb Hct RDW Plt Count 147 L Neutrophils # Neutrophils # (Manual) Lymphocytes # Lymphocytes # (Manual) 0.82 L Monocytes # Monocytes # (Manual) 1.37 H Metamyelocytes # (Man) D-Dimer ABG pH ABG pO2 ABG HCO3 ABG Total CO2 ABG O2 Saturation Sodium 136 L Chloride Carbon Dioxide BUN Creatinine BUN/Creatinine Ratio Glucose 168 H POC Glucose (mg/dL) Hemoglobin A1c Calcium Magnesium 1.5 L Ferritin Total Bilirubin AST ALT Lactate Dehydrogenase LD Isoenzymes LD 5 Creatine Kinase CK-MB (CK-2) C-Reactive Protein Total Protein Albumin Albumin/Globulin Ratio Procalcitonin 0.13 H Ur Specific [place] Urine Protein Urine Ketones Urine Blood Urine RBC Urine Mucus Coronavirus (PCR) 05/27/20 05/27/20 05/27/20 01:52 02:14 07:27 WBC RBC Hgb Hct RDW Plt Count Neutrophils # Neutrophils # (Manual) Lymphocytes # Lymphocytes # (Manual) Monocytes # Monocytes # (Manual) Metamyelocytes # (Man) D-Dimer ABG pH ABG pO2 ABG HCO3 ABG Total CO2 ABG O2 Saturation Sodium Chloride Carbon Dioxide BUN Creatinine BUN/Creatinine Ratio Glucose POC Glucose (mg/dL) 202 H Hemoglobin A1c Calcium Magnesium Ferritin Total Bilirubin AST ALT Lactate Dehydrogenase LD Isoenzymes LD 5 Creatine Kinase CK-MB (CK-2) C-Reactive Protein Total Protein Albumin Albumin/Globulin Ratio Procalcitonin Ur Specific [place] Urine Protein Trace H Urine Ketones Urine Blood Small H Urine RBC Urine Mucus Rare H Coronavirus (PCR) Detected A 05/27/20 05/27/20 05/27/20 11:07 16:50 20:27 WBC RBC Hgb Hct RDW Plt Count Neutrophils # Neutrophils # (Manual) Lymphocytes # Lymphocytes # (Manual) Monocytes # Monocytes # (Manual) Metamyelocytes # (Man) D-Dimer ABG pH ABG pO2 ABG HCO3 ABG Total CO2 ABG O2 Saturation Sodium Chloride Carbon Dioxide BUN Creatinine BUN/Creatinine Ratio Glucose POC Glucose (mg/dL) 276 H 229 H 213 H Hemoglobin A1c Calcium Magnesium Ferritin Total Bilirubin AST ALT Lactate Dehydrogenase LD Isoenzymes LD 5 Creatine Kinase CK-MB (CK-2) C-Reactive Protein Total Protein Albumin Albumin/Globulin Ratio Procalcitonin Ur Specific [place] Urine Protein Urine Ketones Urine Blood Urine RBC Urine Mucus Coronavirus (PCR) 05/28/20 05/28/20 05/28/20 06:19 06:19 09:23 WBC RBC Hgb 12.7 L Hct RDW Plt Count 143 L Neutrophils # Neutrophils # (Manual) Lymphocytes # Lymphocytes # (Manual) Monocytes # Monocytes # (Manual) Metamyelocytes # (Man) D-Dimer ABG pH ABG pO2 ABG HCO3 ABG Total CO2 ABG O2 Saturation Sodium Chloride Carbon Dioxide BUN Creatinine BUN/Creatinine Ratio 21.11 H Glucose POC Glucose (mg/dL) 128 H Hemoglobin A1c Calcium Magnesium Ferritin Total Bilirubin AST ALT Lactate Dehydrogenase LD Isoenzymes LD 5 Creatine Kinase CK-MB (CK-2) C-Reactive Protein 1.2 H Total Protein Albumin Albumin/Globulin Ratio Procalcitonin Ur Specific [place] Urine Protein Urine Ketones Urine Blood Urine RBC Urine Mucus Coronavirus (PCR) 05/28/20 05/28/20 05/28/20 11:50 13:12 16:27 WBC RBC Hgb Hct RDW Plt Count Neutrophils # Neutrophils # (Manual) Lymphocytes # Lymphocytes # (Manual) Monocytes # Monocytes # (Manual) Metamyelocytes # (Man) D-Dimer ABG pH ABG pO2 ABG HCO3 ABG Total CO2 ABG O2 Saturation Sodium Chloride Carbon Dioxide BUN Creatinine BUN/Creatinine Ratio Glucose POC Glucose (mg/dL) 59 L 164 H 168 H Hemoglobin A1c Calcium Magnesium Ferritin Total Bilirubin AST ALT Lactate Dehydrogenase LD Isoenzymes LD 5 Creatine Kinase CK-MB (CK-2) C-Reactive Protein Total Protein Albumin Albumin/Globulin Ratio Procalcitonin Ur Specific [place] Urine Protein Urine Ketones Urine Blood Urine RBC Urine Mucus Coronavirus (PCR) 05/28/20 05/29/20 05/29/20 20:50 06:41 06:41 WBC RBC Hgb Hct RDW Plt Count 131 L Neutrophils # Neutrophils # (Manual) Lymphocytes # 0.8 L Lymphocytes # (Manual) Monocytes # Monocytes # (Manual) Metamyelocytes # (Man) D-Dimer ABG pH ABG pO2 ABG HCO3 ABG Total CO2 ABG O2 Saturation Sodium Chloride Carbon Dioxide BUN Creatinine BUN/Creatinine Ratio Glucose 111 H POC Glucose (mg/dL) 233 H Hemoglobin A1c Calcium Magnesium Ferritin Total Bilirubin AST ALT Lactate Dehydrogenase LD Isoenzymes LD 5 Creatine Kinase CK-MB (CK-2) C-Reactive Protein 2.0 H Total Protein Albumin Albumin/Globulin Ratio Procalcitonin Ur Specific [place] Urine Protein Urine Ketones Urine Blood Urine RBC Urine Mucus Coronavirus (PCR) 05/29/20 05/29/20 05/29/20 07:01 14:21 16:48 WBC RBC Hgb Hct RDW Plt Count Neutrophils # Neutrophils # (Manual) Lymphocytes # Lymphocytes # (Manual) Monocytes # Monocytes # (Manual) Metamyelocytes # (Man) D-Dimer ABG pH ABG pO2 ABG HCO3 ABG Total CO2 ABG O2 Saturation Sodium Chloride Carbon Dioxide BUN Creatinine BUN/Creatinine Ratio Glucose POC Glucose (mg/dL) 105 H 229 H Hemoglobin A1c Calcium Magnesium Ferritin Total Bilirubin AST ALT Lactate Dehydrogenase LD Isoenzymes LD 5 Creatine Kinase CK-MB (CK-2) C-Reactive Protein Total Protein Albumin Albumin/Globulin Ratio Procalcitonin Ur Specific [place] Urine Protein Urine Ketones Urine Blood Trace H Urine RBC Urine Mucus Rare H Coronavirus (PCR) 05/29/20 05/30/20 05/30/20 21:06 07:01 07:01 WBC RBC Hgb Hct RDW Plt Count Neutrophils # Neutrophils # (Manual) Lymphocytes # Lymphocytes # (Manual) Monocytes # Monocytes # (Manual) Metamyelocytes # (Man) D-Dimer ABG pH ABG pO2 ABG HCO3 ABG Total CO2 ABG O2 Saturation Sodium Chloride Carbon Dioxide BUN Creatinine BUN/Creatinine Ratio Glucose POC Glucose (mg/dL) 274 H Hemoglobin A1c Calcium Magnesium Ferritin Total Bilirubin AST ALT Lactate Dehydrogenase LD Isoenzymes LD 5 Creatine Kinase CK-MB (CK-2) C-Reactive Protein 9.1 H Total Protein Albumin Albumin/Globulin Ratio Procalcitonin 0.14 H Ur Specific [place] Urine Protein Urine Ketones Urine Blood Urine RBC Urine Mucus Coronavirus (PCR) 05/30/20 05/30/20 05/30/20 07:04 11:32 16:36 WBC RBC Hgb Hct RDW Plt Count Neutrophils # Neutrophils # (Manual) Lymphocytes # Lymphocytes # (Manual) Monocytes # Monocytes # (Manual) Metamyelocytes # (Man) D-Dimer ABG pH ABG pO2 ABG HCO3 ABG Total CO2 ABG O2 Saturation Sodium Chloride Carbon Dioxide BUN Creatinine BUN/Creatinine Ratio Glucose POC Glucose (mg/dL) 101 H 239 H 162 H Hemoglobin A1c Calcium Magnesium Ferritin Total Bilirubin AST ALT Lactate Dehydrogenase LD Isoenzymes LD 5 Creatine Kinase CK-MB (CK-2) C-Reactive Protein Total Protein Albumin Albumin/Globulin Ratio Procalcitonin Ur Specific [place] Urine Protein Urine Ketones Urine Blood Urine RBC Urine Mucus Coronavirus (PCR) 05/30/20 05/31/20 05/31/20 21:32 07:02 11:21 WBC RBC Hgb Hct RDW Plt Count Neutrophils # Neutrophils # (Manual) Lymphocytes # Lymphocytes # (Manual) Monocytes # Monocytes # (Manual) Metamyelocytes # (Man) D-Dimer ABG pH ABG pO2 ABG HCO3 ABG Total CO2 ABG O2 Saturation Sodium Chloride Carbon Dioxide BUN Creatinine BUN/Creatinine Ratio Glucose POC Glucose (mg/dL) 212 H 194 H 216 H Hemoglobin A1c Calcium Magnesium Ferritin Total Bilirubin AST ALT Lactate Dehydrogenase LD Isoenzymes LD 5 Creatine Kinase CK-MB (CK-2) C-Reactive Protein Total Protein Albumin Albumin/Globulin Ratio Procalcitonin Ur Specific [place] Urine Protein Urine Ketones Urine Blood Urine RBC Urine Mucus Coronavirus (PCR) 05/31/20 05/31/20 06/01/20 16:34 22:37 06:25 WBC RBC Hgb Hct RDW Plt Count Neutrophils # Neutrophils # (Manual) Lymphocytes # 0.5 L Lymphocytes # (Manual) Monocytes # Monocytes # (Manual) Metamyelocytes # (Man) D-Dimer ABG pH ABG pO2 ABG HCO3 ABG Total CO2 ABG O2 Saturation Sodium Chloride Carbon Dioxide BUN Creatinine BUN/Creatinine Ratio Glucose POC Glucose (mg/dL) 244 H 265 H Hemoglobin A1c Calcium Magnesium Ferritin Total Bilirubin AST ALT Lactate Dehydrogenase LD Isoenzymes LD 5 Creatine Kinase CK-MB (CK-2) C-Reactive Protein Total Protein Albumin Albumin/Globulin Ratio Procalcitonin Ur Specific [place] Urine Protein Urine Ketones Urine Blood Urine RBC Urine Mucus Coronavirus (PCR) 06/01/20 06/01/20 06/01/20 06:25 07:08 11:31 WBC RBC Hgb Hct RDW Plt Count Neutrophils # Neutrophils # (Manual) Lymphocytes # Lymphocytes # (Manual) Monocytes # Monocytes # (Manual) Metamyelocytes # (Man) D-Dimer ABG pH ABG pO2 ABG HCO3 ABG Total CO2 ABG O2 Saturation Sodium Chloride Carbon Dioxide BUN 29.0 H Creatinine BUN/Creatinine Ratio 32.22 H Glucose 111 H POC Glucose (mg/dL) 123 H 194 H Hemoglobin A1c Calcium Magnesium Ferritin Total Bilirubin AST ALT Lactate Dehydrogenase LD Isoenzymes LD 5 Creatine Kinase CK-MB (CK-2) C-Reactive Protein Total Protein Albumin Albumin/Globulin Ratio Procalcitonin Ur Specific [place] Urine Protein Urine Ketones Urine Blood Urine RBC Urine Mucus Coronavirus (PCR) 06/01/20 06/01/20 06/02/20 16:23 20:29 06:49 WBC RBC Hgb Hct RDW Plt Count Neutrophils # Neutrophils # (Manual) Lymphocytes # 0.6 L Lymphocytes # (Manual) Monocytes # Monocytes # (Manual) Metamyelocytes # (Man) D-Dimer ABG pH ABG pO2 ABG HCO3 ABG Total CO2 ABG O2 Saturation Sodium Chloride Carbon Dioxide BUN Creatinine BUN/Creatinine Ratio Glucose POC Glucose (mg/dL) 219 H 263 H Hemoglobin A1c Calcium Magnesium Ferritin Total Bilirubin AST ALT Lactate Dehydrogenase LD Isoenzymes LD 5 Creatine Kinase CK-MB (CK-2) C-Reactive Protein Total Protein Albumin Albumin/Globulin Ratio Procalcitonin Ur Specific [place] Urine Protein Urine Ketones Urine Blood Urine RBC Urine Mucus Coronavirus (PCR) 06/02/20 06/02/20 06/02/20 06:49 06:49 07:08 WBC RBC Hgb Hct RDW Plt Count Neutrophils # Neutrophils # (Manual) Lymphocytes # Lymphocytes # (Manual) Monocytes # Monocytes # (Manual) Metamyelocytes # (Man) D-Dimer ABG pH ABG pO2 ABG HCO3 ABG Total CO2 ABG O2 Saturation Sodium Chloride Carbon Dioxide BUN 33.0 H Creatinine BUN/Creatinine Ratio 33.00 H Glucose 210 H POC Glucose (mg/dL) 207 H Hemoglobin A1c Calcium Magnesium Ferritin Total Bilirubin AST ALT Lactate Dehydrogenase LD Isoenzymes LD 5 Creatine Kinase CK-MB (CK-2) C-Reactive Protein 5.5 H Total Protein 6.0 L Albumin 3.70 L Albumin/Globulin Ratio Procalcitonin 0.14 H Ur Specific [place] Urine Protein Urine Ketones Urine Blood Urine RBC Urine Mucus Coronavirus (PCR) 06/02/20 06/02/20 06/02/20 11:34 16:30 21:02 WBC RBC Hgb Hct RDW Plt Count Neutrophils # Neutrophils # (Manual) Lymphocytes # Lymphocytes # (Manual) Monocytes # Monocytes # (Manual) Metamyelocytes # (Man) D-Dimer ABG pH ABG pO2 ABG HCO3 ABG Total CO2 ABG O2 Saturation Sodium Chloride Carbon Dioxide BUN Creatinine BUN/Creatinine Ratio Glucose POC Glucose (mg/dL) 217 H 180 H 238 H Hemoglobin A1c Calcium Magnesium Ferritin Total Bilirubin AST ALT Lactate Dehydrogenase LD Isoenzymes LD 5 Creatine Kinase CK-MB (CK-2) C-Reactive Protein Total Protein Albumin Albumin/Globulin Ratio Procalcitonin Ur Specific [place] Urine Protein Urine Ketones Urine Blood Urine RBC Urine Mucus Coronavirus (PCR) 06/03/20 06/03/20 06/03/20 05:37 05:37 06:00 WBC RBC Hgb Hct RDW Plt Count Neutrophils # Neutrophils # (Manual) Lymphocytes # 0.4 L Lymphocytes # (Manual) Monocytes # Monocytes # (Manual) Metamyelocytes # (Man) D-Dimer ABG pH ABG pO2 ABG HCO3 ABG Total CO2 ABG O2 Saturation Sodium Chloride Carbon Dioxide BUN 35.0 H Creatinine BUN/Creatinine Ratio 38.89 H Glucose 181 H POC Glucose (mg/dL) Hemoglobin A1c 7.6 H Calcium Magnesium Ferritin Total Bilirubin AST ALT Lactate Dehydrogenase LD Isoenzymes LD 5 Creatine Kinase CK-MB (CK-2) C-Reactive Protein Total Protein Albumin Albumin/Globulin Ratio Procalcitonin Ur Specific [place] Urine Protein Urine Ketones Urine Blood Urine RBC Urine Mucus Coronavirus (PCR) 06/03/20 06/03/20 06/03/20 07:04 11:38 16:42 WBC RBC Hgb Hct RDW Plt Count Neutrophils # Neutrophils # (Manual) Lymphocytes # Lymphocytes # (Manual) Monocytes # Monocytes # (Manual) Metamyelocytes # (Man) D-Dimer ABG pH ABG pO2 ABG HCO3 ABG Total CO2 ABG O2 Saturation Sodium Chloride Carbon Dioxide BUN Creatinine BUN/Creatinine Ratio Glucose POC Glucose (mg/dL) 208 H 132 H 220 H Hemoglobin A1c Calcium Magnesium Ferritin Total Bilirubin AST ALT Lactate Dehydrogenase LD Isoenzymes LD 5 Creatine Kinase CK-MB (CK-2) C-Reactive Protein Total Protein Albumin Albumin/Globulin Ratio Procalcitonin Ur Specific [place] Urine Protein Urine Ketones Urine Blood Urine RBC Urine Mucus Coronavirus (PCR) 06/03/20 06/04/20 06/04/20 20:31 07:02 11:39 WBC RBC Hgb Hct RDW Plt Count Neutrophils # Neutrophils # (Manual) Lymphocytes # Lymphocytes # (Manual) Monocytes # Monocytes # (Manual) Metamyelocytes # (Man) D-Dimer ABG pH ABG pO2 ABG HCO3 ABG Total CO2 ABG O2 Saturation Sodium Chloride Carbon Dioxide BUN Creatinine BUN/Creatinine Ratio Glucose POC Glucose (mg/dL) 250 H 267 H 265 H Hemoglobin A1c Calcium Magnesium Ferritin Total Bilirubin AST ALT Lactate Dehydrogenase LD Isoenzymes LD 5 Creatine Kinase CK-MB (CK-2) C-Reactive Protein Total Protein Albumin Albumin/Globulin Ratio Procalcitonin Ur Specific [place] Urine Protein Urine Ketones Urine Blood Urine RBC Urine Mucus Coronavirus (PCR) 06/04/20 06/04/20 06/05/20 16:55 20:12 06:45 WBC RBC Hgb Hct RDW Plt Count Neutrophils # Neutrophils # (Manual) Lymphocytes # Lymphocytes # (Manual) Monocytes # Monocytes # (Manual) Metamyelocytes # (Man) D-Dimer ABG pH ABG pO2 ABG HCO3 ABG Total CO2 ABG O2 Saturation Sodium Chloride Carbon Dioxide BUN Creatinine BUN/Creatinine Ratio Glucose POC Glucose (mg/dL) 289 H 166 H 118 H Hemoglobin A1c Calcium Magnesium Ferritin Total Bilirubin AST ALT Lactate Dehydrogenase LD Isoenzymes LD 5 Creatine Kinase CK-MB (CK-2) C-Reactive Protein Total Protein Albumin Albumin/Globulin Ratio Procalcitonin Ur Specific [place] Urine Protein Urine Ketones Urine Blood Urine RBC Urine Mucus Coronavirus (PCR) 06/05/20 06/05/20 06/05/20 11:17 16:56 20:08 WBC RBC Hgb Hct RDW Plt Count Neutrophils # Neutrophils # (Manual) Lymphocytes # Lymphocytes # (Manual) Monocytes # Monocytes # (Manual) Metamyelocytes # (Man) D-Dimer ABG pH ABG pO2 ABG HCO3 ABG Total CO2 ABG O2 Saturation Sodium Chloride Carbon Dioxide BUN Creatinine BUN/Creatinine Ratio Glucose POC Glucose (mg/dL) 124 H 127 H 286 H Hemoglobin A1c Calcium Magnesium Ferritin Total Bilirubin AST ALT Lactate Dehydrogenase LD Isoenzymes LD 5 Creatine Kinase CK-MB (CK-2) C-Reactive Protein Total Protein Albumin Albumin/Globulin Ratio Procalcitonin Ur Specific [place] Urine Protein Urine Ketones Urine Blood Urine RBC Urine Mucus Coronavirus (PCR) 06/06/20 06/06/20 06/06/20 05:31 05:31 11:29 WBC RBC Hgb Hct RDW Plt Count Neutrophils # Neutrophils # (Manual) Lymphocytes # Lymphocytes # (Manual) Monocytes # Monocytes # (Manual) Metamyelocytes # (Man) D-Dimer 20.28 H ABG pH ABG pO2 ABG HCO3 ABG Total CO2 ABG O2 Saturation Sodium Chloride Carbon Dioxide BUN Creatinine BUN/Creatinine Ratio Glucose POC Glucose (mg/dL) 139 H Hemoglobin A1c Calcium Magnesium Ferritin Total Bilirubin AST ALT Lactate Dehydrogenase 765 H LD Isoenzymes LD 5 Creatine Kinase CK-MB (CK-2) C-Reactive Protein 1.4 H Total Protein Albumin Albumin/Globulin Ratio Procalcitonin Ur Specific [place] Urine Protein Urine Ketones Urine Blood Urine RBC Urine Mucus Coronavirus (PCR) 06/06/20 06/07/20 06/07/20 20:37 06:47 11:04 WBC RBC Hgb Hct RDW Plt Count Neutrophils # Neutrophils # (Manual) Lymphocytes # Lymphocytes # (Manual) Monocytes # Monocytes # (Manual) Metamyelocytes # (Man) D-Dimer ABG pH ABG pO2 ABG HCO3 ABG Total CO2 ABG O2 Saturation Sodium Chloride Carbon Dioxide BUN Creatinine BUN/Creatinine Ratio Glucose POC Glucose (mg/dL) 195 H 179 H 301 H Hemoglobin A1c Calcium Magnesium Ferritin Total Bilirubin AST ALT Lactate Dehydrogenase LD Isoenzymes LD 5 Creatine Kinase CK-MB (CK-2) C-Reactive Protein Total Protein Albumin Albumin/Globulin Ratio Procalcitonin Ur Specific [place] Urine Protein Urine Ketones Urine Blood Urine RBC Urine Mucus Coronavirus (PCR) 06/07/20 06/07/20 06/08/20 16:25 20:13 05:50 WBC 11.6 H RBC Hgb 12.9 L Hct RDW Plt Count 137 L Neutrophils # 9.9 H Neutrophils # (Manual) Lymphocytes # 0.3 L Lymphocytes # (Manual) Monocytes # 1.2 H Monocytes # (Manual) Metamyelocytes # (Man) D-Dimer ABG pH ABG pO2 ABG HCO3 ABG Total CO2 ABG O2 Saturation Sodium Chloride Carbon Dioxide BUN Creatinine BUN/Creatinine Ratio Glucose POC Glucose (mg/dL) 192 H 143 H Hemoglobin A1c Calcium Magnesium Ferritin Total Bilirubin AST ALT Lactate Dehydrogenase LD Isoenzymes LD 5 Creatine Kinase CK-MB (CK-2) C-Reactive Protein Total Protein Albumin Albumin/Globulin Ratio Procalcitonin Ur Specific [place] Urine Protein Urine Ketones Urine Blood Urine RBC Urine Mucus Coronavirus (PCR) 06/08/20 06/08/20 06/08/20 05:50 05:50 11:23 WBC RBC Hgb Hct RDW Plt Count Neutrophils # Neutrophils # (Manual) Lymphocytes # Lymphocytes # (Manual) Monocytes # Monocytes # (Manual) Metamyelocytes # (Man) D-Dimer 18.51 H ABG pH ABG pO2 ABG HCO3 ABG Total CO2 ABG O2 Saturation Sodium Chloride Carbon Dioxide BUN 40.0 H Creatinine BUN/Creatinine Ratio 50.00 H Glucose POC Glucose (mg/dL) 135 H Hemoglobin A1c Calcium Magnesium Ferritin Total Bilirubin AST 41 H ALT Lactate Dehydrogenase 867 H LD Isoenzymes LD 5 Creatine Kinase CK-MB (CK-2) C-Reactive Protein 1.2 H Total Protein 5.6 L Albumin 3.30 L Albumin/Globulin Ratio 1.43 L Procalcitonin Ur Specific [place] Urine Protein Urine Ketones Urine Blood Urine RBC Urine Mucus Coronavirus (PCR) 06/08/20 06/08/20 06/08/20 16:30 16:50 20:42 WBC RBC Hgb Hct RDW Plt Count Neutrophils # Neutrophils # (Manual) Lymphocytes # Lymphocytes # (Manual) Monocytes # Monocytes # (Manual) Metamyelocytes # (Man) D-Dimer ABG pH ABG pO2 ABG HCO3 ABG Total CO2 ABG O2 Saturation Sodium Chloride Carbon Dioxide BUN Creatinine BUN/Creatinine Ratio Glucose POC Glucose (mg/dL) 177 H 158 H Hemoglobin A1c Calcium Magnesium Ferritin Total Bilirubin AST ALT Lactate Dehydrogenase LD Isoenzymes LD 5 Creatine Kinase CK-MB (CK-2) C-Reactive Protein Total Protein Albumin Albumin/Globulin Ratio Procalcitonin Ur Specific [place] 1.037 H Urine Protein 1+ H Urine Ketones 1+ H Urine Blood Urine RBC 41 H Urine Mucus Few H Coronavirus (PCR) 06/09/20 06/09/20 06/09/20 03:41 03:41 03:41 WBC 11.1 H RBC Hgb 12.8 L Hct RDW Plt Count 107 L Neutrophils # Neutrophils # (Manual) 9.40 H Lymphocytes # Lymphocytes # (Manual) 0.56 L Monocytes # Monocytes # (Manual) Metamyelocytes # (Man) 0.33 H D-Dimer ABG pH ABG pO2 ABG HCO3 ABG Total CO2 ABG O2 Saturation Sodium Chloride 110 H Carbon Dioxide BUN 38 H Creatinine BUN/Creatinine Ratio Glucose POC Glucose (mg/dL) Hemoglobin A1c Calcium 8.3 L Magnesium Ferritin 501.0 H Total Bilirubin AST ALT Lactate Dehydrogenase 2042 H LD Isoenzymes LD 5 Creatine Kinase CK-MB (CK-2) 3.4 H C-Reactive Protein 13.2 H Total Protein 5.8 L Albumin 2.9 L Albumin/Globulin Ratio Procalcitonin Ur Specific [place] Urine Protein Urine Ketones Urine Blood Urine RBC Urine Mucus Coronavirus (PCR) 06/09/20 06/09/20 06/09/20 13:06 16:18 20:10 WBC RBC Hgb Hct RDW Plt Count Neutrophils # Neutrophils # (Manual) Lymphocytes # Lymphocytes # (Manual) Monocytes # Monocytes # (Manual) Metamyelocytes # (Man) D-Dimer ABG pH ABG pO2 ABG HCO3 ABG Total CO2 ABG O2 Saturation Sodium Chloride Carbon Dioxide BUN Creatinine BUN/Creatinine Ratio Glucose POC Glucose (mg/dL) 146 H 144 H 266 H Hemoglobin A1c Calcium Magnesium Ferritin Total Bilirubin AST ALT Lactate Dehydrogenase LD Isoenzymes LD 5 Creatine Kinase CK-MB (CK-2) C-Reactive Protein Total Protein Albumin Albumin/Globulin Ratio Procalcitonin Ur Specific [place] Urine Protein Urine Ketones Urine Blood Urine RBC Urine Mucus Coronavirus (PCR) 06/10/20 06/10/20 06/10/20 04:03 04:03 04:03 WBC RBC Hgb 12.7 L Hct RDW Plt Count 113 L Neutrophils # 8.6 H Neutrophils # (Manual) Lymphocytes # 0.4 L Lymphocytes # (Manual) Monocytes # 1.1 H Monocytes # (Manual) Metamyelocytes # (Man) D-Dimer 11.68 H ABG pH ABG pO2 ABG HCO3 ABG Total CO2 ABG O2 Saturation Sodium Chloride 110 H Carbon Dioxide BUN 42 H Creatinine BUN/Creatinine Ratio Glucose 130 H POC Glucose (mg/dL) Hemoglobin A1c Calcium 8.2 L Magnesium Ferritin 480.3 H Total Bilirubin AST ALT Lactate Dehydrogenase 2003 H LD Isoenzymes LD 5 Creatine Kinase 27 L CK-MB (CK-2) C-Reactive Protein Total Protein 5.6 L Albumin 2.8 L Albumin/Globulin Ratio Procalcitonin Ur Specific [place] Urine Protein Urine Ketones Urine Blood Urine RBC Urine Mucus Coronavirus (PCR) 06/10/20 06/10/20 06/10/20 06:31 11:54 16:46 WBC RBC Hgb Hct RDW Plt Count Neutrophils # Neutrophils # (Manual) Lymphocytes # Lymphocytes # (Manual) Monocytes # Monocytes # (Manual) Metamyelocytes # (Man) D-Dimer ABG pH ABG pO2 ABG HCO3 ABG Total CO2 ABG O2 Saturation Sodium Chloride Carbon Dioxide BUN Creatinine BUN/Creatinine Ratio Glucose POC Glucose (mg/dL) 125 H 135 H 242 H Hemoglobin A1c Calcium Magnesium Ferritin Total Bilirubin AST ALT Lactate Dehydrogenase LD Isoenzymes LD 5 Creatine Kinase CK-MB (CK-2) C-Reactive Protein Total Protein Albumin Albumin/Globulin Ratio Procalcitonin Ur Specific [place] Urine Protein Urine Ketones Urine Blood Urine RBC Urine Mucus Coronavirus (PCR) 06/10/20 06/11/20 06/11/20 19:42 03:09 03:09 WBC RBC Hgb Hct RDW Plt Count 98 L Neutrophils # Neutrophils # (Manual) 8.60 H Lymphocytes # Lymphocytes # (Manual) 0.98 L Monocytes # Monocytes # (Manual) Metamyelocytes # (Man) 0.10 H D-Dimer ABG pH ABG pO2 ABG HCO3 ABG Total CO2 ABG O2 Saturation Sodium Chloride 109 H Carbon Dioxide 31 H BUN 45 H Creatinine BUN/Creatinine Ratio Glucose 69 L POC Glucose (mg/dL) 274 H Hemoglobin A1c Calcium Magnesium Ferritin 492.0 H Total Bilirubin AST ALT Lactate Dehydrogenase 1870 H LD Isoenzymes LD 5 Creatine Kinase 25 L CK-MB (CK-2) C-Reactive Protein Total Protein 5.8 L Albumin 2.9 L Albumin/Globulin Ratio Procalcitonin Ur Specific [place] Urine Protein Urine Ketones Urine Blood Urine RBC Urine Mucus Coronavirus (PCR) 06/11/20 06/11/20 06/11/20 11:50 17:11 20:55 WBC RBC Hgb Hct RDW Plt Count Neutrophils # Neutrophils # (Manual) Lymphocytes # Lymphocytes # (Manual) Monocytes # Monocytes # (Manual) Metamyelocytes # (Man) D-Dimer ABG pH ABG pO2 ABG HCO3 ABG Total CO2 ABG O2 Saturation Sodium Chloride Carbon Dioxide BUN Creatinine BUN/Creatinine Ratio Glucose POC Glucose (mg/dL) 125 H 168 H 206 H Hemoglobin A1c Calcium Magnesium Ferritin Total Bilirubin AST ALT Lactate Dehydrogenase LD Isoenzymes LD 5 Creatine Kinase CK-MB (CK-2) C-Reactive Protein Total Protein Albumin Albumin/Globulin Ratio Procalcitonin Ur Specific [place] Urine Protein Urine Ketones Urine Blood Urine RBC Urine Mucus Coronavirus (PCR) 06/12/20 06/12/20 06/12/20 07:17 08:18 11:49 WBC RBC Hgb Hct RDW Plt Count Neutrophils # Neutrophils # (Manual) Lymphocytes # Lymphocytes # (Manual) Monocytes # Monocytes # (Manual) Metamyelocytes # (Man) D-Dimer 3.85 H ABG pH ABG pO2 ABG HCO3 ABG Total CO2 ABG O2 Saturation Sodium Chloride Carbon Dioxide BUN Creatinine BUN/Creatinine Ratio Glucose POC Glucose (mg/dL) 168 H 164 H Hemoglobin A1c Calcium Magnesium Ferritin Total Bilirubin AST ALT Lactate Dehydrogenase LD Isoenzymes LD 5 Creatine Kinase CK-MB (CK-2) C-Reactive Protein Total Protein Albumin Albumin/Globulin Ratio Procalcitonin Ur Specific [place] Urine Protein Urine Ketones Urine Blood Urine RBC Urine Mucus Coronavirus (PCR) 06/12/20 06/12/20 06/13/20 17:00 19:58 04:22 WBC RBC Hgb Hct RDW Plt Count Neutrophils # Neutrophils # (Manual) Lymphocytes # Lymphocytes # (Manual) Monocytes # Monocytes # (Manual) Metamyelocytes # (Man) D-Dimer ABG pH ABG pO2 ABG HCO3 ABG Total CO2 ABG O2 Saturation Sodium Chloride Carbon Dioxide 32 H BUN 49 H Creatinine BUN/Creatinine Ratio Glucose 56 L POC Glucose (mg/dL) 143 H 109 H Hemoglobin A1c Calcium Magnesium Ferritin 571.7 H Total Bilirubin AST ALT Lactate Dehydrogenase 1545 H LD Isoenzymes LD 5 Creatine Kinase 33 L CK-MB (CK-2) C-Reactive Protein Total Protein 5.9 L Albumin 3.0 L Albumin/Globulin Ratio Procalcitonin Ur Specific [place] Urine Protein Urine Ketones Urine Blood Urine RBC Urine Mucus Coronavirus (PCR) 06/13/20 06/13/20 06/13/20 04:23 06:51 06:52 WBC 18.4 H RBC Hgb Hct RDW Plt Count 105 L Neutrophils # Neutrophils # (Manual) Lymphocytes # Lymphocytes # (Manual) Monocytes # Monocytes # (Manual) Metamyelocytes # (Man) D-Dimer ABG pH ABG pO2 ABG HCO3 ABG Total CO2 ABG O2 Saturation Sodium Chloride Carbon Dioxide BUN Creatinine BUN/Creatinine Ratio Glucose POC Glucose (mg/dL) 58 L 60 L Hemoglobin A1c Calcium Magnesium Ferritin Total Bilirubin AST ALT Lactate Dehydrogenase LD Isoenzymes LD 5 Creatine Kinase CK-MB (CK-2) C-Reactive Protein Total Protein Albumin Albumin/Globulin Ratio Procalcitonin Ur Specific [place] Urine Protein Urine Ketones Urine Blood Urine RBC Urine Mucus Coronavirus (PCR) 06/13/20 06/13/20 06/13/20 07:39 09:08 12:22 WBC RBC Hgb Hct RDW Plt Count Neutrophils # Neutrophils # (Manual) Lymphocytes # Lymphocytes # (Manual) Monocytes # Monocytes # (Manual) Metamyelocytes # (Man) D-Dimer ABG pH ABG pO2 ABG HCO3 ABG Total CO2 ABG O2 Saturation Sodium Chloride Carbon Dioxide BUN Creatinine BUN/Creatinine Ratio Glucose POC Glucose (mg/dL) 73 L 68 L 111 H Hemoglobin A1c Calcium Magnesium Ferritin Total Bilirubin AST ALT Lactate Dehydrogenase LD Isoenzymes LD 5 Creatine Kinase CK-MB (CK-2) C-Reactive Protein Total Protein Albumin Albumin/Globulin Ratio Procalcitonin Ur Specific [place] Urine Protein Urine Ketones Urine Blood Urine RBC Urine Mucus Coronavirus (PCR) 06/13/20 06/13/20 06/13/20 15:25 16:34 20:21 WBC RBC Hgb Hct RDW Plt Count Neutrophils # Neutrophils # (Manual) Lymphocytes # Lymphocytes # (Manual) Monocytes # Monocytes # (Manual) Metamyelocytes # (Man) D-Dimer ABG pH ABG pO2 ABG HCO3 ABG Total CO2 ABG O2 Saturation Sodium Chloride Carbon Dioxide BUN Creatinine BUN/Creatinine Ratio Glucose POC Glucose (mg/dL) 190 H 185 H 232 H Hemoglobin A1c Calcium Magnesium Ferritin Total Bilirubin AST ALT Lactate Dehydrogenase LD Isoenzymes LD 5 Creatine Kinase CK-MB (CK-2) C-Reactive Protein Total Protein Albumin Albumin/Globulin Ratio Procalcitonin Ur Specific [place] Urine Protein Urine Ketones Urine Blood Urine RBC Urine Mucus Coronavirus (PCR) 06/14/20 06/14/20 06/14/20 04:18 04:18 06:49 WBC 18.8 H RBC Hgb Hct RDW Plt Count 92 L Neutrophils # Neutrophils # (Manual) Lymphocytes # Lymphocytes # (Manual) Monocytes # Monocytes # (Manual) Metamyelocytes # (Man) D-Dimer ABG pH ABG pO2 ABG HCO3 ABG Total CO2 ABG O2 Saturation Sodium Chloride Carbon Dioxide 33 H BUN 49 H Creatinine BUN/Creatinine Ratio Glucose 61 L POC Glucose (mg/dL) 48 L Hemoglobin A1c Calcium Magnesium Ferritin 565.2 H Total Bilirubin 1.4 H AST ALT Lactate Dehydrogenase 1406 H LD Isoenzymes LD 5 Creatine Kinase CK-MB (CK-2) C-Reactive Protein 50.8 H Total Protein 5.9 L Albumin 3.0 L Albumin/Globulin Ratio Procalcitonin Ur Specific [place] Urine Protein Urine Ketones Urine Blood Urine RBC Urine Mucus Coronavirus (PCR) 06/14/20 06/14/20 06/14/20 07:08 17:05 20:49 WBC RBC Hgb Hct RDW Plt Count Neutrophils # Neutrophils # (Manual) Lymphocytes # Lymphocytes # (Manual) Monocytes # Monocytes # (Manual) Metamyelocytes # (Man) D-Dimer ABG pH ABG pO2 ABG HCO3 ABG Total CO2 ABG O2 Saturation Sodium Chloride Carbon Dioxide BUN Creatinine BUN/Creatinine Ratio Glucose POC Glucose (mg/dL) 171 H 219 H 252 H Hemoglobin A1c Calcium Magnesium Ferritin Total Bilirubin AST ALT Lactate Dehydrogenase LD Isoenzymes LD 5 Creatine Kinase CK-MB (CK-2) C-Reactive Protein Total Protein Albumin Albumin/Globulin Ratio Procalcitonin Ur Specific [place] Urine Protein Urine Ketones Urine Blood Urine RBC Urine Mucus Coronavirus (PCR) 06/15/20 06/15/20 06/15/20 03:49 04:26 04:26 WBC 19.8 H RBC Hgb Hct RDW Plt Count 78 L Neutrophils # Neutrophils # (Manual) Lymphocytes # Lymphocytes # (Manual) Monocytes # Monocytes # (Manual) Metamyelocytes # (Man) D-Dimer ABG pH ABG pO2 ABG HCO3 ABG Total CO2 ABG O2 Saturation Sodium Chloride Carbon Dioxide BUN Creatinine BUN/Creatinine Ratio Glucose POC Glucose (mg/dL) 174 H Hemoglobin A1c Calcium Magnesium Ferritin 688.1 H Total Bilirubin AST ALT Lactate Dehydrogenase 1419 H LD Isoenzymes LD 5 Creatine Kinase 43 L CK-MB (CK-2) C-Reactive Protein 65.8 H Total Protein Albumin Albumin/Globulin Ratio Procalcitonin Ur Specific [place] Urine Protein Urine Ketones Urine Blood Urine RBC Urine Mucus Coronavirus (PCR) 06/15/20 06/15/20 06/15/20 04:26 06:08 12:48 WBC RBC Hgb Hct RDW Plt Count Neutrophils # Neutrophils # (Manual) Lymphocytes # Lymphocytes # (Manual) Monocytes # Monocytes # (Manual) Metamyelocytes # (Man) D-Dimer ABG pH ABG pO2 ABG HCO3 ABG Total CO2 ABG O2 Saturation Sodium Chloride 108 H Carbon Dioxide BUN 40 H Creatinine BUN/Creatinine Ratio Glucose 134 H POC Glucose (mg/dL) 136 H 178 H Hemoglobin A1c Calcium 8.3 L Magnesium Ferritin Total Bilirubin AST ALT Lactate Dehydrogenase LD Isoenzymes LD 5 Creatine Kinase CK-MB (CK-2) C-Reactive Protein Total Protein Albumin Albumin/Globulin Ratio Procalcitonin Ur Specific [place] Urine Protein Urine Ketones Urine Blood Urine RBC Urine Mucus Coronavirus (PCR) 06/15/20 06/15/20 06/16/20 17:47 20:23 03:43 WBC RBC Hgb Hct RDW Plt Count Neutrophils # Neutrophils # (Manual) Lymphocytes # Lymphocytes # (Manual) Monocytes # Monocytes # (Manual) Metamyelocytes # (Man) D-Dimer ABG pH ABG pO2 ABG HCO3 ABG Total CO2 ABG O2 Saturation Sodium Chloride Carbon Dioxide BUN 38 H Creatinine BUN/Creatinine Ratio Glucose 139 H POC Glucose (mg/dL) 208 H 321 H Hemoglobin A1c Calcium 8.2 L Magnesium Ferritin Total Bilirubin AST ALT Lactate Dehydrogenase LD Isoenzymes LD 5 Creatine Kinase CK-MB (CK-2) C-Reactive Protein Total Protein Albumin Albumin/Globulin Ratio Procalcitonin Ur Specific [place] Urine Protein Urine Ketones Urine Blood Urine RBC Urine Mucus Coronavirus (PCR) 06/16/20 06/16/20 06/16/20 03:43 05:49 11:25 WBC 12.0 H RBC 4.28 L Hgb 12.7 L Hct RDW Plt Count 81 L Neutrophils # 9.6 H Neutrophils # (Manual) Lymphocytes # 0.6 L Lymphocytes # (Manual) Monocytes # 1.5 H Monocytes # (Manual) Metamyelocytes # (Man) D-Dimer ABG pH ABG pO2 ABG HCO3 ABG Total CO2 ABG O2 Saturation Sodium Chloride Carbon Dioxide BUN Creatinine BUN/Creatinine Ratio Glucose POC Glucose (mg/dL) 127 H 199 H Hemoglobin A1c Calcium Magnesium Ferritin Total Bilirubin AST ALT Lactate Dehydrogenase LD Isoenzymes LD 5 Creatine Kinase CK-MB (CK-2) C-Reactive Protein Total Protein Albumin Albumin/Globulin Ratio Procalcitonin Ur Specific [place] Urine Protein Urine Ketones Urine Blood Urine RBC Urine Mucus Coronavirus (PCR) 06/16/20 06/16/20 06/17/20 18:05 20:10 04:35 WBC RBC Hgb Hct RDW Plt Count Neutrophils # Neutrophils # (Manual) Lymphocytes # Lymphocytes # (Manual) Monocytes # Monocytes # (Manual) Metamyelocytes # (Man) D-Dimer ABG pH ABG pO2 ABG HCO3 ABG Total CO2 ABG O2 Saturation Sodium Chloride 111 H Carbon Dioxide BUN 31 H Creatinine BUN/Creatinine Ratio Glucose 176 H POC Glucose (mg/dL) 143 H 168 H Hemoglobin A1c Calcium 8.0 L Magnesium Ferritin 683.4 H Total Bilirubin AST ALT Lactate Dehydrogenase LD Isoenzymes LD 5 Creatine Kinase 27 L CK-MB (CK-2) C-Reactive Protein 26.6 H Total Protein Albumin Albumin/Globulin Ratio Procalcitonin Ur Specific [place] Urine Protein Urine Ketones Urine Blood Urine RBC Urine Mucus Coronavirus (PCR) 06/17/20 06/17/20 06/17/20 04:35 05:39 12:02 WBC RBC 4.16 L Hgb 12.6 L Hct 38.8 L RDW Plt Count 75 L Neutrophils # Neutrophils # (Manual) Lymphocytes # 0.3 L Lymphocytes # (Manual) Monocytes # 1.2 H Monocytes # (Manual) Metamyelocytes # (Man) D-Dimer ABG pH ABG pO2 ABG HCO3 ABG Total CO2 ABG O2 Saturation Sodium Chloride Carbon Dioxide BUN Creatinine BUN/Creatinine Ratio Glucose POC Glucose (mg/dL) 160 H 144 H Hemoglobin A1c Calcium Magnesium Ferritin Total Bilirubin AST ALT Lactate Dehydrogenase LD Isoenzymes LD 5 Creatine Kinase CK-MB (CK-2) C-Reactive Protein Total Protein Albumin Albumin/Globulin Ratio Procalcitonin Ur Specific [place] Urine Protein Urine Ketones Urine Blood Urine RBC Urine Mucus Coronavirus (PCR) 06/17/20 06/17/20 06/17/20 12:08 16:48 21:29 WBC RBC Hgb Hct RDW Plt Count Neutrophils # Neutrophils # (Manual) Lymphocytes # Lymphocytes # (Manual) Monocytes # Monocytes # (Manual) Metamyelocytes # (Man) D-Dimer ABG pH ABG pO2 ABG HCO3 ABG Total CO2 ABG O2 Saturation Sodium Chloride Carbon Dioxide BUN Creatinine BUN/Creatinine Ratio Glucose POC Glucose (mg/dL) 187 H 224 H Hemoglobin A1c Calcium Magnesium Ferritin Total Bilirubin AST ALT Lactate Dehydrogenase LD Isoenzymes 373 H LD 5 15 H Creatine Kinase CK-MB (CK-2) C-Reactive Protein Total Protein Albumin Albumin/Globulin Ratio Procalcitonin Ur Specific [place] Urine Protein Urine Ketones Urine Blood Urine RBC Urine Mucus Coronavirus (PCR) 06/18/20 06/18/20 06/18/20 04:14 04:14 04:14 WBC RBC Hgb Hct RDW Plt Count Neutrophils # Neutrophils # (Manual) Lymphocytes # Lymphocytes # (Manual) Monocytes # Monocytes # (Manual) Metamyelocytes # (Man) D-Dimer 0.86 H ABG pH ABG pO2 ABG HCO3 ABG Total CO2 ABG O2 Saturation Sodium Chloride 112 H Carbon Dioxide BUN 29 H Creatinine 0.63 L BUN/Creatinine Ratio Glucose 160 H POC Glucose (mg/dL) Hemoglobin A1c Calcium 8.2 L Magnesium Ferritin 676.0 H Total Bilirubin AST ALT Lactate Dehydrogenase LD Isoenzymes 353 H LD 5 Creatine Kinase 33 L CK-MB (CK-2) C-Reactive Protein 25.3 H Total Protein 5.5 L Albumin 2.6 L Albumin/Globulin Ratio Procalcitonin Ur Specific [place] Urine Protein Urine Ketones Urine Blood Urine RBC Urine Mucus Coronavirus (PCR) 06/18/20 06/18/20 06/18/20 04:14 11:38 17:34 WBC RBC 4.11 L Hgb 12.5 L Hct 37.9 L RDW Plt Count 69 L Neutrophils # Neutrophils # (Manual) Lymphocytes # 0.3 L Lymphocytes # (Manual) Monocytes # Monocytes # (Manual) Metamyelocytes # (Man) D-Dimer ABG pH ABG pO2 ABG HCO3 ABG Total CO2 ABG O2 Saturation Sodium Chloride Carbon Dioxide BUN Creatinine BUN/Creatinine Ratio Glucose POC Glucose (mg/dL) 194 H 184 H Hemoglobin A1c Calcium Magnesium Ferritin Total Bilirubin AST ALT Lactate Dehydrogenase LD Isoenzymes LD 5 Creatine Kinase CK-MB (CK-2) C-Reactive Protein Total Protein Albumin Albumin/Globulin Ratio Procalcitonin Ur Specific [place] Urine Protein Urine Ketones Urine Blood Urine RBC Urine Mucus Coronavirus (PCR) 06/18/20 06/19/20 06/19/20 20:21 04:00 04:00 WBC RBC 3.84 L Hgb 12.0 L Hct 34.9 L RDW Plt Count 74 L Neutrophils # Neutrophils # (Manual) Lymphocytes # 0.5 L Lymphocytes # (Manual) Monocytes # Monocytes # (Manual) Metamyelocytes # (Man) D-Dimer ABG pH ABG pO2 ABG HCO3 ABG Total CO2 ABG O2 Saturation Sodium Chloride 110 H Carbon Dioxide BUN 27 H Creatinine BUN/Creatinine Ratio Glucose 104 H POC Glucose (mg/dL) 230 H Hemoglobin A1c Calcium 8.0 L Magnesium Ferritin 501.7 H Total Bilirubin AST ALT Lactate Dehydrogenase LD Isoenzymes LD 5 Creatine Kinase 22 L CK-MB (CK-2) C-Reactive Protein 15.1 H Total Protein 5.3 L Albumin 2.4 L Albumin/Globulin Ratio Procalcitonin Ur Specific [place] Urine Protein Urine Ketones Urine Blood Urine RBC Urine Mucus Coronavirus (PCR) 06/19/20 06/19/20 06/19/20 06:36 09:31 11:15 WBC RBC Hgb Hct RDW Plt Count Neutrophils # Neutrophils # (Manual) Lymphocytes # Lymphocytes # (Manual) Monocytes # Monocytes # (Manual) Metamyelocytes # (Man) D-Dimer ABG pH ABG pO2 ABG HCO3 ABG Total CO2 ABG O2 Saturation Sodium Chloride Carbon Dioxide BUN Creatinine BUN/Creatinine Ratio Glucose POC Glucose (mg/dL) 121 H 233 H Hemoglobin A1c Calcium Magnesium Ferritin Total Bilirubin AST ALT Lactate Dehydrogenase 1501 H LD Isoenzymes LD 5 Creatine Kinase CK-MB (CK-2) C-Reactive Protein Total Protein Albumin Albumin/Globulin Ratio Procalcitonin Ur Specific [place] Urine Protein Urine Ketones Urine Blood Urine RBC Urine Mucus Coronavirus (PCR) 06/19/20 06/19/20 06/20/20 17:02 20:26 03:51 WBC RBC 4.15 L Hgb 12.4 L Hct 38.2 L RDW 15.8 H Plt Count 79 L Neutrophils # Neutrophils # (Manual) Lymphocytes # 0.7 L Lymphocytes # (Manual) Monocytes # Monocytes # (Manual) Metamyelocytes # (Man) D-Dimer ABG pH ABG pO2 ABG HCO3 ABG Total CO2 ABG O2 Saturation Sodium Chloride Carbon Dioxide BUN Creatinine BUN/Creatinine Ratio Glucose POC Glucose (mg/dL) 196 H 187 H Hemoglobin A1c Calcium Magnesium Ferritin Total Bilirubin AST ALT Lactate Dehydrogenase LD Isoenzymes LD 5 Creatine Kinase CK-MB (CK-2) C-Reactive Protein Total Protein Albumin Albumin/Globulin Ratio Procalcitonin Ur Specific [place] Urine Protein Urine Ketones Urine Blood Urine RBC Urine Mucus Coronavirus (PCR) 06/20/20 06/20/20 06/20/20 03:51 03:51 06:36 WBC RBC Hgb Hct RDW Plt Count Neutrophils # Neutrophils # (Manual) Lymphocytes # Lymphocytes # (Manual) Monocytes # Monocytes # (Manual) Metamyelocytes # (Man) D-Dimer 1.05 H ABG pH ABG pO2 ABG HCO3 ABG Total CO2 ABG O2 Saturation Sodium Chloride 109 H Carbon Dioxide BUN 25 H Creatinine BUN/Creatinine Ratio Glucose 134 H POC Glucose (mg/dL) 167 H Hemoglobin A1c Calcium 8.2 L Magnesium Ferritin Total Bilirubin AST ALT Lactate Dehydrogenase LD Isoenzymes LD 5 Creatine Kinase CK-MB (CK-2) C-Reactive Protein 10.6 H Total Protein 5.5 L Albumin 2.5 L Albumin/Globulin Ratio Procalcitonin Ur Specific [place] Urine Protein Urine Ketones Urine Blood Urine RBC Urine Mucus Coronavirus (PCR) 06/20/20 06/20/20 06/20/20 07:51 12:10 16:48 WBC RBC Hgb Hct RDW Plt Count Neutrophils # Neutrophils # (Manual) Lymphocytes # Lymphocytes # (Manual) Monocytes # Monocytes # (Manual) Metamyelocytes # (Man) D-Dimer ABG pH ABG pO2 ABG HCO3 ABG Total CO2 ABG O2 Saturation Sodium Chloride Carbon Dioxide BUN Creatinine BUN/Creatinine Ratio Glucose POC Glucose (mg/dL) 166 H 215 H 183 H Hemoglobin A1c Calcium Magnesium Ferritin Total Bilirubin AST ALT Lactate Dehydrogenase LD Isoenzymes LD 5 Creatine Kinase CK-MB (CK-2) C-Reactive Protein Total Protein Albumin Albumin/Globulin Ratio Procalcitonin Ur Specific [place] Urine Protein Urine Ketones Urine Blood Urine RBC Urine Mucus Coronavirus (PCR) 06/20/20 06/21/2020 20:17 06:05 07:12 WBC RBC Hgb Hct RDW Plt Count Neutrophils # Neutrophils # (Manual) Lymphocytes # Lymphocytes # (Manual) Monocytes # Monocytes # (Manual) Metamyelocytes # (Man) D-Dimer ABG pH ABG pO2 ABG HCO3 ABG Total CO2 ABG O2 Saturation Sodium 136 L Chloride Carbon Dioxide BUN 22 H Creatinine 0.62 L BUN/Creatinine Ratio Glucose 134 H POC Glucose (mg/dL) 177 H 158 H Hemoglobin A1c Calcium 8.1 L Magnesium Ferritin Total Bilirubin AST ALT Lactate Dehydrogenase 1017 H LD Isoenzymes LD 5 Creatine Kinase CK-MB (CK-2) C-Reactive Protein Total Protein 5.4 L Albumin 2.5 L Albumin/Globulin Ratio Procalcitonin Ur Specific [place] Urine Protein Urine Ketones Urine Blood Urine RBC Urine Mucus Coronavirus (PCR) 06/21/20 06/21/20 06/21/20 12:04 16:42 20:00 WBC RBC Hgb Hct RDW Plt Count Neutrophils # Neutrophils # (Manual) Lymphocytes # Lymphocytes # (Manual) Monocytes # Monocytes # (Manual) Metamyelocytes # (Man) D-Dimer ABG pH ABG pO2 ABG HCO3 ABG Total CO2 ABG O2 Saturation Sodium Chloride Carbon Dioxide BUN Creatinine BUN/Creatinine Ratio Glucose POC Glucose (mg/dL) 205 H 268 H 286 H Hemoglobin A1c Calcium Magnesium Ferritin Total Bilirubin AST ALT Lactate Dehydrogenase LD Isoenzymes LD 5 Creatine Kinase CK-MB (CK-2) C-Reactive Protein Total Protein Albumin Albumin/Globulin Ratio Procalcitonin Ur Specific [place] Urine Protein Urine Ketones Urine Blood Urine RBC Urine Mucus Coronavirus (PCR) 06/22/20 06/22/20 06/22/20 06:26 07:42 11:01 WBC RBC Hgb Hct RDW Plt Count Neutrophils # Neutrophils # (Manual) Lymphocytes # Lymphocytes # (Manual) Monocytes # Monocytes # (Manual) Metamyelocytes # (Man) D-Dimer ABG pH 7.53 H ABG pO2 63 L ABG HCO3 29 H ABG Total CO2 30 H ABG O2 Saturation Sodium 132 L Chloride Carbon Dioxide BUN 25 H Creatinine BUN/Creatinine Ratio Glucose 352 H POC Glucose (mg/dL) 218 H Hemoglobin A1c Calcium Magnesium Ferritin Total Bilirubin AST ALT 54 H Lactate Dehydrogenase 1127 H LD Isoenzymes LD 5 Creatine Kinase CK-MB (CK-2) C-Reactive Protein Total Protein 6.0 L Albumin 2.9 L Albumin/Globulin Ratio Procalcitonin Ur Specific [place] Urine Protein Urine Ketones Urine Blood Urine RBC Urine Mucus Coronavirus (PCR) 06/22/20 06/22/20 06/22/20 12:11 17:01 20:37 WBC RBC Hgb Hct RDW Plt Count Neutrophils # Neutrophils # (Manual) Lymphocytes # Lymphocytes # (Manual) Monocytes # Monocytes # (Manual) Metamyelocytes # (Man) D-Dimer ABG pH ABG pO2 ABG HCO3 ABG Total CO2 ABG O2 Saturation Sodium Chloride Carbon Dioxide BUN Creatinine BUN/Creatinine Ratio Glucose POC Glucose (mg/dL) 332 H 229 H 199 H Hemoglobin A1c Calcium Magnesium Ferritin Total Bilirubin AST ALT Lactate Dehydrogenase LD Isoenzymes LD 5 Creatine Kinase CK-MB (CK-2) C-Reactive Protein Total Protein Albumin Albumin/Globulin Ratio Procalcitonin Ur Specific [place] Urine Protein Urine Ketones Urine Blood Urine RBC Urine Mucus Coronavirus (PCR) 06/23/20 06/23/20 06/23/20 06:22 09:18 11:21 WBC RBC Hgb Hct RDW Plt Count Neutrophils # Neutrophils # (Manual) Lymphocytes # Lymphocytes # (Manual) Monocytes # Monocytes # (Manual) Metamyelocytes # (Man) D-Dimer ABG pH ABG pO2 ABG HCO3 ABG Total CO2 ABG O2 Saturation Sodium Chloride Carbon Dioxide BUN Creatinine BUN/Creatinine Ratio Glucose POC Glucose (mg/dL) 253 H 218 H Hemoglobin A1c Calcium Magnesium Ferritin Total Bilirubin AST ALT Lactate Dehydrogenase 1084 H LD Isoenzymes LD 5 Creatine Kinase CK-MB (CK-2) C-Reactive Protein Total Protein Albumin Albumin/Globulin Ratio Procalcitonin Ur Specific [place] Urine Protein Urine Ketones Urine Blood Urine RBC Urine Mucus Coronavirus (PCR) 06/23/20 06/23/20 06/24/20 16:57 20:09 06:11 WBC RBC Hgb Hct RDW Plt Count Neutrophils # Neutrophils # (Manual) Lymphocytes # Lymphocytes # (Manual) Monocytes # Monocytes # (Manual) Metamyelocytes # (Man) D-Dimer ABG pH ABG pO2 ABG HCO3 ABG Total CO2 ABG O2 Saturation Sodium Chloride Carbon Dioxide BUN Creatinine BUN/Creatinine Ratio Glucose POC Glucose (mg/dL) 199 H 230 H 178 H Hemoglobin A1c Calcium Magnesium Ferritin Total Bilirubin AST ALT Lactate Dehydrogenase LD Isoenzymes LD 5 Creatine Kinase CK-MB (CK-2) C-Reactive Protein Total Protein Albumin Albumin/Globulin Ratio Procalcitonin Ur Specific [place] Urine Protein Urine Ketones Urine Blood Urine RBC Urine Mucus Coronavirus (PCR) 06/24/20 06/24/20 06/24/20 11:32 17:21 21:47 WBC RBC Hgb Hct RDW Plt Count Neutrophils # Neutrophils # (Manual) Lymphocytes # Lymphocytes # (Manual) Monocytes # Monocytes # (Manual) Metamyelocytes # (Man) D-Dimer ABG pH ABG pO2 ABG HCO3 ABG Total CO2 ABG O2 Saturation Sodium Chloride Carbon Dioxide BUN Creatinine BUN/Creatinine Ratio Glucose POC Glucose (mg/dL) 144 H 232 H 266 H Hemoglobin A1c Calcium Magnesium Ferritin Total Bilirubin AST ALT Lactate Dehydrogenase LD Isoenzymes LD 5 Creatine Kinase CK-MB (CK-2) C-Reactive Protein Total Protein Albumin Albumin/Globulin Ratio Procalcitonin Ur Specific [place] Urine Protein Urine Ketones Urine Blood Urine RBC Urine Mucus Coronavirus (PCR) 06/25/20 06/25/20 06/25/20 06:00 06:55 06:55 WBC RBC 4.25 L Hgb 12.4 L Hct 38.8 L RDW 16.4 H Plt Count 145 L D Neutrophils # Neutrophils # (Manual) Lymphocytes # 0.5 L Lymphocytes # (Manual) Monocytes # Monocytes # (Manual) Metamyelocytes # (Man) D-Dimer ABG pH ABG pO2 ABG HCO3 ABG Total CO2 ABG O2 Saturation Sodium Chloride Carbon Dioxide BUN Creatinine BUN/Creatinine Ratio Glucose POC Glucose (mg/dL) 143 H Hemoglobin A1c Calcium Magnesium Ferritin Total Bilirubin AST ALT Lactate Dehydrogenase LD Isoenzymes LD 5 Creatine Kinase CK-MB (CK-2) C-Reactive Protein Total Protein Albumin Albumin/Globulin Ratio Procalcitonin 0.12 H Ur Specific [place] Urine Protein Urine Ketones Urine Blood Urine RBC Urine Mucus Coronavirus (PCR) 06/25/20 06/25/20 06/25/20 06:55 06:55 12:51 WBC RBC Hgb Hct RDW Plt Count Neutrophils # Neutrophils # (Manual) Lymphocytes # Lymphocytes # (Manual) Monocytes # Monocytes # (Manual) Metamyelocytes # (Man) D-Dimer 0.70 H ABG pH ABG pO2 ABG HCO3 ABG Total CO2 ABG O2 Saturation Sodium 136 L Chloride Carbon Dioxide 33 H BUN 26 H Creatinine 0.63 L BUN/Creatinine Ratio Glucose 109 H POC Glucose (mg/dL) 169 H Hemoglobin A1c Calcium Magnesium Ferritin Total Bilirubin AST ALT Lactate Dehydrogenase 1035 H LD Isoenzymes LD 5 Creatine Kinase CK-MB (CK-2) C-Reactive Protein 59.0 H Total Protein Albumin Albumin/Globulin Ratio Procalcitonin Ur Specific [place] Urine Protein Urine Ketones Urine Blood Urine RBC Urine Mucus Coronavirus (PCR) 06/25/20 06/25/20 06/26/20 16:41 20:23 06:37 WBC RBC Hgb Hct RDW Plt Count Neutrophils # Neutrophils # (Manual) Lymphocytes # Lymphocytes # (Manual) Monocytes # Monocytes # (Manual) Metamyelocytes # (Man) D-Dimer ABG pH ABG pO2 ABG HCO3 ABG Total CO2 ABG O2 Saturation Sodium Chloride Carbon Dioxide BUN Creatinine BUN/Creatinine Ratio Glucose POC Glucose (mg/dL) 180 H 122 H 195 H Hemoglobin A1c Calcium Magnesium Ferritin Total Bilirubin AST ALT Lactate Dehydrogenase LD Isoenzymes LD 5 Creatine Kinase CK-MB (CK-2) C-Reactive Protein Total Protein Albumin Albumin/Globulin Ratio Procalcitonin Ur Specific [place] Urine Protein Urine Ketones Urine Blood Urine RBC Urine Mucus Coronavirus (PCR) 06/26/20 06/26/20 06/26/20 07:09 11:44 12:51 WBC RBC Hgb Hct RDW 16.0 H Plt Count Neutrophils # Neutrophils # (Manual) Lymphocytes # Lymphocytes # (Manual) 0.50 L Monocytes # Monocytes # (Manual) Metamyelocytes # (Man) D-Dimer ABG pH ABG pO2 ABG HCO3 ABG Total CO2 ABG O2 Saturation Sodium Chloride Carbon Dioxide BUN Creatinine BUN/Creatinine Ratio Glucose POC Glucose (mg/dL) 177 H 162 H Hemoglobin A1c Calcium Magnesium Ferritin Total Bilirubin AST ALT Lactate Dehydrogenase LD Isoenzymes LD 5 Creatine Kinase CK-MB (CK-2) C-Reactive Protein Total Protein Albumin Albumin/Globulin Ratio Procalcitonin Ur Specific [place] Urine Protein Urine Ketones Urine Blood Urine RBC Urine Mucus Coronavirus (PCR) 06/26/20 06/26/20 06/26/20 12:51 16:55 20:38 WBC RBC Hgb Hct RDW Plt Count Neutrophils # Neutrophils # (Manual) Lymphocytes # Lymphocytes # (Manual) Monocytes # Monocytes # (Manual) Metamyelocytes # (Man) D-Dimer ABG pH ABG pO2 ABG HCO3 ABG Total CO2 ABG O2 Saturation Sodium 135 L Chloride Carbon Dioxide BUN 28 H Creatinine 0.49 L BUN/Creatinine Ratio Glucose 171 H POC Glucose (mg/dL) 153 H 264 H Hemoglobin A1c Calcium Magnesium Ferritin Total Bilirubin 1.4 H AST ALT 61 H Lactate Dehydrogenase LD Isoenzymes LD 5 Creatine Kinase CK-MB (CK-2) C-Reactive Protein Total Protein 6.2 L Albumin 3.0 L Albumin/Globulin Ratio Procalcitonin Ur Specific [place] Urine Protein Urine Ketones Urine Blood Urine RBC Urine Mucus Coronavirus (PCR) 06/27/20 06/27/20 06/27/20 12:11 16:57 20:22 WBC RBC Hgb Hct RDW Plt Count Neutrophils # Neutrophils # (Manual) Lymphocytes # Lymphocytes # (Manual) Monocytes # Monocytes # (Manual) Metamyelocytes # (Man) D-Dimer ABG pH ABG pO2 ABG HCO3 ABG Total CO2 ABG O2 Saturation Sodium Chloride Carbon Dioxide BUN Creatinine BUN/Creatinine Ratio Glucose POC Glucose (mg/dL) 165 H 127 H 157 H Hemoglobin A1c Calcium Magnesium Ferritin Total Bilirubin AST ALT Lactate Dehydrogenase LD Isoenzymes LD 5 Creatine Kinase CK-MB (CK-2) C-Reactive Protein Total Protein Albumin Albumin/Globulin Ratio Procalcitonin Ur Specific [place] Urine Protein Urine Ketones Urine Blood Urine RBC Urine Mucus Coronavirus (PCR) 06/28/20 06/28/20 06/28/20 06:09 11:57 16:43 WBC RBC Hgb Hct RDW Plt Count Neutrophils # Neutrophils # (Manual) Lymphocytes # Lymphocytes # (Manual) Monocytes # Monocytes # (Manual) Metamyelocytes # (Man) D-Dimer ABG pH ABG pO2 ABG HCO3 ABG Total CO2 ABG O2 Saturation Sodium Chloride Carbon Dioxide BUN Creatinine BUN/Creatinine Ratio Glucose POC Glucose (mg/dL) 203 H 166 H 186 H Hemoglobin A1c Calcium Magnesium Ferritin Total Bilirubin AST ALT Lactate Dehydrogenase LD Isoenzymes LD 5 Creatine Kinase CK-MB (CK-2) C-Reactive Protein Total Protein Albumin Albumin/Globulin Ratio Procalcitonin Ur Specific [place] Urine Protein Urine Ketones Urine Blood Urine RBC Urine Mucus Coronavirus (PCR) 06/28/20 06/29/20 06/29/20 20:11 03:41 03:41 WBC RBC Hgb Hct RDW 15.9 H Plt Count Neutrophils # Neutrophils # (Manual) Lymphocytes # Lymphocytes # (Manual) Monocytes # Monocytes # (Manual) Metamyelocytes # (Man) D-Dimer ABG pH ABG pO2 ABG HCO3 ABG Total CO2 ABG O2 Saturation Sodium Chloride Carbon Dioxide BUN 30 H Creatinine 0.50 L BUN/Creatinine Ratio Glucose 145 H POC Glucose (mg/dL) 139 H Hemoglobin A1c Calcium Magnesium Ferritin Total Bilirubin AST ALT Lactate Dehydrogenase LD Isoenzymes LD 5 Creatine Kinase CK-MB (CK-2) C-Reactive Protein Total Protein Albumin Albumin/Globulin Ratio Procalcitonin Ur Specific [place] Urine Protein Urine Ketones Urine Blood Urine RBC Urine Mucus Coronavirus (PCR) 06/29/20 06/29/20 06/29/20 06:21 11:43 16:49 WBC RBC Hgb Hct RDW Plt Count Neutrophils # Neutrophils # (Manual) Lymphocytes # Lymphocytes # (Manual) Monocytes # Monocytes # (Manual) Metamyelocytes # (Man) D-Dimer ABG pH ABG pO2 ABG HCO3 ABG Total CO2 ABG O2 Saturation Sodium Chloride Carbon Dioxide BUN Creatinine BUN/Creatinine Ratio Glucose POC Glucose (mg/dL) 138 H 145 H 183 H Hemoglobin A1c Calcium Magnesium Ferritin Total Bilirubin AST ALT Lactate Dehydrogenase LD Isoenzymes LD 5 Creatine Kinase CK-MB (CK-2) C-Reactive Protein Total Protein Albumin Albumin/Globulin Ratio Procalcitonin Ur Specific [place] Urine Protein Urine Ketones Urine Blood Urine RBC Urine Mucus Coronavirus (PCR) 06/29/20 06/30/20 06/30/20 21:00 06:04 10:23 WBC RBC Hgb Hct RDW Plt Count Neutrophils # Neutrophils # (Manual) Lymphocytes # Lymphocytes # (Manual) Monocytes # Monocytes # (Manual) Metamyelocytes # (Man) D-Dimer ABG pH ABG pO2 ABG HCO3 ABG Total CO2 ABG O2 Saturation Sodium Chloride Carbon Dioxide BUN Creatinine BUN/Creatinine Ratio Glucose POC Glucose (mg/dL) 166 H 143 H Hemoglobin A1c Calcium Magnesium Ferritin Total Bilirubin AST ALT Lactate Dehydrogenase LD Isoenzymes LD 5 Creatine Kinase CK-MB (CK-2) C-Reactive Protein Total Protein Albumin Albumin/Globulin Ratio Procalcitonin 0.10 H Ur Specific [place] Urine Protein Urine Ketones Urine Blood Urine RBC Urine Mucus Coronavirus (PCR) 06/30/20 06/30/20 06/30/20 12:15 16:53 20:29 WBC RBC Hgb Hct RDW Plt Count Neutrophils # Neutrophils # (Manual) Lymphocytes # Lymphocytes # (Manual) Monocytes # Monocytes # (Manual) Metamyelocytes # (Man) D-Dimer ABG pH ABG pO2 ABG HCO3 ABG Total CO2 ABG O2 Saturation Sodium Chloride Carbon Dioxide BUN Creatinine BUN/Creatinine Ratio Glucose POC Glucose (mg/dL) 149 H 257 H 183 H Hemoglobin A1c Calcium Magnesium Ferritin Total Bilirubin AST ALT Lactate Dehydrogenase LD Isoenzymes LD 5 Creatine Kinase CK-MB (CK-2) C-Reactive Protein Total Protein Albumin Albumin/Globulin Ratio Procalcitonin Ur Specific [place] Urine Protein Urine Ketones Urine Blood Urine RBC Urine Mucus Coronavirus (PCR) 07/01/20 07/01/20 07/01/20 06:16 10:04 10:31 WBC RBC Hgb Hct RDW Plt Count Neutrophils # Neutrophils # (Manual) Lymphocytes # Lymphocytes # (Manual) Monocytes # Monocytes # (Manual) Metamyelocytes # (Man) D-Dimer ABG pH 7.54 H ABG pO2 59 L* ABG HCO3 32 H ABG Total CO2 33 H ABG O2 Saturation 92.0 L Sodium Chloride Carbon Dioxide BUN Creatinine BUN/Creatinine Ratio Glucose POC Glucose (mg/dL) 161 H 152 H Hemoglobin A1c Calcium Magnesium Ferritin Total Bilirubin AST ALT Lactate Dehydrogenase LD Isoenzymes LD 5 Creatine Kinase CK-MB (CK-2) C-Reactive Protein Total Protein Albumin Albumin/Globulin Ratio Procalcitonin Ur Specific [place] Urine Protein Urine Ketones Urine Blood Urine RBC Urine Mucus Coronavirus (PCR) 07/01/20 12:05 WBC RBC Hgb Hct RDW Plt Count Neutrophils # Neutrophils # (Manual) Lymphocytes # Lymphocytes # (Manual) Monocytes # Monocytes # (Manual) Metamyelocytes # (Man) D-Dimer ABG pH ABG pO2 ABG HCO3 ABG Total CO2 ABG O2 Saturation Sodium Chloride Carbon Dioxide BUN Creatinine BUN/Creatinine Ratio Glucose POC Glucose (mg/dL) 131 H Hemoglobin A1c Calcium Magnesium Ferritin Total Bilirubin AST ALT Lactate Dehydrogenase LD Isoenzymes LD 5 Creatine Kinase CK-MB (CK-2) C-Reactive Protein Total Protein Albumin Albumin/Globulin Ratio Procalcitonin Ur Specific [place] Urine Protein Urine Ketones Urine Blood Urine RBC Urine Mucus Coronavirus (PCR) Assessment and Plan Assessment: * Probable acute ischemic stroke, with left hemiparesis, arm > leg. Patient is generalized weak as well, probably related to recent Covid 19 pneumonia, and deconditioning from prolonged hospitalization. Bilateral strokes cannot be ruled out either due to atrial fibrillation. * Atrial fibrillation, on long-term anticoagulation. Patient's anticoagulation was held for last 2 days in anticipation for PEG placement. * Dysphagia, status post PEG placement * Diabetes * Hyperlipidemia * Hypertension * Obesity Plan: * Patient was not a candidate for TPA with thrombolysis, as onset of symptoms unclear, likely > 4.5 hours. * MRI of brain to evaluate for acute stroke. * Carotid Doppler was performed today, which revealed no significant stenosis. Antegrade flow in both vertebral arteries. * 2-D echo to rule out left atrial/left ventricular clot. * Resume anticoagulation with Eliquis. * Hemoglobin A1c 7.6 on 06/03/2020. * Check lipid panel. * PT OT. * Medical management as per IM/critical care. * We will follow.
--- NOTE | 2020-07-01 19:32 | PN ---
PROGRESS NOTE CHIEF COMPLAINT: COVID pneumonia. HISTORY OF PRESENT ILLNESS: This gentleman continues to struggle. He remains dyspneic and there has apparently been a mental status change with his becoming more lethargic, and there is a question of whether he is moving the left upper extremity normally. PHYSICAL EXAMINATION: Chest demonstrates poor breath sounds with scattered rales. He is less responsive today. The abdomen is soft and nontender. PEG tube is in place. IMPRESSION: 1. COVID pneumonia. 2. Lethargy. 3. Possible left upper extremity weakness. PLAN: CT of the brain has been ordered. He will continue to be followed closely with hopes that any central nervous system problems are short-term and not related to vasculopathy. MMODL / IJN: [id number] /
--- NOTE | 2020-07-01 19:56 | PN ---
PROGRESS NOTE DATE OF SERVICE: 06/30/2020 CHIEF COMPLAINT: COVID pneumonia and respiratory distress. HISTORY OF PRESENT ILLNESS: This gentleman is stable. PEG tube has been placed. He remains very dyspneic and at times lethargic. He may be having episodes of confusion. PHYSICAL EXAMINATION: His vital signs are normal. Chest demonstrates rales and decreased breath sounds bilaterally with atrial fibrillation. Abdomen is soft. IMPRESSION: 1. COVID pneumonia. 2. Diabetes. 3. Atrial fibrillation. 4. Acute respiratory distress syndrome. PLAN: Continue following with hopes that he will yet be able to improve. MMODL / IJN: [id number] /
[2020-07-01 20:20] LABS: Glucose,Whole Blood 113 mg/dL (75-99)
[2020-07-01] MEDS: OXYBUTYNIN 15 MG TAB.ER.24 PO SCH (21:55)
[2020-07-01] MEDS: PIOGLITAZONE 30 MG TAB PO SCH (21:55)
[2020-07-01] MEDS: APIXABAN 5 MG TAB PO SCH (21:55)
[2020-07-01] MEDS: TAMSULOSIN 0.4 MG CAP.ER.24H PO SCH (21:55)
[2020-07-01] MEDS: MELATONIN 5 MG TABLET PO SCH (21:55)
--- NOTE | 2020-07-01 22:08 | PN ---
PROGRESS NOTE DATE OF SERVICE: 07/01/2020 REASON FOR FOLLOWUP: Pneumonia. INTERVAL HISTORY: The patient is currently afebrile. The patient remains lethargic. He is currently on nasal cannula oxygen. This morning he was on a non-rebreather. No vomiting or diarrhea has been reported. The patient himself is unable to provide history. PHYSICAL EXAMINATION: Blood pressure 143/85 with a pulse of 103, temperature 97.8. He is 98% on 8 L nasal cannula. General description is an elderly male lying in bed in no distress. RESPIRATORY SYSTEM: Unlabored breathing with decreased intensity of breath sounds. No wheeze. HEART: S1, S2. Regular rate and rhythm. ABDOMEN: Soft. No tenderness. LABS: No new labs have been obtained today. DIAGNOSTIC IMPRESSION AND PLAN: Patient with acute COVID-19 pneumonia followed by pseudomonas pneumonia. Patient's pneumonia has been adequately treated. The patient is currently monitored closely off antibiotic therapy. Continue with supportive care and no need for antibiotic at this point. MMODL / IJN: [id number] / [facility]
[2020-07-01 23:05] LABS: Cholesterol 154 mg/dL (<200); HDL Cholesterol 31 mg/dL (40-60); LDL Cholesterol,Calculated 91 mg/dL (0-99); Triglycerides 162 mg/dL (<150)
[2020-07-02] MEDS: SODIUM CHLORIDE 0.9% 1,000 ML IV SCH (02:22)
[2020-07-02 06:12] LABS: Glucose,Whole Blood 253 mg/dL (75-99)
[2020-07-02] MEDS: SULFACETAMIDE SOD 10% OPHTH DROPS 15 ML BTL RIGHT EYE SCH ×4 (07:07→23:40)
[2020-07-02] MEDS: INSULIN ASPART (NovoLOG) 100 UNIT/ML VIAL SQ SCH ×4 (07:07→20:31)
[2020-07-02] MEDS: INSULIN DETEMIR (LEVEMIR) 100 UNIT/ML SYR SQ SCH (07:07)
[2020-07-02] MEDS: ALBUTEROL HFA INHALER INHALATION SCH ×4 (09:27→20:45)
[2020-07-02] MEDS: SYMBICORT 160-4.5 MCG INHALER INHALATION SCH ×2 (09:27→20:45)
[2020-07-02] MEDS: ASCORBIC ACID 500 MG TAB PO SCH (09:37)
[2020-07-02] MEDS: SERTRALINE 100 MG TAB PO SCH (09:37)
[2020-07-02] MEDS: APIXABAN 5 MG TAB PO SCH ×2 (09:37→20:31)
[2020-07-02] MEDS: ESCITALOPRAM 10 MG TAB PO SCH (09:37)
[2020-07-02] MEDS: FAMOTIDINE 20 MG TAB PO SCH (09:37)
[2020-07-02] MEDS: ZINC SULFATE 220 MG CAP PO SCH (09:37)
[2020-07-02] MEDS: methylPREDNISolone SOD SUCCI 40 MG/ML 1 ML VIAL IV SCH ×3 (09:37→23:40)
[2020-07-02] MEDS: CHOLECALCIFEROL 400 UNIT TAB PO SCH (09:38)
[2020-07-02 10:13] LABS: Folate, Serum 2.4 ng/mL
--- NOTE | 2020-07-02 10:53 | ECHOF ---
Referral Reason:CVA MEASUREMENTS -------- HEIGHT: 170.2 cm WEIGHT: 94.3 kg BP: 129/66 RVIDd: 3.7 cm (< 3.3) IVSd: 2.0 cm (0.6 - 1.1) LVIDd: 4.3 cm (3.9 - 5.3) LVPWd: 2.2 cm (0.6 - 1.1) IVSs: 1.9 cm LVIDs: 3.0 cm LVPWs: 1.8 cm LA Diam: 4.7 cm (2.7 - 3.8) LAESV Index (A-L): 49.69 ml/m Ao Diam: 3.5 cm (2.0 - 3.7) AV Cusp: 0.6 cm (1.5 - 2.6) AV maxP.87 mmHg AV meanP.76 mmHg AR PHT: 361 ms RAP: 5.00 mmHg RVSP: 31.76 mmHg FINDINGS -------- This was a technically difficult study with suboptimal views. The left ventricular size is normal. There is severe concentric left ventricular hypertrophy. Ove rall left ventricular systolic function is normal with, an EF between 65 - 70 %. The right ventricle is mildly enlarged. LA is severely dilated >40 ml/m2 The right atrium is normal in size. Lumason used Interatrial and interventricular septum intact. There is severe aortic valve sclerosis. There is moderate aortic regurgitation. There is severe a ortic stenosis present. Peak/mean gradient across the Aortic Valve is 70.87mmHg / 40.76mmHg. Mild mitral annular calcification present. Mild tricuspid regurgitation present. Right ventricular systolic pressure is normal at < 35 mmHg. Trace/mild (physiologic) pulmonic regurgitation. The aortic root size is normal. Normal inferior vena cava with normal inspiratory collapse consistent with estimated right atrial pre ssure of 5 mmHg. There is no pericardial effusion. CONCLUSIONS -------- 1. This was a technically difficult study with suboptimal views. 2. The left ventricular size is normal. 3. There is severe concentric left ventricular hypertrophy. 4. Overall left ventricular systolic function is normal with, an EF between 65 - 70 %. 5. The right ventricle is mildly enlarged. 6. LA is severely dilated >40 ml/m2 7. Lumason used 8. There is severe aortic valve sclerosis. 9. There is moderate aortic regurgitation. 10. There is severe aortic stenosis present. 11. Peak/mean gradient across the Aortic Valve is 70.87mmHg / 40.76mmHg. 12. Mild mitral annular calcification present. 13. Mild tricuspid regurgitation present. 14. Trace/mild (physiologic) pulmonic regurgitation. 15. There is no pericardial effusion. INSPECTOR WREATH: Vicky Kearney RDCS
[2020-07-02 11:55] LABS: Glucose,Whole Blood 197 mg/dL (75-99)
--- NOTE | 2020-07-02 12:23 | MR ---
MR brain without contrast HISTORY: Cerebrovascular accident Multiplanar multisequence imaging of the brain Correlation to CT brain 07/01/2020 There are scattered foci within the periventricular white matter bilaterally showing restricted diffu ralph. Confluent and scattered hyperintensities are present within the periventricular, pericallosal, subcortical white matter. Atrophy is likely age-related. There is no hemorrhage or hydrocephalus. Cor pus callosum, pituitary, cervical medullary junction, cerebellopontine angles are within normal limit s. Extensive increased signal on inversion recovery T2-weighted sequences present within the mastoid air cells and temporal bone on the left, mucoperiosteal thickening present within the bilateral maxil zunilda sinuses. Orbits show symmetric appearance. There are normal vascular flow voids present. IMPRESSION: Bilateral areas of restricted diffusion suspicious for cerebral vascular accidents rather than T2 shine through although distribution suggests the latter, there are also areas of nonspecific white matter demyelination which are extensive. Correlate for possible embolic phenomenon. Extensive inflammatory changes in the temporal bone on the left, mastoid air cells.
--- NOTE | 2020-07-02 16:10 | P.PN ---
Subjective Progress Note Date: 07/02/20 Principal diagnosis: Acute hypoxic respiratory failure secondary to acute CoVID 19 pneumonia The patient is seen today 06/21/2020 in follow-up on the regular medical floor. He was transferred out of the ICU yesterday. He is currently sitting up in bed. Awake and alert. He continues to require AirVo high flow oxygen at 60 L and 90% to maintain O2 saturation in the 90s. He has been very slow to improve. He is continued on Eliquis, dexamethasone, Pepcid, melatonin, vitamin supplements. Remains on Symbicort, albuterol, Sodium 136. Potassium 4.1. Creatinine 0.62. LDH 1017. C-reactive protein 8.4. The patient is seen today 06/22/2020 in follow-up on the selective care unit. He is currently sitting up in bed. Awake and alert in no acute distress. Approximate 520 this morning and 18 was called based on the patient being found to be hypoxic despite being on high flow nasal cannula. He was switched back to BiPAP which he had been tolerating quite well the previous night. Chest x-ray continued to show bilateral infiltrates but no worse compared to previous. Lasix was given. Arterial blood gases on 40% FiO2 revealed a pO2 of 63, pCO2 35, pH 7.53. When we rounded on him later in the morning he was doing quite a bit better. He is currently on AirVo at 55 L and 80% FiO2. He is afebrile. Hemodynamically stable. Sodium 132. Potassium 4.0. Creatinine 0.67. LDH 1127. C-reactive protein 6.3. Remains on IV Solu-Medrol, Symbicort, albuterol. Anticoagulated with Eliquis. Remains on Pepcid, melatonin, vitamin supplements. The patient is seen today 07/02/2020 in follow-up on the elective care unit. He is awake and alert in no acute distress. He is maintaining O2 saturations in the 90s on 5 L/m per nasal cannula. He's been afebrile. Hemodynamically stable. Echocardiogram reveals severe concentric left ventricular hypertrophy. Stable left ventricular systolic function with ejection fraction 65-70%. There is moderate aortic regurgitation. Severe aortic stenosis. MRI of the brain revealed bilateral areas of restricted diffusion suspicious for cerebral vascular accidents rather than T2 shine through although distribution suggests a lateral. There is also areas of nonspecific white matter demyelination which are extensive. Correlate for possible embolic phenomenon. Extensive inflammatory changes in the temporal bone on the left, mastoid air cells. He is currently on Eliquis 5 mg twice a day. He remains on bronchodilators. IV Solu- Medrol. Objective - Vital Signs Vital signs: Vital Signs Temp 98.5 F 07/02/20 12:45 Pulse 95 07/02/20 12:45 Resp 24 07/02/20 12:45 BP 130/64 07/02/20 12:45 Pulse Ox 94 L 07/02/20 12:45 Intake & Output 07/01/20 07/02/20 07/02/20 18:59 06:59 18:59 Intake Total 285 Output Total 200 0 Balance 85 0 Weight 96 kg 94.5 kg Intake: Oral 45 Tube Feeding 120 Other 120 Output: Urine 200 Stool 0 Other: Voiding Method Indwelling Catheter Diaper # Voids 2 # Bowel Movements 1 2 - Exam GENERAL EXAM: Alert, obese 74-year-old gentleman, on 5 L/m per nasal cannula, fairly comfortable in no apparent distress. HEAD: Normocephalic. EYES: Normal reaction of pupils, equal size. NOSE: Clear with pink turbinates. THROAT: No erythema or exudates. NECK: No masses, no JVD. CHEST: No chest wall deformity. LUNGS: Equal air entry with bibasilar crackles CVS: S1 and S2 normal with an audible murmur, regular rhythm. ABDOMEN: No hepatosplenomegaly, normal bowel sounds, no guarding or rigidity. SPINE: No scoliosis or deformity SKIN: No rashes CENTRAL NERVOUS SYSTEM: No focal deficits, tone is normal in all 4 extremities. EXTREMITIES: There is no peripheral edema. No clubbing, no cyanosis. Peripheral pulses are intact. - Labs CBC & Chem 7: 06/29/20 03:41 06/29/20 03:41 Labs: Abnormal Lab Results - Last 24 Hours (Table) 06/29/20 07/01/20 07/01/20 Range/Units 03:41 17:01 18:34 POC Glucose (mg/dL) 106 H (75-99) mg/dL Triglycerides 162 H (<150) mg/dL HDL Cholesterol 31 L (40-60) mg/dL Vitamin B12 955.0 H (200.0-944.0) pg/mL 07/01/20 07/02/20 07/02/20 Range/Units 20:16 06:09 11:53 POC Glucose (mg/dL) 113 H 253 H 197 H (75-99) mg/dL Triglycerides (<150) mg/dL HDL Cholesterol (40-60) mg/dL Vitamin B12 (200.0-944.0) pg/mL Assessment and Plan Assessment: 1 Acute hypoxic respiratory failure secondary to covid 19 pneumonitis. 2 CVA/TIA. MRI of the brain revealed bilateral areas of restricted diffusion suspicious for cerebrovascular accidents rather than T2 shine through although distribution suggests a ladder, there are also areas of nonspecific white matter demyelination which are extensive. Correlate for possible embolic phenomenon. Extensive inflammatory changes and temporal bone on the left. 3 Severe aortic stenosis with moderate aortic regurgitation 4 Type 2 diabetes. 5 GERD without esophagitis. 6 History of hypertension. 7 Obesity. 8 Paroxysmal atrial fibrillation maintained on anticoagulation therapy. 9 History of depression. Plan: The patient was seen and evaluated by Dr. Obando MRI of the brain, echocardiogram reviewed Neurology is on the case Currently down to 5 L nasal cannula Continue bronchodilators and Solu-Medrol 60 mg every 6 hours Anticoagulated with Eliquis Titrate down the FiO2 as tolerated Prognosis remains guarded Will most likely need subacute rehabilitation We will continue to follow I, the cosigning physician, performed a history & physical examination of the patient. Lungs sounds with basilar crackles. Maintaining good O2 saturations in the 90s on 5L/min per nasal canula.. I discussed the assessment and plan of care with my nurse practitioner, Tashia Pelayo. I attest to the above note as dictated by her.
[2020-07-02 16:58] LABS: Glucose,Whole Blood 180 mg/dL (75-99)
--- NOTE | 2020-07-02 17:36 | P.PN ---
Subjective Progress Note Date: 07/02/20 Patient was seen for a follow-up. Patient continues to be somewhat encephalopathic, in mild to moderate respiratory distress, coughing. Offers no complaints. Denies headache. Objective - Vital Signs Vital signs: Vital Signs Temp 98.5 F 07/02/20 12:45 Pulse 95 07/02/20 12:45 Resp 24 07/02/20 12:45 BP 130/64 07/02/20 12:45 Pulse Ox 94 L 07/02/20 16:08 Intake & Output 07/01/20 07/02/20 07/02/20 18:59 06:59 18:59 Intake Total 285 Output Total 200 0 Balance 85 0 Weight 96 kg 94.5 kg Intake: Oral 45 Tube Feeding 120 Other 120 Output: Urine 200 Stool 0 Other: Voiding Method Indwelling Catheter Diaper # Voids 2 # Bowel Movements 1 2 - Exam On examination patient is an elderly male, laying in the bed, appears to be in mild to moderate respiratory distress, coughing. Speech is low volume, mild dysarthria. On cranial admission pupils are round and reacting, visual benton appears full, face is symmetric. Tongue protrudes the midline. On muscle strength testing (right/left) deltoid 4-/2, biceps 4/1-2, triceps 4- /2, java xml developer 2/2, mainly uses the thumb and index finger. In the lower 70s bilateral ankle dorsiflexion are weak. Hip flexion is 3-/1-2. Deep tendon reflexes are absent, plantars downgoing. Sensory could not be tested reliably because of his mental status. Cerebellar functions reveals ataxia for [id number] more so on the left. Gait deferred. - Labs CBC & Chem 7: 06/29/20 03:41 06/29/20 03:41 Labs: Abnormal Lab Results - Last 24 Hours (Table) 06/29/20 07/01/20 07/01/20 Range/Units 03:41 18:34 20:16 POC Glucose (mg/dL) 113 H (75-99) mg/dL Triglycerides 162 H (<150) mg/dL HDL Cholesterol 31 L (40-60) mg/dL Vitamin B12 955.0 H (200.0-944.0) pg/mL 07/02/20 07/02/20 07/02/20 Range/Units 06:09 11:53 16:51 POC Glucose (mg/dL) 253 H 197 H 180 H (75-99) mg/dL Triglycerides (<150) mg/dL HDL Cholesterol (40-60) mg/dL Vitamin B12 (200.0-944.0) pg/mL Assessment and Plan Assessment: * Acute ischemic stroke, bilateral hemisphere, likely cardioembolic from atrial fibrillation. * Atrial fibrillation, on long-term anticoagulation. * Dysphagia, status post PEG placement * Diabetes * Hyperlipidemia * Hypertension * Obesity Plan: * MRI of brain revealed bilateral areas of restricted diffusion involving multiple, bilateral small but numerous areas of ischemic infarction involving subcortical white matter of bilateral hemispheres, including adjacent to the frontal and occipital horns bilaterally. These are likely from cardioembolism. * Carotid Doppler revealed no significant stenosis. Antegrade flow in both vertebral arteries. * 2-D echo revealed severe concentric LVH, EF is 65-70%. Left atrium is severely dilated. There is severe aortic valve sclerosis, moderate aortic regurgitation. There is severe aortic stenosis. No thrombus reported. * Continue anticoagulation with Eliquis. Consider adding aspirin 81 mg daily if aortic stenosis is a concern for thromboembolism. * Patient already on Pepcid 40 mg daily for gastric ulcer prophylaxis. * Hemoglobin A1c 7.6 on 06/03/2020. Optimize diabetes control to target A1c <7.0 * Telemetry monitoring showing atrial fibrillation with heart rate between 90- 100. Some PVCs. * Lipid panel showed cholesterol 154, LDL 91, HDL 31, triglycerides 162. We will start Lipitor 20 mg daily. * B12 time 55, folate is low 2.4, we will start replacement folic acid. * PT OT. * Medical management as per IM/critical care.
[2020-07-02] MEDS: ACETAMINOPHEN TAB 325 MG TAB PO PRN (17:45)
[2020-07-02] MEDS ORDERED: ASPIRIN 81 MG PO SCH (17:45)
[2020-07-02] MEDS: FOLIC ACID 1 MG TAB PO SCH (17:45)
--- NOTE | 2020-07-02 18:50 | PN ---
PROGRESS NOTE CHIEF COMPLAINT: COVID pneumonia and possible cerebrovascular event. HISTORY OF PRESENT ILLNESS: This gentleman has been fairly stable basically, but there is a suggestion that he may have undergone a cerebrovascular episode the last day or two based on his findings on MRI. His oxygen level has improved to around 94%. PHYSICAL EXAMINATION: Breath sounds are still diminished with scattered rales. Cardiac exam demonstrates atrial fibrillation. The abdomen is soft with a PEG tube. IMPRESSION: 1. COVID pneumonia. 2. Possible cerebrovascular episode based on MRI findings. PLAN: No change in program at this time and continue to follow with Pulmonology and Infectious Disease. He is being seen by Neurology. MMODL / IJN: [id number] /
--- NOTE | 2020-07-02 18:51 | P.PN ---
Subjective Progress Note Date: 07/02/20 Principal diagnosis: Malnutrition Patient doing well today. No abdominal pain. Tolerating tube feeds by bolusing every 4 hours. He is afebrile. Objective - Vital Signs Vital signs: Vital Signs Temp 99.8 F H 07/02/20 16:55 Pulse 80 07/02/20 16:55 Resp 22 07/02/20 16:55 BP 115/61 07/02/20 16:55 Pulse Ox 94 L 07/02/20 16:55 Intake & Output 07/01/20 07/02/20 07/02/20 18:59 06:59 18:59 Intake Total 285 Output Total 200 0 Balance 85 0 Weight 96 kg 94.5 kg Intake: Oral 45 Tube Feeding 120 Other 120 Output: Urine 200 Stool 0 Other: Voiding Method Indwelling Catheter Diaper # Voids 2 # Bowel Movements 1 2 - Exam Abdomen: Soft, obese, PEG tube intact, bolster loosened by 0.5 cm - Labs CBC & Chem 7: 06/29/20 03:41 06/29/20 03:41 Labs: Abnormal Lab Results - Last 24 Hours (Table) 06/29/20 07/01/20 07/01/20 Range/Units 03:41 18:34 20:16 POC Glucose (mg/dL) 113 H (75-99) mg/dL Triglycerides 162 H (<150) mg/dL HDL Cholesterol 31 L (40-60) mg/dL Vitamin B12 955.0 H (200.0-944.0) pg/mL 07/02/20 07/02/20 07/02/20 Range/Units 06:09 11:53 16:51 POC Glucose (mg/dL) 253 H 197 H 180 H (75-99) mg/dL Triglycerides (<150) mg/dL HDL Cholesterol (40-60) mg/dL Vitamin B12 (200.0-944.0) pg/mL Assessment and Plan (1) Inadequate dietary intake of protein Narrative/Plan: Patient doing well after recent PEG tube placement. Continue tube feeds. We'll follow. Current Visit: Yes Status: Acute Code(s): E63.9 - NUTRITIONAL DEFICIENCY, UNSPECIFIED SNOMED Code(s): 192054863
[2020-07-02 20:27] LABS: Glucose,Whole Blood 137 mg/dL (75-99)
[2020-07-02] MEDS: ATORVASTATIN 20 MG TAB PO SCH (20:31)
[2020-07-02] MEDS: MELATONIN 5 MG TABLET PO SCH (20:31)
[2020-07-02] MEDS: PIOGLITAZONE 30 MG TAB PO SCH (20:31)
[2020-07-02] MEDS: OXYBUTYNIN 15 MG TAB.ER.24 PO SCH (21:12)
[2020-07-02] MEDS: TAMSULOSIN 0.4 MG CAP.ER.24H PO SCH (21:12)
--- NOTE | 2020-07-02 23:26 | PN ---
PROGRESS NOTE DATE OF SERVICE: 07/02/2020 REASON FOR FOLLOWUP: Pneumonia. INTERVAL HISTORY: The patient is currently afebrile. The patient is slightly sleepy and lethargic today, though he is hemodynamically stable. Tolerating his tube feeds. No vomiting or diarrhea or any other changes reported by nursing staff. PHYSICAL EXAMINATION: Blood pressure 115/61, pulse of 80, temperature 98.8. He is 94% on 5 L nasal cannula. General description is an elderly male lying in bed in no distress. RESPIRATORY SYSTEM: Unlabored breathing with decreased breath sounds at the base. No wheeze. HEART: S1, S2. Regular rate and rhythm. ABDOMEN: Soft. No tenderness. LABS: Hemoglobin is 13, white count 7.6. DIAGNOSTIC IMPRESSION AND PLAN: Patient admitted to hospital COVID-19 pneumonia about a month ago in this patient who did have subsequent pseudomonas pneumonia, which has been adequately treated. Patient seems to have shown some clinical improvement, has dropped to nasal cannula oxygen. No evidence of any secondary bacterial infection; hence we will hold on any further antibiotic therapy at this point. MMODL / IJN: [id number] /
[2020-07-03] MEDS: SODIUM CHLORIDE 0.9% 1,000 ML IV SCH (05:04)
[2020-07-03 06:52] LABS: Glucose,Whole Blood 276 mg/dL (75-99)
[2020-07-03] MEDS: INSULIN ASPART (NovoLOG) 100 UNIT/ML VIAL SQ SCH ×4 (07:06→20:11)
[2020-07-03] MEDS: INSULIN DETEMIR (LEVEMIR) 100 UNIT/ML SYR SQ SCH (07:06)
[2020-07-03] MEDS: SULFACETAMIDE SOD 10% OPHTH DROPS 15 ML BTL RIGHT EYE SCH ×3 (07:06→16:46)
[2020-07-03] MEDS: SYMBICORT 160-4.5 MCG INHALER INHALATION SCH ×2 (08:36→22:40)
[2020-07-03] MEDS: ALBUTEROL HFA INHALER INHALATION SCH ×4 (08:36→22:40)
[2020-07-03] MEDS: FAMOTIDINE 20 MG TAB PO SCH (09:29)
[2020-07-03] MEDS: methylPREDNISolone SOD SUCCI 40 MG/ML 1 ML VIAL IV SCH ×2 (09:29→16:33)
[2020-07-03] MEDS: APIXABAN 5 MG TAB PO SCH ×2 (09:29→20:11)
[2020-07-03] MEDS: SERTRALINE 100 MG TAB PO SCH (09:30)
[2020-07-03] MEDS: ESCITALOPRAM 10 MG TAB PO SCH (09:30)
[2020-07-03] MEDS: ZINC SULFATE 220 MG CAP PO SCH (09:30)
[2020-07-03] MEDS: CHOLECALCIFEROL 400 UNIT TAB PO SCH (09:30)
[2020-07-03] MEDS: ASCORBIC ACID 500 MG TAB PO SCH (09:30)
[2020-07-03] MEDS: FOLIC ACID 1 MG TAB PO SCH (09:30)
--- NOTE | 2020-07-03 10:43 | P.PN ---
Subjective Progress Note Date: 07/03/20 Principal diagnosis: Malnutrition Patient doing well today. Denies pain. T-max 99.8. Tolerating tube feeds. Objective - Vital Signs Vital signs: Vital Signs Temp 98.9 F 07/03/20 04:00 Pulse 89 07/03/20 04:00 Resp 19 07/03/20 04:00 BP 110/66 07/03/20 04:00 Pulse Ox 92 L 07/03/20 04:00 Intake & Output 07/02/20 07/03/20 07/03/20 18:59 06:59 18:59 Weight 104 kg Other: Voiding Method Diaper # Voids 2 # Bowel Movements 1 - Exam Abdomen: Soft, nondistended, PEG tube in place without significant tenderness or drainage - Labs CBC & Chem 7: 06/29/20 03:41 06/29/20 03:41 Labs: Abnormal Lab Results - Last 24 Hours (Table) 07/02/20 07/02/20 07/02/20 Range/Units 11:53 16:51 20:25 POC Glucose (mg/dL) 197 H 180 H 137 H (75-99) mg/dL 07/03/20 Range/Units 06:50 POC Glucose (mg/dL) 276 H (75-99) mg/dL Assessment and Plan (1) Inadequate dietary intake of protein Narrative/Plan: Continue tube feeds at goal. Continue supportive care. Current Visit: Yes Status: Acute Code(s): E63.9 - NUTRITIONAL DEFICIENCY, UNSPECIFIED SNOMED Code(s): 909888470
[2020-07-03 11:56] LABS: Glucose,Whole Blood 228 mg/dL (75-99)
--- NOTE | 2020-07-03 12:51 | P.PN ---
Subjective Progress Note Date: 07/03/20 Principal diagnosis: Acute hypoxic respiratory failure secondary to acute CoVID 19 pneumonia The patient is seen today 06/21/2020 in follow-up on the regular medical floor. He was transferred out of the ICU yesterday. He is currently sitting up in bed. Awake and alert. He continues to require AirVo high flow oxygen at 60 L and 90% to maintain O2 saturation in the 90s. He has been very slow to improve. He is continued on Eliquis, dexamethasone, Pepcid, melatonin, vitamin supplements. Remains on Symbicort, albuterol, Sodium 136. Potassium 4.1. Creatinine 0.62. LDH 1017. C-reactive protein 8.4. The patient is seen today 06/22/2020 in follow-up on the selective care unit. He is currently sitting up in bed. Awake and alert in no acute distress. Approximate 520 this morning and 18 was called based on the patient being found to be hypoxic despite being on high flow nasal cannula. He was switched back to BiPAP which he had been tolerating quite well the previous night. Chest x-ray continued to show bilateral infiltrates but no worse compared to previous. Lasix was given. Arterial blood gases on 40% FiO2 revealed a pO2 of 63, pCO2 35, pH 7.53. When we rounded on him later in the morning he was doing quite a bit better. He is currently on AirVo at 55 L and 80% FiO2. He is afebrile. Hemodynamically stable. Sodium 132. Potassium 4.0. Creatinine 0.67. LDH 1127. C-reactive protein 6.3. Remains on IV Solu-Medrol, Symbicort, albuterol. Anticoagulated with Eliquis. Remains on Pepcid, melatonin, vitamin supplements. The patient is seen today 07/02/2020 in follow-up on the elective care unit. He is awake and alert in no acute distress. He is maintaining O2 saturations in the 90s on 5 L/m per nasal cannula. He's been afebrile. Hemodynamically stable. Echocardiogram reveals severe concentric left ventricular hypertrophy. Stable left ventricular systolic function with ejection fraction 65-70%. There is moderate aortic regurgitation. Severe aortic stenosis. MRI of the brain revealed bilateral areas of restricted diffusion suspicious for cerebral vascular accidents rather than T2 shine through although distribution suggests a lateral. There is also areas of nonspecific white matter demyelination which are extensive. Correlate for possible embolic phenomenon. Extensive inflammatory changes in the temporal bone on the left, mastoid air cells. He is currently on Eliquis 5 mg twice a day. He remains on bronchodilators. IV Solu- Medrol. The patient is seen today 07/03/2020 in follow-up on the selective care unit. He is currently resting fairly comfortably in bed. Awake and alert in no acute distress. He has been slow to progress. He is now back up to 11 L high flow nasal cannula to maintain O2 saturations in the 90s. Blood glucose 228. Follow-up CoVID test negative 2. He remains on Symbicort, albuterol, IV Solu- Medrol. Vitamin supplements. Anticoagulated with Eliquis. Objective - Vital Signs Vital signs: Vital Signs Temp 99.3 F 07/03/20 08:00 Pulse 77 07/03/20 08:00 Resp 16 07/03/20 08:00 BP 117/63 07/03/20 08:00 Pulse Ox 90 L 07/03/20 08:00 Intake & Output 07/02/20 07/03/20 07/03/20 18:59 06:59 18:59 Intake Total 180 Output Total 0 Balance 180 Weight 104 kg Intake: Oral 180 Output: Stool 0 Other: Voiding Method Diaper Diaper # Voids 2 # Bowel Movements 1 - Exam GENERAL EXAM: Alert, obese 74-year-old gentleman, weak, debilitated, on 11 L/m per high flow nasal cannula, fairly comfortable in no apparent distress. HEAD: Normocephalic. EYES: Normal reaction of pupils, equal size. NOSE: Clear with pink turbinates. THROAT: No erythema or exudates. NECK: No masses, no JVD. CHEST: No chest wall deformity. LUNGS: Equal air entry with bibasilar crackles CVS: S1 and S2 normal with an audible murmur, regular rhythm. ABDOMEN: No hepatosplenomegaly, normal bowel sounds, no guarding or rigidity. SPINE: No scoliosis or deformity SKIN: No rashes CENTRAL NERVOUS SYSTEM: No focal deficits, tone is normal in all 4 extremities. EXTREMITIES: There is no peripheral edema. No clubbing, no cyanosis. Periph eral pulses are intact. - Labs CBC & Chem 7: 06/29/20 03:41 06/29/20 03:41 Labs: Abnormal Lab Results - Last 24 Hours (Table) 07/02/20 07/02/20 07/03/20 Range/Units 16:51 20:25 06:50 POC Glucose (mg/dL) 180 H 137 H 276 H (75-99) mg/dL 07/03/20 Range/Units 11:54 POC Glucose (mg/dL) 228 H (75-99) mg/dL Assessment and Plan Assessment: 1 Acute hypoxic respiratory failure secondary to covid 19 pneumonitis. 2 CVA/TIA. MRI of the brain revealed bilateral areas of restricted diffusion suspicious for cerebrovascular accidents rather than T2 shine through although distribution suggests a ladder, there are also areas of nonspecific white matter demyelination which are extensive. Correlate for possible embolic phenomenon. Extensive inflammatory changes and temporal bone on the left. 3 Severe aortic stenosis with moderate aortic regurgitation 4 Type 2 diabetes. 5 GERD without esophagitis. 6 History of hypertension. 7 Obesity. 8 Paroxysmal atrial fibrillation maintained on anticoagulation therapy. 9 History of depression. Plan: The patient was seen and evaluated by Dr. Obando Currently back up to 11 L high flow nasal cannula Continue bronchodilators and Solu-Medrol 40 mg every 8 hours Anticoagulated with Eliquis Titrate down the FiO2 as tolerated Prognosis remains guarded Will most likely need subacute rehabilitation Follow up chest x-ray in a.m. We will continue to follow I, the cosigning physician, performed a history & physical examination of the patient. Lungs sounds with basilar crackles. Maintaining good O2 saturations in the 90s on 11 L high flow nasal cannula.. I discussed the assessment and plan of care with my nurse practitioner, Tashia Pelayo. I attest to the above note as dictated by her.
--- NOTE | 2020-07-03 12:58 | CDI ---
Documentation Clarification Form Date: 07/03/2020 12:23:53 PM From: Radha David RN CCDS Admit Date: 05/30/2020 10:41:00 AM Patient Name: Samm Ceja Visit Number: [id number] Discharge Date: ATTENTION: The Clinical Documentation Specialists (CDI) and [facility] Coding Staff appreciate your assistance in clarifying documentation. Please respond to the clarification below the line at the bottom and electronically sign. The CDI & [facility] Coding staff will review the response and follow-up if needed. Please note: Queries are made part of the Legal Health Record. If you have any questions, please contact the author of this message via ITS. Dr. Gary Pitt Inadequate protein malnutrition has been documented in the Surgical progress note 06/29 History/Risk Factors: 74-year-old male presents to the ED with fever, malaise, weakness and shortness of breath. Admitted with COVID 19 Clinical Indicators: Medical History: DM, GERD, HLD and HTN. Surgical Progress Note 07/03: Inadequate dietary intake of protein. Labs 06/29: Na 139; K 5.0; POC-186 Dietary Consult 06/29: Appetite: Fair; Nutrition Intake: Poor 0-25%; Nutritional Concerns: Difficulty swallowing; BMI: 31.9; BMI Classification: Overweight; Estimated Nutritional Needs Kcal: 2267; KCAL comment 283gm CHO. Estimated Protein for [place] Body weight: 1.0-1.2 grams/kg; Estimated protein needs grams/day: 67-81; Treatment: 06/30: Peg Tube placement Dietary Consult: see above Supplements: Magic Cups TID PPN/TPN: Glucerna 1.2 Lab monitoring: Blood glucose Other: monitor po intake and initiation of EN supplement intake In your professional opinion, can you further specify protein malnutrition? Mild Protein-Calorie Malnutrition Moderate Protein-Calorie Malnutrition Other condition, please specify Unable to determine Moderate protein calorie malnutrition (Last Revision: January 2019) MTDD
[2020-07-03 13:09] VITALS: BMI 35.9
--- NOTE | 2020-07-03 14:00 | P.PN ---
Subjective Progress Note Date: 07/03/20 Patient was seen for a follow-up. Patient appears more encephalopathic, worsening of bilateral hemiparesis. Left arm is flaccid. Denies headache. Objective - Vital Signs Vital signs: Vital Signs Temp 99.3 F 07/03/20 08:00 Pulse 77 07/03/20 08:00 Resp 16 07/03/20 08:00 BP 117/63 07/03/20 08:00 Pulse Ox 90 L 07/03/20 08:00 Intake & Output 07/02/20 07/03/20 07/03/20 18:59 06:59 18:59 Intake Total 180 Output Total 0 Balance 180 Weight 104 kg 104 kg Intake: Oral 180 Output: Stool 0 Other: Voiding Method Diaper Diaper # Voids 2 # Bowel Movements 1 - Exam Patient appears clinically worse. Mentation is worse. Patient does not cooperate with examination. His left arm is completely flaccid. Right arm also weak. Legs are also weak. - Labs CBC & Chem 7: 06/29/20 03:41 06/29/20 03:41 Labs: Abnormal Lab Results - Last 24 Hours (Table) 07/02/20 07/02/20 07/03/20 Range/Units 16:51 20:25 06:50 POC Glucose (mg/dL) 180 H 137 H 276 H (75-99) mg/dL 07/03/20 Range/Units 11:54 POC Glucose (mg/dL) 228 H (75-99) mg/dL Assessment and Plan Assessment: * Acute ischemic stroke, bilateral hemisphere, likely cardioembolic from atrial fibrillation. Patient's mentation is worse. Rule out new stroke, rule out hemorrhagic conversion. * Atrial fibrillation, on long-term anticoagulation. * Dysphagia, status post PEG placement * Diabetes * Hyperlipidemia * Hypertension * Obesity Plan: * Repeat computed tomography scan of head, rule out intracranial bleed. * MRI of brain revealed bilateral areas of restricted diffusion involving multiple, bilateral small but numerous areas of ischemic infarction involving subcortical white matter of bilateral hemispheres, including adjacent to the frontal and occipital horns bilaterally. These are likely from ca rdioembolism. * Carotid Doppler revealed no significant stenosis. Antegrade flow in both vertebral arteries. * 2-D echo revealed severe concentric LVH, EF is 65-70%. Left atrium is severely dilated. There is severe aortic valve sclerosis, moderate aortic regurgitation. There is severe aortic stenosis. No thrombus reported. * Continue anticoagulation with Eliquis. Consider adding aspirin 81 mg daily if aortic stenosis is a concern for thromboembolism. * Continue Pepcid 40 mg daily for gastric ulcer prophylaxis. * Hemoglobin A1c 7.6 on 06/03/2020. Optimize diabetes control to target A1c <7.0 * Telemetry monitoring showing atrial fibrillation. * Lipid panel showed cholesterol 154, LDL 91, HDL 31, triglycerides 162. We will start Lipitor 20 mg daily. * B12 955, folate is low 2.4, we will start replacement folic acid. * Medical management as per IM/critical care.
--- NOTE | 2020-07-03 14:46 | CT ---
EXAMINATION TYPE: CT brain wo con DATE OF EXAM: 07/03/2020 COMPARISON: 07/01/2020 INDICATION: Worsening hemiparesis, rule out bleed. DLP: 1123.4 mGycm, Automated exposure control for dose reduction was used. CONTRAST: None CT of the brain is performed utilizing 3 mm thick sections through the posterior fossa and 3 mm thick sections through the remaining calvarium. Study is performed within 24 hours of arrival to the hosp ital. No abnormal hyperdensity is present to suggest an acute intracranial hemorrhage. No mass lesion is evident. No acute infarcts are evident. Periventricular white matter hypodensity is present, likely on the bas is of chronic white matter ischemic changes. Ventricles and sulci are appropriate for the patient age. Paranasal sinuses and mastoid air cells within the [id number] are clear. IMPRESSIONS: 1. Chronic appearing periventricular white matter ischemic type changes. 2. No acute intracranial process.
[2020-07-03 17:01] LABS: Glucose,Whole Blood 184 mg/dL (75-99)
[2020-07-03 20:07] LABS: Glucose,Whole Blood 200 mg/dL (75-99)
[2020-07-03] MEDS: MELATONIN 5 MG TABLET PO SCH (20:11)
[2020-07-03] MEDS: TAMSULOSIN 0.4 MG CAP.ER.24H PO SCH (20:11)
[2020-07-03] MEDS: ATORVASTATIN 20 MG TAB PO SCH (20:11)
[2020-07-03] MEDS: ONDANSETRON 4 MG/2 ML VIAL IVP PRN (20:19)
[2020-07-03] MEDS: PIOGLITAZONE 30 MG TAB PO SCH (21:59)
[2020-07-03] MEDS: OXYBUTYNIN 15 MG TAB.ER.24 PO SCH (21:59)
--- NOTE | 2020-07-03 22:23 | PN ---
PROGRESS NOTE DATE OF SERVICE: 07/03/2020 REASON FOR FOLLOWUP: Pneumonia. INTERVAL HISTORY: The patient is currently afebrile. The patient is slightly more awake and alert . Denies having any chest pain or shortness of breath. Minimal cough. No abdominal pain or diarrhea. PHYSICAL EXAMINATION: Blood pressure 142/78 with a pulse of 89. Temperature is 99.8. He is 93% on 15 L high- flow oxygen. General description is an elderly male lying in bed in no distress. RESPIRATORY SYSTEM: Unlabored breathing with decreased intensity of breath sounds. No wheeze. HEART: S1, S2. Regular rate and rhythm. ABDOMEN: Soft. No tenderness. LABS: No new labs have been obtained today. DIAGNOSTIC IMPRESSION AND PLAN: Patient with COVID-19 pneumonia followed by Pseudomonas that has been adequately treated in this patient now with evidence of a low-grade fever. We will obtain blood cultures, CRP and procalcitonin and a chest x-ray. Empirically add antibiotics while waiting for the workup to finalize and continue supportive care. MMODL / IJN: [id number] / [facility]
[2020-07-04] MEDS ORDERED: PIPERACILLIN-TAZOBACTAM 3.375 GM in SODIUM CHLORIDE 0.9% 100 ML IVPB SCH ×2
[2020-07-04] MEDS: methylPREDNISolone SOD SUCCI 40 MG/ML 1 ML VIAL IV SCH ×3 (00:05→17:33)
[2020-07-04] MEDS: SULFACETAMIDE SOD 10% OPHTH DROPS 15 ML BTL RIGHT EYE SCH ×3 (00:06→09:21)
[2020-07-04] MEDS: HYDROmorphone 0.5 MG/0.5 ML SYRINGE IVP PRN (01:08)
[2020-07-04] MEDS: SODIUM CHLORIDE 0.9% 1,000 ML IV SCH (02:19)
[2020-07-04 06:38] LABS: Glucose,Whole Blood 255 mg/dL (75-99)
[2020-07-04] MEDS: INSULIN DETEMIR (LEVEMIR) 100 UNIT/ML SYR SQ SCH (07:35)
[2020-07-04] MEDS: INSULIN ASPART (NovoLOG) 100 UNIT/ML VIAL SQ SCH ×4 (07:38→20:53)
--- NOTE | 2020-07-04 07:41 | CT ---
EXAMINATION TYPE: CT abdomen wo con DATE OF EXAM: 07/04/2020 HISTORY: Check peg tube placement, abdominal pain CT DLP: 737.5 mGycm. Automated Exposure Control for Dose Reduction was Utilized. TECHNIQUE: CT scan of the abdomen and pelvis is performed without oral or IV contrast. COMPARISON: NONE FINDINGS: Within the limitations of a non-contrast study, the following observations are made. LUNG BASES: Right basilar consolidation with air bronchograms is present posteriorly. There is calcif ication at level of the mitral and aortic valve. There is severe three-vessel coronary artery calcifi cation. Tiny pericardial effusion posteriorly. LIVER/GB: Liver is small in size with lobulated peripheral nodular contour suggesting cirrhosis. No s urrounding ascites.. PANCREAS: Mild generalized atrophy greatest in the pancreatic head. SPLEEN: Spleen is not enlarged. ADRENALS: No significant abnormality is seen. KIDNEYS: Cortical thinning in both kidneys. There is 2.8 cm thin-walled cyst posteriorly mid to lower pole level left kidney. No renal stones or hydronephrosis is seen bilaterally. BOWEL: PEG tube position satisfactory in the distal stomach. Stomach is poorly distended and thus sub optimally evaluated. High dense material in the left and sigmoid colon likely reflects product of bar ium swallow study June 24. No suspicious small and large bowel dilatation. LYMPH NODES: No greater than 1cm abdominal lymph nodes are appreciated. OSSEOUS STRUCTURES: Multilevel spurring in the visualized thoracic spine. OTHER: Moderate calcified plaque of the distal abdominal aorta extends into iliac branch vessels. IMPRESSION: Satisfactory positioning of PEG tube. Posterior right basilar consolidation with air bron chograms. Correlate clinically for focal pneumonia. Underlying cirrhosis noted.
[2020-07-04 07:44] LABS: Anisocytosis Slight; HCT 41.6 % (39.0-53.0); Hypochromasia Slight; MCH 29.3 pg (25.0-35.0); MCHC 31.1 g/dL (31.0-37.0); MCV 94.1 fL (80.0-100.0); Mean Platelet Volume 7.3; Platelet Count 218 k/uL (150-450); RBC 4.42 m/uL (4.30-5.90); RDW 16.3 % (11.5-15.5)
[2020-07-04 07:46] LABS: African American GFR (CKD) >90 (>60 ml/min/1.73 sqM); Anion Gap 4 mmol/L; Blood Urea Nitrogen 40 mg/dL (9-20); Calcium 8.6 mg/dL (8.4-10.2); Carbon Dioxide 34 mmol/L (22-30); Chloride 108 mmol/L (98-107); Glucose 259 mg/dL (74-99); Non-African American GFR(CKD) >90 (>60 ml/min/1.73 sqM); Potassium 4.6 mmol/L (3.5-5.1); Sodium 146 mmol/L (137-145)
[2020-07-04 08:07] LABS: Band Neutrophils % 4 %; Metamyelocytes % 1 %; Neutrophils % (M) 90 %; Nucleated Red Blood Cells 0 /100 WBC (0-0); Poikilocytosis (M) Present; Total Cells Counted 200
[2020-07-04] MEDS: SYMBICORT 160-4.5 MCG INHALER INHALATION SCH ×2 (08:28→20:23)
[2020-07-04] MEDS: ALBUTEROL HFA INHALER INHALATION SCH ×4 (08:28→20:23)
--- NOTE | 2020-07-04 08:31 | XR ---
EXAMINATION TYPE: XR chest 1V portable DATE OF EXAM: 07/04/2020 CLINICAL HISTORY: Hypoxia and pneumonia progress study. TECHNIQUE: Single AP portable upright view of the chest is obtained. COMPARISON: Chest x-ray from 3 days earlier and older studies. FINDINGS: Persistent low lung volumes with peripheral right lung opacities are redemonstrated. Stabl e cardiomegaly with atherosclerotic aortic knob. Osseous structures are intact. IMPRESSION: Low lung volumes with peripheral right lung acute infiltrates redemonstrated consistent w ith covid -19 infection . No significant change from most recent chest x-ray.
[2020-07-04] MEDS: PANTOPRAZOLE 40 MG/10 ML VIAL IVP SCH (09:17)
--- NOTE | 2020-07-04 09:52 | P.PN ---
Subjective Progress Note Date: 07/04/20 Principal diagnosis: Malnutrition I was contacted by the patient's nurse around 6:00 6:30 this morning. Patient was having complaints of abdominal pain. When aspirating from the PEG tube a small amount of bloody fluid was identified. She and I were both concerned that the PEG tube may have pulled free from the stomach and for that reason a stat CT abdomen was obtained. CAT scan shows PEG tube appropriately placed in the lumen of the stomach without evidence of inflammatory change or free air. Patient has had generalized decline in his condition over the last 1-2 days. Today's white blood cell count has increased significantly to 30. He is lethargic. Objective - Vital Signs Vital signs: Vital Signs Temp 99.8 F H 07/04/20 04:00 Pulse 101 H 07/04/20 04:00 Resp 24 07/04/20 04:44 BP 142/88 07/04/20 04:00 Pulse Ox 92 L 07/04/20 04:44 Intake & Output 07/03/20 07/04/20 07/04/20 18:59 06:59 18:59 Intake Total 480 0 Output Total 0 0 Balance 480 0 Weight 104 kg 94.5 kg Intake: Oral 480 Tube Feeding 0 Output: Stool 0 0 Other: Voiding Method Diaper Diaper # Voids 0 - Exam Abdomen: Soft, nondistended, mild tenderness, PEG tube in place without drainage - Labs CBC & Chem 7: 07/04/20 07:24 07/04/20 07:24 Labs: Abnormal Lab Results - Last 24 Hours (Table) 07/03/20 07/03/20 07/03/20 Range/Units 11:54 16:54 20:07 WBC (3.8-10.6) k/uL RDW (11.5-15.5) % Neutrophils # (Manual) (1.3-7.7) k/uL Lymphocytes # (Manual) (1.0-4.8) k/uL Monocytes # (Manual) (0-1.0) k/uL Metamyelocytes # (Man) (0) k/uL Sodium (137-145) mmol/L Chloride (98-107) mmol/L Carbon Dioxide (22-30) mmol/L BUN (9-20) mg/dL Glucose (74-99) mg/dL POC Glucose (mg/dL) 228 H 184 H 200 H (75-99) mg/dL C-Reactive Protein (<10.0) mg/L Procalcitonin (0.02-0.09) ng/mL 07/03/20 07/03/20 07/04/20 Range/Units 21:30 21:30 06:36 WBC (3.8-10.6) k/uL RDW (11.5-15.5) % Neutrophils # (Manual) (1.3-7.7) k/uL Lymphocytes # (Manual) (1.0-4.8) k/uL Monocytes # (Manual) (0-1.0) k/uL Metamyelocytes # (Man) (0) k/uL Sodium (137-145) mmol/L Chloride (98-107) mmol/L Carbon Dioxide (22-30) mmol/L BUN (9-20) mg/dL Glucose (74-99) mg/dL POC Glucose (mg/dL) 255 H (75-99) mg/dL C-Reactive Protein 150.4 H (<10.0) mg/L Procalcitonin 0.30 H (0.02-0.09) ng/mL 07/04/20 07/04/20 Range/Units 07:24 07:24 WBC 30.0 H (3.8-10.6) k/uL RDW 16.3 H (11.5-15.5) % Neutrophils # (Manual) 28.20 H (1.3-7.7) k/uL Lymphocytes # (Manual) 0.60 L (1.0-4.8) k/uL Monocytes # (Manual) 1.50 H (0-1.0) k/uL Metamyelocytes # (Man) 0.30 H (0) k/uL Sodium 146 H (137-145) mmol/L Chloride 108 H (98-107) mmol/L Carbon Dioxide 34 H (22-30) mmol/L BUN 40 H (9-20) mg/dL Glucose 259 H (74-99) mg/dL POC Glucose (mg/dL) (75-99) mg/dL C-Reactive Protein (<10.0) mg/L Procalcitonin (0.02-0.09) ng/mL Assessment and Plan (1) Inadequate dietary intake of protein Narrative/Plan: Patient with further clinical decline. No issues related to the feeding tube identified at this time. May utilize the PEG tube. Discussion with family apparently taking place regarding possible comfort measures. Current Visit: Yes Status: Acute Code(s): E63.9 - NUTRITIONAL DEFICIENCY, UNSPECIFIED SNOMED Code(s): 072665170
[2020-07-04 12:06] LABS: Glucose,Whole Blood 191 mg/dL (75-99)
[2020-07-04] MEDS: PIPERACILLIN-TAZOBACTAM 3.375 GM in SODIUM CHLORIDE 0.9% 100 ML IVPB SCH ×2 (12:40→20:59)
--- NOTE | 2020-07-04 12:52 | P.PN ---
Subjective Progress Note Date: 07/04/20 Principal diagnosis: Acute hypoxic respiratory failure secondary to acute CoVID 19 pneumonia The patient is seen today 06/21/2020 in follow-up on the regular medical floor. He was transferred out of the ICU yesterday. He is currently sitting up in bed. Awake and alert. He continues to require AirVo high flow oxygen at 60 L and 90% to maintain O2 saturation in the 90s. He has been very slow to improve. He is continued on Eliquis, dexamethasone, Pepcid, melatonin, vitamin supplements. Remains on Symbicort, albuterol, Sodium 136. Potassium 4.1. Creatinine 0.62. LDH 1017. C-reactive protein 8.4. The patient is seen today 06/22/2020 in follow-up on the selective care unit. He is currently sitting up in bed. Awake and alert in no acute distress. Approximate 520 this morning and 18 was called based on the patient being found to be hypoxic despite being on high flow nasal cannula. He was switched back to BiPAP which he had been tolerating quite well the previous night. Chest x-ray continued to show bilateral infiltrates but no worse compared to previous. Lasix was given. Arterial blood gases on 40% FiO2 revealed a pO2 of 63, pCO2 35, pH 7.53. When we rounded on him later in the morning he was doing quite a bit better. He is currently on AirVo at 55 L and 80% FiO2. He is afebrile. Hemodynamically stable. Sodium 132. Potassium 4.0. Creatinine 0.67. LDH 1127. C-reactive protein 6.3. Remains on IV Solu-Medrol, Symbicort, albuterol. Anticoagulated with Eliquis. Remains on Pepcid, melatonin, vitamin supplements. The patient is seen today 07/02/2020 in follow-up on the elective care unit. He is awake and alert in no acute distress. He is maintaining O2 saturations in the 90s on 5 L/m per nasal cannula. He's been afebrile. Hemodynamically stable. Echocardiogram reveals severe concentric left ventricular hypertrophy. Stable left ventricular systolic function with ejection fraction 65-70%. There is moderate aortic regurgitation. Severe aortic stenosis. MRI of the brain revealed bilateral areas of restricted diffusion suspicious for cerebral vascular accidents rather than T2 shine through although distribution suggests a lateral. There is also areas of nonspecific white matter demyelination which are extensive. Correlate for possible embolic phenomenon. Extensive inflammatory changes in the temporal bone on the left, mastoid air cells. He is currently on Eliquis 5 mg twice a day. He remains on bronchodilators. IV Solu- Medrol. The patient is seen today 07/03/2020 in follow-up on the selective care unit. He is currently resting fairly comfortably in bed. Awake and alert in no acute distress. He has been slow to progress. He is now back up to 11 L high flow nasal cannula to maintain O2 saturations in the 90s. Blood glucose 228. Follow-up CoVID test negative 2. He remains on Symbicort, albuterol, IV Solu- Medrol. Vitamin supplements. Anticoagulated with Eliquis. The patient is seen today 07/04/2020 in follow-up on the selective care unit. He is not making much progress. He remains quite weak and debilitated. He remains on BiPAP 14/6 and 70% FiO2 to maintain O2 saturation in the 90s. Follow-up computed tomography scan of the brain revealed chronic appearing. Ventricular white matter ischemic type changes. No acute intracranial process. He had been having some issues with clotting of the PEG tube. CAT scan revealed PEG tube placement is satisfactory in the distal stomach. There is noted posterior right basilar consolidation with air bronchograms. Underlying cirrhosis. Chest x-ray continues to show low lung volumes with peripheral right lung acute infiltrates redemonstrated consistent with CoVID 19 infection. No significant change compared to previous. White count 30.0. Hemoglobin 13.0. Lymphocytes 0.6. Sodium 146. Potassium 4.6. Creatinine 0.67. He remains anticoagulated with Eliquis. Continued on bronchodilators, vitamin supplements, IV Solu-Medro. Initiated on Zosyn. Objective - Vital Signs Vital signs: Vital Signs Temp 98.6 F 07/04/20 08:00 Pulse 108 H 07/04/20 08:00 Resp 20 07/04/20 08:00 BP 138/81 07/04/20 08:00 Pulse Ox 97 07/04/20 08:00 Intake & Output 07/03/20 07/04/20 07/04/20 18:59 06:59 18:59 Intake Total 480 0 Output Total 0 0 Balance 480 0 Weight 104 kg 94.5 kg Intake: Oral 480 Tube Feeding 0 Output: Stool 0 0 Other: Voiding Method Diaper Diaper Diaper # Voids 0 - Exam GENERAL EXAM: Arousable, obese 74-year-old gentleman, weak, debilitated, on BiPAP 14/6 and 70% FiO2. HEAD: Normocephalic. EYES: Normal reaction of pupils, equal size. NOSE: Clear with pink turbinates. THROAT: No erythema or exudates. NECK: No masses, no JVD. CHEST: No chest wall deformity. LUNGS: Equal air entry with bibasilar crackles CVS: S1 and S2 normal with an audible murmur, regular rhythm. ABDOMEN: Slightly distended, PEG tube in place. Hypoactive bowel sounds, no guarding or rigidity. SPINE: No scoliosis or deformity SKIN: No rashes CENTRAL NERVOUS SYSTEM: No focal deficits, tone is normal in all 4 extremities. EXTREMITIES: There is 1-2+ peripheral edema. No clubbing, no cyanosis. Peripheral pulses are intact. - Labs CBC & Chem 7: 07/04/20 07:24 07/04/20 07:24 Labs: Abnormal Lab Results - Last 24 Hours (Table) 07/03/20 07/03/20 07/03/20 Range/Units 16:54 20:07 21:30 WBC (3.8-10.6) k/uL RDW (11.5-15.5) % Neutrophils # (Manual) (1.3-7.7) k/uL Lymphocytes # (Manual) (1.0-4.8) k/uL Monocytes # (Manual) (0-1.0) k/uL Metamyelocytes # (Man) (0) k/uL Sodium (137-145) mmol/L Chloride (98-107) mmol/L Carbon Dioxide (22-30) mmol/L BUN (9-20) mg/dL Glucose (74-99) mg/dL POC Glucose (mg/dL) 184 H 200 H (75-99) mg/dL C-Reactive Protein 150.4 H (<10.0) mg/L Procalcitonin (0.02-0.09) ng/mL 07/03/20 07/04/20 07/04/20 Range/Units 21:30 06:36 07:24 WBC 30.0 H (3.8-10.6) k/uL RDW 16.3 H (11.5-15.5) % Neutrophils # (Manual) 28.20 H (1.3-7.7) k/uL Lymphocytes # (Manual) 0.60 L (1.0-4.8) k/uL Monocytes # (Manual) 1.50 H (0-1.0) k/uL Metamyelocytes # (Man) 0.30 H (0) k/uL Sodium (137-145) mmol/L Chloride (98-107) mmol/L Carbon Dioxide (22-30) mmol/L BUN (9-20) mg/dL Glucose (74-99) mg/dL POC Glucose (mg/dL) 255 H (75-99) mg/dL C-Reactive Protein (<10.0) mg/L Procalcitonin 0.30 H (0.02-0.09) ng/mL 07/04/20 07/04/20 Range/Units 07:24 12:01 WBC (3.8-10.6) k/uL RDW (11.5-15.5) % Neutrophils # (Manual) (1.3-7.7) k/uL Lymphocytes # (Manual) (1.0-4.8) k/uL Monocytes # (Manual) (0-1.0) k/uL Metamyelocytes # (Man) (0) k/uL Sodium 146 H (137-145) mmol/L Chloride 108 H (98-107) mmol/L Carbon Dioxide 34 H (22-30) mmol/L BUN 40 H (9-20) mg/dL Glucose 259 H (74-99) mg/dL POC Glucose (mg/dL) 191 H (75-99) mg/dL C-Reactive Protein (<10.0) mg/L Procalcitonin (0.02-0.09) ng/mL Assessment and Plan Assessment: 1 Acute hypoxic respiratory failure secondary to covid 19 pneumonitis. Currently back on BiPAP 14/6 and 70% FiO2. 2 CVA/TIA. MRI of the brain revealed bilateral areas of restricted diffusion suspicious for cerebrovascular accidents rather than T2 shine through although distribution suggests a ladder, there are also areas of nonspecific white matter demyelination which are extensive. Correlate for possible embolic phenomenon. Extensive inflammatory changes and temporal bone on the left. 3 Severe aortic stenosis with moderate aortic regurgitation 4 Type 2 diabetes. 5 GERD without esophagitis. 6 History of hypertension. 7 Obesity. 8 Paroxysmal atrial fibrillation maintained on anticoagulation therapy. 9 History of depression. 10 Abdominal distention, a computed tomography scan of the abdomen revealed good placement of the PEG tube, cirrhosis Plan: The patient was seen and evaluated by Dr. Obando Currently back on BiPAP 14/6 and 70% Fio2 Continue bronchodilators and Solu-Medrol 40 mg every 8 hours Anticoagulated with Eliquis Prognosis remains quite poor after 35 days without improvement May consider hospice/comfort care We will continue to follow I, the cosigning physician, performed a history & physical examination of the patient. Lungs sounds with basilar crackles. Maintaining O2 saturations in the 90s o BiPAP 14/6 and 70% FiO2. I discussed the assessment and plan of care with my nurse practitioner, Tashia Pelayo. I attest to the above note as dictated by her.
--- NOTE | 2020-07-04 13:17 | P.PN ---
Subjective Progress Note Date: 07/04/20 Patient was seen for a follow-up. Patient appears to be in mild to moderate respiratory distress. Offers no complaints. Objective - Vital Signs Vital signs: Vital Signs Temp 98.6 F 07/04/20 08:00 Pulse 108 H 07/04/20 08:00 Resp 20 07/04/20 08:00 BP 138/81 07/04/20 08:00 Pulse Ox 97 07/04/20 08:00 Intake & Output 07/03/20 07/04/20 07/04/20 18:59 06:59 18:59 Intake Total 480 0 Output Total 0 0 Balance 480 0 Weight 104 kg 94.5 kg Intake: Oral 480 Tube Feeding 0 Output: Stool 0 0 Other: Voiding Method Diaper Diaper Diaper # Voids 0 - Exam Patient appears slightly lethargic, slight in distress with respiratory dif ficulty. Mentation is worse. Patient speaks with very low volume. Face appears symmetric. Visual benton could not be tested. Pupils are round and reacting. Patient's left arm is weaker than the right. Ticket Scheduler is weaker on the left as compared to the right. Patient's left arm falls to the bed whereas he can hold the right arm up. Patient has Babinski on the left side. Patient wiggles his feet to plantar stimulation, did not cooperate for detailed examination due to mentation. - Labs CBC & Chem 7: 07/04/20 07:24 07/04/20 07:24 Labs: Abnormal Lab Results - Last 24 Hours (Table) 07/03/20 07/03/20 07/03/20 Range/Units 16:54 20:07 21:30 WBC (3.8-10.6) k/uL RDW (11.5-15.5) % Neutrophils # (Manual) (1.3-7.7) k/uL Lymphocytes # (Manual) (1.0-4.8) k/uL Monocytes # (Manual) (0-1.0) k/uL Metamyelocytes # (Man) (0) k/uL Sodium (137-145) mmol/L Chloride (98-107) mmol/L Carbon Dioxide (22-30) mmol/L BUN (9-20) mg/dL Glucose (74-99) mg/dL POC Glucose (mg/dL) 184 H 200 H (75-99) mg/dL C-Reactive Protein 150.4 H (<10.0) mg/L Procalcitonin (0.02-0.09) ng/mL 07/03/20 07/04/20 07/04/20 Range/Units 21:30 06:36 07:24 WBC 30.0 H (3.8-10.6) k/uL RDW 16.3 H (11.5-15.5) % Neutrophils # (Manual) 28.20 H (1.3-7.7) k/uL Lymphocytes # (Manual) 0.60 L (1.0-4.8) k/uL Monocytes # (Manual) 1.50 H (0-1.0) k/uL Metamyelocytes # (Man) 0.30 H (0) k/uL Sodium (137-145) mmol/L Chloride (98-107) mmol/L Carbon Dioxide (22-30) mmol/L BUN (9-20) mg/dL Glucose (74-99) mg/dL POC Glucose (mg/dL) 255 H (75-99) mg/dL C-Reactive Protein (<10.0) mg/L Procalcitonin 0.30 H (0.02-0.09) ng/mL 07/04/20 07/04/20 Range/Units 07:24 12:01 WBC (3.8-10.6) k/uL RDW (11.5-15.5) % Neutrophils # (Manual) (1.3-7.7) k/uL Lymphocytes # (Manual) (1.0-4.8) k/uL Monocytes # (Manual) (0-1.0) k/uL Metamyelocytes # (Man) (0) k/uL Sodium 146 H (137-145) mmol/L Chloride 108 H (98-107) mmol/L Carbon Dioxide 34 H (22-30) mmol/L BUN 40 H (9-20) mg/dL Glucose 259 H (74-99) mg/dL POC Glucose (mg/dL) 191 H (75-99) mg/dL C-Reactive Protein (<10.0) mg/L Procalcitonin (0.02-0.09) ng/mL Assessment and Plan Assessment: * Acute ischemic stroke, bilateral hemisphere, likely cardioembolic from atrial fibrillation. * Atrial fibrillation, on long-term anticoagulation. * Dysphagia, status post PEG placement * Diabetes * Hyperlipidemia * Hypertension * Obesity Plan: * Repeat computed tomography scan of head from 07/03/2020 revealed evolving ischemic infarcts in bilateral hemispheric region, multiple, right more than left. No new ischemic strokes as compared to the MRI, no hemorrhagic convers ion. * MRI of brain 07/02/2020 revealed bilateral areas of restricted diffusion involving multiple, bilateral small but numerous areas of ischemic infarction involving subcortical white matter of bilateral hemispheres, including adjacent to the frontal and occipital horns bilaterally. These are likely from cardioembolism. * Carotid Doppler revealed no significant stenosis. Antegrade flow in both v ertebral arteries. * 2-D echo revealed severe concentric LVH, EF is 65-70%. Left atrium is severely dilated. There is severe aortic valve sclerosis, moderate aortic regurgitation. There is severe aortic stenosis. No thrombus reported. * Continue anticoagulation with Eliquis. * Continue Pepcid 40 mg daily for gastric ulcer prophylaxis. * Hemoglobin A1c 7.6 on 06/03/2020. Optimize diabetes control to target A1c <7.0 * Telemetry monitoring showing atrial fibrillation. * Lipid panel showed cholesterol 154, LDL 91, HDL 31, triglycerides 162. We will start Lipitor 20 mg daily. * B12 955, folate is low 2.4, we will start replacement folic acid. * Medical management as per IM/critical care. * Neurology service not available over the weekend. Dr. Jake Obando will resume neurology service on Tuesday.
--- NOTE | 2020-07-04 14:08 | PN ---
PROGRESS NOTE DATE OF SERVICE: 07/04/2020 REASON FOR FOLLOWUP: Fever and concern for pneumonia. INTERVAL HISTORY: Patient did spike a low-grade fever last night. The patient is afebrile this morning. The patient currently on a BiPAP. The patient is hemodynamically stable, not on pressor support. The patient is hard to communicate with but according to history, no vomiting or diarrhea reported by nursing staff. PHYSICAL EXAMINATION: Blood pressure 132/81, pulse of 108, temp 98.6. He is 97% on BiPAP. General description is an elderly male lying in bed in no distress. Respiratory system: Unlabored breathing with decreased breath sounds at the base. No wheeze. HEART: S1, S2. Regular rate and rhythm. ABDOMEN: Soft. No tenderness. LABS: Hemoglobin is 13.5, white count 13,000, BUN of 4 creatinine 0.64. Procalcitonin 0.30. IMAGING: Low lung volumes and right lung infiltrate. DIAGNOSTIC IMPRESSION AND PLAN: Patient with a fever, elevated white count with right lung infiltrate concern for likely for aspiration pneumonia, possible gram-negative. The patient will be started on Zosyn to continue. Will monitor clinical course closely. Overall prognosis remains to be guarded. MMODL / IJN: [id number] / MTDLars
[2020-07-04] MEDS: ASCORBIC ACID 500 MG TAB PO SCH (15:32)
[2020-07-04] MEDS: CHOLECALCIFEROL 400 UNIT TAB PO SCH (15:32)
[2020-07-04] MEDS: APIXABAN 5 MG TAB PO SCH ×2 (15:32→20:54)
[2020-07-04] MEDS: SERTRALINE 100 MG TAB PO SCH (15:33)
[2020-07-04] MEDS: ZINC SULFATE 220 MG CAP PO SCH (15:33)
[2020-07-04] MEDS: FOLIC ACID 1 MG TAB PO SCH (15:33)
[2020-07-04] MEDS: FAMOTIDINE 20 MG TAB PO SCH (15:33)
[2020-07-04] MEDS: ESCITALOPRAM 10 MG TAB PO SCH (15:33)
[2020-07-04 17:01] LABS: Glucose,Whole Blood 226 mg/dL (75-99)
[2020-07-04 20:19] LABS: Glucose,Whole Blood 230 mg/dL (75-99)
[2020-07-04] MEDS: MELATONIN 5 MG TABLET PO SCH (20:54)
[2020-07-04] MEDS: PIOGLITAZONE 30 MG TAB PO SCH (20:54)
[2020-07-04] MEDS: TAMSULOSIN 0.4 MG CAP.ER.24H PO SCH (20:54)
[2020-07-04] MEDS: ATORVASTATIN 20 MG TAB PO SCH (20:54)
[2020-07-04] MEDS: OXYBUTYNIN 15 MG TAB.ER.24 PO SCH (20:55)
[2020-07-04] MEDS ORDERED: VANCOMYCIN IV PER PHARMACY 1 EACH MISC MISCELLANE PRN (21:01)
[2020-07-04] MEDS: VANCOMYCIN 1,500 MG in SODIUM CHLORIDE 0.9% 250 ML IVPB SCH (22:08)
[2020-07-05] MEDS: methylPREDNISolone SOD SUCCI 40 MG/ML 1 ML VIAL IV SCH ×2 (00:23→10:53)
[2020-07-05] MEDS: SODIUM CHLORIDE 0.9% 1,000 ML IV SCH (04:26)
[2020-07-05] MEDS: PIPERACILLIN-TAZOBACTAM 3.375 GM in SODIUM CHLORIDE 0.9% 100 ML IVPB SCH ×2 (04:26→12:57)
[2020-07-05 06:23] LABS: Glucose,Whole Blood 253 mg/dL (75-99)
[2020-07-05] MEDS: INSULIN DETEMIR (LEVEMIR) 100 UNIT/ML SYR SQ SCH (06:27)
[2020-07-05] MEDS: INSULIN ASPART (NovoLOG) 100 UNIT/ML VIAL SQ SCH ×2 (06:32→12:52)
[2020-07-05 07:20] LABS: African American GFR (CKD) >90 (>60 ml/min/1.73 sqM); Non-African American GFR(CKD) 86 (>60 ml/min/1.73 sqM)
[2020-07-05] MEDS: SYMBICORT 160-4.5 MCG INHALER INHALATION SCH (07:23)
[2020-07-05] MEDS: ALBUTEROL HFA INHALER INHALATION SCH ×2 (07:23→10:58)
--- NOTE | 2020-07-05 08:36 | P.PN ---
Subjective Progress Note Date: 07/05/20 Principal diagnosis: Malnutrition Patient remains on BiPAP. Remains lethargic as well. No obvious discomfort. Patient is afebrile. CBC pending. Objective - Vital Signs Vital signs: Vital Signs Temp 98.1 F 07/05/20 04:00 Pulse 102 H 07/05/20 04:00 Resp 26 H 07/05/20 04:00 BP 110/70 07/05/20 04:00 Pulse Ox 94 L 07/05/20 04:00 Intake & Output 07/04/20 07/05/20 07/05/20 18:59 06:59 18:59 Weight 98.5 kg Other: Voiding Method Diaper Diaper # Voids 2 - Exam Abdomen: Soft, nondistended, mild tenderness, PEG tube in place - Labs CBC & Chem 7: 07/04/20 07:24 07/05/20 06:46 Labs: Abnormal Lab Results - Last 24 Hours (Table) 07/04/20 07/04/20 07/04/20 Range/Units 12:01 16:51 20:18 POC Glucose (mg/dL) 191 H 226 H 230 H (75-99) mg/dL 07/05/20 Range/Units 06:21 POC Glucose (mg/dL) 253 H (75-99) mg/dL Microbiology - Last 24 Hours (Table) 07/03/20 21:30 Blood Culture Gram Stain - Preliminary Blood 07/03/20 21:30 Blood Culture - Final Blood Assessment and Plan (1) Inadequate dietary intake of protein Narrative/Plan: Await morning labs. Continue antibiotics per infectious disease. May utilize PEG tube given yesterday's CAT scan findings. Continue optimization of pulmonary status. Current Visit: Yes Status: Acute Code(s): E63.9 - NUTRITIONAL DEFICIENCY, UNSPECIFIED SNOMED Code(s): 804400263
[2020-07-05] MEDS: ESCITALOPRAM 10 MG TAB PO SCH (10:54)
[2020-07-05] MEDS: ASCORBIC ACID 500 MG TAB PO SCH (10:54)
[2020-07-05] MEDS: FAMOTIDINE 20 MG TAB PO SCH (10:54)
[2020-07-05] MEDS: CHOLECALCIFEROL 400 UNIT TAB PO SCH (10:54)
[2020-07-05] MEDS: APIXABAN 5 MG TAB PO SCH (10:54)
[2020-07-05] MEDS: FOLIC ACID 1 MG TAB PO SCH (10:55)
[2020-07-05] MEDS: PANTOPRAZOLE 40 MG/10 ML VIAL IVP SCH (10:55)
[2020-07-05] MEDS: SERTRALINE 100 MG TAB PO SCH (10:55)
[2020-07-05] MEDS: ZINC SULFATE 220 MG CAP PO SCH (10:55)
[2020-07-05] MEDS: ACETAMINOPHEN TAB 325 MG TAB PO PRN (10:57)
[2020-07-05 11:52] LABS: Glucose,Whole Blood 194 mg/dL (75-99)
[2020-07-05] MEDS ORDERED: ATROPINE OPHTH SOLN 1% 5ML BTL SUBLINGUAL PRN (12:18)
[2020-07-05] MEDS: LORazepam 2 MG/ML INJ IV PRN ×2 (12:34→23:02)
[2020-07-05] MEDS: MORPHINE SULFATE 4 MG/ML SYRINGE IV PRN ×3 (12:37→20:24)
[2020-07-05] MEDS: VANCOMYCIN 1,500 MG in SODIUM CHLORIDE 0.9% 250 ML IVPB SCH (12:57)
[2020-07-05] MEDS ORDERED: SCOPOLAMINE 1.5MG/72HR PATCH TRANSDERM SCH (13:00)
--- NOTE | 2020-07-05 15:10 | PN ---
PROGRESS NOTE PULMONARY/CRITICAL CARE PROGRESS NOTE: DATE OF SERVICE: 07/05/2020 This is a 74-year-old gentleman who was admitted way back on May 27. He has been in the hospital now for 36 days. The patient was admitted with a diagnosis of acute hypoxemic respiratory failure secondary to COVID-19 pneumonitis. The patient did, at one point, require intubation and mechanical ventilation for respiratory failure. Currently, the patient remains on BiPAP at 14/6 and 80% FiO2. The patient is doing poorly. He is not really see showing much improvement. We did have a conversation with the son today. He agreed to go comfort care. I think that is appropriate. In addition to the above, the patient has a history of CVA, severe aortic stenosis and moderate aortic regurgitation, type 2 diabetes mellitus, GERD, hypertension, obesity, paroxysmal atrial fibrillation, depression, and status post PEG tube placement. PLAN: We did have a conversation with the son. The son is ready to allow us to place the patient on comfort measures. The son realizes that father is not getting any better. In fact, mother, who initially was admitted with father with COVID infection, had a mile a mild case, was discharged to [facility] and apparently readmitted to the hospital with fever yesterday. He agrees with comfort measures at this time. We will implement the orders. No additional recommendations are made. Will DC all the unnecessary medications. We will focus on comfort including morphine and oxygen therapy. ROSALVA / KRISH: [id number] / MTDD
[2020-07-05 15:14] VITALS: BP 128/79; RESP 18; TEMP 98.2
[2020-07-05 16:48] LABS: Glucose,Whole Blood 298 mg/dL (75-99)
[2020-07-05 16:50] VITALS: PULSE 156
[2020-07-06] MEDS: HYDROmorphone 0.5 MG/0.5 ML SYRINGE IVP PRN (00:14)
[2020-07-06] MEDS: MORPHINE SULFATE 4 MG/ML SYRINGE IV PRN (03:16)
[2020-07-06] MEDS ORDERED: VANCOMYCIN TROUGH DUE 1 EACH MISC MISCELLANE ONE (09:00)
--- NOTE | 2020-07-09 10:25 | PN ---
PROGRESS NOTE DATE OF SERVICE: July 03, 2020. CHIEF COMPLAINT: Respiratory failure and COVID pneumonia. HISTORY OF PRESENT ILLNESS: This gentleman continues to do poorly. He is aspirating and level consciousness is fluctuating, but he is more lethargic. He is not running a fever. PHYSICAL EXAMINATION: Breath sounds are diminished bilaterally with rales and occasional rhonchi. Cardiac exam is normal. PEG tube is in place. IMPRESSION: 1. COVID pneumonia. 2. Respiratory failure. 3. Aspiration. 4. Diabetes. PLAN: Continue with current treatment program. He is not tolerating tube feedings well. MMODL / IJN: [id number] /
--- NOTE | 2020-07-09 10:31 | PN ---
PROGRESS NOTE DATE OF SERVICE: 07/04/2020 CHIEF COMPLAINT: COVID pneumonia, respiratory failure, aspiration pneumonia, diabetes. HISTORY OF PRESENT ILLNESS: This gentleman's remaining lethargic, but is responsive. There has been no other significant change. He has pink tinged material being aspirated from the stomach suggesting that there may be bleeding. PHYSICAL EXAMINATION: Vital signs are unchanged. He continues in atrial fibrillation. Breath sounds diminished throughout. Abdomen is soft and there are no masses. It is protuberant. IMPRESSION: 1. COVID pneumonia. 2. Aspiration pneumonia. 3. Respiratory failure. 4. Type 2 diabetes. 5. Possible gastric bleeding. PLAN: The patient continues to slowly deteriorate. Case was discussed with the family and hospice has been requested. IMPRESSION: 1. COVID pneumonia. 2. Respiratory failure. 3. Diabetes. 4. Encephalopathy. 5. Type 2 diabetes. PLAN: Hospice referral. ROSALVA / KRISH: [id number] /
--- NOTE | 2020-07-09 10:34 | PN ---
PROGRESS NOTE DATE OF SERVICE: 07/05/2020 CHIEF COMPLAINT: COVID pneumonia and respiratory failure. HISTORY OF PRESENT ILLNESS: This gentleman slowly is deteriorating. He has been referred to hospice. REVIEW OF SYSTEMS: Unobtainable. PHYSICAL EXAMINATION: Cardiac exam demonstrates atrial fibrillation. Breath sounds are decreased bilaterally. He is increasingly lethargic. IMPRESSION: 1. Respiratory failure. 2. COVID pneumonia. 3. Diabetes. 4. Aspiration. 5. Pseudomonas pneumonia. PLAN: He is under hospice now. He continues to fail. MMODL / IJN: [id number] /
--- NOTE | 2020-07-09 13:14 | DS ---
DISCHARGE SUMMARY DATE OF SERVICE: 07/06/2020 CHIEF COMPLAINT: COVID pneumonia. HISTORY OF PRESENT ILLNESS AND PHYSICAL EXAM: Details of this man's history and physical can be found in the initial workup. LABORATORY STUDIES: Studies are extensive and can be found in the laboratory section of chart. COURSE IN THE HOSPITAL: After admission he was placed on bedrest and treated for COVID pneumonia and respiratory failure. He deteriorated over several weeks and was maintained in ICU. He was on high-flow oxygen and never required intubation, but never significantly improved either. Eventually, he was able to be moved out of ICU to step-down unit. He remains very weak, short of breath and had difficulty with dysphagia and then started aspirate. Eventually, PEG tube was placed. He continued to have difficulty with aspiration and then slowly became more lethargic. 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 He continued to slowly deteriorate and eventually placed on hospice and he on the third. FINAL DIAGNOSES: 1. COVID pneumonia. 2. Acute respiratory failure. 3. Type 2 diabetes mellitus. 4. Obesity. 5. Hypertension. 6. Dysphagia. 7. Aspiration pneumonia. OPERATIONS: PEG tube placement. CONSULTATIONS: Infectious Disease, Surgery and Pulmonology. He is not improved. He . MMODL / IJN: [id number] /
--- NOTE | 2020-07-10 09:24 | CDI ---
Documentation Clarification Form Date: 07/10/2020 09:08:19 AM From: Kristi ChaconAndersonTONYA haq, CCDS Admit Date: 05/30/2020 10:41:00 AM Patient Name: Samm Ceja Visit Number: [id number] Discharge Date: 07/06/2020 10:44:00 AM ATTENTION: The Clinical Documentation Specialists (CDI) and [facility] Coding Staff appreciate your assistance in clarifying documentation. Please respond to the clarification below the line at the bottom and electronically sign. The CDI & [facility] Coding staff will review the response and follow-up if needed. Please note: Queries are made part of the Legal Health Record. If you have any questions, please contact the author of this message via ITS. Dr. 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 Clinical Indicators: Presented to the ED on 05/27 via EMS with cough & congestion, difficulty breathing and frequent urination. Admitted with COVID 19 Pneumonia, developed Gram Negative Bacterial Pneumonia, Aspiration Pneumonia and Acute Respiratory Distress Syndrome, the patient on 07/06/2020. Labs 05/30: Glucose 101 - 239^; CRP 9.1^, Procalcitonin 0.14^. 06/22 ABG: pH 7.53^, pO2 63*, HCO3 29^, Total CO2 30^. ABG 07/01: pH 7.54^, pO2 59, HCO3 32^, Total CO2 33^ 06/22 Chemistry: Na 132*, BUN 25^, Gluc 352^, ALT 54^, LDH 1127^, Total Protein 6.0*, Albumin 2.9* CT Brain 07/01 (for altered mentation): Moderate diffuse cerebral atrophy and chronic small vessel ischemic changes. MRI Brain 07/02 (CVA): Bilateral areas of restricted diffusion suspicious for cerebral vascular accidents rather than T2 shine through although distribution suggests the latter, there are also areas of nonspecific white matter demyelination which are extensive. Correlate for possible embolic phenomenon. Extensive inflammatory changes in the temporal bone on the left, mastoid air cells. 07/04 CT Abdomen & Pelvis: Liver cirrhosis noted. Treatment: O2 2-5Lnc - 12L highflow - nrb - BiPAP; Vit C & D3, Orazinc, po Hexadrol, INH Albuterol, INH Symbicort, IV Remdesivir, IV Solumedrol, IV Azithromycin, IV Rocephin, IV Cefepime, IV Zosyn, IV Vanco, IV Lasix, IV KCL, po Diflucan, IV Anidulafungin, PEG tube inserted 06/30. In your professional opinion, can you please clarify the specific type of Encephalopathy, if known? Metabolic Encephalopathy Toxic Encephalopathy Other, please specify Unable to determine (Last Revision: October 2017) MTDD
--- NOTE | 2020-07-12 13:25 | MISC ---
MISCELLANOUS REPORT Encephalopathy other cause, coronavirus. MMODL / IJN: [id number] /
== END 2020-07-06 10:44 | disposition expired | DRG 177 ==
LOC: EC 01:00 → 4SSUR 02:56 → OBSVTOIN 05-30 10:41 → 4SSUR 06-02 19:52 → 2SICU 06-08 16:14 → 3SCARD 06-20 12:52
PROVIDERS: ADMIT Family Medicine; ATTEND Family Medicine
PROC: XW033E5 Introduction of Remdesivir Anti-infective into Peripheral Vein, Percutaneous Approach, New Technology Group 5 (ICD-10-PCS; 2020-05-30)
PROC: XW13325 Transfusion of Convalescent Plasma (Nonautologous) into Peripheral Vein, Percutaneous Approach, New Technology Group 5 (ICD-10-PCS; 2020-06-06)
PROC: 5A09557 Assistance with Respiratory Ventilation, Greater than 96 Consecutive Hours, Continuous Positive Airway Pressure (ICD-10-PCS; principal; 2020-06-22)
PROC: 0DH63UZ Insertion of Feeding Device into Stomach, Percutaneous Approach (ICD-10-PCS; 2020-07-01 10:15)
PROC: 3E0G76Z Introduction of Nutritional Substance into Upper GI, Via Natural or Artificial Opening (ICD-10-PCS; 2020-07-01 10:15)
DX: U07.1 COVID-19 (principal); J12.82 Pneumonia due to coronavirus disease 2019; J15.1 Pneumonia due to Pseudomonas; J80 Acute respiratory distress syndrome; J69.0 Pneumonitis due to inhalation of food and vomit; I63.49 Cerebral infarction due to embolism of other cerebral artery; B37.0 Candidal stomatitis; J44.0 Chronic obstructive pulmonary disease with (acute) lower respiratory infection; E44.0 Moderate protein-calorie malnutrition; G81.94 Hemiplegia, unspecified affecting left nondominant side; G93.49 Other encephalopathy; Z51.5 Encounter for palliative care; Z66 Do not resuscitate; R13.10 Dysphagia, unspecified; K21.9 Gastro-esophageal reflux disease without esophagitis; R47.1 Dysarthria and anarthria; E78.5 Hyperlipidemia, unspecified; R53.81 Other malaise; I08.0 Rheumatic disorders of both mitral and aortic valves; E66.9 Obesity, unspecified; I10 Essential (primary) hypertension; D72.810 Lymphocytopenia; E11.9 Type 2 diabetes mellitus without complications; F32.9 Major depressive disorder, single episode, unspecified; D69.6 Thrombocytopenia, unspecified; I48.0 Paroxysmal atrial fibrillation; T38.0X5A Adverse effect of glucocorticoids and synthetic analogues, initial encounter; K74.60 Unspecified cirrhosis of liver; Z82.49 Family history of ischemic heart disease and other diseases of the circulatory system; Z86.73 Personal history of transient ischemic attack (TIA), and cerebral infarction without residual deficits; Z79.899 Other long term (current) drug therapy; Z79.4 Long term (current) use of insulin; Z79.01 Long term (current) use of anticoagulants; Z98.890 Other specified postprocedural states; Z68.32 Body mass index [BMI] 32.0-32.9, adult; Z74.01 Bed confinement status
CPT/HCPCS: 36410; 36415; 36600; 43246; 70450; 70551; 71045; 71250; 71275; 74150; 74230; 76937; 80048; 80053; 80061; 81001; 82140; 82550; 82553; 82565; 82607; 82728; 82746; 82805; 83036; 83605; 83615; 83625; 83735; 84132; 84145; 85025; 85027; 85379; 85384; 85610; 85730; 86140; 86850; 86900; 86901; 87040; 87070; 87077; 87186; 87205; 87324; 87635; 93005; 93306; 93880; 94640; 94660; 94760; 99285